=== PATIENT | female | born 1945 | race Caucasian/White ===

== ENCOUNTER → 2017-05-26 | Outpatient (CLI) | payer MEDICARE, BC ==
--- NOTE | 2017-05-28 09:29 | MM ---
Reason for exam: screening (asymptomatic). Last mammogram was performed 1 year ago. History: Patient is postmenopausal. Took estrogen for 21 years. Physical Findings: A clinical breast exam by your physician is recommended on an annual basis and results should be correlated with mammographic findings. MG 3D Screening Mammo W/Cad Bilateral CC and MLO view(s) were taken. Prior study comparison: May 21, 2016, bilateral MG screening mammo w CAD. There are scattered fibroglandular densities. No significant changes when compared with prior studies. ASSESSMENT: Benign, BI-RAD 2 RECOMMENDATION: Routine screening mammogram of both breasts in 1 year.
== END | disposition home or self-care (01) ==
LOC: RADMAMWWP 11:12
PROVIDERS: ATTEND Internal Medicine Geriatric Medicine
DX: Z12.31 Encounter for screening mammogram for malignant neoplasm of breast (principal)
CPT/HCPCS: 77063; G0202

== ENCOUNTER → 2017-09-25 | Outpatient (CLI) | payer MEDICARE, BC ==
--- NOTE | 2017-09-25 11:54 | PN ---
PROGRESS NOTE DATE OF SERVICE: 09/25/2017 A 71-year-old lady who has been followed in Sleep Center for treatment of obstructive sleep apnea-hypopnea syndrome. Patient continued to use her CPAP equipment recently. She received new full face mask and she likes this mask a lot. There is a possibility that machine does not estimate the amount of usage correctly. According to patient, sometimes she is using it at night and then machine showed zeros on the window screen of the usage of the machine. CPAP pressure is 9 cm of water, which has been prescribed on the machine. Leak is only 7 L/minute which is normal range. [place] Sleepiness Scale today is 2. MEDICATIONS: Catapres, Cozaar, Cardizem, Requip, Neurontin, atenolol, hydrochlorothiazide, baby aspirin, amiodarone, Celexa. PHYSICAL EXAM: Patient in no distress. BP 160/75. Patient did not take her medication today yet, HR 64, RR 16, height 5, 4-1/2, weight 135, BMI 22.8, temp 97.7, oxygen saturation at room air 96%. OROPHARYNX: Moderately low position of soft palate. Neck Supple, no JVD. Thyroid is not palpable. LUNGS Clear to percussion and to auscultation. Good air exchange. No wheezing or rhonchi. HEART S1, S2 regular. No murmurs, gallops, or rubs. ABDOMEN Soft and nontender. Bowel sounds are present. No organomegaly appreciated. EXTREMITIES No clubbing or cyanosis. GREEN CHAIN OFF BEARER Awake, alert, and oriented X3. Cranial nerves 2 to 7 intact. There is no fasciculation or atrophy. noted. No focal deficits observed. IMPRESSION: 1. Obstructive sleep apnea-hypopnea syndrome. Patient benefitting from treatment. 2. Hypertension. 3. History of anxiety. 4. Restless leg syndrome. PLAN: 1. Continue to use CPAP equipment every night for the whole night. 2. Sleep hygiene with regular time in bed for 7.5 hours. 3. No driving if feeling sleepiness. 4. To check CPAP unit to be sure that all functions of the unit are working properly. Thank you very much for allowing me to participate in the management of your patient. Sincerely, Mehran Walsh MD, PhD, FAASM Diplomat of [employer] Steam Press Operator [facility] [place] SWAPNA / SKYLAR: [id number] /
== END | disposition home or self-care (01) ==
LOC: SLEEP 10:38
PROVIDERS: ATTEND Internal Medicine
DX: G47.33 Obstructive sleep apnea (adult) (pediatric) (principal); G25.81 Restless legs syndrome; F41.9 Anxiety disorder, unspecified; I10 Essential (primary) hypertension; Z99.89 Dependence on other enabling machines and devices; Z79.82 Long term (current) use of aspirin; Z79.899 Other long term (current) drug therapy

== ENCOUNTER → 2018-03-26 | Outpatient (CLI) | payer MEDICARE, BC ==
--- NOTE | 2018-03-26 18:59 | SFUN ---
SLEEP CENTER FOLLOW UP NOTE DATE OF SERVICE: 03/26/2018 This 72-year-old lady has been followed in the Sleep Center for treatment of obstructive sleep apnea-hypopnea syndrome. Comparing with the previous visit, patient improved. She is able to use her machine. She feels better when she is using machine, but she still feel tired in the morning. I checked her CPAP unit. CPAP pressure is 9 cm of water. Usage is 18/30 nights for more than 4 hours. Average usage is 6.3 hours. Leak is 24 L/minute which is acceptable. Apnea-hypopnea index is 4.9, which is considered to be normal range but on the border. MEDICATIONS: Catapres, Cozaar, Cardizem, Requip, Neurontin, atenolol, hydrochlorothiazide, baby aspirin, amiodarone, Celexa. PHYSICAL EXAM: GENERAL Patient in no distress. VITAL SIGNS BP 115/63, HR 76, RR 16, height 5 feet 4 inches, weight 137, BMI 23.5, temperature 98.6, oxygen saturation room air 97%. HEENT PERRLA, EOMI, evaluation of oropharynx showed moderately low position of soft palate. NECK Supple, no JVD. Thyroid is not palpable. LUNGS Clear to percussion and to auscultation. Good air exchange. No wheezing or rhonchi. HEART S1, S2 regular. No murmurs, gallops, or rubs. ABDOMEN Soft and nontender. Bowel sounds are present. No organomegaly appreciated. EXTREMITIES No clubbing or cyanosis. CLOUD SERVICES ARCHITECT Awake, alert, and oriented X3. Cranial nerves 2 to 7 intact. There is no fasciculation or atrophy. noted. No focal deficits observed. IMPRESSION: 1. Obstructive sleep apnea-hypopnea syndrome. The patient improved usage of her CPAP benefitting from treatment. 2. Hypertension. 3. History of anxiety. 4. History of restless legs syndrome. PLAN: 1. Patient will continue to use his CPAP equipment every night for the whole night. 2. I changed the pressure in the machine to 10 cm of water to sleep hygiene. 3. Sleep hygiene with regular time in bed for 7 to 8 hours. 4. No driving if feeling sleepiness. 5. Clinically no problems with the legs at night. Thank you very much for allowing me to participate in management of your patient. Sincerely, Mehran Walsh MD, PhD, FAASM Diplomat of [employer] [employer] [employer] [facility] [place] [email or web address] / PAOLAN: [id number] /
== END | disposition home or self-care (01) ==
LOC: SLEEP 14:54
PROVIDERS: ATTEND Internal Medicine
DX: G47.33 Obstructive sleep apnea (adult) (pediatric) (principal); I10 Essential (primary) hypertension; F41.9 Anxiety disorder, unspecified; Z79.899 Other long term (current) drug therapy; Z79.82 Long term (current) use of aspirin; Z99.89 Dependence on other enabling machines and devices

== ENCOUNTER → 2018-09-16 | Outpatient (CLI) | payer MEDICARE, BC ==
--- NOTE | 2018-09-16 16:13 | PN ---
PROGRESS NOTE DATE OF SERVICE: 09/16/2018 This patient is a 72-year-old lady who has been followed in Sleep Center for treatment of obstructive sleep apnea-hypopnea syndrome. The patient continues to use her CPAP equipment every night, and after pressure was increased to 10 cm of water she feels better. [place] Sleepiness Scale today is 2. I checked her CPAP unit. CPAP pressure is 10 cm of water with EPR of 3. Humidifier level is at 4. Average usage for the last 6 months was 7.1 hours. Apnea-hypopnea index 5.7. Average leak for the last 6 months was 20 L/minute, which is borderline. MEDICATIONS: 1. Catapres. 2. Cozaar. 3. Cardizem. 4. Requip. 5. Neurontin. 6. Atenolol. 7. Hydrochlorothiazide. 8. Baby aspirin. 9. Amiodarone. 10.Celexa. PHYSICAL EXAMINATION: GENERAL: A pleasant patient in no distress. VITAL SIGNS: BP 114/64, HR 67, RR 16, height 5 feet 4 inches, weight 137.2, body mass index 23.5, temperature 98.0, oxygen saturation at room air 96%. HEENT: PERRLA, EOMI. Evaluation of oropharynx showed tongue protrudes midline. Moderately low position of soft palate. NECK: Supple. No JVD. Thyroid is not palpable. LUNGS: Clear to percussion and to auscultation. Good air exchange. No wheezing or rhonchi. HEART: S1, S2 regular. No murmurs, gallops or rubs. ABDOMEN: Soft and nontender. Bowel sounds are present. No organomegaly. EXTREMITIES: No clubbing or cyanosis. VISCOSITY WORKER: Awake, alert, and oriented X3. Cranial nerves 2 to 7 intact. There is no fasciculation or atrophy. noted. No focal deficits observed. IMPRESSION: 1. Obstructive sleep apnea-hypopnea syndrome. Patient is benefitting from CPAP treatment. 2. Hypertension. 3. History of anxiety. 4. History of restless leg syndrome. PLAN: 1. Patient will continue to use CPAP equipment every night. 2. Sleep hygiene with regular time in bed for at least 8 hours. 3. No driving if feeling any sleepiness. 4. Prescription for all necessary CPAP supplies, including mask, tube, filters. Thank you very much for allowing me to participate in the management of your patient. Sincerely, Mehran Walsh MD, PhD, FAASM Diplomat of [employer] Featheredger And Reducer Machine [facility] [place] MMSARAH / SKYLAR: [id number] /
== END | disposition home or self-care (01) ==
LOC: SLEEP 14:54
PROVIDERS: ATTEND Internal Medicine
DX: G47.33 Obstructive sleep apnea (adult) (pediatric) (principal); I10 Essential (primary) hypertension; F41.9 Anxiety disorder, unspecified; G25.81 Restless legs syndrome; Z99.89 Dependence on other enabling machines and devices; Z79.82 Long term (current) use of aspirin; Z79.899 Other long term (current) drug therapy

== ENCOUNTER → 2019-01-01 | Outpatient (CLI) | payer MEDICARE, BC ==
--- NOTE | 2019-01-04 09:41 | MM ---
Reason for exam: screening (asymptomatic). Last mammogram was performed 1 year and 7 months ago. History: Patient is postmenopausal. Took estrogen for 21 years. Physical Findings: A clinical breast exam by your physician is recommended on an annual basis and results should be correlated with mammographic findings. MG 3D Screening Mammo W/Cad Bilateral CC and MLO view(s) were taken. Prior study comparison: May 26, 2017, bilateral MG 3d screening mammo w/cad. May 21, 2016, bilateral MG screening mammo w CAD. The breast tissue is heterogeneously dense. This may lower the sensitivity of mammography. Stable benign calcifications. There is no discrete abnormality. No significant changes when compared with prior studies. ASSESSMENT: Benign, BI-RAD 2 RECOMMENDATION: Routine screening mammogram of both breasts in 1 year.
--- NOTE | 2019-01-04 13:17 | BD ---
EXAMINATION TYPE: Axial Bone Density DATE OF EXAM: 01/01/2019 COMPARISON: NONE CLINICAL HISTORY: Height: 65 Weight: 138.8 FRAX RISK QUESTIONS: Alcohol (3 or more units per day): no Family History (Parent hip fracture): no Glucocorticoids (More than 3mos): no (Ex: prednisone, prednisolone, methylprednisolone, dexamethasone, and hydrocortisone). History of Fracture in Adulthood: yes Secondary Osteoporosis: 1. Type 1 Diabetes: no 2. Hyperthyroidism: no 3. Menopause before 45: yes 4. Malnutrition: no 5. Chronic liver disease: no Rheumatoid Arthritis: no Current Tobacco Use: no RISK FACTORS HISTORY OF: Surgery to Spine/Hip(right/left)/Wrist (right/left): left hip replaced When: 6 years ago Family History of Osteoporosis: no Active: yes Diet low in dairy products/other sources of calcium: yes Postmenopausal woman: hysterectomy age 31 Lost more than 2 inches in height since high school: no MEDICATIONS: requip, losartan, atenolol, celexia, remron, gabapentin Additional History: EXAM MEASUREMENTS: Bone mineral densitometry was performed using the Razer System. Bone mineral density as measured about the Lumbar spine is: ----- L1-L4(G/cm2): 1.595 T Score Values are as follows: ----- L2: 3.6 ----- L3: 4.4 ----- L4: 4.4 ----- L1-L4: 3.5 Bone mineral density has: increased 12.6 % since study of: 11.28.2014 Bone mineral density about the R hip (g/cm2): 0.810 T Score values are as follows: -----R Neck: -1.6 -----R Total: -1.5 Bone mineral density has: decreased -4.0 % since study of: 11.28.2014 IMPRESSION: Osteopenia bilateral femora NOTE: T-SCORE=SD OF THE YOUNG ADULT MEAN.
== END | disposition home or self-care (01) ==
LOC: RADMAMWWP 15:15
PROVIDERS: ATTEND Internal Medicine Geriatric Medicine
DX: Z12.31 Encounter for screening mammogram for malignant neoplasm of breast (principal); M85.851 Other specified disorders of bone density and structure, right thigh; M85.852 Other specified disorders of bone density and structure, left thigh
CPT/HCPCS: 77063; 77067; 77080

== ENCOUNTER → 2019-09-13 | Outpatient (CLI) | payer MEDICARE, BC ==
--- NOTE | 2019-09-13 10:38 | FL ---
EXAMINATION TYPE: FL barium swallow DATE OF EXAM: 09/13/2019 CLINICAL HISTORY: Upper esophageal dysphagia TECHNIQUE: A double contrast esophagram is performed utilizing air and barium. A total of 1 minute and 44 seconds of fluoroscopic time was utilized during procedure.. 56 fluoroscopic images were saved . COMPARISON: None FINDINGS: Cervical osteophytes are seen impressing upon the posterior cervical esophagus. The esophag us shows normal abnormal throughout indicative of presbyesophagus. There is normal emptying into the stomach. No evidence of hiatal hernia or stricture noted. Mild intraesophageal reflux is seen with n o significant gastroesophageal reflux was seen during real time performance of this study. IMPRESSION: 1. Anterior osteophytes of the cervical spine impress upon the posterior cervical esophagus. 2. Mild degree intraesophageal reflux without gastroesophageal reflux. 3. Tertiary contractions throughout the examination indicative of presbyesophagus.
== END | disposition home or self-care (01) ==
LOC: RADUSWWP 09:07
PROVIDERS: ATTEND Otolaryngology
DX: K21.9 Gastro-esophageal reflux disease without esophagitis (principal); K22.8 Other specified diseases of esophagus
CPT/HCPCS: 74220

== ENCOUNTER → 2019-09-23 | Outpatient (CLI) | payer MEDICARE, BC ==
--- NOTE | 2019-09-23 12:51 | SFUN ---
SLEEP CENTER FOLLOW UP NOTE DATE OF SERVICE: 09/23/2019 A 73-year-old lady who has been followed in the Sleep Center for treatment of obstructive sleep apnea-hypopnea syndrome. The patient continued to use CPAP equipment and she now sleeps better with the machine, then when she started to use it, but she has problem related SD card, there is a message in the machine that the SD card has to be removed before she will use it and that is here we removed the card. She also has some leak related to show full-face mask sometimes and this might disturb her during the night. I checked his CPAP unit. Average usage is 6.4 hours per night. Pressure is 10 cm of water. Leak is 19 L/minute, which is not bad for the full-face mask. Apnea- hypopnea index reading for the last month 6.7 and that is included. Total apnea index 5.4, central apnea index 0.8. [place] Sleepiness Scale today is 1. MEDICATIONS: Catapres, Cozaar, Cardizem, Requip, Neurontin, atenolol, hydrochlorothiazide, baby aspirin, amiodarone, Celexa. PHYSICAL EXAM: Patient in no distress, BP 120/47, HR 63, RR 16, height 5, 5, weight 141.4, body mass index 23.4, temperature 98.5, oxygen saturation at room air 93%. OROPHARYNX: Mallampati 3. NECK: Supple, no JVD. Thyroid is not palpable. LUNGS: Clear to percussion and to auscultation. Good air exchange. No wheezing or rhonchi. HEART: S1, S2 regular. No murmurs, gallops, or rubs. ABDOMEN: Soft and nontender. Bowel sounds are present. No organomegaly appreciated. EXTREMITIES: No clubbing or cyanosis. STATOR PLATE WASHER: Awake, alert, and oriented X3. Cranial nerves 2 to 7 intact. There is no fasciculation or atrophy. noted. No focal deficits observed. IMPRESSION: 1. Obstructive sleep apnea-hypopnea syndrome, patient benefitting from CPAP treatment. 2. Hypertension. 3. History of anxiety. 4. History of restless legs syndrome. Patient is on treatment with Requip. PLAN: 1. I will change regimen in the machine with automatic in the range of the pressure of 5-12. 2. Patient will continue to use CPAP equipment every night for the whole night. 3. I will consider to try Dream Wear mask under the nose or Simplex full-face mask. 4. No driving if feeling sleepiness. 5. Prescription to replace SD card in the machine and the prescription for all necessary CPAP supplies, including mask, tube, filters. 6. Follow-up visit in 6 months or earlier if patient has any problems. Thank you very much for allowing me to participate in the management of your patient. Sincerely, Mehran Walsh MD, PhD, FAASM Diplomat of [place] [employer] [employer] Refrigerated Cargo Clerk [facility] [place] MMODL / IJN: [id number] /
== END | disposition home or self-care (01) ==
LOC: SLEEP 11:11
PROVIDERS: ATTEND Internal Medicine
DX: G47.33 Obstructive sleep apnea (adult) (pediatric) (principal); I10 Essential (primary) hypertension; Z86.59 Personal history of other mental and behavioral disorders; Z87.39 Personal history of other diseases of the musculoskeletal system and connective tissue; Z79.82 Long term (current) use of aspirin; Z79.899 Other long term (current) drug therapy

== ENCOUNTER 2020-02-28 09:14 | Day surgery (SDC) | payer MEDICARE, BC ==
[2020-02-25 08:35] VITALS: BMI 22.4
--- NOTE | 2020-02-28 02:01 | HP ---
HISTORY AND PHYSICAL CHIEF COMPLAINT: Lesion in the hypopharynx with pain. HISTORY OF PRESENT ILLNESS: This patient is a 74-year-old female who recently presented to my office complaining of having a pain in the left side of her throat, which has been there since October of this year. The patient has had x-rays which did not find any evidence of any significant lesions originally. However, since October, she has developed an enlarged lymph node on the left side of her neck. She does not have any history of smoking and has not ever used any tobacco products. She does have history of GERD, gastroesophageal reflux disorder. At the time that she was seen in my office, clinical examination of the oropharynx including indirect laryngoscopy revealed some suspicious swelling in the region of the left base of tongue as well as a 1.5 well-circumscribed mobile nontender lymph node located in the left anterior cervical chain. It was recommended the patient undergo a suspension microlaryngoscopy with possible biopsy of the left base of tongue or any other lesion that may be found in the hypopharynx. PAST MEDICAL HISTORY: Past medical history reveals that she has no known allergies to medications. Current medications include Celexa, atenolol, Ativan, Requip, Neurontin, Cozaar, Remeron and one baby aspirin daily. REVIEW OF SYSTEMS: Review of systems reveals the cardiovascular systems is positive for hypertension. Respiratory is negative. Gastrointestinal is positive for GERD. Metabolic/endocrine system is negative. Musculoskeletal system is positive osteoarthritis and restless legs syndrome. The remainder of the review of systems is unremarkable. PREVIOUS SURGERIES: Previous surgeries include tonsillectomy, adenoidectomy, total abdominal hysterectomy, multiple D and Cs, surgery on her cervical spine, total left hip replacement, and removal of basal cell carcinoma of the back and an EGD. PHYSICAL EXAMINATION: This patient is a very pleasant 74-year-old female who is alert and cooperative. HEENT EXAMINATION: Patient is normocephalic. Tympanic membranes are normal. Middle ear spaces are free of any fluid or infection. Pupils equal, round, react to light and accommodation. Extraocular movements within normal limits. Intranasal examination reveals moderate septal deviation with compensatory hypertrophy of inferior turbinates. Moderate amount of mucus on the mucous membrane draining down posterior pharynx. Examination of oropharynx including indirect laryngoscopy using the headlight mirror revealed evidence of a suspicious area located in the region of the left base of tongue/left piriform sinus. Palpation of the neck reveals that there is a 1 to 1.5 cm well-circumscribed mobile nontender lymph node in the left anterior cervical chain. Cranial nerves 2 through 12 and the remainder of the head and neck exam is unremarkable. CHEST/CARDIOVASCULAR: Both lung mendes are clear to percussion and auscultation. The patient is in regular sinus rhythm. S1 and S2 are present without evidence of any murmurs, S3s or S4s. Peripheral pulses are bilaterally symmetrical. ABDOMEN: There is no evidence any masses, megaly or tenderness. The abdomen is soft. Skin is unremarkable. Musculoskeletal and neurological are within normal limits. PELVIC RECTAL EXAM: The pelvic rectal exam is deferred at this time because the patient has this done on a regular basis at her family physician's office. The remainder of the physical exam is essentially unremarkable. IMPRESSION: Lesion of the hypopharynx. PLAN: The patient is scheduled to undergo a suspension microlaryngoscopy, possible biopsy of any lesions found in the hypopharynx under general anesthesia in a.m. ATTENTION RNS IN THE PRE-SURGICAL AREA: I have not ordered any pre-surgical prophylactic antibiotics for this patient. If the pharmacy department sends any pre- surgical prophylactic antibiotics to the pre-surgical area for this patient, please cancel that order. Return the medication to the pharmacy department and make sure that the patient's account is credited appropriately. I have ordered for this patient 1000 mg of Ofirmev IV to be given once an intravenous line has been established. I have discussed the risks, benefits and alternative therapies for the above-mentioned procedure and for both sedation/analgesia as well as necessary blood product administration, if indicated, as they pertain to this patient. The patient has indicated his or her understanding and acceptance of the risks and procedures discussed. MMODL / IJN: [id number] /
[~2020-02-28 09:14] MED LIST: HYDROmorphone 0.5 MG/0.5 ML SYRINGE IVP PRN; LACTATED RINGERS 1,000 ML IV SCH; MIDAZOLAM 2 MG/2 ML VIAL IV PRN; ONDANSETRON 4 MG/2 ML VIAL IVP ONE; Pre Op ABX Message 1 EACH MISC MISCELLANE ONE
[2020-02-28] MEDS ORDERED: LIDOCAINE 1% (10MG/ML) FOR IV START INTRADERMA ONE (09:57)
[2020-02-28] MEDS ORDERED: ONDANSETRON 4 MG/2 ML VIAL ONE (10:04)
[2020-02-28] MEDS ORDERED: ACETAMINOPHEN IV (For NPO) 1,000 MG in EMPTY BAG 1 BAG IVPB ONE (10:40)
[2020-02-28] MEDS ORDERED: DEXAMETHASONE SOD PHOSPHATE 10 MG/ML 1 ML VIAL ONE (10:52)
[2020-02-28] MEDS ORDERED: LIDOCAINE 1% INJ 10MG/ML (20 ML MDV) ONE (10:52)
[2020-02-28] MEDS ORDERED: ROCURONIUM BROMIDE 10 MG/ML 5 ML VIAL IV ONE (10:52)
[2020-02-28] MEDS ORDERED: GLYCOPYRROLATE 0.2 MG/ML 2 ML VIAL ONE (10:52)
[2020-02-28] MEDS ORDERED: fentaNYL (PF) 50 MCG/ML 2 ML AMP ONE (10:52)
[2020-02-28] MEDS ORDERED: SUCCINYLCHOLINE CHLORIDE 100 MG/5 ML SYR IV ONE (10:52)
[2020-02-28] MEDS ORDERED: MIDAZOLAM 2 MG/2 ML VIAL ONE (10:52)
[2020-02-28] MEDS ORDERED: PROPOFOL 10 MG/ML 20 ML VIAL IV ONE (10:52)
[2020-02-28] MEDS ORDERED: NEOSTIGMINE 1 MG/ML 10 ML VIAL ONE (10:52)
[2020-02-28] MEDS ORDERED: PHENYLEPHRINE-0.9% NACL SYG 1 MG/10 ML SYRINGE ONE (10:52)
[2020-02-28 12:10] VITALS: TEMP 97.2
[2020-02-28 13:16] VITALS: RESP 16
[2020-02-28 13:34] VITALS: BP 153/68; PULSE 50
--- NOTE | 2020-02-28 23:15 | OP ---
OPERATIVE REPORT PREOPERATIVE DIAGNOSIS: Lesion of the left hypopharynx/left piriform sinus. POSTOPERATIVE DIAGNOSIS: Lesion of the left hypopharynx/left piriform sinus. Final pathology is pending. ANESTHESIA: General. OPERATIVE PROCEDURE: Suspension microlaryngoscopy with multiple blind biopsies of the left piriform sinus and left base of tongue. SURGEON: Dr. Adamson. COMPLICATIONS: None. ESTIMATED BLOOD LOSS: Zero. PROCEDURE DESCRIPTION: The patient was placed on the operating table in supine position, and after uneventful induction and endotracheal intubation, satisfactory general anesthesia was obtained. Next, the patient was draped in the usual and customary fashion. Following this, the laryngoscope was introduced into the oropharynx and the entire hypopharynx, including the right and left piriform sinuses, valleculae and epiglottis, were all inspected and found to be free of any suspicious lesions. Both true vocal cords appeared to be unremarkable also. Attention was then directed towards placing the laryngoscope as far into the left piriform sinus as possible so as to expose it. In doing so, it was noted that there appeared to be an area of irregular tissue present at the superior aspect of the left piriform sinus and also the left base of tongue. Therefore, using a pair of large up- biting microlaryngeal forceps, blind biopsies were taken of the left base of tongue and of this irregular area of tissue on the left piriform sinus. The area appeared to be more on the lateral wall of the left piriform sinus superiorly. The patient was given 10 mg of Decadron intraoperatively to reduce any postoperative laryngeal edema. Next the Lewy apparatus was attached to the handle of the laryngoscope and the laryngoscope was suspended on the patient's chest. Next, using the Zeiss operating microscope, further inspection of the left piriform sinus was performed. In addition to this, several additional biopsies were also taken of the left piriform sinus. This tissue appeared to be suspicious for possible malignancy. At this point, the procedure was terminated. There were no intraoperative complications. The patient tolerated the procedure well and was returned to the recovery room in satisfactory condition. The biopsy specimens were placed in formalin for permanent sectioning in the pathology department. MMODL / IJN: [id number] /
== END 2020-02-28 13:53 | disposition home or self-care (01) ==
LOC: OR 09:14
PROVIDERS: ATTEND Otolaryngology
DX: C12 Malignant neoplasm of pyriform sinus (principal); C01 Malignant neoplasm of base of tongue; J39.2 Other diseases of pharynx; K21.9 Gastro-esophageal reflux disease without esophagitis; I10 Essential (primary) hypertension; M19.90 Unspecified osteoarthritis, unspecified site; G25.81 Restless legs syndrome; G47.33 Obstructive sleep apnea (adult) (pediatric); Z99.89 Dependence on other enabling machines and devices; F32.9 Major depressive disorder, single episode, unspecified; Z90.710 Acquired absence of both cervix and uterus; Z96.642 Presence of left artificial hip joint; Z98.890 Other specified postprocedural states; Z79.82 Long term (current) use of aspirin; Z79.899 Other long term (current) drug therapy
CPT/HCPCS: 31536; 88305; 88342; 88307; 88341; J2250; J1100; J2710; J2405; J2001; J3010; J0131; J2370; J0330; J2704; J1170

== ENCOUNTER → 2020-03-08 | Outpatient (CLI) | payer MEDICARE, BC ==
--- NOTE | 2020-03-08 15:43 | CT ---
EXAMINATION TYPE: CT soft tissue neck w con DATE OF EXAM: 03/08/2020 COMPARISON: None HISTORY: Left neck mass marked by BB. CT DLP: 350.2 mGycm CONTRAST: Patient injected with 100 mL of Isovue M300. TECHNIQUE: Axial images at 3 mm thick sections. Reconstructed images in the coronal plane and sagitt al plane are reviewed. FINDINGS: Limited CT sections are obtained the lung apices. The lung apices appear clear. CT neck: The torus tubarius and fossa of Rosenmuller are normal. Certified Professional Controller spaces are normal. Para nasal sinuses and mastoid air cells are clear. Parotid glands appear normal and symmetrical. Submandibular glands, are normal. Parapharyngeal spac es are normal. A 1.0 cm jugulodigastric lymph node is present on the left. Some heterogenous lymphad enopathy measuring 1.3 and 1.0 cm is at and below the angle of the jaw on the left. These lymph nodes are considered suspicious. Metastatic disease should be considered. BB brand the lateral left neck at the level of the mass. This appears to be near the inferior aspect of the left parotid gland is slightly away from the abnormal lymphadenopathy. There is a masslike area within the left hypopharynx. This appears to measure 1.9 x 2.7 cm, series 3 image 49. Direct visualization is recommended. Neoplasm is not excluded. Vocal cord level is not well visualized. Subglottic airway appears normal There is some hypodensity within the right lobe thyroid. Thyroid otherwise appears unremarkable. Degenerative changes are within the upper to mid cervical spine. Some endplate spurring is present C4 -5 C5-6. Large anterior vertebral body spurring is present C3-4 C4-5. IMPRESSIONS: 1. Abnormal mass left piriform sinus and inferior left hypopharynx suspicious for neoplasm. Direct vi sualization and workup is recommended. 2. Enlarged abnormal adenopathy within the left jugulodigastric region and inferior to the left parot id gland. 3. The level marked by the BB is a mass is posterior and slightly superior to the abnormal lymphadeno murphy. This is near the inferior aspect of the parotid gland. A discrete abnormality at the BB is not evident.
== END | disposition home or self-care (01) ==
LOC: RADCTMAIN 12:59
PROVIDERS: ATTEND Otolaryngology
DX: R22.1 Localized swelling, mass and lump, neck (principal)
CPT/HCPCS: 82565; 84520; 70491; 36415; Q9967

== ENCOUNTER → 2020-03-13 | Day surgery (SDC) | payer MEDICARE, BC ==
[2020-03-10 12:25] VITALS: BMI 22.6
--- NOTE | 2020-03-12 16:59 | HP ---
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 HISTORY OF PRESENT ILLNESS: This patient is a very pleasant 74-year-old female who recently underwent a suspension microlaryngoscopy with biopsy of the left piriform sinus and left base of tongue for a hypopharyngeal mass. The biopsy results revealed that they were positive for squamous cell carcinoma. As part of the patient's workup, the patient has undergone an esophagoscopy by Dr. Chan and it is now recommended that she undergo a rigid bronchoscopy as part of the triple endoscopy recommendation for the for head and neck cancers. The purpose of this procedure is to make sure that she does not have a secondary synchronous primary elsewhere in the aerodigestive tract. PAST MEDICAL HISTORY: She has no known allergies. MEDICATIONS: Current medications include atenolol, Ativan, Celexa, Requip, Cozaar, Remeron, Neurontin and 1 baby aspirin daily. PREVIOUS SURGERIES: Previous surgeries include a suspension microlaryngoscopy with biopsy of the hypopharynx, adenoidectomy, tonsillectomy, multiple D and Cs, total abdominal hysterectomy, surgical surgery on cervical spine, total left hip replacement, EGD, and removal of basal cell carcinoma on the back. The patient is para 0, 0, miscarriage 0. PHYSICAL EXAMINATION: The patient is a very pleasant 74-year-old female who is alert, cooperative and well- oriented to time and place. HEENT examination: Patient is normocephalic. Tympanic membranes are normal. Middle ear spaces are free of fluid and infection. Pupils equal, round, and react to light and accommodation. Extraocular movements within normal limits. Intranasal examination reveals moderate septal deviation with compensatory hypertrophy of inferior turbinates. Examination of oropharynx is unremarkable. Hypopharyngeal findings are documented in the history and physical dated 02/24/2020 and will not be repeated here. Palpation of the neck reveals that there is a suspicious 1 cm well-circumscribed, nontender, mobile, enlarged lymph node on the left anterior cervical chain. The remainder of the head and neck exam including cranial nerves 2 through 12 are within normal limits. Chest/cardiovascular: Both lung mendes are clear to percussion and auscultation. Patient in regular sinus rhythm, S1, S2 present. No murmurs, S3, or S4s. Peripheral pulses are bilaterally symmetrical within normal limits. Abdomen: There is no evidence of any masses, megaly or tenderness. Abdomen soft. Skin is unremarkable. Musculoskeletal, neurological within normal limits. Pelvic/rectal exam is deferred at this time because the patient has this done on a regular basis at her family physician's office. The remainder of the physical exam is unremarkable. 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 PLAN: The patient is scheduled to undergo a rigid bronchoscopy under general anesthesia in the a.m. Attention RNs in the pre-surgical area: I have not ordered any pre-surgical prophylactic antibiotics for this patient. If the pharmacy department sends any pre- surgical prophylactic antibiotics to the pre-surgical area for this patient, that order should be cancelled, the medication should be returned to the pharmacy department, and please make sure that the patient's account is credited appropriately. I have discussed the risks, benefits and alternative therapies for the above-mentioned procedure and for both sedation/analgesia as well as necessary blood product administration, if indicated, as they pertain to this patient. The patient has indicated his or her understanding and acceptance of the risks and procedures discussed. MMODL / IJN: [id number] /
[~2020-03-13] MED LIST changes: +DEXAMETHASONE SOD PHOSPHATE 10 MG/ML 1 ML VIAL IV ONE; +LACTATED RINGERS 1,000 ML IV ONE; +LIDOCAINE 1% (10MG/ML) FOR IV START INTRADERMA PRN; +LIDOCAINE 1% INJ 10MG/ML (20 ML MDV) ONE; +MIDAZOLAM 2 MG/2 ML VIAL ONE; -ONDANSETRON 4 MG/2 ML VIAL IVP ONE; +PROPOFOL 10 MG/ML 20 ML VIAL IV ONE; +SUCCINYLCHOLINE CHLORIDE 100 MG/5 ML SYR IV ONE; +fentaNYL (PF) 50 MCG/ML 2 ML AMP ONE
[2020-03-13 10:30] VITALS: TEMP 97.3
[2020-03-13 13:34] VITALS: RESP 20
[2020-03-13 13:45] VITALS: BP 159/71; PULSE 59
--- NOTE | 2020-03-13 19:01 | OP ---
OPERATIVE REPORT DATE OF SURGERY: 03/13/2020 POSTOPERATIVE DIAGNOSIS: Squamous cell carcinoma involving the left piriform sinus and left base of tongue. POSTOPERATIVE DIAGNOSIS: Squamous cell carcinoma involving the left piriform sinus and left base of tongue. ANESTHESIA: General. OPERATIVE PROCEDURE: Rigid bronchoscopy and direct laryngoscopy. SURGEON: Dr. Bolivar Adamson. COMPLICATIONS: None. PROCEDURE DESCRIPTION: The patient was placed on the operating table in supine position, and after uneventful induction and endotracheal intubation, satisfactory general anesthesia was obtained. It was known that this patient has positive squamous cell carcinoma involving the left piriform sinus with possible spillage into the hypopharynx or left base of tongue. Therefore, after inserting a mouth guard, the sliding direct laryngoscope was introduced into the oropharynx and once again the entire hypopharynx, including the right and left piriform sinuses, base of tongue, valleculae and epiglottis, was inspected. As noted before, there was the mass located in the superior aspect of the left piriform sinus and there appeared to be some spillage either onto the left base of tongue or actual involvement of the left base of tongue slightly. Palpation of the left base of tongue did not reveal unusual firmness, however, using the suction tip. The sliding laryngoscope was then positioned at the laryngeal introitus, and under direct visualization the medium-sized rigid bronchoscope was introduced into the sliding laryngoscope in the usual fashion with the tip of the scope being presented at and subsequently passed through the anterior commissure of the true vocal cord. In conjunction with the anesthesia department, the endotracheal tube was deflated, and as the anesthesia department withdrew the endotracheal tube, the laryngoscope was passed further into the patient's trachea. Eventually the patient was extubated without incident. The scope was then passed into the trachea and subsequently down initially into the left mainstem bronchus and subsequently into the right mainstem bronchus. No suspicious lesions were noted, although there was a significant amount of mucus. The scope was then withdrawn in an atraumatic fashion. There was only minimal bleeding from the patient's hypopharyngeal lesion due to its friability. The patient was given 10 mg of Decadron intraoperatively to reduce any swelling of the laryngeal structures. No biopsies were obtained because no suspicious lesions were noted. At this point, the procedure was terminated. Previously obtained biopsies confirmed the presence of a squamous cell carcinoma involving the left piriform sinus and, as noted before, there appeared to be either some spillage onto the left base of tongue or possible slight involvement of the left base of tongue. Because of the position of this mass, it was difficult to determine this. Actual palpation of the left base of tongue did not reveal any significant firmness. The procedure was terminated. There were no intraoperative complications. Patient tolerated the procedure well and was returned to the recovery room in satisfactory condition. Once again, no biopsies were taken because no suspicious lesions were noted in the bronchial tree. MMODL / IJN: [id number] /
== END | disposition home or self-care (01) ==
LOC: OR 09:58
PROVIDERS: ATTEND Otolaryngology
DX: C12 Malignant neoplasm of pyriform sinus (principal); C01 Malignant neoplasm of base of tongue; I10 Essential (primary) hypertension; G47.33 Obstructive sleep apnea (adult) (pediatric); K57.90 Diverticulosis of intestine, part unspecified, without perforation or abscess without bleeding; R13.10 Dysphagia, unspecified; Z98.890 Other specified postprocedural states; Z79.899 Other long term (current) drug therapy; Z79.82 Long term (current) use of aspirin; Z90.89 Acquired absence of other organs; Z90.710 Acquired absence of both cervix and uterus; Z96.642 Presence of left artificial hip joint; Z85.828 Personal history of other malignant neoplasm of skin
CPT/HCPCS: 31622; 31525; J2250; J1100; J2001; J3010; J0330; J2704

== ENCOUNTER 2020-05-28 20:25 | Inpatient (IN) | payer MEDICARE, BC ==
[2020-05-28] MEDS ORDERED: SODIUM CHLORIDE 0.9% 1,000 ML IV STA (20:56)
[2020-05-28 21:59] LABS: HCT 20.7 % (34.0-46.0); MCHC 32.9 g/dL (31.0-37.0); MCV 94.2 fL (80.0-100.0); RDW 14.4 % (11.5-15.5)
--- NOTE | 2020-05-28 22:03 | ED ---
Fever HPI - General Chief Complaint: Fever Stated Complaint: Fever, Fall Time Seen by Provider: 05/28/20 20:25 Source: patient Mode of arrival: wheelchair Limitations: no limitations - History of Present Illness Initial Comments: Patient is a 74-year-old female who presents to the emergency room with reported "throat cancer" who presents emergency room with reported fevers. Patient states she's felt generally weak over the past week. She is currently on radiation Friday through Friday and received chemotherapy on Fridays. She follows with Dr. Zheng. Reports that she sustained 3 falls. She go to [facility] yesterday. She had a CT of her head performed as well as a chest x-ray and laboratory studies. I did want to keep her in the hospital however the patient refused as she was concerned that she was going to miss her radiation treatments. She then went home. Today the patient had a reported fever 100.6. She did take her pain medications at home which includes Tylenol. She discuss what was going on with Dr. Zheng's office and they recommended that she go to the emergency room for further evaluation. Patient sustained a another fall today. Denies any injuries. She denies hitting her head. She did note that she had some white plaquing to her posterior pharynx. Is concerned for thrush. Denies headaches or visual changes. No neck pain or stiffness. Denies any chest pain or shortness of breath. No abdominal pain. No changes in her bowel or bladder habits. Has been tolerating her tube feeds without issue. Denies any rashes. No other alleviating, precipitating or modifying factors - Related Data Home Medications Medication Instructions Recorded Confirmed Aspirin [Adult Low Dose Aspirin EC] 81 mg PO DAILY 02/25/20 05/28/20 Citalopram Hydrobromide 40 mg PO HS 02/25/20 05/28/20 [Citalopram HBr] Gabapentin [Neurontin] 300 mg PO QAM 02/25/20 05/28/20 Gabapentin [Neurontin] 600 mg PO HS 02/25/20 05/28/20 Losartan Potassium [Cozaar] 50 mg PO HS 02/25/20 05/28/20 Mirtazapine 45 mg PO HS 02/25/20 05/28/20 atenoloL [Tenormin] 50 mg PO HS 02/25/20 05/28/20 hydroCHLOROthiazide 25 mg PO QAM 02/25/20 05/28/20 rOPINIRole HCL [Requip] 3 mg PO HS 02/25/20 05/28/20 HYDROcodone/APAP [Reydon Elixir 15 ml PO Q8H PRN 05/28/20 05/28/20 7.5-325Mg/15Ml] LORazepam [Ativan] 1 mg PO TID PRN 05/28/20 05/28/20 Magnesium Oxide [Mag-Ox] 400 mg PO DAILY 05/28/20 05/28/20 Omeprazole 40 mg PO DAILY 05/28/20 05/28/20 Ondansetron Odt [Zofran Odt] 8 mg PO Q8HR PRN 05/28/20 05/28/20 Allergies Allergy/AdvReac Type Severity Reaction Status Date / Time No Known Allergies Allergy Verified 05/28/20 23:00 Review of Systems ROS Statement: Those systems with pertinent positive or pertinent negative responses have been documented in the HPI. ROS Other: All systems not noted in ROS Statement are negative. Past Medical History Past Medical History: Cancer, Hypertension, Skin Disorder, Sleep Apnea/CPAP/BIPAP Additional Past Medical History / Comment(s): 2007-bowel obstruction, diverticulitis, eczema, hx skin cancer, pain with swallowing, cancer base of tongue left side, feeding tube, throat cancer. History of Any Multi-Drug Resistant Organisms: MRSA Date of last positivie culture/infection: 2007 MDRO Source:: abdomen Past Surgical History: Back Surgery, Hysterectomy, Joint Replacement, Orthopedic Surgery, Tonsillectomy Additional Past Surgical History / Comment(s): surgery for bowel obstructions/removal of adhesions, xiao oophorectomy, disectomy, left hip re placement, left knee arthroscopy, xiao cataracts Past Anesthesia/Blood Transfusion Reactions: No Reported Reaction Past Psychological History: No Psychological Hx Reported Smoking Status: Never smoker Past Alcohol Use History: Occasional Past Drug Use History: None Reported - Past Family History Mother Family Medical History: No Reported History General Exam Limitations: no limitations General appearance: alert, in no apparent distress Head exam: Present: atraumatic, normocephalic Eye exam: Present: normal appearance, PERRL, EOMI. Absent: scleral icterus, conjunctival injection, periorbital swelling ENT exam: Present: other (radiation burn over left lateral neck. White plaquing left posterior pharynx. Hoarseness. No drooling or stridor ) Neck exam: Present: tenderness. Absent: meningismus, lymphadenopathy Respiratory exam: Present: normal lung sounds bilaterally. Absent: respiratory distress, wheezes, rales, rhonchi, stridor Cardiovascular Exam: Present: regular rate, normal rhythm, normal heart sounds. Absent: systolic murmur, diastolic murmur, rubs, gallop, clicks GI/Abdominal exam: Present: soft, normal bowel sounds. Absent: distended, tenderness, guarding, rebound, rigid Back exam: Present: normal inspection Neurological exam: Present: alert, oriented X3, CN II-XII intact Psychiatric exam: Present: normal affect, normal mood Skin exam: Present: warm, dry, intact, normal color. Absent: rash Course Vital Signs 05/28/20 05/28/20 05/28/20 20:26 21:12 21:30 Temperature 98.8 F Pulse Rate 60 69 71 Pulse Rate [ Left Pulse Oximetery] Respiratory 18 18 16 Rate Blood Pressure 85/41 118/57 111/67 Blood Pressure [Left Arm] O2 Sat by Pulse 100 94 L 92 L Oximetry 05/28/20 05/28/20 05/28/20 21:48 22:00 23:00 Temperature 98.7 F Pulse Rate 64 70 Pulse Rate [ Left Pulse Oximetery] Respiratory 18 18 Rate Blood Pressure 123/54 123/54 Blood Pressure [Left Arm] O2 Sat by Pulse 96 95 Oximetry 05/28/20 05/29/20 05/29/20 23:47 01:32 06:34 Temperature 98.7 F 99.0 F Pulse Rate 65 74 73 Pulse Rate [ Left Pulse Oximetery] Respiratory 18 19 17 Rate Blood Pressure 110/52 133/59 152/66 Blood Pressure [Left Arm] O2 Sat by Pulse 95 96 94 L Oximetry 05/29/20 05/29/20 05/29/20 06:44 07:14 08:00 Temperature 99.5 F 98.8 F 97.8 F Pulse Rate 69 67 Pulse Rate [ 65 Left Pulse Oximetery] Respiratory 16 18 Rate Blood Pressure 144/69 121/53 Blood Pressure 121/53 [Left Arm] O2 Sat by Pulse 100 99 99 Oximetry 05/29/20 05/29/20 09:46 12:00 Temperature 97.8 F Pulse Rate 65 Pulse Rate [ 65 Left Pulse Oximetery] Respiratory Rate Blood Pressure 137/48 Blood Pressure 122/50 [Left Arm] O2 Sat by Pulse 95 100 Oximetry Medical Decision Making - Medical Decision Making Upon arrival patient was placed into room 3. A thorough history of physical exam is performed. Peripheral IV is established. Laboratory studies were conducted. Blood culture was obtained. I did request the records from [facility]. Those are reviewed. Patient's hemoglobin yesterday was 8. Repeat laboratory studies today demonstrated the patient's white count is 1.1. Hemoccult and 6.8. Platelets of 40. Creatinine is 1.23 which is improved from patient's value yesterday. She was given a liter bolus of normal saline followed by 75 mL per hour. After blood cultures were obtained I did initiate the patient on 2 g of cefepime. I also ordered nystatin for the possible thrush. I did recommend blood transfusion for which patient did agree to. She needs irradiated, leukapheresis cells we do not have this blood per rectum hand. Patient is informed that she would most likely receive blood products in the morning. She is hemodynamically stable. I recommended admission for antibiotics and hematology consultation for which the patient agreed to. She remained in stable condition awaiting a bed on the floor - Lab Data Result diagrams: 05/29/20 10:05 05/29/20 10:05 Lab Results 05/28/20 05/28/20 05/28/20 Range/Units 21:19 21:19 21:19 WBC 1.1 L* (3.8-10.6) k/uL RBC 2.20 L (3.80-5.40) m/uL Hgb 6.8 L* (11.4-16.0) gm/dL Hct 20.7 L (34.0-46.0) % MCV 94.2 (80.0-100.0) fL MCH 31.0 (25.0-35.0) pg MCHC 32.9 (31.0-37.0) g/dL RDW 14.4 (11.5-15.5) % Plt Count 40 L (150-450) k/uL Neutrophils % (Manual) 62 % Band Neuts % (Manual) 1 % Lymphocytes % (Manual) 27 % Monocytes % (Manual) 10 % Neutrophils # (Manual) 0.60 L (1.3-7.7) k/uL Lymphocytes # (Manual) 0.30 L (1.0-4.8) k/uL Monocytes # (Manual) 0.11 (0-1.0) k/uL Nucleated RBCs 0 (0-0) /100 WBC Differential Comment Manual Slide Review Performed RBC Morphology Sodium 133 L (137-145) mmol/L Potassium 4.0 (3.5-5.1) mmol/L Chloride 103 (98-107) mmol/L Carbon Dioxide 24 (22-30) mmol/L Anion Gap 6 mmol/L BUN 33 H (7-17) mg/dL Creatinine 1.23 H (0.52-1.04) mg/dL Est GFR (CKD-EPI)AfAm 49 (>60 ml/min/1.73 sqM) Est GFR (CKD-EPI)NonAf 43 (>60 ml/min/1.73 sqM) Glucose 97 (74-99) mg/dL Plasma Lactic Acid Ilan 0.7 (0.7-2.0) mmol/L Calcium 8.0 L (8.4-10.2) mg/dL Total Bilirubin 0.5 (0.2-1.3) mg/dL AST 23 (14-36) U/L ALT 13 (4-34) U/L Alkaline Phosphatase 62 (38-126) U/L Total Protein 5.7 L (6.3-8.2) g/dL Albumin 3.3 L (3.5-5.0) g/dL Lipase 37 (23-300) U/L Urine Color Urine Appearance (Clear) Urine pH (5.0-8.0) Ur Specific [place] (1.001-1.035) Urine Protein (Negative) Urine Glucose (UA) (Negative) Urine Ketones (Negative) Urine Blood (Negative) Urine Nitrite (Negative) Urine Bilirubin (Negative) Urine Urobilinogen (<2.0) mg/dL Ur Leukocyte Esterase (Negative) Blood Type Blood Type Confirm Blood Type Recheck Bld Type Recheck Status Antibody Screen Crossmatch Spec Expiration Date 05/28/20 05/28/20 05/28/20 Range/Units 21:19 22:20 23:13 WBC (3.8-10.6) k/uL RBC (3.80-5.40) m/uL Hgb (11.4-16.0) gm/dL Hct (34.0-46.0) % MCV (80.0-100.0) fL MCH (25.0-35.0) pg MCHC (31.0-37.0) g/dL RDW (11.5-15.5) % Plt Count (150-450) k/uL Neutrophils % (Manual) % Band Neuts % (Manual) % Lymphocytes % (Manual) % Monocytes % (Manual) % Neutrophils # (Manual) (1.3-7.7) k/uL Lymphocytes # (Manual) (1.0-4.8) k/uL Monocytes # (Manual) (0-1.0) k/uL Nucleated RBCs (0-0) /100 WBC Differential Comment Manual Slide Review RBC Morphology Sodium (137-145) mmol/L Potassium (3.5-5.1) mmol/L Chloride (98-107) mmol/L Carbon Dioxide (22-30) mmol/L Anion Gap mmol/L BUN (7-17) mg/dL Creatinine (0.52-1.04) mg/dL Est GFR (CKD-EPI)AfAm (>60 ml/min/1.73 sqM) Est GFR (CKD-EPI)NonAf (>60 ml/min/1.73 sqM) Glucose (74-99) mg/dL Plasma Lactic Acid Ilan (0.7-2.0) mmol/L Calcium (8.4-10.2) mg/dL Total Bilirubin (0.2-1.3) mg/dL AST (14-36) U/L ALT (4-34) U/L Alkaline Phosphatase (38-126) U/L Total Protein (6.3-8.2) g/dL Albumin (3.5-5.0) g/dL Lipase (23-300) U/L Urine Color Yellow Urine Appearance Clear (Clear) Urine pH 6.0 (5.0-8.0) Ur Specific [place] 1.014 (1.001-1.035) Urine Protein Negative (Negative) Urine Glucose (UA) Negative (Negative) Urine Ketones Negative (Negative) Urine Blood Negative (Negative) Urine Nitrite Negative (Negative) Urine Bilirubin Negative (Negative) Urine Urobilinogen <2.0 (<2.0) mg/dL Ur Leukocyte Esterase Negative (Negative) Blood Type O Positive Blood Type Confirm O Positive Blood Type Recheck No Previous Record Bld Type Recheck Status CABO Indicated Antibody Screen NEGATIVE Crossmatch See Detail Spec Expiration Date 05/31/2020 - 231905/29/20 05/29/20 Range/Units 10:05 10:05 WBC 0.9 L* (3.8-10.6) k/uL RBC 2.56 L (3.80-5.40) m/uL Hgb 8.3 L D (11.4-16.0) gm/dL Hct 23.6 L (34.0-46.0) % MCV 92.0 (80.0-100.0) fL MCH 32.4 (25.0-35.0) pg MCHC 35.2 (31.0-37.0) g/dL RDW 14.3 (11.5-15.5) % Plt Count 34 L (150-450) k/uL Neutrophils % (Manual) % Band Neuts % (Manual) % Lymphocytes % (Manual) % Monocytes % (Manual) % Neutrophils # (Manual) (1.3-7.7) k/uL Lymphocytes # (Manual) (1.0-4.8) k/uL Monocytes # (Manual) (0-1.0) k/uL Nucleated RBCs (0-0) /100 WBC Differential Comment Manual Slide Review Performed RBC Morphology Normal Sodium 134 L (137-145) mmol/L Potassium 4.0 (3.5-5.1) mmol/L Chloride 107 (98-107) mmol/L Carbon Dioxide 24 (22-30) mmol/L Anion Gap 3 mmol/L BUN 26 H (7-17) mg/dL Creatinine 0.97 (0.52-1.04) mg/dL Est GFR (CKD-EPI)AfAm 66 (>60 ml/min/1.73 sqM) Est GFR (CKD-EPI)NonAf 57 (>60 ml/min/1.73 sqM) Glucose 125 H (74-99) mg/dL Plasma Lactic Acid Ilan (0.7-2.0) mmol/L Calcium 7.8 L (8.4-10.2) mg/dL Total Bilirubin (0.2-1.3) mg/dL AST (14-36) U/L ALT (4-34) U/L Alkaline Phosphatase (38-126) U/L Total Protein (6.3-8.2) g/dL Albumin (3.5-5.0) g/dL Lipase (23-300) U/L Urine Color Urine Appearance (Clear) Urine pH (5.0-8.0) Ur Specific [place] (1.001-1.035) Urine Protein (Negative) Urine Glucose (UA) (Negative) Urine Ketones (Negative) Urine Blood (Negative) Urine Nitrite (Negative) Urine Bilirubin (Negative) Urine Urobilinogen (<2.0) mg/dL Ur Leukocyte Esterase (Negative) Blood Type Blood Type Confirm Blood Type Recheck Bld Type Recheck Status Antibody Screen Crossmatch Spec Expiration Date - EKG Data EKG Comments: EKG demonstrates a sinus rhythm with PACs. Rate of 64. VA interval 138. QRS 86. QTC 445. No acute ST segment elevations or depressions concerning for ischemic changes Disposition Clinical Impression: Neutropenic fever, Chemotherapy induced neutropenia, Thrush, Pancytopenia Disposition: ADMITTED IP TO THIS HOSP Condition: Serious Is patient prescribed a controlled substance at d/c from ED?: No Decision to Admit Reason: Admit from EC Decision Date: 05/28/20 Decision Time: 23:20
[2020-05-28 22:04] LABS: HGB 6.8 gm/dL (11.4-16.0)
[2020-05-28 22:07] LABS: WBC 1.1 k/uL (3.8-10.6)
[2020-05-28 22:08] LABS: Albumin 3.3 g/dL (3.5-5.0); Total Bilirubin 0.5 mg/dL (0.2-1.3); Total Protein 5.7 g/dL (6.3-8.2)
--- NOTE | 2020-05-28 22:10 | XR ---
EXAMINATION TYPE: XR chest 2V DATE OF EXAM: 05/28/2020 COMPARISON: NONE HISTORY: Fever TECHNIQUE: 2 views FINDINGS: There is no heart failure nor confluent pneumonic infiltrate. Costophrenic angles are clear . There is right central venous catheter with tip in the superior vena cava. Thoracic aorta is athero matous. There are chest leads. Bony thorax is intact. IMPRESSION: No active cardiopulmonary disease. Normal heart.
[2020-05-28 22:56] LABS: Band Neutrophils % 1 %; Monocytes # (M) 0.11 k/uL (0-1.0); Neutrophils % (M) 62 %; Nucleated Red Blood Cells 0 /100 WBC (0-0); Total Cells Counted 100
[2020-05-28 22:57] LABS: Platelet Count 40 k/uL (150-450)
[2020-05-28] MEDS ORDERED: CEFEPIME 2 GM in SODIUM CHLORIDE 0.9% 100 ML IVPB SCH (23:00)
[2020-05-28] MEDS ORDERED: CEFEPIME 2 GM in SODIUM CHLORIDE 0.9% 100 ML IVPB STA (23:00)
[2020-05-28] MEDS ORDERED: VANCOMYCIN IV PER PHARMACY 1 EACH MISC MISCELLANE PRN (23:03)
[2020-05-28] MEDS ORDERED: VANCOMYCIN 1,000 MG in SODIUM CHLORIDE 0.9% 250 ML IVPB STA (23:06)
[2020-05-28] MEDS ORDERED: IBUPROFEN 400 MG TAB PO PRN (23:21)
[2020-05-28] MEDS ORDERED: NALOXONE 0.4 MG/ML 1 ML VIAL IV PRN (23:21)
[2020-05-28 23:39] LABS: Appearance,Urine Clear (Clear); Bilirubin,Urine Negative (Negative); Blood,Urine Negative (Negative); Color,Urine Yellow; Glucose,Urine (UA) Negative (Negative); Ketones,Urine Negative (Negative); Leukocyte Esterase,Urine Negative (Negative); Nitrite,Urine Negative (Negative); Protein,Urine Negative (Negative); Specific Gravity,Urine 1.014 (1.001-1.035); Urobilinogen,Urine <2.0 mg/dL (<2.0)
[2020-05-28] MEDS: SODIUM CHLORIDE 0.9% 1,000 ML IV SCH (23:45)
[2020-05-29] MEDS: GABAPENTIN 300 MG CAP PO SCH ×3 (00:45→21:48)
[2020-05-29] MEDS: HYDROcodone/APAP 15 ML SOLUTION PO PRN ×3 (00:53→20:34)
[2020-05-29] MEDS: NYSTATIN 100,000 UNIT/ML SUSP 500,000 UNIT/5 ML CUP PO SCH ×5 (01:29→21:49)
[2020-05-29] MEDS: MIRTAZAPINE 15 MG TAB PO SCH ×2 (01:31→23:18)
[2020-05-29] MEDS: ACETAMINOPHEN TAB 325 MG TAB PO PRN ×2 (06:50→18:17)
[2020-05-29] MEDS ORDERED: CEFEPIME 2 GM in SODIUM CHLORIDE 0.9% 100 ML IVPB SCH (08:00)
[2020-05-29 10:52] LABS: Calcium 7.8 mg/dL (8.4-10.2)
[2020-05-29 10:54] LABS: HCT 23.6 % (34.0-46.0); MCH 32.4 pg (25.0-35.0); MCHC 35.2 g/dL (31.0-37.0); Mean Platelet Volume 7.5; RBC 2.56 m/uL (3.80-5.40); RDW 14.3 % (11.5-15.5)
[2020-05-29 10:55] LABS: HGB 8.3 gm/dL (11.4-16.0); Platelet Count 34 k/uL (150-450); WBC 0.9 k/uL (3.8-10.6)
--- NOTE | 2020-05-29 11:26 | P.HPIM ---
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 Patient presented to the emergency room with weakness, frequent falls and fevers. She is currently getting radiation Friday through Friday and chemotherapy on Fridays, she states last Friday her chemotherapy was changed to a different agent. She follows with Dr. Zheng and Dr. Rossi. She did go to [facility] yesterday after she had repeated falls. Apparently they wanted to admit her but she declined. She continued to have fevers, so she contacted Dr. Zheng's office who advised her to go to the ER. She did have a low grade temperature of 99.5 upon arrival, blood pressure 144/69, heart rate 69, oxygen saturation of 100% on 3L NC. She was found to have neutropenia with WBC of 1.1, hgb was low at 6.8, platelets count of 40, BUN 33, Cr 1.23, UA was negative for infection. Chest x-ray showed no active cardiopulmonary disease, normal heart, no infiltrates. She was started on Vancomycin and Cefepime, blood cultures have been ordered, will consult with oncology. She did receive 1 unit of PRBCs, repeat hemoglobin is 8.3. Review of Systems Constitutional: Reports chills, Reports fatigue, Reports fever, Reports weakness Ears: deny: ear discharge, earache, tinnitus Ears, nose, mouth and throat: Reports dysphagia, Reports hoarseness, Reports mouth pain, Reports voice changes, Denies nasal congestion, Denies nasal discharge Cardiovascular: Denies chest pain, Denies claudication, Denies dyspnea on exertion, Denies edema, Denies leg edema, Denies shortness of breath, Denies syncope Respiratory: Reports congestion, Reports cough, Reports cough with sputum, Denies dyspnea, Denies hemoptysis, Denies pain, Denies wheezing Gastrointestinal: Denies constipation, Denies diarrhea, Denies heartburn, Denies nausea, Denies vomiting Genitourinary: Denies dysuria, Denies flank pain, Denies kidney stones, Denies urgency, Denies urinary frequency Musculoskeletal: Reports frequent falls, Reports muscle weakness, Denies leg numbness/tingling Integumentary: Denies lesions, Denies pruritus, Denies rash, Denies sores, Denies wounds Neurological: Reports weakness, Denies confusion, Denies migraines, Denies numbness, Denies paralysis, Denies paresthesias, Denies syncope Psychiatric: Denies confusion, Denies depression, Denies mood swings Endocrine: Reports fatigue, Denies nocturia, Denies palpitations Past Medical History Past Medical History: Cancer, Hypertension, Skin Disorder, Sleep Apnea/CPAP/BIPAP Additional Past Medical History / Comment(s): bowel obstruction x4 since 2007, diverticulitis, eczema, hx skin cancer, pain with swallowing, feeding tube, throat cancer. History of Any Multi-Drug Resistant Organisms: MRSA Date of last positivie culture/infection: 2007 MDRO Source:: abdomen Past Surgical History: Back Surgery, Hysterectomy, Joint Replacement, Orthopedic Surgery, Tonsillectomy Additional Past Surgical History / Comment(s): surgery for bowel obstructions/removal of adhesions, xiao oophorectomy, disectomy, left hip replacement, left knee arthroscopy, xiao cataracts, PEG tube Past Anesthesia/Blood Transfusion Reactions: No Reported Reaction Past Psychological History: No Psychological Hx Reported Smoking Status: Never smoker Past Alcohol Use History: Occasional Past Drug Use History: None Reported - Past Family History Mother Family Medical History: No Reported History Medications and Allergies Home Medications Medication Instructions Recorded Confirmed Type Aspirin [Adult Low Dose Aspirin EC] 81 mg PO DAILY 02/25/20 05/28/20 History Citalopram Hydrobromide 40 mg PO 02/25/20 05/28/20 History [Citalopram HBr] Gabapentin [Neurontin] 300 mg PO [facility] 02/25/20 05/28/20 History Gabapentin [Neurontin] 600 mg PO 02/25/20 05/28/20 History Losartan Potassium [Cozaar] 50 mg PO 02/25/20 05/28/20 History Mirtazapine 45 mg PO 02/25/20 05/28/20 History atenoloL [Tenormin] 50 mg PO 02/25/20 05/28/20 History hydroCHLOROthiazide 25 mg PO [facility] 02/25/20 05/28/20 History rOPINIRole HCL [Requip] 3 mg PO 02/25/20 05/28/20 History HYDROcodone/APAP [Penelope Elixir 15 ml PO Q8H PRN 05/28/20 05/28/20 History 7.5-325Mg/15Ml] LORazepam [Ativan] 1 mg PO TID PRN 05/28/20 05/28/20 History Magnesium Oxide [Mag-Ox] 400 mg PO DAILY 05/28/20 05/28/20 History Omeprazole 40 mg PO DAILY 05/28/20 05/28/20 History Ondansetron Odt [Zofran Odt] 8 mg PO Q8HR PRN 05/28/20 05/28/20 History Allergies Allergy/AdvReac Type Severity Reaction Status Date / Time No Known Allergies Allergy Verified 05/28/20 23:00 Physical Exam Vitals: Vital Signs Temp Pulse Pulse Resp BP BP Pulse Ox 05/29/20 09:46 97.8 F 65 137/48 95 05/29/20 08:00 97.8 F 65 121/53 99 05/29/20 07:14 98.8 F 67 18 121/53 99 05/29/20 06:44 99.5 F 69 16 144/69 100 05/29/20 06:34 99.0 F 73 17 152/66 94 L 05/29/20 01:32 98.7 F 74 19 133/59 96 05/28/20 23:47 65 18 110/52 95 05/28/20 23:00 98.7 F 05/28/20 22:00 70 18 123/54 95 05/28/20 21:48 64 18 123/54 96 05/28/20 21:30 71 16 111/67 92 L 05/28/20 21:12 69 18 118/57 94 L 05/28/20 20:26 98.8 F 60 18 85/41 100 Intake and Output 05/28/20 05/29/20 05/29/20 22:59 06:59 14:59 Intake Total 0 310 Balance 0 310 Intake: Blood Product 0 310 Rc Irr As1 Unit 0 310 [id number] Other: Weight 56.245 kg 56.245 kg - Constitutional General appearance: average body habitus, cooperative, no acute distress - EENT Eyes: abnormal pupil, PERRLA, normal appearance ENT: hearing grossly normal, no normal oropharynx, pharyngeal erythema, thrush - Neck Neck: no lymphadenopathy, normal ROM, no stridor, no thyromegaly - Respiratory Respiratory: bilateral: CTA, negative: dullness, rales, rhonchi, wheezing - Cardiovascular Rhythm: regular Heart sounds: normal: S1, S2 - Gastrointestinal PEG LLQ General gastrointestinal: no hepatomegaly, normal bowel sounds, no organomegaly, soft, no tenderness - Integumentary Integumentary: no cellulitis, normal turgor, pale, no rash - Neurologic Neurologic: CNII-XII intact - Musculoskeletal Musculoskeletal: generalized weakness, strength equal bilaterally - Psychiatric Psychiatric: A&O x's 3, appropriate affect Results CBC & Chem 7: 05/28/20 21:19 05/29/20 10:05 Labs: Abnormal Lab Results - Last 24 Hours (Table) 05/28/20 05/28/20 05/28/20 Range/Units 21:19 21:19 22:20 WBC 1.1 L* (3.8-10.6) k/uL RBC 2.20 L (3.80-5.40) m/uL Hgb 6.8 L* (11.4-16.0) gm/dL Hct 20.7 L (34.0-46.0) % Plt Count 40 L (150-450) k/uL Neutrophils # (Manual) 0.60 L (1.3-7.7) k/uL Lymphocytes # (Manual) 0.30 L (1.0-4.8) k/uL Sodium 133 L (137-145) mmol/L BUN 33 H (7-17) mg/dL Creatinine 1.23 H (0.52-1.04) mg/dL Calcium 8.0 L (8.4-10.2) mg/dL Total Protein 5.7 L (6.3-8.2) g/dL Albumin 3.3 L (3.5-5.0) g/dL Crossmatch See Detail Thrombosis Risk Factor Assmnt - Choose All That Apply Each Risk Factor Represents 3 Points: Age 75 years or older Thrombosis Risk Factor Assessment Total Risk Factor Score: 3 Thrombosis Risk Factor Assessment Level: Moderate Risk Assessment and Plan Plan: 1. Neutropenia secondary to chemotherapy with possible early pneumonia. Has been started on cefepime and vancomycin, blood cultures ordered, UA negative for infection, chest x-ray completed, oncology has been consulted 2. Pancytopenia. will continue to monitor CBC 3. anemia secondary to chemotherapy. 1 units of PRBCs given, repeat hgb is now 8 .3. 4. Squamous cell carcimoma of the left piriform sinus and left base of tongue. Consult to oncology, last chemotherapy was Friday, possible resume radiation tomorrow depending on oncology recommendations. 5. Oral thrush. Continue with nystatin oral suspension 4 times a day 6. Obstructive sleep apnea. On CPAP 7. History of GERD. Continue on pantoprazole 40 mg daily. 8. History of depression. Continue citalopram 40 mg daily and Remeron 45 mg at at bedtime. 9. Neuropathy. Continue gabapentin 300 mg QAM, 600mg QHS. 10. DVT prophylaxis.will do compression stockings and early ambulation 11. GI prophylaxis. pantoprazole 40 mg daily The above impression and plan of care have been discussed and directed by signing physician. Sydnie Carrillo nurse practitioner acting as scribe for signing physician.
[2020-05-29] MEDS: PANTOPRAZOLE 40 MG TABLET PO SCH (12:02)
[2020-05-29] MEDS: VANCOMYCIN 1,000 MG in SODIUM CHLORIDE 0.9% 250 ML IVPB SCH (16:56)
[2020-05-29] MEDS: CEFEPIME 2 GM in SODIUM CHLORIDE 0.9% 100 ML IVPB SCH (21:46)
[2020-05-29] MEDS: CITALOPRAM HYDROBROMIDE 20 MG TAB PO SCH (21:47)
[2020-05-29] MEDS: SODIUM CHLORIDE 0.9% 1,000 ML IV SCH (22:01)
[2020-05-29] MEDS: ONDANSETRON 4 MG/2 ML VIAL IVP PRN (23:16)
[2020-05-30] MEDS ORDERED: VANCOMYCIN 1,000 MG in SODIUM CHLORIDE 0.9% 250 ML IVPB SCH ×2
[2020-05-30] MEDS: HYDROcodone/APAP 15 ML SOLUTION PO PRN ×3 (04:15→16:43)
[2020-05-30 06:38] LABS: HCT 25.7 % (34.0-46.0); HGB 8.3 gm/dL (11.4-16.0); MCH 30.3 pg (25.0-35.0); MCHC 32.5 g/dL (31.0-37.0); MCV 93.2 fL (80.0-100.0); Mean Platelet Volume 8.5; RBC 2.76 m/uL (3.80-5.40); RDW 14.4 % (11.5-15.5)
[2020-05-30 06:45] LABS: WBC 0.6 k/uL (3.8-10.6)
[2020-05-30 06:46] LABS: Platelet Count 38 k/uL (150-450)
[2020-05-30] MEDS: CEFEPIME 2 GM in SODIUM CHLORIDE 0.9% 100 ML IVPB SCH ×2 (07:46→21:26)
[2020-05-30] MEDS: GABAPENTIN 300 MG CAP PO SCH ×2 (07:55→21:27)
[2020-05-30] MEDS: NYSTATIN 100,000 UNIT/ML SUSP 500,000 UNIT/5 ML CUP PO SCH ×4 (07:55→21:35)
[2020-05-30] MEDS: PANTOPRAZOLE 40 MG TABLET PO SCH (07:55)
[2020-05-30] MEDS: ONDANSETRON 4 MG/2 ML VIAL IVP PRN ×2 (09:12→19:03)
[2020-05-30] MEDS: VANCOMYCIN 1,000 MG in SODIUM CHLORIDE 0.9% 250 ML IVPB SCH ×2 (09:12→23:47)
[2020-05-30 09:22] LABS: Albumin 3.3 g/dL (3.80-4.90); Albumin/Globulin Ratio 1.83 (1.60-3.17); Anion Gap 8.4 mmol/L (4.00-12.00); BUN/Creat Ratio 23.75 Ratio (12.00-20.00); Calcium 7.7 mg/dL (8.7-10.3); Carbon Dioxide 24.6 mmol/L (21.6-31.8); Globulin 1.8 g/dL (1.6-3.3); Non-African American GFR(CKD) 71.6 (60.0-200.0); Potassium 3.8 mmol/L (3.5-5.5); Total Bilirubin 0.4 mg/dL (0.3-1.2); Total Protein 5.1 g/dL (6.2-8.2)
[2020-05-30] MEDS: FILGRASTIM-SNDZ 300 MCG/0.5 ML SYRINGE SQ SCH (10:05)
--- NOTE | 2020-05-30 11:16 | P.CONS ---
History of Present Illness - Reason for Consult Consult date: 05/30/20 neutropenic fever Requesting physician: Britt Beltrán - Chief Complaint fever - History of Present Illness Mrs. Aguilar is a very pleasant patient of Dr. Acuna who is currently undergoing concurrent chemoradiation for recently diagnosed head and neck cancer. On Friday she noted that she had a fever, increase in her oral secretions, some of them are green in nature, she also had an increased cough, and diarrhea 1. She is currently at 3 cans of supplement through her PEG tube, she is still eating thick foods such as putting and yogurt. When seen patient denies any current fever, chills, she does not recall symptoms of aspiration, no nausea, vomiting, chest pain, abdominal pain or cramping, dysuria, hematuria, leg swelling, she does have generalized weakness but is independent. malignancy history: Patient developed is comfort with swallowing, more notably on the left first noticed September 2019. She had no cough or change in her voice at that time. ENT had a negative exam, barium swallow negative for evidence of mass. She had persistent symptoms, x-ray of the C-spine 01/18, arthritic changes, EGD 02/15 was also negative. Repeat direct laryngoscopy and bronchoscope 02/28/20, biopsies from left pyriform sinus and left base of tongue showed a grade 2 infiltrating squamous cell carcinoma. CT soft tissue the next 03/08/21 cm jugulodigastric node, and some nodes at the angle of the mandible on the left, masslike area in the left hypopharynx measuring 1.9 x 2.7 cm. PET 03/20/20 at [facility] showed positivity in 2 necrotic-appearing liver to jugulodigastric cervical lymph nodes, largest 1.2 cm. Soft tissue mass involving the left every epiglottic folds and piriform sinus was also active with SUV of 19.3. There was no evidence of distant disease. She had repeat direct laryngoscopy, flexible bronchoscopy and esophagoscopy on 03/28/20. There was a friable large mass circumferentially around the hypopharynx extending down into the pyriform and then of the lateral pharyngeal wall to the lateral wall of the larynx including the left lateral arytenoid. Recommended chemoradiation and was seen by Radiation Oncology. She was also referred here for further evaluation and recommendations. Started cisplatin 04/21/20 and status post 5 weekly cycles, this was changed to carboplatin lasting due to variable renal function, she has had 1 cycle of that, 2 more to go. she has done fairly well with treatment overall. Review of Systems 14 point review of systems is negative except as stated in HPI Past Medical History Past Medical History: Cancer, Hypertension, Skin Disorder, Sleep Apnea/CPAP/BIPAP Additional Past Medical History / Comment(s): 2007-bowel obstruction, diverticulitis, eczema, hx skin cancer, pain with swallowing, cancer base of tongue left side, feeding tube, throat cancer. History of Any Multi-Drug Resistant Organisms: MRSA Year Discovered:: 2007 MDRO Source:: abdomen Past Surgical History: Back Surgery, Hysterectomy, Joint Replacement, Orthopedic Surgery, Tonsillectomy Additional Past Surgical History / Comment(s): surgery for bowel obstructions/removal of adhesions, xiao oophorectomy, disectomy, left hip replacement, left knee arthroscopy, xiao cataracts Past Anesthesia/Blood Transfusion Reactions: No Reported Reaction Past Psychological History: No Psychological Hx Reported Smoking Status: Never smoker Past Alcohol Use History: Occasional Past Drug Use History: None Reported - Past Family History Mother Family Medical History: No Reported History Medications and Allergies Home Medications Medication Instructions Recorded Confirmed Type Aspirin [Adult Low Dose Aspirin EC] 81 mg PO DAILY 02/25/20 05/28/20 History Citalopram Hydrobromide 40 mg PO HS 02/25/20 05/28/20 History [Citalopram HBr] Gabapentin [Neurontin] 300 mg PO QA 02/25/20 05/28/20 History Gabapentin [Neurontin] 600 mg PO HS 02/25/20 05/28/20 History Losartan Potassium [Cozaar] 50 mg PO HS 02/25/20 05/28/20 History Mirtazapine 45 mg PO HS 02/25/20 05/28/20 History atenoloL [Tenormin] 50 mg PO HS 02/25/20 05/28/20 History hydroCHLOROthiazide 25 mg PO QAM 02/25/20 05/28/20 History rOPINIRole HCL [Requip] 3 mg PO HS 02/25/20 05/28/20 History HYDROcodone/APAP [Jeddo Elixir 15 ml PO Q8H PRN 05/28/20 05/28/20 History 7.5-325Mg/15Ml] LORazepam [Ativan] 1 mg PO TID PRN 05/28/20 05/28/20 History Magnesium Oxide [Mag-Ox] 400 mg PO DAILY 05/28/20 05/28/20 History Omeprazole 40 mg PO DAILY 05/28/20 05/28/20 History Ondansetron Odt [Zofran Odt] 8 mg PO Q8HR PRN 05/28/20 05/28/20 History Allergies Allergy/AdvReac Type Severity Reaction Status Date / Time No Known Allergies Allergy Verified 05/28/20 23:00 Physical Exam Vitals: Vital Signs Temp Pulse Resp BP Pulse Ox 05/30/20 05:00 98.8 F 65 18 164/67 100 05/29/20 23:40 18 05/29/20 20:00 99.0 F 63 18 127/67 95 05/29/20 12:35 98.6 F 65 18 165/70 99 05/29/20 12:00 65 122/50 100 Intake and Output 05/29/20 05/30/20 05/30/20 22:59 06:59 14:59 Other: Voiding Method Toilet # Voids 1 Weight 56.245 kg 59.1 kg - Constitutional General appearance: cooperative, mild distress, thin - EENT Eyes: anicteric sclerae, EOMI ENT: hearing grossly normal, pharyngeal erythema - Neck radiation burn on the anterior neck with epidermis desquamation, dry, no drainage or bleeding, skin changes secondary to radiation of the neck - Respiratory Respiratory: bilateral: rhonchi (scattered) - Cardiovascular Rhythm: regular Heart sounds: normal: S1, S2 Abnormal Heart Sounds: no systolic murmur, no diastolic murmur, no rub, no S3 Gallop, no S4 Gallop, no click, no other leg Peripheral Edema: bilateral: None - Gastrointestinal General gastrointestinal: no absent bowel sounds, no decreased bowel sounds, no distended, no hepatomegaly, no hyperactive bowel sounds, normal bowel sounds, no organomegaly, no rigid, no scaphoid, soft, no splenomegaly, no tenderness, no umbilical hernia, no ventral hernia - Integumentary Integumentary: decreased turgor, pale - Neurologic Neurologic: CNII-XII intact - Musculoskeletal Musculoskeletal: generalized weakness - Psychiatric Psychiatric: A&O x's 3, appropriate affect, intact judgment & insight Results CBC & Chem 7: 05/30/20 06:23 05/30/20 06:23 Labs: Abnormal Lab Results - Last 24 Hours (Table) 05/29/20 05/30/20 05/30/20 Range/Units 10:05 06:23 06:23 WBC 0.6 L* (3.8-10.6) k/uL RBC 2.76 L (3.80-5.40) m/uL Hgb 8.3 L (11.4-16.0) gm/dL Hct 25.7 L (34.0-46.0) % Plt Count 34 L 38 L (150-450) k/uL BUN/Creatinine Ratio 23.75 H (12.00-20.00) Ratio Plasma Lactic Acid Ilan (0.7-2.0) mmol/L Calcium 7.7 L (8.7-10.3) mg/dL Total Protein 5.1 L (6.2-8.2) g/dL Albumin 3.30 L (3.80-4.90) g/dL 05/30/20 Range/Units 06:23 WBC (3.8-10.6) k/uL RBC (3.80-5.40) m/uL Hgb (11.4-16.0) gm/dL Hct (34.0-46.0) % Plt Count (150-450) k/uL BUN/Creatinine Ratio (12.00-20.00) Ratio Plasma Lactic Acid Ilan <0.5 L (0.7-2.0) mmol/L Calcium (8.7-10.3) mg/dL Total Protein (6.2-8.2) g/dL Albumin (3.80-4.90) g/dL Microbiology - Last 24 Hours (Table) 05/28/20 21:19 Blood Culture - Preliminary Blood No Growth after 24 hours Chest x-ray: report reviewed Assessment and Plan (1) Chemotherapy induced neutropenia Narrative/Plan: G-CSF ordered today. Pancultures pending. Empiric antibiotics ordered. Current Visit: Yes Status: Acute Priority: High Code(s): D70.1 - AGRANULOCYTOSIS SECONDARY TO CANCER CHEMOTHERAPY; T45.1X5A - ADVERSE EFFECT OF ANTINEOPLASTIC AND IMMUNOSUP DRUGS, INIT SNOMED Code(s): 490199666 (2) Squamous cell carcinoma of head and neck Narrative/Plan: Pt has 2 weeks left of radiation, 2 more cycles of chemo. Her counts do go into jabari weekly but, thus far, she has recovered spontaneously without complication. Suspect the patient's low grade fever may possibly be related to tumor fever or necrosis of the tumor. Patient did not appear septic on exam. Continue with plan of care as ordered for now including antibiotics and G-CSF until cultures result. Current Visit: Yes Status: Chronic Priority: Medium Code(s): C76.0 - MALIGNANT NEOPLASM OF HEAD, FACE AND NECK SNOMED Code(s): 173748414 Plan: Doctor attests: I performed a history and physical examination of this patient, developed impression and plan of care. Discussed with dictator. I agree with dictators note, documented as a scribe.
--- NOTE | 2020-05-30 11:32 | FL ---
EXAMINATION TYPE: FL barium swallow w video DATE OF EXAM: 05/30/2020 COMPARISON: NONE HISTORY: Abnormal bedside evaluation TECHNIQUE: Fluoroscopy. FINDINGS: Fluoroscopic guidance was provided for the procedure performed in conjunction with the [facility] pathology department. Please see complete report forthcoming from the Speech Pathology departmen t. Various consistencies from thin liquid to solids were administered. Fluoroscopy time 1.31 seconds. Number of images: 0. Aspiration occurred with both thin liquids and pudding thick consistency. There was pooling within th e vallecula. There is delayed bolus formation and transit to the hypopharynx. Procedure was terminated. IMPRESSION: 1. Aspiration with thin liquids and pudding thick liquids.
--- NOTE | 2020-05-30 11:56 | P.PN ---
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 Patient presented to the emergency room with weakness, frequent falls and fevers. She is currently getting radiation Friday through Friday and chemotherapy on Fridays, she states last Friday her chemotherapy was changed to a different agent. She follows with Dr. Zheng and Dr. Rossi. She did go to [facility] yesterday after she had repeated falls. Apparently they wanted to admit her but she declined. She continued to have fevers, so she contacted Dr. Zheng's office who advised her to go to the ER. She did have a low grade temperature of 99.5 upon arrival, blood pressure 144/69, heart rate 69, oxygen saturation of 100% on 3L NC. She was found to have neutropenia with WBC of 1.1, hgb was low at 6.8, platelets count of 40, BUN 33, Cr 1.23, UA was negative for infection. Chest x-ray showed no active cardiopulmonary disease, normal heart, no infiltrates. She was started on Vancomycin and Cefepime, blood cultures have been ordered, will consult with oncology. She did receive 1 unit of PRBCs, repeat hemoglobin is 8.3. 05/30: patient examined resting in bed this morning. Plan for radiation today at 11 AM. White blood cells this morning were 0.6, hemoglobin 8.3. Blood cultures show no growth. speech therapy is on the case, we'll do video fluoroscopy swallow today. dietary on the case discussed increasing tube feedings and eating for pleasure foods. patient continues on IV Vanco and cefepime. discussed neutropenic precautions with patient and sure to wear mask, and no raw foods at this time. oncology is on the case. Review of Systems Constitutional: Reports chills, Reports fatigue, denies fever, Reports weakness Ears: deny: ear discharge, earache, tinnitus Ears, nose, mouth and throat: Reports dysphagia, Reports hoarseness, Reports mouth pain, Reports voice changes, Denies nasal congestion, Denies nasal discharge Cardiovascular: Denies chest pain, Denies claudication, Denies dyspnea on exer tion, Denies edema, Denies leg edema, Denies shortness of breath, Denies syncope Respiratory: Reports congestion, Reports cough, Reports cough with sputum, Denies dyspnea, Denies hemoptysis, Denies pain, Denies wheezing Gastrointestinal: Denies constipation, Denies diarrhea, Denies heartburn, Denies nausea, Denies vomiting Genitourinary: Denies dysuria, Denies flank pain, Denies kidney stones, Denies urgency, Denies urinary frequency Musculoskeletal: Reports frequent falls, Reports muscle weakness, Denies leg numbness/tingling Integumentary: Denies lesions, Denies pruritus, Denies rash, Denies sores, Denies wounds Neurological: Reports weakness, Denies confusion, Denies migraines, Denies numbness, Denies paralysis, Denies paresthesias, Denies syncope Psychiatric: Denies confusion, Denies depression, Denies mood swings Endocrine: Reports fatigue, Denies nocturia, Denies palpitations physical exam - Constitutional General appearance: average body habitus, cooperative, no acute distress - EENT Eyes: abnormal pupil, PERRLA, normal appearance ENT: hearing grossly normal, no normal oropharynx, pharyngeal erythema, thrush - Neck Neck: no lymphadenopathy, normal ROM, no stridor, no thyromegaly - Respiratory Respiratory: bilateral: CTA, lung sounds diminished with occasional wheeze and rhonchi. - Cardiovascular Rhythm: regular Heart sounds: normal: S1, S2 - Gastrointestinal PEG LLQ General gastrointestinal: no hepatomegaly, normal bowel sounds, no organomegaly, soft, no tenderness - Integumentary Integumentary: no cellulitis, normal turgor, pale, no rash - Neurologic Neurologic: CNII-XII intact - Musculoskeletal Musculoskeletal: generalized weakness, strength equal bilaterally - Psychiatric Psychiatric: A&O x's 3, appropriate affect Objective - Vital Signs Vital signs: Vital Signs Temp 98.8 F 05/30/20 05:00 Pulse 65 05/30/20 05:00 Resp 18 05/30/20 05:00 BP 164/67 05/30/20 05:00 Pulse Ox 100 05/30/20 05:00 Intake & Output 05/29/20 05/30/20 05/30/20 18:59 06:59 18:59 Intake Total 310 Balance 310 Weight 56.245 kg Intake: Blood Product 310 Rc Irr As1 Unit 310 [id number] Other: Voiding Method Toilet - Labs CBC & Chem 7: 09/29/20 06:23 05/30/20 06:23 Labs: Abnormal Lab Results - Last 24 Hours (Table) 05/28/20 05/29/20 05/29/20 Range/Units 22:20 10:05 10:05 WBC 0.9 L* (3.8-10.6) k/uL RBC 2.56 L (3.80-5.40) m/uL Hgb 8.3 L D (11.4-16.0) gm/dL Hct 23.6 L (34.0-46.0) % Plt Count 34 L (150-450) k/uL Sodium 134 L (137-145) mmol/L BUN 26 H (7-17) mg/dL Glucose 125 H (74-99) mg/dL Plasma Lactic Acid Ilan (0.7-2.0) mmol/L Calcium 7.8 L (8.4-10.2) mg/dL Crossmatch See Detail 05/30/20 05/30/20 Range/Units 06:23 06:23 WBC 0.6 L* (3.8-10.6) k/uL RBC 2.76 L (3.80-5.40) m/uL Hgb 8.3 L (11.4-16.0) gm/dL Hct 25.7 L (34.0-46.0) % Plt Count 38 L (150-450) k/uL Sodium (137-145) mmol/L BUN (7-17) mg/dL Glucose (74-99) mg/dL Plasma Lactic Acid Ilan <0.5 L (0.7-2.0) mmol/L Calcium (8.4-10.2) mg/dL Crossmatch Microbiology - Last 24 Hours (Table) 05/28/20 21:19 Blood Culture - Preliminary Blood No Growth after 24 hours Assessment and Plan Assessment: Assessment and Plan Plan: 1. Neutropenia secondary to chemotherapy with possible early pneumonia. Has been started on cefepime and vancomycin, blood cultures ordered, UA negative for infection, chest x-ray completed, oncology has been consulted 2. Pancytopenia. will continue to monitor CBC 3. anemia secondary to chemotherapy. 1 units of PRBCs given, repeat hgb is now 8.3. 4. Squamous cell carcimoma of the left piriform sinus and left base of tongue. Consult to oncology, last chemotherapy was Friday, radiation plan for 11 AM today. 5. Oral thrush. Continue with nystatin oral suspension 4 times a day 6. Obstructive sleep apnea. On CPAP 7. History of GERD. Continue on pantoprazole 40 mg daily. 8. History of depression. Continue citalopram 40 mg daily and Remeron 45 mg at at bedtime. 9. Neuropathy. Continue gabapentin 300 mg QAM, 600mg QHS. 10. DVT prophylaxis.will do compression stockings and early ambulation 11. GI prophylaxis. pantoprazole 40 mg daily Admit with plan to stay with a minimal 2 nights CODE STATUS DO NOT RESUSCITATE The above impression and plan of care have been discussed and directed by sign ing physician. Linda Hull nurse practitioner acting as scribe for signing physician.
[2020-05-30] MEDS: SODIUM CHLORIDE 0.9% 1,000 ML IV SCH (16:17)
[2020-05-30] MEDS: CITALOPRAM HYDROBROMIDE 20 MG TAB PO SCH (21:26)
[2020-05-30] MEDS: MIRTAZAPINE 15 MG TAB PO SCH (21:27)
[2020-05-30] MEDS ORDERED: VANCOMYCIN TROUGH DUE 1 EACH MISC MISCELLANE ONE (23:00)
[2020-05-31] MEDS: HYDROcodone/APAP 15 ML SOLUTION PO PRN ×3 (02:53→16:42)
[2020-05-31 06:11] LABS: HCT 23.7 % (34.0-46.0); HGB 7.9 gm/dL (11.4-16.0); MCHC 33.3 g/dL (31.0-37.0); MCV 92.9 fL (80.0-100.0); Mean Platelet Volume 8.5; RBC 2.55 m/uL (3.80-5.40); RDW 14.3 % (11.5-15.5)
[2020-05-31 06:17] LABS: Platelet Count 52 k/uL (150-450); WBC 0.8 k/uL (3.8-10.6)
[2020-05-31 06:56] LABS: Anisocytosis (M) Present
[2020-05-31 06:58] LABS: Polychromasia Present
[2020-05-31] MEDS: ONDANSETRON 4 MG/2 ML VIAL IVP PRN ×2 (08:19→16:41)
[2020-05-31] MEDS: GABAPENTIN 300 MG CAP PO SCH ×2 (10:10→20:47)
[2020-05-31] MEDS: PANTOPRAZOLE 40 MG TABLET PO SCH (10:10)
[2020-05-31] MEDS: CEFEPIME 2 GM in SODIUM CHLORIDE 0.9% 100 ML IVPB SCH ×2 (10:19→20:39)
[2020-05-31] MEDS: NYSTATIN 100,000 UNIT/ML SUSP 500,000 UNIT/5 ML CUP PO SCH ×4 (10:21→21:36)
[2020-05-31] MEDS: FILGRASTIM-SNDZ 300 MCG/0.5 ML SYRINGE SQ SCH (10:21)
--- NOTE | 2020-05-31 12:10 | CDI ---
Documentation Clarification Form Date: 05/31/2020 11:42:45 AM From: Nina Black RN CCDS Admit Date: 05/29/2020 12:46:00 PM Patient Name: Shannon Aguilar Visit Number: [id number] Discharge Date: ATTENTION: The Clinical Documentation Specialists (CDI) and [facility] Coding Staff appreciate your assistance in clarifying documentation. Please respond to the clarification below the line at the bottom and electronically sign. The CDI & [facility] Coding staff will review the response and follow-up if needed. Please note: Queries are made part of the Legal Health Record. If you have any questions, please contact the author of this message via ITS. Dr. Jeferson Gonzalez The patient was admitting with a diagnosis of: Pancytopenia, Documented in the 05/29 History/Risk factors: 74-year-old male presents to the ED for reported fevers. Medical History: Squamous cell carcinoma of head and neck Clinical indicators: Per Oncology Consult She states last Friday her chemotherapy was changed to a different agent. 05/28 Labs: Wbc 1.1; Rbc 6.8; Plt 40 Treatment: 1 Unit PRBC, Monitor CBC daily labs 05/30 Oncology Consult: Chemotherapy induced neutropenia. Squamous cell carcinoma of head and neck. In your professional opinion, can you please clarify if these findings signify one of the following conditions? xx Pancytopenia due to chemotherapy Pancytopenia drug induced, specify drug Pancytopenia due to other, please specify Other condition, please specify ____ Unable to determine (Last Revision: June 2017) MTDD
--- NOTE | 2020-05-31 12:36 | P.PN ---
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 Patient presented to the emergency room with weakness, frequent falls and fevers. She is currently getting radiation Friday through Friday and chemotherapy on Fridays, she states last Friday her chemotherapy was changed to a different agent. She follows with Dr. Zheng and Dr. Rossi. She did go to [facility] yesterday after she had repeated falls. Apparently they wanted to admit her but she declined. She continued to have fevers, so she contacted Dr. Zheng's office who advised her to go to the ER. She did have a low grade temperature of 99.5 upon arrival, blood pressure 144/69, heart rate 69, oxygen saturation of 100% on 3L NC. She was found to have neutropenia with WBC of 1.1, hgb was low at 6.8, platelets count of 40, BUN 33, Cr 1.23, UA was negative for infection. Chest x-ray showed no active cardiopulmonary disease, normal heart, no infiltrates. She was started on Vancomycin and Cefepime, blood cultures have been ordered, will consult with oncology. She did receive 1 unit of PRBCs, repeat hemoglobin is 8.3. 05/30: patient examined resting in bed this morning. Plan for radiation today at 11 AM. White blood cells this morning were 0.6, hemoglobin 8.3. Blood cultures show no growth. speech therapy is on the case, we'll do video fluoroscopy swallow today. dietary on the case discussed increasing tube feedings and eating for pleasure foods. patient continues on IV Vanco and cefepime. discussed neutropenic precautions with patient and sure to wear mask, and no raw foods at this time. oncology is on the case. 05/31: Patient evaluated at bedside, plan for radiation again this morning. White blood cells 0.8 hemoglobin was 7.9 today. We will repeat labs in the morning. Blood cultures finalized with no growth. Swallow eval did show aspiration of thin and thick liquids. Continue with PEG tube feedings. Vital signs remained stable patient is afebrile this morning, pulse rate 71, blood pressure 156/68, pulse ox 94% on room air. Review of Systems Constitutional: Reports chills, Reports fatigue, denies fever, Reports weakness Ears: deny: ear discharge, earache, tinnitus Ears, nose, mouth and throat: Reports dysphagia, Reports hoarseness, Reports mouth pain, Reports voice changes, Denies nasal congestion, Denies nasal discharge Cardiovascular: Denies chest pain, Denies claudication, Denies dyspnea on exertion, Denies edema, Denies leg edema, Denies shortness of breath, Denies s yncope Respiratory: Reports congestion, Reports cough, Reports cough with sputum, Denies dyspnea, Denies hemoptysis, Denies pain, Denies wheezing Gastrointestinal: Denies constipation, Denies diarrhea, Denies heartburn, Denies nausea, Denies vomiting Genitourinary: Denies dysuria, Denies flank pain, Denies kidney stones, Denies urgency, Denies urinary frequency Musculoskeletal: Reports frequent falls, Reports muscle weakness, Denies leg numbness/tingling Integumentary: Denies lesions, Denies pruritus, Denies rash, Denies sores, radiation burn on neck Neurological: Reports weakness, Denies confusion, Denies migraines, Denies numbness, Denies paralysis, Denies paresthesias, Denies syncope Psychiatric: Denies confusion, Denies depression, Denies mood swings Endocrine: Reports fatigue, Denies nocturia, Denies palpitations physical exam - Constitutional General appearance: average body habitus, cooperative, no acute distress - EENT Eyes: abnormal pupil, PERRLA, normal appearance ENT: hearing grossly normal, no normal oropharynx, pharyngeal erythema, thrush - Neck Neck: no lymphadenopathy, normal ROM, no stridor, no thyromegaly - Respiratory Respiratory: bilateral: CTA, lung sounds diminished with occasional wheeze and rhonchi. - Cardiovascular Rhythm: regular Heart sounds: normal: S1, S2 - Gastrointestinal PEG LLQ General gastrointestinal: no hepatomegaly, normal bowel sounds, no organomegaly, soft, no tenderness - Integumentary Integumentary: no cellulitis, normal turgor, pale, no rash. Radiation Burn noted to midline of the neck - Neurologic Neurologic: CNII-XII intact - Musculoskeletal Musculoskeletal: generalized weakness, strength equal bilaterally - Psychiatric Psychiatric: A&O x's 3, appropriate affect Objective - Vital Signs Vital signs: Vital Signs Temp 97.7 F 05/31/20 04:09 Pulse 71 05/31/20 04:09 Resp 16 05/31/20 04:09 BP 156/68 05/31/20 04:09 Pulse Ox 94 L 05/31/20 04:09 Intake & Output 05/30/20 05/31/20 05/31/20 18:59 06:59 18:59 Intake Total 220 Balance 220 Weight 59.1 kg Intake: Tube Feeding 220 Other: Voiding Method Toilet # Voids 1 - Labs CBC & Chem 7: 05/31/20 05:54 05/30/20 06:23 Labs: Abnormal Lab Results - Last 24 Hours (Table) 05/30/20 05/31/20 Range/Units 06:23 05:54 WBC 0.8 L* (3.8-10.6) k/uL RBC 2.55 L (3.80-5.40) m/uL Hgb 7.9 L (11.4-16.0) gm/dL Hct 23.7 L (34.0-46.0) % Plt Count 52 L (150-450) k/uL BUN/Creatinine Ratio 23.75 H (12.00-20.00) Ratio Calcium 7.7 L (8.7-10.3) mg/dL Total Protein 5.1 L (6.2-8.2) g/dL Albumin 3.30 L (3.80-4.90) g/dL Microbiology - Last 24 Hours (Table) 05/28/20 21:19 Blood Culture - Preliminary Blood No Growth after 48 hours Assessment and Plan Assessment: Assessment and Plan Plan: 1. Neutropenia secondary to chemotherapy with possible early pneumonia. Has been started on cefepime and vancomycin, blood cultures showed no growth, UA negative for infection, chest x-ray showed no acute process, oncology is on the case. 2. Pancytopenia due to chemotherapy. will continue to monitor CBC 3. Anemia secondary to chemotherapy. 1 units of PRBCs given, repeat hgb is now 7.9 today 4. Squamous cell carcimoma of the left piriform sinus and left base of tongue. Consult to oncology, last chemotherapy was Friday, radiation will be done today. 5. Oral thrush. Continue with nystatin oral suspension 4 times a day 6. Obstructive sleep apnea. On CPAP 7. History of GERD. Continue on pantoprazole 40 mg daily. 8. History of depression. Continue citalopram 40 mg daily and Remeron 45 mg at at bedtime. 9. Neuropathy. Continue gabapentin 300 mg QAM, 600mg QHS. 10. DVT prophylaxis.will do compression stockings and early ambulation 11. GI prophylaxis. pantoprazole 40 mg daily Admit with plan to stay with a minimal 2 nights CODE STATUS DO NOT RESUSCITATE The above impression and plan of care have been discussed and directed by signing physician. Linda Hull nurse practitioner acting as scribe for signing physician.
[2020-05-31 12:53] LABS: African American GFR (CKD) 97.5 (60.0-200.0); Albumin 2.9 g/dL (3.80-4.90); Albumin/Globulin Ratio 1.81 (1.60-3.17); Anion Gap 10.1 mmol/L (4.00-12.00); Calcium 7.2 mg/dL (8.7-10.3); Carbon Dioxide 24.9 mmol/L (21.6-31.8); Globulin 1.6 g/dL (1.6-3.3); Non-African American GFR(CKD) 84.2 (60.0-200.0); Potassium 3.2 mmol/L (3.5-5.5); Total Bilirubin 0.4 mg/dL (0.3-1.2); Total Protein 4.5 g/dL (6.2-8.2)
--- NOTE | 2020-05-31 14:27 | P.PN ---
Subjective Progress Note Date: 05/31/20 Principal diagnosis: chills, near syncopy and dizziness In f/u today pt is feeling well. She still is not swallowing anything-she is expectorating her own secretions and she expels the water from melted ice chips. On further questioning it is due to bad taste not dysphagia or odynophagia. Pt was noted to cough after swallowing. Objective - Vital Signs Vital signs: Vital Signs Temp 98.7 F 05/31/20 12:42 Pulse 64 05/31/20 12:42 Resp 18 05/31/20 12:42 BP 129/77 05/31/20 12:42 Pulse Ox 99 05/31/20 12:42 Intake & Output 05/30/20 05/31/20 05/31/20 18:59 06:59 18:59 Intake Total 220 Balance 220 Weight 59.1 kg Intake: Tube Feeding 220 Other: Voiding Method Toilet Toilet # Voids 1 - Exam voice is much clearer speaking today, less coughing, oral secretions not as thick or copious - Constitutional General appearance: Present: cooperative, no acute distress, thin - EENT Eyes: Present: anicteric sclerae, EOMI ENT: Present: hearing grossly normal - Respiratory Respiratory: bilateral: CTA - Cardiovascular Heart sounds: normal: S1, S2 - Peripheral edema leg Peripheral Edema: bilateral: None - Gastrointestinal General gastrointestinal: Present: soft - Neurologic Neurologic: Present: CNII-XII intact - Musculoskeletal Musculoskeletal: Present: generalized weakness, strength equal bilaterally - Psychiatric Psychiatric: Present: A&O x's 3, appropriate affect, intact judgment & insight - Labs CBC & Chem 7: 05/31/20 05:54 05/31/20 05:54 Labs: Abnormal Lab Results - Last 24 Hours (Table) 05/31/20 05/31/20 Range/Units 05:54 05:54 WBC 0.8 L* (3.8-10.6) k/uL RBC 2.55 L (3.80-5.40) m/uL Hgb 7.9 L (11.4-16.0) gm/dL Hct 23.7 L (34.0-46.0) % Plt Count 52 L (150-450) k/uL Potassium 3.2 L (3.5-5.5) mmol/L Calcium 7.2 L (8.7-10.3) mg/dL Total Protein 4.5 L (6.2-8.2) g/dL Albumin 2.90 L (3.80-4.90) g/dL Microbiology - Last 24 Hours (Table) 05/28/20 21:19 Blood Culture - Preliminary Blood No Growth after 48 hours Assessment and Plan (1) Chemotherapy induced neutropenia Narrative/Plan: G-CSF ordered ty, continue. Pancultures pending. Empiric antibiotics continue Current Visit: Yes Status: Acute Priority: High Code(s): D70.1 - AGRANULOCYTOSIS SECONDARY TO CANCER CHEMOTHERAPY; T45.1X5A - ADVERSE EFFECT OF ANTINEOPLASTIC AND IMMUNOSUP DRUGS, INIT SNOMED Code(s): 307237324 (2) Squamous cell carcinoma of head and neck Narrative/Plan: Pt has 2 weeks left of radiation, 2 more cycles of chemo. Her counts do go into jabari weekly but, thus far, she has recovered spontaneously without complica tion. Suspect the patient's low grade fever may possibly be related to tumor fever or necrosis of the tumor. Continue with plan of care as ordered for now including antibiotics and G-CSF until cultures result. Current Visit: Yes Status: Chronic Priority: Medium Code(s): C76.0 - MALIGNANT NEOPLASM OF HEAD, FACE AND NECK SNOMED Code(s): 003860668 Plan: Barium swallow report reviewed, pending Speech pathology recommendations re: oral intake. Pt has PEG. Dietitian was consulted for nutritional recs. Doctor attests: I performed a history and physical examination of this patient, developed impression and plan of care. Discussed with dictator. I agree with dictators note, documented as a scribe.
[2020-05-31] MEDS: VANCOMYCIN 1,000 MG in SODIUM CHLORIDE 0.9% 250 ML IVPB SCH (15:42)
[2020-05-31] MEDS: SODIUM CHLORIDE 0.9% 1,000 ML IV SCH (15:43)
[2020-05-31] MEDS: MIRTAZAPINE 15 MG TAB PO SCH (20:47)
[2020-05-31] MEDS: CITALOPRAM HYDROBROMIDE 20 MG TAB PO SCH (20:47)
[2020-06-01] MEDS ORDERED: NALOXONE 0.4 MG/ML 1 ML VIAL IV PRN (02:00)
[2020-06-01] MEDS: HYDROcodone/APAP 15 ML SOLUTION PO PRN ×2 (05:32→19:46)
[2020-06-01] MEDS: SODIUM CHLORIDE 0.9% 1,000 ML IV SCH (05:35)
[2020-06-01 07:48] LABS: HCT 23.3 % (34.0-46.0); HGB 7.7 gm/dL (11.4-16.0); MCH 30.6 pg (25.0-35.0); MCHC 32.9 g/dL (31.0-37.0); MCV 92.9 fL (80.0-100.0); Mean Platelet Volume 8.3; RBC 2.51 m/uL (3.80-5.40); RDW 14.6 % (11.5-15.5)
[2020-06-01] MEDS ORDERED: bisacodyL 10 MG SUPP RECTAL STA (07:50)
[2020-06-01] MEDS: CEFEPIME 2 GM in SODIUM CHLORIDE 0.9% 100 ML IVPB SCH ×2 (07:57→16:12)
[2020-06-01] MEDS: NYSTATIN 100,000 UNIT/ML SUSP 500,000 UNIT/5 ML CUP PO SCH ×4 (07:58→21:16)
[2020-06-01] MEDS: GABAPENTIN 300 MG CAP PO SCH ×2 (08:00→21:16)
[2020-06-01] MEDS: PANTOPRAZOLE 40 MG TABLET PO SCH (08:00)
[2020-06-01 08:07] LABS: Platelet Count 78 k/uL (150-450)
[2020-06-01 09:24] LABS: Band Neutrophils % 2 %; Eosinophils # (M) 0.03 k/uL (0-0.7); Lymphocytes # (M) 0.45 k/uL (1.0-4.8); Monocytes # (M) 0.15 k/uL (0-1.0); Neutrophils % (M) 34 %
[2020-06-01 09:25] LABS: Metamyelocytes # (M) 0.01 k/uL (0); Metamyelocytes % 1 %; Nucleated Red Blood Cells 0 /100 WBC (0-0); Total Cells Counted 100
[2020-06-01 09:26] LABS: Toxic Granulation Present
--- NOTE | 2020-06-01 09:31 | P.PN ---
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 Patient presented to the emergency room with weakness, frequent falls and fevers. She is currently getting radiation Friday through Friday and chemotherapy on Fridays, she states last Friday her chemotherapy was changed to a different agent. She follows with Dr. Zheng and Dr. Rossi. She did go to [facility] yesterday after she had repeated falls. Apparently they wanted to admit her but she declined. She continued to have fevers, so she contacted Dr. Zheng's office who advised her to go to the ER. She did have a low grade temperature of 99.5 upon arrival, blood pressure 144/69, heart rate 69, oxygen saturation of 100% on 3L NC. She was found to have neutropenia with WBC of 1.1, hgb was low at 6.8, platelets count of 40, BUN 33, Cr 1.23, UA was negative for infection. Chest x-ray showed no active cardiopulmonary disease, normal heart, no infiltrates. She was started on Vancomycin and Cefepime, blood cultures have been ordered, will consult with oncology. She did receive 1 unit of PRBCs, repeat hemoglobin is 8.3. 05/30: patient examined resting in bed this morning. Plan for radiation today at 11 AM. White blood cells this morning were 0.6, hemoglobin 8.3. Blood cultures show no growth. speech therapy is on the case, we'll do video fluoroscopy swallow today. dietary on the case discussed increasing tube feedings and eating for pleasure foods. patient continues on IV Vanco and cefepime. discussed neutropenic precautions with patient and sure to wear mask, and no raw foods at this time. oncology is on the case. 05/31: Patient evaluated at bedside, plan for radiation again this morning. White blood cells 0.8 hemoglobin was 7.9 today. We will repeat labs in the morning. Blood cultures finalized with no growth. Swallow eval did show aspiration of thin and thick liquids. Continue with PEG tube feedings. Vital signs remained stable patient is afebrile this morning, pulse rate 71, blood pressure 156/68, pulse ox 94% on room air. 06/01: Patient seen resting in bed, complains of mild constipation. Dulcolax suppository ordered along with Colace at bedtime. White blood cells 1.0 this morning, hemoglobin 7.7, platelet 78, labs ordered for a.m. Vital signs are stable, and patient remains afebrile. Continue with radiation again today and Oncology remains on the case. Review of Systems Constitutional: Denies chills, denies fatigue, denies fever, Reports weakness Ears: deny: ear discharge, earache, tinnitus Ears, nose, mouth and throat: Reports dysphagia, Reports hoarseness, Reports mouth pain, Reports voice changes, Denies nasal congestion, Denies nasal discharge Cardiovascular: Denies chest pain, Denies dyspnea on exertion, Denies edema, Denies leg edema, Denies shortness of breath, Denies syncope Respiratory: Reports congestion, Reports cough, Reports cough with green sputum, Denies dyspnea, Denies hemoptysis, Denies pain, Denies wheezing Gastrointestinal: Mild constipation, Denies diarrhea, Denies heartburn, mild n ausea, Denies vomiting Genitourinary: Denies dysuria, Denies flank pain, Denies kidney stones, Denies urgency, Denies urinary frequency Musculoskeletal: Reports frequent falls, Reports muscle weakness, Denies leg numbness/tingling Integumentary: Denies lesions, Denies pruritus, Denies rash, Denies sores, radiation burn on neck Neurological: Reports weakness, Denies confusion, Denies migraines, Denies numbness, Denies paralysis, Denies paresthesias, Denies syncope Psychiatric: Denies confusion, Denies depression, Denies mood swings Endocrine: Reports fatigue, Denies nocturia, Denies palpitations physical exam - Constitutional General appearance: average body habitus, cooperative, no acute distress - EENT Eyes: abnormal pupil, PERRLA, normal appearance ENT: hearing grossly normal, no normal oropharynx, pharyngeal erythema, thrush, hoarseness - Neck Neck: no lymphadenopathy, normal ROM, no stridor, no thyromegaly - Respiratory Respiratory: bilateral: CTA, lung sounds diminished with occasional wheeze - Cardiovascular Rhythm: regular Heart sounds: normal: S1, S2, no murmur or rub - Gastrointestinal abdomen soft and nontender, PEG LLQ General gastrointestinal: no hepatomegaly, normal bowel sounds, no organomegaly, - Integumentary Integumentary: no cellulitis, normal turgor, pale, no rash. Radiation Burn noted to midline of the neck - Neurologic Neurologic: CNII-XII intact - Musculoskeletal Musculoskeletal: generalized weakness, strength equal bilaterally - Psychiatric Psychiatric: A&O x's 3, appropriate affect Objective - Vital Signs Vital signs: Vital Signs Temp 98.5 F 06/01/20 04:02 Pulse 70 06/01/20 04:02 Resp 18 06/01/20 04:02 BP 149/66 06/01/20 04:02 Pulse Ox 96 06/01/20 04:02 Intake & Output 05/31/20 06/01/20 06/01/20 18:59 06:59 18:59 Intake Total 240 940 Balance 240 940 Weight 59.1 kg Intake: Intake, IV Titration 700 Amount Cefepime 2 gm In Sodium 100 Chloride 0.9% 100 ml @ 200 mls/hr IVPB Q12H JOSUE Rx#:[id number] Sodium Chloride 0.9% 1, 600 000 ml @ 50 mls/hr IV . Q20H JOSUE Rx#:[id number] Tube Feeding 240 240 Other: Voiding Method Toilet Toilet # Voids 2 - Labs CBC & Chem 7: 06/01/20 06:40 05/31/20 05:54 Labs: Abnormal Lab Results - Last 24 Hours (Table) 05/31/20 06/01/20 Range/Units 05:54 06:40 WBC 1.0 L* (3.8-10.6) k/uL RBC 2.51 L (3.80-5.40) m/uL Hgb 7.7 L (11.4-16.0) gm/dL Hct 23.3 L (34.0-46.0) % Plt Count 78 L (150-450) k/uL Potassium 3.2 L (3.5-5.5) mmol/L Calcium 7.2 L (8.7-10.3) mg/dL Total Protein 4.5 L (6.2-8.2) g/dL Albumin 2.90 L (3.80-4.90) g/dL Microbiology - Last 24 Hours (Table) 05/28/20 21:19 Blood Culture - Preliminary Blood No Growth after 72 hours Assessment and Plan Assessment: Assessment and Plan Plan: 1. Neutropenia secondary to chemotherapy with possible early pneumonia. Continue on cefepime and vancomycin, blood cultures showed no growth, UA negative for infection, chest x-ray showed no acute process, oncology is on the case. 2. Pancytopenia due to chemotherapy. will continue to monitor CBC 3. Anemia secondary to chemotherapy. 1 units of PRBCs given on admission, repeat hgb is now 7.7 today, will repeat in a.m. 4. Squamous cell carcimoma of the left piriform sinus and left base of tongue. Consult to oncology, last chemotherapy was Friday, radiation will be done today. 5. Oral thrush. Continue with nystatin oral suspension 4 times a day 6. Obstructive sleep apnea. On CPAP 7. History of GERD. Continue on pantoprazole 40 mg daily. 8. History of depression. Continue citalopram 40 mg daily and Remeron 45 mg at at bedtime. 9. Neuropathy. Continue gabapentin 300 mg QAM, 600mg QHS. 10. DVT prophylaxis.will do compression stockings and early ambulation 11. GI prophylaxis. pantoprazole 40 mg daily 12. Constipation. Duplex suppository today with Colace scheduled at bedtime. Admit with plan to stay with a minimal 2 nights CODE STATUS DO NOT RESUSCITATE The above impression and plan of care have been discussed and directed by signing physician. Linda Hull nurse practitioner acting as scribe for signing physician.
[2020-06-01] MEDS: FILGRASTIM-SNDZ 300 MCG/0.5 ML SYRINGE SQ SCH (09:33)
[2020-06-01] MEDS: VANCOMYCIN 1,000 MG in SODIUM CHLORIDE 0.9% 250 ML IVPB SCH ×2 (09:34→23:20)
[2020-06-01] MEDS: ONDANSETRON 4 MG/2 ML VIAL IVP PRN ×3 (10:10→21:17)
[2020-06-01 12:22] LABS: African American GFR (CKD) 97.5 (60.0-200.0); Albumin 2.9 g/dL (3.80-4.90); Albumin/Globulin Ratio 1.61 (1.60-3.17); Anion Gap 5.9 mmol/L (4.00-12.00); Carbon Dioxide 28.1 mmol/L (21.6-31.8); Globulin 1.8 g/dL (1.6-3.3); Non-African American GFR(CKD) 84.2 (60.0-200.0); Potassium 3.2 mmol/L (3.5-5.5); Total Bilirubin 0.4 mg/dL (0.2-1.2); Total Protein 4.7 g/dL (6.2-8.2)
--- NOTE | 2020-06-01 12:29 | P.PN ---
Subjective Progress Note Date: 06/01/20 Principal diagnosis: Febrile neutropenia In f/u today pt is not feeling as good as she did yesterday. She is expectorating her thick secretions, amount of secretions is less and the color is more clear. No fevers. She is managing her PEG tube feeds, new recommendations. Objective - Vital Signs Vital signs: Vital Signs Temp 98.5 F 06/01/20 11:39 Pulse 63 06/01/20 11:39 Resp 16 06/01/20 11:39 BP 147/67 06/01/20 11:39 Pulse Ox 98 06/01/20 11:39 Intake & Output 05/31/20 06/01/20 06/01/20 18:59 06:59 18:59 Intake Total 240 940 Balance 240 940 Weight 59.1 kg Intake: Intake, IV Titration 700 Amount Cefepime 2 gm In Sodium 100 Chloride 0.9% 100 ml @ 200 mls/hr IVPB Q12H JOSUE Rx#:[id number] Sodium Chloride 0.9% 1, 600 000 ml @ 50 mls/hr IV . Q20H JOSUE Rx#:[id number] Tube Feeding 240 240 Other: Voiding Method Toilet Toilet # Voids 2 - Constitutional General appearance: Present: cooperative, no acute distress, thin - EENT Eyes: Present: anicteric sclerae, EOMI ENT: Present: hearing grossly normal - Respiratory Respiratory: bilateral: CTA - Cardiovascular Heart sounds: normal: S1, S2 - Peripheral edema leg Peripheral Edema: bilateral: None - Gastrointestinal General gastrointestinal: Present: soft - Neurologic Neurologic: Present: CNII-XII intact - Musculoskeletal Musculoskeletal: Present: strength equal bilaterally - Psychiatric Psychiatric: Present: A&O x's 3, appropriate affect, intact judgment & insight - Labs CBC & Chem 7: 06/01/20 06:40 06/01/20 06:40 Labs: Abnormal Lab Results - Last 24 Hours (Table) 05/31/20 06/01/20 06/01/20 Range/Units 05:54 06:40 06:40 WBC 1.0 L* (3.8-10.6) k/uL RBC 2.51 L (3.80-5.40) m/uL Hgb 7.7 L (11.4-16.0) gm/dL Hct 23.3 L (34.0-46.0) % Plt Count 78 L (150-450) k/uL Neutrophils # (Manual) 0.30 L* (1.3-7.7) k/uL Lymphocytes # (Manual) 0.45 L (1.0-4.8) k/uL Metamyelocytes # (Man) 0.01 H (0) k/uL Potassium 3.2 L 3.2 L (3.5-5.5) mmol/L Calcium 7.2 L 7.0 L (8.7-10.3) mg/dL Total Protein 4.5 L 4.7 L (6.2-8.2) g/dL Albumin 2.90 L 2.90 L (3.80-4.90) g/dL Microbiology - Last 24 Hours (Table) 05/28/20 21:19 Blood Culture - Preliminary Blood No Growth after 72 hours Assessment and Plan (1) Chemotherapy induced neutropenia Narrative/Plan: G-CSF continue. Pancultures negative. Abx cont for febrile neutropenia, neutropenia persists, slowly recovering Current Visit: Yes Status: Acute Priority: High Code(s): D70.1 - AGRANULOCYTOSIS SECONDARY TO CANCER CHEMOTHERAPY; T45.1X5A - ADVERSE EFFECT OF ANTINEOPLASTIC AND IMMUNOSUP DRUGS, INIT SNOMED Code(s): 513866045 (2) Squamous cell carcinoma of head and neck Narrative/Plan: Pt has 2 weeks left of radiation, 2 more cycles of chemo. Chemo this week is cancelled, she cont on XRT Cont GCSF for now, would like ANC>1000 (400 today) Pt informed and verbalizes understanding plan Current Visit: Yes Status: Chronic Priority: Medium Code(s): C76.0 - MALIGNANT NEOPLASM OF HEAD, FACE AND NECK SNOMED Code(s): 788361916
[2020-06-01] MEDS: DOCUSATE ORAL SOLN 100 MG/10 ML CUP PO SCH (19:41)
[2020-06-01] MEDS ORDERED: DOCUSATE 100 MG CAP PO SCH (21:00)
[2020-06-01] MEDS: CITALOPRAM HYDROBROMIDE 20 MG TAB PO SCH (21:16)
[2020-06-01] MEDS: MIRTAZAPINE 15 MG TAB PO SCH (21:16)
[2020-06-02] MEDS: CEFEPIME 2 GM in SODIUM CHLORIDE 0.9% 100 ML IVPB SCH ×3 (00:09→15:39)
[2020-06-02] MEDS: SODIUM CHLORIDE 0.9% 1,000 ML IV SCH ×3 (03:46→18:36)
[2020-06-02] MEDS: ONDANSETRON 4 MG/2 ML VIAL IVP PRN ×3 (04:53→18:46)
[2020-06-02 06:22] LABS: HCT 24.6 % (34.0-46.0); HGB 7.8 gm/dL (11.4-16.0); MCH 29.8 pg (25.0-35.0); MCHC 31.8 g/dL (31.0-37.0); MCV 93.6 fL (80.0-100.0); Mean Platelet Volume 8.2; RBC 2.63 m/uL (3.80-5.40); RDW 15.1 % (11.5-15.5); WBC 2.5 k/uL (3.8-10.6)
[2020-06-02 06:44] LABS: Platelet Count 98 k/uL (150-450)
[2020-06-02] MEDS ORDERED: SCOPOLAMINE 1.5MG/72HR PATCH TRANSDERM SCH (08:00)
[2020-06-02 08:24] LABS: Band Neutrophils % 13 %; Lymphocytes # (M) 0.58 k/uL (1.0-4.8); Monocytes # (M) 0.53 k/uL (0-1.0); Neutrophils % (M) 43 %; Nucleated Red Blood Cells 0 /100 WBC (0-0); Total Cells Counted 100
[2020-06-02 08:25] LABS: Poikilocytosis (M) Present
[2020-06-02 09:36] LABS: African American GFR (CKD) 97.5 (60.0-200.0); Albumin/Globulin Ratio 1.58 (1.60-3.17); Anion Gap 6.5 mmol/L (4.00-12.00); BUN/Creat Ratio 21.43 Ratio (12.00-20.00); Calcium 6.8 mg/dL (8.7-10.3); Carbon Dioxide 27.5 mmol/L (21.6-31.8); Globulin 1.9 g/dL (1.6-3.3); Non-African American GFR(CKD) 84.2 (60.0-200.0); Potassium 3.1 mmol/L (3.5-5.5); Total Bilirubin 0.4 mg/dL (0.2-1.2); Total Protein 4.9 g/dL (6.2-8.2)
[2020-06-02] MEDS: GABAPENTIN 300 MG CAP PO SCH ×2 (10:22→19:47)
[2020-06-02] MEDS: PANTOPRAZOLE 40 MG TABLET PO SCH (10:22)
[2020-06-02] MEDS: NYSTATIN 100,000 UNIT/ML SUSP 500,000 UNIT/5 ML CUP PO SCH ×4 (10:23→21:31)
[2020-06-02] MEDS: FILGRASTIM-SNDZ 300 MCG/0.5 ML SYRINGE SQ SCH (10:30)
--- NOTE | 2020-06-02 10:54 | P.PN ---
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 Patient presented to the emergency room with weakness, frequent falls and fevers. She is currently getting radiation Friday through Friday and chemotherapy on Fridays, she states last Friday her chemotherapy was changed to a different agent. She follows with Dr. Zheng and Dr. Rossi. She did go to [facility] yesterday after she had repeated falls. Apparently they wanted to admit her but she declined. She continued to have fevers, so she contacted Dr. Zheng's office who advised her to go to the ER. She did have a low grade temperature of 99.5 upon arrival, blood pressure 144/69, heart rate 69, oxygen saturation of 100% on 3L NC. She was found to have neutropenia with WBC of 1.1, hgb was low at 6.8, platelets count of 40, BUN 33, Cr 1.23, UA was negative for infection. Chest x-ray showed no active cardiopulmonary disease, normal heart, no infiltrates. She was started on Vancomycin and Cefepime, blood cultures have been ordered, will consult with oncology. She did receive 1 unit of PRBCs, repeat hemoglobin is 8.3. 05/30: patient examined resting in bed this morning. Plan for radiation today at 11 AM. White blood cells this morning were 0.6, hemoglobin 8.3. Blood cultures show no growth. speech therapy is on the case, we'll do video fluoroscopy swallow today. dietary on the case discussed increasing tube feedings and eating for pleasure foods. patient continues on IV Vanco and cefepime. discussed neutropenic precautions with patient and sure to wear mask, and no raw foods at this time. oncology is on the case. 05/31: Patient evaluated at bedside, plan for radiation again this morning. White blood cells 0.8 hemoglobin was 7.9 today. We will repeat labs in the morning. Blood cultures finalized with no growth. Swallow eval did show aspiration of thin and thick liquids. Continue with PEG tube feedings. Vital signs remained stable patient is afebrile this morning, pulse rate 71, blood pressure 156/68, pulse ox 94% on room air. 06/01: Patient seen resting in bed, complains of mild constipation. Dulcolax suppository ordered along with Colace at bedtime. White blood cells 1.0 this morning, hemoglobin 7.7, platelet 78, labs ordered for a.m. Vital signs are stable, and patient remains afebrile. Continue with radiation again today and Oncology remains on the case. 06/02: Patient seen resting in bed this morning, did have successful bowel movement after suppository yesterday. Still complains of some mild nausea will add scopolamine patch along with Zofran to see if this helps. White blood cells up to 2.5 this morning hemoglobin stable at 7.8. Patient remains afebrile vitals are stable. Plan for discharge home tomorrow if stable. Patient will have radiation again this morning. We'll likely send patient home on Diflucan and oral Levaquin. Continue working on increased PEG feedings. Pt failed bolus feedings and will require continuos feedings at home. Review of Systems Constitutional: Denies chills, denies fatigue, denies fever, Reports weakness Ears: deny: ear discharge, earache, tinnitus Ears, nose, mouth and throat: Reports dysphagia, Reports hoarseness, Reports mouth pain, Reports voice changes, Denies nasal congestion, Denies nasal discharge Cardiovascular: Denies chest pain, Denies dyspnea on exertion, Denies edema, Denies leg edema, Denies shortness of breath, Denies syncope Respiratory: Reports congestion, Reports cough, Reports cough with green sputum, Denies dyspnea, Denies hemoptysis, Denies pain, Denies wheezing Gastrointestinal: Mild constipation, Denies diarrhea, Denies heartburn, mild nausea, Denies vomiting Genitourinary: Denies dysuria, Denies flank pain, Denies kidney stones, Denies urgency, Denies urinary frequency Musculoskeletal: Reports frequent falls, Reports muscle weakness, Denies leg numbness/tingling Integumentary: Denies lesions, Denies pruritus, Denies rash, Denies sores, radiation burn on neck Neurological: Reports weakness, Denies confusion, Denies migraines, Denies numbness, Denies paralysis, Denies paresthesias, Denies syncope Psychiatric: Denies confusion, Denies depression, Denies mood swings Endocrine: Reports fatigue, Denies nocturia, Denies palpitations physical exam - Constitutional General appearance: average body habitus, cooperative, no acute distress - EENT Eyes: abnormal pupil, PERRLA, normal appearance ENT: hearing grossly normal, no normal oropharynx, pharyngeal erythema, thrush, hoarseness - Neck Neck: no lymphadenopathy, normal ROM, no stridor, no thyromegaly, radiation burn improving - Respiratory Respiratory: bilateral: CTA, lung sounds diminished, with improved aeration - Cardiovascular Rhythm: regular Heart sounds: normal: S1, S2, no murmur or rub - Gastrointestinal abdomen soft and nontender, PEG LLQ General gastrointestinal: no hepatomegaly, normal bowel sounds, no organomegaly, - Integumentary Integumentary: no cellulitis, normal turgor, pale, no rash. Radiation Burn noted to midline of the neck - Neurologic Neurologic: CNII-XII intact - Musculoskeletal Musculoskeletal: generalized weakness, strength equal bilaterally - Psychiatric Psychiatric: A&O x's 3, appropriate affect Objective - Vital Signs Vital signs: Vital Signs Temp 98.5 F 06/02/20 05:00 Pulse 77 06/02/20 05:00 Resp 18 06/02/20 05:00 BP 150/70 06/02/20 05:00 Pulse Ox 97 06/02/20 05:00 Intake & Output 06/01/20 06/02/20 06/02/20 18:59 06:59 18:59 Intake Total 950 Balance 950 Weight 59.1 kg 59.6 kg Intake: Intake, IV Titration 950 Amount Cefepime 2 gm In Sodium 100 Chloride 0.9% 100 ml @ 25 mls/hr IVPB Q8H JOSUE Rx#: [id number] Sodium Chloride 0.9% 1, 600 000 ml @ 50 mls/hr IV . Q20H JOSUE Rx#:[id number] Vancomycin 1,000 mg In 250 Sodium Chloride 0.9% 250 ml @ 125 mls/hr IVPB Q16H JOSUE Rx#:[id number] Other: Voiding Method Toilet # Voids 3 # Bowel Movements 4 - Labs CBC & Chem 7: 06/02/20 05:08 06/02/20 05:08 Labs: Abnormal Lab Results - Last 24 Hours (Table) 06/01/20 06/02/20 06/02/20 Range/Units 06:40 05:08 05:08 WBC 2.5 L (3.8-10.6) k/uL RBC 2.63 L (3.80-5.40) m/uL Hgb 7.8 L (11.4-16.0) gm/dL Hct 24.6 L (34.0-46.0) % Plt Count 98 L (150-450) k/uL Lymphocytes # (Manual) 0.58 L (1.0-4.8) k/uL Potassium 3.2 L 3.1 L (3.5-5.5) mmol/L BUN/Creatinine Ratio 21.43 H (12.00-20.00) Ratio Calcium 7.0 L 6.8 L (8.7-10.3) mg/dL Total Protein 4.7 L 4.9 L (6.2-8.2) g/dL Albumin 2.90 L 3.00 L (3.80-4.90) g/dL Albumin/Globulin Ratio 1.58 L (1.60-3.17) g/dL Microbiology - Last 24 Hours (Table) 05/28/20 21:19 Blood Culture - Preliminary Blood No Growth after 96 hours Assessment and Plan Assessment: Assessment and Plan Plan: 1. Neutropenia secondary to chemotherapy with possible early pneumonia. Mariah nue on cefepime and vancomycin, blood cultures showed no growth, UA negative for infection, chest x-ray showed no acute process, oncology is on the case. Plan for discharge home tomorrow on oral Levaquin and Diflucan. 2. Pancytopenia due to chemotherapy. will continue to monitor CBC 3. Anemia secondary to chemotherapy. 1 units of PRBCs given on admission, repeat hgb is now 7.7 today, will repeat in a.m. 4. Squamous cell carcimoma of the left piriform sinus and left base of tongue. Consult to oncology, last chemotherapy was Friday, radiation will be done today. 5. Oral thrush. Continue with nystatin oral suspension 4 times a day 6. Obstructive sleep apnea. On CPAP 7. History of GERD. Continue on pantoprazole 40 mg daily. 8. History of depression. Continue citalopram 40 mg daily and Remeron 45 mg at at bedtime. 9. Neuropathy. Continue gabapentin 300 mg QAM, 600mg QHS. 10. DVT prophylaxis.will do compression stockings and early ambulation 11. GI prophylaxis. pantoprazole 40 mg daily 12. Constipation. Duplex suppository today with Colace scheduled at bedtime. 13. Dysphasia with aspiration. Pt failed bolus feedings and will require continuos Peg feedings at home. Admit with plan to stay with a minimal 2 nights CODE STATUS DO NOT RESUSCITATE The above impression and plan of care have been discussed and directed by signing physician. Linda Hull nurse practitioner acting as scribe for signing physician.
[2020-06-02 11:53] VITALS: BMI 21.8
--- NOTE | 2020-06-02 14:37 | CDI ---
Documentation Clarification Form Date: 06/02/2020 01:57:56 PM From: Nina Black RN CCDS Admit Date: 05/29/2020 12:46:00 PM Patient Name: Shannon Aguilar Visit Number: [id number] Discharge Date: ATTENTION: The Clinical Documentation Specialists (CDI) and [facility] Coding Staff appreciate your assistance in clarifying documentation. Please respond to the clarification below the line at the bottom and electronically sign. The CDI & [facility] Coding staff will review the response and follow-up if needed. Please note: Queries are made part of the Legal Health Record. If you have any questions, please contact the author of this message via ITS. Dr. Jeferson Gonzalez The patient has moderate clavicle and temporal wasting is documented in the Dietary consult 06/02 History/Risk Factors: 74-year-old female presents to the ED with fevers and weakness over the past week. Received Radiation Friday through Friday and last Chemotherapy on Friday. Medical History of Throat cancer and Peg tube feedings. Clinical Indicators: Labs: 06/27 Protein 5.7; Albumin 3.3 06/02 Protein 4.9, Albumin 3.0 Current BMI: 21.9 06/02 Dietary Consult: Appetite Good on regular diet prior to admission. Nutrition assessment: Nutrition intake poor, nothing consumed NPO x3 days. Physical appearance Underweight, The patient has moderate clavicle and temporal wasting Decreased hand prosthodontist strength: Treatment: 06/02 Dietary Consult Nutritional Diagnosis increased nutrient needs Protein and calories. Diagnosis related to: Chemo radiation, newly diagnosed throat CA. Patient isnt doing all the bolus feedings because she is nauseous d/t the formula going in too fast and possible dumping She isnt meeting her calorie or protein needs. PPN/TPN: TF at goal rate, consistent carb diet Monitor tube feeding, monitoring chemistry labs In your professional opinion, can you please clarify if these findings signify one of the following conditions? Moderate Protein-Calorie Malnutrition Severe Protein-Calorie Malnutrition Other condition, please specify Unable to determine Documented on DCS 06/03/20 moderate protein calorie malnutrition (Last Revision: March 2019) MTDD
[2020-06-02] MEDS: VANCOMYCIN 1,000 MG in SODIUM CHLORIDE 0.9% 250 ML IVPB SCH (15:33)
--- NOTE | 2020-06-02 18:53 | P.PN ---
Subjective Progress Note Date: 06/02/20 Principal diagnosis: fevers, pancytopenia Feeling better today Objective - Vital Signs Vital signs: Vital Signs Temp 98.4 F 06/02/20 12:15 Pulse 69 06/02/20 12:15 Resp 18 06/02/20 12:15 BP 143/60 06/02/20 12:15 Pulse Ox 97 06/02/20 12:15 Intake & Output 06/01/20 06/02/20 06/02/20 18:59 06:59 18:59 Intake Total 950 Balance 950 Weight 59.1 kg 59.6 kg 59.6 kg Intake: Intake, IV Titration 950 Amount Cefepime 2 gm In Sodium 100 Chloride 0.9% 100 ml @ 25 mls/hr IVPB Q8H JOSUE Rx#: [id number] Sodium Chloride 0.9% 1, 600 000 ml @ 50 mls/hr IV . Q20H JOSUE Rx#:[id number] Vancomycin 1,000 mg In 250 Sodium Chloride 0.9% 250 ml @ 125 mls/hr IVPB Q16H JOSUE Rx#:[id number] Other: Voiding Method Toilet # Voids 3 # Bowel Movements 4 - Exam - Constitutional General appearance: Present: cooperative, no acute distress, thin Erythema and dryness from radiation to neck and face with rashing - EENT Eyes: Present: anicteric sclerae, EOMI ENT: Present: hearing grossly normal - Respiratory Respiratory: bilateral: CTA - Cardiovascular Heart sounds: normal: S1, S2 - Peripheral edema leg Peripheral Edema: bilateral: None - Gastrointestinal General gastrointestinal: Present: soft - Neurologic Neurologic: Present: CNII-XII intact - Musculoskeletal Musculoskeletal: Present: strength equal bilaterally - Psychiatric Psychiatric: Present: A&O x's 3, appropriate affect, intact judgment & insight - Labs CBC & Chem 7: 06/02/20 05:08 06/02/20 05:08 Labs: Abnormal Lab Results - Last 24 Hours (Table) 06/02/20 06/02/20 Range/Units 05:08 05:08 WBC 2.5 L (3.8-10.6) k/uL RBC 2.63 L (3.80-5.40) m/uL Hgb 7.8 L (11.4-16.0) gm/dL Hct 24.6 L (34.0-46.0) % Plt Count 98 L (150-450) k/uL Lymphocytes # (Manual) 0.58 L (1.0-4.8) k/uL Potassium 3.1 L (3.5-5.5) mmol/L BUN/Creatinine Ratio 21.43 H (12.00-20.00) Ratio Calcium 6.8 L (8.7-10.3) mg/dL Total Protein 4.9 L (6.2-8.2) g/dL Albumin 3.00 L (3.80-4.90) g/dL Albumin/Globulin Ratio 1.58 L (1.60-3.17) g/dL Microbiology - Last 24 Hours (Table) 05/28/20 21:19 Blood Culture - Preliminary Blood No Growth after 96 hours Assessment and Plan Plan: Assessment and Plan Chemotherapy induced neutropenia - G-CSF continue. - Pancultures negative. - Abx cont for febrile neutropenia, neutropenia persists, slowly recovering Squamous cell carcinoma of head and neck - Pt has 2 weeks left of radiation, 2 more cycles of chemo. - May resume next week and folllow-up with Dr. Zheng the following week Cleared for discharge from oncology standpoint after supplementation per primary team and protocol Physcian Attest: Myra completed the full history and physical and agree with above dictation, dictated as a scribe
[2020-06-02] MEDS: CITALOPRAM HYDROBROMIDE 20 MG TAB PO SCH (19:47)
[2020-06-02] MEDS: DOCUSATE ORAL SOLN 100 MG/10 ML CUP PO SCH ×2 (19:47→19:52)
[2020-06-02] MEDS: MIRTAZAPINE 15 MG TAB PO SCH (19:47)
[2020-06-02 22:23] LABS: Potassium 3.2 mmol/L (3.5-5.5)
[2020-06-02] MEDS ORDERED: Magnesium Replacement Protocol 1 EACH MISC MISCELLANE PRN (23:05)
[2020-06-02] MEDS: MAGNESIUM SULFATE-D5W PMX 1 GM in DEXTROSE/WATER 1 100ML.BAG IVPB SCH (23:26)
[2020-06-03] MEDS: ONDANSETRON 4 MG/2 ML VIAL IVP PRN ×2 (01:00→10:21)
[2020-06-03] MEDS: CEFEPIME 2 GM in SODIUM CHLORIDE 0.9% 100 ML IVPB SCH ×2 (01:00→08:14)
[2020-06-03] MEDS: MAGNESIUM SULFATE-D5W PMX 1 GM in DEXTROSE/WATER 1 100ML.BAG IVPB SCH ×3 (01:17→05:04)
[2020-06-03 06:52] LABS: HCT 22.9 % (34.0-46.0); HGB 7.6 gm/dL (11.4-16.0); MCH 30.6 pg (25.0-35.0); MCV 92.6 fL (80.0-100.0); Mean Platelet Volume 8.4; Platelet Count 118 k/uL (150-450); RBC 2.47 m/uL (3.80-5.40); RDW 15.5 % (11.5-15.5); WBC 6.8 k/uL (3.8-10.6)
[2020-06-03] MEDS ORDERED: VANCOMYCIN TROUGH DUE 1 EACH MISC MISCELLANE ONE (07:00)
[2020-06-03] MEDS: GABAPENTIN 300 MG CAP PO SCH (08:12)
[2020-06-03] MEDS: VANCOMYCIN 1,000 MG in SODIUM CHLORIDE 0.9% 250 ML IVPB SCH (08:12)
[2020-06-03] MEDS: PANTOPRAZOLE 40 MG TABLET PO SCH (08:12)
[2020-06-03] MEDS: NYSTATIN 100,000 UNIT/ML SUSP 500,000 UNIT/5 ML CUP PO SCH (08:12)
[2020-06-03 09:07] LABS: Anisocytosis (M) Present; Band Neutrophils % 5 %; Eosinophils # (M) 0.07 k/uL (0-0.7); Lymphocytes # (M) 1.16 k/uL (1.0-4.8); Metamyelocytes # (M) 0.14 k/uL (0); Metamyelocytes % 2 %; Monocytes # (M) 0.75 k/uL (0-1.0); Myelocytes # (M) 0.14 k/uL (0); Myelocytes % 2 %; Neutrophils % (M) 63 %; Nucleated Red Blood Cells 0 /100 WBC (0-0); Total Cells Counted 200
[2020-06-03 09:57] LABS: African American GFR (CKD) 97.5 (60.0-200.0); Albumin 2.9 g/dL (3.80-4.90); Albumin/Globulin Ratio 1.53 (1.60-3.17); Anion Gap 5.7 mmol/L (4.00-12.00); BUN/Creat Ratio 22.86 Ratio (12.00-20.00); Calcium 7.1 mg/dL (8.7-10.3); Carbon Dioxide 29.3 mmol/L (21.6-31.8); Globulin 1.9 g/dL (1.6-3.3); Non-African American GFR(CKD) 84.2 (60.0-200.0); Potassium 3.2 mmol/L (3.5-5.5); Total Bilirubin 0.3 mg/dL (0.2-1.2); Total Protein 4.8 g/dL (6.2-8.2)
[2020-06-03 10:12] LABS: Magnesium 1.9 mg/dL (1.5-2.4)
--- NOTE | 2020-06-03 10:38 | P.DS ---
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 Patient presented to the emergency room with weakness, frequent falls and fevers. She is currently getting radiation Friday through Friday and chemotherapy on Fridays, she states last Friday her chemotherapy was changed to a different agent. She follows with Dr. Zheng and Dr. Rossi. She did go to [facility] yesterday after she had repeated falls. Apparently they wanted to admit her but she declined. She continued to have fevers, so she contacted Dr. Zheng's office who advised her to go to the ER. She did have a low grade temperature of 99.5 upon arrival, blood pressure 144/69, heart rate 69, oxygen saturation of 100% on 3L NC. She was found to have neutropenia with WBC of 1.1, hgb was low at 6.8, platelets count of 40, BUN 33, Cr 1.23, UA was negative for infection. Chest x-ray showed no active cardiopulmonary disease, normal heart, no infiltrates. She was started on Vancomycin and Cefepime, blood cultures have been ordered, will consult with oncology. She did receive 1 unit of PRBCs, repeat hemoglobin is 8.3. 05/30: patient examined resting in bed this morning. Plan for radiation today at 11 AM. White blood cells this morning were 0.6, hemoglobin 8.3. Blood cultures show no growth. speech therapy is on the case, we'll do video fluoroscopy swallow today. dietary on the case discussed increasing tube feedings and eating for pleasure foods. patient continues on IV Vanco and cefepime. discussed neutropenic precautions with patient and sure to wear mask, and no raw foods at this time. oncology is on the case. 05/31: Patient evaluated at bedside, plan for radiation again this morning. White blood cells 0.8 hemoglobin was 7.9 today. We will repeat labs in the morning. Blood cultures finalized with no growth. Swallow eval did show aspiration of thin and thick liquids. Continue with PEG tube feedings. Vital signs remained stable patient is afebrile this morning, pulse rate 71, blood pressure 156/68, pulse ox 94% on room air. 06/01: Patient seen resting in bed, complains of mild constipation. Dulcolax suppository ordered along with Colace at bedtime. White blood cells 1.0 this morning, hemoglobin 7.7, platelet 78, labs ordered for a.m. Vital signs are stable, and patient remains afebrile. Continue with radiation again today and Oncology remains on the case. 06/02: Patient seen resting in bed this morning, did have successful bowel movement after suppository yesterday. Still complains of some mild nausea will add scopolamine patch along with Zofran to see if this helps. White blood cells up to 2.5 this morning hemoglobin stable at 7.8. Patient remains afebrile vitals are stable. Plan for discharge home tomorrow if stable. Patient will have radiation again this morning. We'll likely send patient home on Diflucan and oral Levaquin. Continue working on increased PEG feedings. Pt failed bolus feedings and will require continuos feedings at home. 06/03: Patient is found sitting up in bed. She states that she is feeling much better however she is very overwhelmed with having to continue to PEG tube feedings at home. Her daughter is also concerned about the IV antibiotics and the PEG tube feedings. Antibiotics will be changed to oral. Patient will be able to do a bolus of the feedings. She is able to swallow as performed a bedside swallow eval with drinking water with no difficulties. Patient was able to take oral medications including capsules at the bedside. Discussed with patient proper nutritional supplements and she verbalized understanding. Patient will be discharged home today and will restart chemotherapy on Friday. Patient will be sent home on oral antibiotics and Diflucan. Discharge diagnosis: 1. Neutropenia secondary to chemotherapy with possible early pneumonia. 2. Pancytopenia due to chemotherapy. 3. Anemia secondary to chemotherapy. 4. Squamous cell carcimoma of the left piriform sinus and left base of tongue. 5. Oral thrush. 6. Obstructive sleep apnea. 7. Moderate protein calorie malnutrition 8. History of GERD. 9. History of depression. 10. Neuropathy. 11 Constipation. 12. Dysphasia with aspiration. Discharge disposition: Home with homecare The above impression and plan of care have been discussed and directed by signing physician. Alicia Clifton nurse practitioner acting as scribe for signing physician. Patient Condition at Discharge: Serious Plan - Discharge Summary Discharge Rx Participant: No New Discharge Prescriptions: New Fluconazole [Diflucan] 150 mg PO DAILY #7 tab Levofloxacin [Levaquin] 500 mg PO DAILY 7 Days #7 tab Continue rOPINIRole HCL [Requip] 3 mg PO HS Mirtazapine 45 mg PO HS hydroCHLOROthiazide 25 mg PO QAM Citalopram Hydrobromide [Citalopram HBr] 40 mg PO HS atenoloL [Tenormin] 50 mg PO HS Losartan Potassium [Cozaar] 50 mg PO HS Gabapentin [Neurontin] 600 mg PO HS Gabapentin [Neurontin] 300 mg PO QAM Aspirin [Adult Low Dose Aspirin EC] 81 mg PO DAILY HYDROcodone/APAP [[place] Elixir 7.5-325Mg/15Ml] 15 ml PO Q8H PRN PRN Reason: Pain LORazepam [Ativan] 1 mg PO TID PRN PRN Reason: Anxiety Magnesium Oxide [Mag-Ox] 400 mg PO DAILY Omeprazole 40 mg PO DAILY Ondansetron Odt [Zofran ODT] 8 mg PO Q8HR PRN PRN Reason: Nausea Discharge Medication List Aspirin [Adult Low Dose Aspirin EC] 81 mg PO DAILY 02/25/20 [History] Citalopram Hydrobromide [Citalopram HBr] 40 mg PO HS 02/25/20 [History] Gabapentin [Neurontin] 300 mg PO QAM 02/25/20 [History] Gabapentin [Neurontin] 600 mg PO HS 02/25/20 [History] Losartan Potassium [Cozaar] 50 mg PO HS 02/25/20 [History] Mirtazapine 45 mg PO HS 02/25/20 [History] atenoloL [Tenormin] 50 mg PO HS 02/25/20 [History] hydroCHLOROthiazide 25 mg PO QAM 02/25/20 [History] rOPINIRole HCL [Requip] 3 mg PO HS 02/25/20 [History] HYDROcodone/APAP [[place] Elixir 7.5-325Mg/15Ml] 15 ml PO Q8H PRN 09/27/20 [History] LORazepam [Ativan] 1 mg PO TID PRN 05/28/20 [History] Magnesium Oxide [Mag-Ox] 400 mg PO DAILY 05/28/20 [History] Omeprazole 40 mg PO DAILY 05/28/20 [History] Ondansetron Odt [Zofran ODT] 8 mg PO Q8HR PRN 05/28/20 [History] Fluconazole [Diflucan] 150 mg PO DAILY #7 tab 06/03/20 [Rx] Levofloxacin [Levaquin] 500 mg PO DAILY 7 Days #7 tab 06/03/20 [Rx] Follow up Appointment(s)/Referral(s): Jeferson Gonzalez MD [Primary Care Provider] - 1 Week [facility], [REFERRING] - 1 Week [facility] Visiting Nurse, [NON-STAFF] - As Needed
[2020-06-03] MEDS: FILGRASTIM-SNDZ 300 MCG/0.5 ML SYRINGE SQ SCH (11:44)
[2020-06-03 12:23] VITALS: BP 147/77; PULSE 85; RESP 16; TEMP 98
--- NOTE | 2020-06-03 12:32 | P.PN ---
Subjective Progress Note Date: 06/03/20 Patient overall feels better. Hoarseness is improved, along with upper airway secretions. She has had no fever/chills/nausea/vomiting. No significant diarrhea. Feeding tube is working well. Objective - Vital Signs Vital signs: Vital Signs Temp 98.0 F 06/03/20 12:23 Pulse 85 06/03/20 12:23 Resp 16 06/03/20 12:23 BP 147/77 06/03/20 12:23 Pulse Ox 97 06/03/20 12:23 Intake & Output 06/02/20 06/03/20 06/03/20 18:59 06:59 18:59 Intake Total 300 Balance 300 Weight 59.6 kg 60.6 kg Intake: Tube Feeding 300 Other: Voiding Method Toilet # Voids 3 3 - Constitutional General appearance: Present: no acute distress - EENT Eyes: Present: EOMI ENT: Present: hearing grossly normal, normal oropharynx - Neck Details: Postradiation changes on skin of neck - Respiratory Respiratory: bilateral: CTA - Cardiovascular Rhythm: regular Heart sounds: normal: S1, S2 - Gastrointestinal Gastrointestinal Comment(s): PEG tube site appears clean General gastrointestinal: Present: normal bowel sounds, soft - Integumentary Integumentary: Present: normal - Neurologic Neurologic: Present: CNII-XII intact - Musculoskeletal Musculoskeletal: Present: generalized weakness, strength equal bilaterally - Psychiatric Psychiatric: Present: A&O x's 3, appropriate affect - Labs CBC & Chem 7: 06/03/20 06:16 06/03/20 06:16 Labs: Abnormal Lab Results - Last 24 Hours (Table) 06/02/20 06/03/20 06/03/20 Range/Units 13:07 06:16 06:16 RBC 2.47 L (3.80-5.40) m/uL Hgb 7.6 L (11.4-16.0) gm/dL Hct 22.9 L (34.0-46.0) % Plt Count 118 L (150-450) k/uL Metamyelocytes # (Man) 0.14 H (0) k/uL Myelocytes # (Manual) 0.14 H (0) k/uL Potassium 3.2 L 3.2 L (3.5-5.5) mmol/L BUN/Creatinine Ratio 22.86 H (12.00-20.00) Ratio Calcium 7.1 L (8.7-10.3) mg/dL Magnesium 0.7 L* (1.5-2.4) mg/dL Total Protein 4.8 L (6.2-8.2) g/dL Albumin 2.90 L (3.80-4.90) g/dL Albumin/Globulin Ratio 1.53 L (1.60-3.17) g/dL Microbiology - Last 24 Hours (Table) 05/28/20 21:19 Blood Culture - Preliminary Blood No Growth after 120 hours Assessment and Plan (1) Chemotherapy induced neutropenia Narrative/Plan: Neutropenia has resolved with WBC normal today. Filgrastim will be discontinued. - Patient is scheduled to receive another dose of chemotherapy. She was supposed to get it this week but this will be postponed to middle of next week. He was advised that cytopenias could potentially recall at that time. If needed, G-CSF will be utilized. Current Visit: Yes Status: Acute Priority: High Code(s): D70.1 - AGRANULOCYTOSIS SECONDARY TO CANCER CHEMOTHERAPY; T45.1X5A - ADVERSE EFFECT OF ANTINEOPLASTIC AND IMMUNOSUP DRUGS, INIT SNOMED Code(s): 756559239 (2) Neutropenic fever Narrative/Plan: The patient has essentially been afebrile since admission with cultures negative. She is okay for discharge from our standpoint now the WBC has also recovered. Defer to the admitting service as to need for outpatient antibiotic Current Visit: Yes Status: Acute Code(s): D70.9 - NEUTROPENIA, UNSPECIFIED; R50.81 - FEVER PRESENTING WITH CONDITIONS CLASSIFIED ELSEWHERE SNOMED Code(s): 819193125 (3) Squamous cell carcinoma of head and neck Narrative/Plan: Patient has continued radiation while inpatient. She will continue the same next week. She will have 1 dose of carboplatin next week concurrently. Current Visit: Yes Status: Chronic Priority: Medium Code(s): C76.0 - MALIGNANT NEOPLASM OF HEAD, FACE AND NECK SNOMED Code(s): 649022610
[2020-06-05 06:54] LABS: Magnesium 0.7 mg/dL (1.5-2.4)
--- NOTE | 2020-06-05 15:24 | CDI ---
Documentation Clarification Form Date: 06/05/20 From: Cristy Mendoza Phone: If you have a question about this query, please contact Meena Mo, Hoof And Shoe Inspector at [phone] between 8am and 5pm. Admit Date: 05/29/20 Discharge Date: 06/03/20 Patient Name: ROM MANRIQUEZ Visit Number: [id number] ATTENTION: The Clinical Documentation Specialists (CDI) and [facility] Coding Staff appreciate your assistance in clarifying documentation. Please respond to the clarification below the line at the bottom and electronically sign. The CDI & [facility] Coding staff will review the response and follow-up if needed. Please note: Queries are made part of the Legal Health Record. If you have any questions, please contact the author of this message via ITS. Dear Dr. Jeferson Gonzalez, Conflicting documentation has been found in the medical record: Neutropenia secondary to chemotherapy with possible early pneumonia per H&p, DS and Pns. CXR- no active cardiopulmonary disease. 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 xx Pneumonia ruled out Pneumonia ruled in Other explanation of clinical findings Unable to determine (no explanation for clinical findings) MTDD
== END 2020-06-03 12:52 | disposition home health service (06) | DRG 809 ==
LOC: EC 20:25 → 3SCARD 23:21 → 6NMEDSUR 05-29 09:07 → OBSVTOIN 05-29 12:46
PROVIDERS: ADMIT Internal Medicine; ATTEND Internal Medicine
PROC: 30233N1 Transfusion of Nonautologous Red Blood Cells into Peripheral Vein, Percutaneous Approach (ICD-10-PCS; principal; 2020-05-28)
PROC: DW011ZZ Beam Radiation of Head and Neck using Photons 1 - 10 MeV (ICD-10-PCS; 2020-05-30)
DX: D61.810 Antineoplastic chemotherapy induced pancytopenia (principal); B37.0 Candidal stomatitis; E44.0 Moderate protein-calorie malnutrition; C01 Malignant neoplasm of base of tongue; C12 Malignant neoplasm of pyriform sinus; T17.920A Food in respiratory tract, part unspecified causing asphyxiation, initial encounter; Z93.1 Gastrostomy status; R50.81 Fever presenting with conditions classified elsewhere; T45.1X5A Adverse effect of antineoplastic and immunosuppressive drugs, initial encounter; Z66 Do not resuscitate; Z68.21 Body mass index [BMI] 21.0-21.9, adult; R13.10 Dysphagia, unspecified; R47.02 Dysphasia; I10 Essential (primary) hypertension; G47.33 Obstructive sleep apnea (adult) (pediatric); G25.81 Restless legs syndrome; G62.9 Polyneuropathy, unspecified; K59.00 Constipation, unspecified; F32.9 Major depressive disorder, single episode, unspecified; F41.9 Anxiety disorder, unspecified; K21.9 Gastro-esophageal reflux disease without esophagitis; L30.9 Dermatitis, unspecified; R29.6 Repeated falls; Z79.82 Long term (current) use of aspirin; Z79.899 Other long term (current) drug therapy; Z87.19 Personal history of other diseases of the digestive system; Z85.828 Personal history of other malignant neoplasm of skin; Z86.14 Personal history of Methicillin resistant Staphylococcus aureus infection; Z90.710 Acquired absence of both cervix and uterus; Z87.42 Personal history of other diseases of the female genital tract; Z96.642 Presence of left artificial hip joint; Z90.89 Acquired absence of other organs; Z90.722 Acquired absence of ovaries, bilateral; Z98.42 Cataract extraction status, left eye; Z98.41 Cataract extraction status, right eye; Z87.39 Personal history of other diseases of the musculoskeletal system and connective tissue; Z71.3 Dietary counseling and surveillance; Z98.890 Other specified postprocedural states; W19.XXXA Unspecified fall, initial encounter
CPT/HCPCS: 36415; 36430; 71046; 74230; 77336; 77386; 80048; 80053; 80202; 81003; 83605; 83690; 83735; 84132; 85025; 86850; 86900; 86901; 86920; 87040; 93005; 94760; 96361; 96365; 96366; 96367; 99285

== ENCOUNTER → 2020-08-18 | Outpatient (CLI) | payer MEDICARE, BC ==
--- NOTE | 2020-08-22 15:46 | PE ---
Nuclear medicine PET/CT HISTORY: Head and neck carcinoma, subsequent Patient received 12.2 mCi F-18 FDG intravenously in delayed scanning was performed from the skull bas e to the mid thighs. Localization and attenuation correction CT scan was performed. Small field-of-vi ew imaging was obtained through the head and neck. Correlation to prior nuclear medicine PET/CT 03/20/2020 Chest and neck: The previously identified abnormalities showing hypermetabolic uptake are no longer e vident, anterior cervical nodes have decreased in size and show no associated uptake, uptake along th e level of the piriform sinus on the left seen on prior exam as essentially resolved, some minimal re sidual soft tissue is present at this level, mild uptake at this level is possibly due to normal form ation during the exam. No supraclavicular adenopathy. There is no evident lung mass, no pleural or pericardial effusion. Calcified nodule is present in the left lower lobe, there calcified left hilar nodes. Port-A-Cath is present with the distal tip in the superior vena cava. ABDOMEN: No retroperitoneal adenopathy or ascites. No evident liver mass or suspicious uptake. Osseous structures are stable. IMPRESSION: Marked improvement as compared to prior exam as described.
== END | disposition home or self-care (01) ==
LOC: RADPETMAIN 11:11
PROVIDERS: ATTEND Internal Medicine Hematology & Oncology
DX: C13.8 Malignant neoplasm of overlapping sites of hypopharynx (principal)
CPT/HCPCS: 78815; A9552

== ENCOUNTER → 2020-11-09 | Outpatient (CLI) | payer MEDICARE, BC ==
--- NOTE | 2020-11-09 12:41 | SFUN ---
SLEEP CENTER FOLLOW UP NOTE DATE OF VISIT: 11/09/2020 This 74-year-old lady has been followed in the Sleep Center for treatment of obstructive sleep apnea-hypopnea syndrome. The patient continued to use her CPAP equipment every night for the whole night and she told that she so much use to it she cannot sleep without machine. During previous visit, I changed the pressure in her machine to automatic regimen 5-12 because she did have some mild abnormalities of respiration. I checked her CPAP unit. The CPAP pressure is 10, usage 28 out of 30 nights. Leak is 49 L/minute which is high. Apnea-hypopnea index 16.9, which is more than I would like see, it is above normal. Central apnea index 0.2. [place] Sleepiness Scale 2. MEDICATIONS: Neurontin, Cozaar 50 mg once a day, Remeron, atenolol 50 mg once a day, Requip 3 mg, hydrochlorothiazide 25 mg twice a day, aspirin 81 mg once a day. PHYSICAL EXAMINATION: GENERAL: Patient in no distress. VITAL SIGNS: BP 166/72, HR 58, RR 12, height 5 feet 5 inches, weight 117.2, body mass index 19.4, temperature 98.7, oxygen saturation at room air 95%. HEENT: PERRLA, EOMI, evaluation of oropharynx showed tongue protrudes midline. NECK: Supple, no JVD. Thyroid is not palpable. LUNGS: Clear to percussion and to auscultation. Good air exchange. No wheezing or rhonchi. HEART: S1, S2 regular. No murmurs, gallops, or rubs. ABDOMEN: Soft and nontender. Bowel sounds are present. No organomegaly appreciated. EXTREMITIES: No clubbing or cyanosis. HELICOPTER SPECIALIST: Awake, alert, and oriented X3. Cranial nerves 2 to 7 intact. There is no fasciculation or atrophy. noted. No focal deficits observed. IMPRESSION: 1. Obstructive sleep apnea-hypopnea syndrome. Patient demonstrated great compliance with treatment, benefitting from treatment, but still has high apnea-hypopnea index by reading from the machine. 2. History of throat cancer, status post recent radiation treatment and chemotherapy. 3. History of restless legs syndrome. 4. History of anxiety. 5. Hypertension. PLAN: 1. Regimen of the machine was changed to the rate of pressure of 5-14 cm of water. 2. The patient should start to use her new mask, which is a DreamWear under the nose full-face mask. 3. Patient will continue to use PAP equipment every night for the whole night. 4. Sleep hygiene with regular time in bed for at least 7-1/2 to 8 hours. 5. Precautions related to driving. No driving if feeling sleepiness. 6. I will maintain all necessary prescription for PAP supplies including mask, tube, filters. 7. Watching weight. 8. No driving if feeling sleepiness. 9. Follow-up visit in 2 months or earlier if patient has any problems. 10.We may consider to repeat CPAP titration because apnea-hypopnea index above normal and patient may need to get new PAP equipment because of problem with SD card on her CPAP unit and machine is more than 5 years old. Thank you very much for allowing me to participate in management of your patient. Sincerely, Mehran Walsh MD, PhD, FAASM Diplomat of [place] [employer] [place] [employer] [facility] [place] MMSARAH / SKYLAR: [id number] /
== END ==
LOC: SLEEP 10:08
PROVIDERS: ATTEND Internal Medicine
DX: G47.33 Obstructive sleep apnea (adult) (pediatric) (principal); I10 Essential (primary) hypertension; F41.9 Anxiety disorder, unspecified; Z85.818 Personal history of malignant neoplasm of other sites of lip, oral cavity, and pharynx; Z79.899 Other long term (current) drug therapy

== ENCOUNTER → 2020-11-15 | Outpatient (CLI) | payer MEDICARE, BC ==
[2020-11-16 07:41] LABS: T4, Free (Free Thyroxine) 0.8 ng/dL (0.80-1.80)
== END | disposition home or self-care (01) ==
LOC: LABWHC1 15:31
PROVIDERS: ATTEND Otolaryngology
DX: C12 Malignant neoplasm of pyriform sinus (principal)
CPT/HCPCS: 36415; 84439; 84443

== ENCOUNTER → 2020-11-23 | Outpatient (CLI) | payer MEDICARE, BC ==
--- NOTE | 2020-11-23 17:50 | CT ---
EXAMINATION TYPE: CT neck chest w con DATE OF EXAM: 11/23/2020 COMPARISON: 03/08/2020, PET CT 08/18/2020 HISTORY: follow up throat cancer. CT DLP: 579.8 mGycm CONTRAST: Patient injected with 80 mL of Isovue 300. TECHNIQUE: Axial images at 3 mm thick sections. Reconstructed images in the coronal plane and sagitt al plane are reviewed. FINDINGS: Limited CT sections are obtained the lung apices. The lung apices appear clear. CT neck: The torus tubarius and fossa of Rosenmuller are normal. Service Delivery Consultant spaces are normal. Para nasal sinuses and mastoid air cells are clear. Parotid glands appear normal and symmetrical. Submandibular glands, are normal. Parapharyngeal spac es are normal. No suspicious adenopathy is evident. There is some thickening of the prevertebral space on the left just below the tonsillar pillar. There is asymmetry within the inferior left hypopharynx above the vocal cord level. These findings were present previously. This appears to correlate with the PET/CT findings. Vocal cord level appear symmetrical. Thyroid as visualized is normal. Osseous structures are normal. IMPRESSIONS: 1. Some stable thickening through the inferior left hypopharynx remains present. EXAMINATION TYPE: CT neck chest w con DATE OF EXAM: 11/23/2020 COMPARISON: PET CT 08/18/2020 HISTORY: follow up throat cancer. CT DLP: 579.8 mGycm, Automated exposure control for dose reduction was used. CONTRAST: Performed injected with 80 mL of Isovue 300. TECHNIQUE: Axial images were obtained at 5 mm thick sections. Reconstructed images are reviewed on [facility] computer in the coronal plane. FINDINGS: Portion of the thyroid visualized is normal. No suspicious lung nodules or focal infiltrates are present. No enlarged mediastinal or hilar adenopathy is evident. The ascending aorta diameter at the level o f the main pulmonary artery is 2.6 cm. The main pulmonary artery diameter at the bifurcation is 1.[address] sections are obtained through the upper abdomen. Scattered calcifications are within the s pleen compatible with granuloma. A small cyst of the superior left kidney. Cysts are present within t liver. Adrenal glands appear unremarkable IMPRESSIONS: 1. No suspicious change suggest metastatic disease.
== END | disposition home or self-care (01) ==
LOC: RADCTMAIN 10:59
PROVIDERS: ATTEND Internal Medicine Hematology & Oncology
DX: C14.0 Malignant neoplasm of pharynx, unspecified (principal)
CPT/HCPCS: 82565; 84520; 70491; 71260; 36415; Q9967

== ENCOUNTER → 2020-12-20 | Outpatient (CLI) | payer MEDICARE, BC ==
--- NOTE | 2020-12-20 21:44 | SFUN ---
SLEEP CENTER FOLLOW UP NOTE DATE OF SERVICE: 12/20/2020 HISTORY: 75-year-old lady has been followed in Sleep Center for treatment of obstructive sleep apnea-hypopnea syndrome. During previous visit, apnea-hypopnea index on the machine was increased to 16.9, and I increased the pressure in automatic regimen on the machine up to maximal of 14 cm of water. Patient continued to use his CPAP equipment every night for the whole night. Sleeps well, but still may feel some tiredness during the day, although [place] Sleepiness Scale today is 3, which is totally normal. She feels tiredness, but she does not feel sleepiness. I checked her CPAP unit. Range of the pressure 5-14, usage 27/30 nights for more than 4 hours. She has a good compliance, average 6.3 hours per night. Leak is 56 L/minute which is high. Apnea-hypopnea index reduced to 7.8, comparing with the previous visit. MEDICATIONS: Neurontin, Cozaar 50 mg once a day, Remeron 45 mg once a day. Atenolol 50 mg once a day. Requip 3 mg, hydrochlorothiazide 25 mg twice a day, aspirin 81 mg once a day. PHYSICAL EXAM: Patient in no distress. BP 154/72, HR 62, RR 12, height 5 feet 5 inches, weight 117.6, temperature 98.0, oxygen saturation on room air 95%. HEENT: PERRLA, EOMI, evaluation of oropharynx showed tongue protrudes midline. NECK: Supple, no JVD. Thyroid is not palpable. LUNGS: Clear to percussion and to auscultation. Good air exchange. No wheezing or rhonchi. HEART: S1, S2 regular. No murmurs, gallops, or rubs. ABDOMEN: Soft and nontender. Bowel sounds are present. No organomegaly appreciated. EXTREMITIES: No clubbing or cyanosis. MARINE PIPEFITTER HELPER: Awake, alert, and oriented X3. Cranial nerves 2 to 7 intact. There is no fasciculation or atrophy. noted. No focal deficits observed. IMPRESSION: 1. Obstructive sleep apnea-hypopnea syndrome. Patient demonstrated great compliance with treatment, benefitting from treatment improvement. Apnea-hypopnea index after changes which I did during previous visit. 2. History of throat CA, status post recent radiation treatment and chemotherapy. 3. History of restless legs syndrome. 4. History of anxiety. 5. Hypertension. PLAN: 1. I changed automatic regimen in the machine to range 5-15 cm of water. 2. Prescription to check CPAP unit is is probably not working. The machine has a tendency to stop by itself during the middle of the day. I changed regimen in the machine from Smart start to just regular start. 3. Sleep hygiene with regular time in bed for at least 7-1/2 to 8 hours. 4. Precautions related to driving. No driving if feeling sleepiness. 5. I will maintain all necessary prescription for PAP supplies including mask, tube, filters. 6. Follow-up visit in 6 months or earlier if patient has any problems. Thank you very much for allowing me to participate in management of your patient. Sincerely, Mehran Walsh MD, PhD, FAASM Diplomat of [place] [employer] [place] [employer] [facility] [place] MMODL / PAOLAN: [id number] /

== ENCOUNTER → 2020-12-27 | Outpatient (CLI) | payer MEDICARE, BC ==
--- NOTE | 2020-12-27 12:25 | FL ---
EXAMINATION TYPE: FL barium swallow w video DATE OF EXAM: 12/27/2020 MODIFIED SWALLOW / DEGLUTITION STUDY CLINICAL HISTORY: Dysphagia. History of throat cancer. TECHNIQUE: Deglutition study is performed utilizing thin liquid barium, honey and nectar thick liqui d barium, barium thick applesauce, and barium coated cracker. Roughly 1 minute of fluoro time and 0 images obtained. COMPARISON: CT neck November 23, 2010. FINDINGS: The oral and pharyngeal phases show satisfactory initiation and propagation with all modali ties tested. Satisfactory mastication is seen with solid modalities tested. There is transient penet ration with thin liquid barium does not improve with drinking through a straw or chin tuck procedure. No aspiration noted with any modality. Mild old pharyngeal residue was appreciated. Patient has ossi fic fusion at C6-C7 level. There is moderate to severe spurring and disc space narrowing C3-C4 throug h C5-C6 levels with loss of normal cervical curvature. IMPRESSION: No aspiration noted. Please refer to speech therapist notes for further details if alize solano.
== END | disposition home or self-care (01) ==
LOC: RADFLMAIN 11:37
PROVIDERS: ATTEND Otolaryngology
DX: C13.8 Malignant neoplasm of overlapping sites of hypopharynx (principal); C12 Malignant neoplasm of pyriform sinus; C77.0 Secondary and unspecified malignant neoplasm of lymph nodes of head, face and neck; Z92.21 Personal history of antineoplastic chemotherapy; R13.10 Dysphagia, unspecified
CPT/HCPCS: 74230

== ENCOUNTER → 2021-02-01 | Outpatient (CLI) | payer MEDICARE, BC ==
--- NOTE | 2021-02-02 11:26 | MM ---
Reason for exam: screening (asymptomatic). Last mammogram was performed 2 years and 1 month ago. History: Patient is postmenopausal. Took estrogen for 21 years. Physical Findings: A clinical breast exam by your physician is recommended on an annual basis and results should be correlated with mammographic findings. MG 3D Screening Mammo W/Cad Bilateral CC and MLO view(s) were taken. Prior study comparison: January 01, 2019, bilateral MG 3d screening mammo w/cad. May 26, 2017, bilateral MG 3d screening mammo w/cad. The breast tissue is heterogeneously dense. This may lower the sensitivity of mammography. Finding: There are typically benign vascular, round, linear calcifications. There is no discrete abnormality. ASSESSMENT: Benign, BI-RAD 2 RECOMMENDATION: Routine screening mammogram of both breasts in 1 year.
== END | disposition home or self-care (01) ==
LOC: RADMAMWWP 10:01
PROVIDERS: ATTEND Internal Medicine Geriatric Medicine
DX: Z12.31 Encounter for screening mammogram for malignant neoplasm of breast (principal); Z78.0 Asymptomatic menopausal state
CPT/HCPCS: 77063; 77067

== ENCOUNTER → 2021-02-08 | Outpatient (CLI) | payer MEDICARE, BC ==
--- NOTE | 2021-02-09 07:50 | SFUN ---
SLEEP CENTER FOLLOW UP NOTE DATE OF SERVICE: 02/08/2021 75-year-old lady has been followed in Sleep Center for treatment of obstructive sleep apnea-hypopnea syndrome. Recently patient received new CPAP machine. Today's the first visit with a new unit. She is using equipment every night for the whole night, but has some leak from the mask. She is using full face mask [employer]. [place] Sleepiness Scale today is 4. I checked CPAP unit. Range of the pressure 5-15, usage is 25/26 nights, 22/26 nights for more than 4 hours. Average usage 5.7 hours per night, which indicated good compliance. Leak is quite high 49 L/minute. Apnea-hypopnea index increased to 9.6, which includes central 0.3. MEDICATIONS: Cozaar 50 mg once a day, Remeron 45 mg once a day. Atenolol 50 mg once a day. Requip 3 mg, hydrochlorothiazide 25 mg twice a day. Aspirin 81 mg once a day. PHYSICAL EXAMINATION: GENERAL: Patient in no distress. VITAL SIGNS: BP 133/62, HR 60, weight 118, temp is 97.3. Oxygen saturation on room air 97.7%. HEENT: PERRLA, EOMI, evaluation of oropharynx showed tongue protrudes midline. NECK: Supple, no JVD. Thyroid is not palpable. LUNGS: Clear to percussion and to auscultation. Good air exchange. No wheezing or rhonchi. HEART: S1, S2 regular. No murmurs, gallops, or rubs. ABDOMEN: Soft and nontender. Bowel sounds are present. No organomegaly appreciated. EXTREMITIES: No clubbing or cyanosis. VESSEL SLAG WORKER: Awake, alert, and oriented X3. Cranial nerves 2 to 7 intact. There is no fasciculation or atrophy. noted. No focal deficits observed. IMPRESSION: 1. Obstructive sleep apnea-hypopnea syndrome. Patient demonstrated great compliance with treatment benefitting from treatment, high leak from the full-face mask. Apnea-hypopnea index slightly increased. 2. History of throat CA status post recent radiation treatment, chemotherapy. 3. History of restless legs syndrome. 4. History of anxiety. 5. Hypertension. PLAN: 1. Patient will continue to use PAP equipment every night for the whole night. 2. Sleep hygiene with regular time in bed for at least 7-1/2 to 8 hours. 3. Precautions related to driving. No driving if feeling sleepiness. 4. I will maintain all necessary prescription for PAP supplies including mask, tube, filters. 5. Watching weight. 6. Follow-up visit in 6 months or earlier if patient has any problems. 7. We will fit the patient with a different size of the mask. She possibly needs a small size instead of medium. Prescription was written for a new mask. Thank you very much for allowing me to participate in management of your patient. Sincerely, Mehran Walsh MD, PhD, FAASM Diplomat of [employer] Soldering Machine Operator [employer] of [facility] [place] MMODL / IJN: [id number] /
== END ==
LOC: SLEEP 13:01
PROVIDERS: ATTEND Internal Medicine
DX: G47.33 Obstructive sleep apnea (adult) (pediatric) (principal); I10 Essential (primary) hypertension; F41.9 Anxiety disorder, unspecified; G25.81 Restless legs syndrome; Z85.21 Personal history of malignant neoplasm of larynx

== ENCOUNTER → 2021-05-04 | Outpatient (CLI) | payer MEDICARE, BC ==
[2021-05-05 18:24] LABS: African American GFR (CKD) 62.9 (60.0-200.0); Non-African American GFR(CKD) 54.3 (60.0-200.0)
== END | disposition home or self-care (01) ==
LOC: LABWHC1 11:37
PROVIDERS: ATTEND Otolaryngology
DX: C77.0 Secondary and unspecified malignant neoplasm of lymph nodes of head, face and neck (principal); C12 Malignant neoplasm of pyriform sinus; Z92.21 Personal history of antineoplastic chemotherapy
CPT/HCPCS: 36415; 82565; 84520

== ENCOUNTER → 2021-05-13 | Outpatient (CLI) | payer MEDICARE, BC ==
--- NOTE | 2021-05-14 05:33 | MR ---
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 There is a 10 x 8 mm area of asymmetric increased signal on T2 images on the left side piriform sinus . on the T1 images this area measures 15 x 9 mm. Epiglottis is midline and appears not enlarged. The tongue is intact. The tonsils appear intact. Adenoids appear intact. There is moderate spinal stenosis related to endplate spur formation in the level C5-6. Canal is narr owed to 5 mm. There is also some spinal stenosis at C4-5. This measures also approximate 5 mm. I do n ot see any significant cervical adenopathy. Parotid glands are intact. IMPRESSION: Left side piriform sinus mass appears no larger than the PET CT scan of 03/20/2020. There is cervical spinal stenosis at C4-5 and C5-6. This area not well evaluated due to lack of sagit michael images.
== END | disposition home or self-care (01) ==
LOC: RADMRIMAIN 09:57
PROVIDERS: ATTEND Otolaryngology
DX: C12 Malignant neoplasm of pyriform sinus (principal); M48.02 Spinal stenosis, cervical region
CPT/HCPCS: 70543; A9585

== ENCOUNTER → 2021-05-17 | Outpatient (CLI) | payer MEDICARE, BC ==
--- NOTE | 2021-05-17 17:09 | SFUN ---
SLEEP CENTER FOLLOW UP NOTE A 75-year-old lady has been followed in Sleep Center for treatment of obstructive sleep apnea-hypopnea syndrome. Patient continued to use her equipment every night for the whole night. She sleeps well with the machine after the machine actually has been changed and her mask has been changed since previous visit. [place] Sleepiness Scale today is 2. I checked CPAP unit. Range of the pressure 5-15. Average pressure is 12 cm of water, usage 30/30 nights and 26/30 nights for more than 4 hours. Average usage is 6.1 hours per night. Leak is slightly high 36 L/minute. Apnea-hypopnea index is 5.1. The patient asked to change on her machine for automatic starting and I changed the machine to smart start option. MEDICATIONS: Cozaar 50 mg once a day, Remeron 45 mg once a day, atenolol 50 mg once a day, Requip 3 mg once a day, hydrochlorothiazide 25 mg twice a day, aspirin 81 mg once a day. PHYSICAL EXAMINATION: GENERAL: Patient in no distress. BP 158/69, HR 60, RR 15, height 5 feet 4-1/2, weight 121, body mass index 20.4, temperature 98.2, oxygen saturation at room air 99%. HEENT: PERRLA, EOMI, evaluation of oropharynx showed tongue protrudes midline. NECK: Supple, no JVD. Thyroid is not palpable. LUNGS: Clear to percussion and to auscultation. Good air exchange. No wheezing or rhonchi. HEART: S1, S2 regular. No murmurs, gallops, or rubs. ABDOMEN: Soft and nontender. Bowel sounds are present. No organomegaly appreciated. EXTREMITIES: No clubbing or cyanosis. TICKETER: Awake, alert, and oriented X3. Cranial nerves 2 to 7 intact. There is no fasciculation or atrophy. noted. No focal deficits observed. IMPRESSION: 1. Obstructive sleep apnea-hypopnea syndrome, the patient demonstrated great compliance with treatment benefitting from treatment. Apnea-hypopnea index improved comparing with the previous visit. During previous visit was 9.6. Today is 5.1 after adjustments was done previously. 2. History of throat CA status post chemotherapy and radiation therapy. 3. History of restless legs syndrome. 4. History of anxiety. 5. Hypertension. PLAN: 1. I changed the pressure in the machine to the range from 5-16 cm of water. 2. I changed the machine to the smart start option. 3. Patient will continue to use PAP equipment every night for the whole night. 4. Sleep hygiene with regular time in bed for at least 7-1/2 to 8 hours. 5. Precautions related to driving. No driving if feeling sleepiness. 6. I will maintain all necessary prescription for PAP supplies including mask, tube, filters. 7. Watching weight. 8. Follow-up visit in 6 months or earlier if patient has any problems. Thank you very much for allowing me to participate in management of your patient. Sincerely, Mehran Walsh MD, PhD, FAASM Diplomat of [employer] Sleep Medicine Board of [employer] Medicine Feather Trimmer of [facility] [place] MMSARAH / SKYLAR: [id number] /
== END ==
LOC: SLEEP 13:32
PROVIDERS: ATTEND Internal Medicine
DX: G47.33 Obstructive sleep apnea (adult) (pediatric) (principal); F41.9 Anxiety disorder, unspecified; I10 Essential (primary) hypertension; Z85.89 Personal history of malignant neoplasm of other organs and systems; Z92.21 Personal history of antineoplastic chemotherapy; Z92.3 Personal history of irradiation; Z79.899 Other long term (current) drug therapy

== ENCOUNTER → 2021-06-11 | Outpatient (CLI) | payer MEDICARE, BC ==
--- NOTE | 2021-06-11 16:05 | CT ---
EXAMINATION TYPE: CT neck chest w con DATE OF EXAM: 06/11/2021 COMPARISON: 11/23/2020 HISTORY: follow up throat cancer CT DLP: 475.7 mGycm CONTRAST: Patient injected with 80 mL of Isovue 300. TECHNIQUE: Axial images at 3 mm thick sections. Reconstructed images in the coronal plane and sagitt al plane are reviewed. FINDINGS: Limited CT sections are obtained the lung apices. The lung apices appear clear. CT neck: The torus tubarius and fossa of Rosenmuller are normal. Supervisor Tank Storage spaces are normal. Para nasal sinuses and mastoid air cells are clear. Parotid glands appear normal and symmetrical. Submandibular glands, are normal. Parapharyngeal spac es are normal. No suspicious adenopathy is evident. There is some fullness in the left piriform sinus region. This is similar to comparison. Vocal cord level appear symmetrical. Thyroid as visualized is normal. Osseous structures are normal. IMPRESSIONS: 1. Some mild stable fullness to the inferior left hypopharynx and piriform sinus region. EXAMINATION TYPE: CT neck chest w con DATE OF EXAM: 06/11/2021 COMPARISON: Post recent comparison available is 11/23/2020 HISTORY: follow up throat cancer CT DLP: 475.7 mGycm, Automated exposure control for dose reduction was used. CONTRAST: Performed injected with 80 mL of Isovue 300. TECHNIQUE: Axial images were obtained at 5 mm thick sections. Reconstructed images are reviewed on [employer] computer in the coronal plane. FINDINGS: Portion of the thyroid visualized is normal. There is some thickening of the left lateral apex pleural margin with some tenting. This measures 1.1 cm and appears to been present previously. No enlarged mediastinal or hilar adenopathy is evident. The ascending aorta diameter at the level o f the main pulmonary artery is 2.8 cm. The main pulmonary artery diameter at the bifurcation is 2.[address] sections are obtained through the upper abdomen. Scattered small hypodensities within the liver likely related to hepatic cysts. Pancreas is atrophic. IMPRESSIONS: 1. Stable pleural thickening posterior lateral left upper lung field
== END | disposition home or self-care (01) ==
LOC: RADPROMAIN 13:23
PROVIDERS: ATTEND Internal Medicine Hematology & Oncology
DX: C14.0 Malignant neoplasm of pharynx, unspecified (principal); R91.8 Other nonspecific abnormal finding of lung field
CPT/HCPCS: 82565; 84520; 70491; 71260; J1642; Q9967

== ENCOUNTER → 2021-07-17 | Outpatient (CLI) | payer MEDICARE, BC ==
--- NOTE | 2021-07-17 12:30 | FL ---
EXAMINATION TYPE: FL barium swallow w video DATE OF EXAM: 07/17/2021 MODIFIED SWALLOW / DEGLUTITION STUDY CLINICAL HISTORY: Dysphagia. History of hypopharyngeal cancer. TECHNIQUE: Deglutition study is performed utilizing thin liquid barium, honey and nectar thick liqui d barium, barium thick pudding, and barium coated cracker. 3 minutes 50 seconds of fluoro time and 0 images obtained. COMPARISON: CT neck and chest June 11, 2021. Prior modified barium swallow report December 27, 2020 FINDINGS: The oral and pharyngeal phases redemonstrate satisfactory initiation with all modalities te sted. Some cricopharyngeal dysmotility is present. Satisfactory mastication is seen with solid modali ties tested. Transient minimal penetration with thin liquid barium redemonstrated without improvement on chin tuck procedure. No aspiration with any modality tested. Mild pharyngeal residue was apprecia tayo. Moderate to severe disc space narrowing and anterior spurring C3-C4 through C5-C6 levels is pres ent. There is mass effect along the posterior aspect and origin of the esophagus noted. There appears to be some underlying esophageal dysmotility with poor contractions along entire course and proximal esophageal reflux seen during real-time performance. IMPRESSION: No aspiration noted. Please refer to speech therapist notes for further details if alize solano.
== END | disposition home or self-care (01) ==
LOC: RADUSWWP 11:27
PROVIDERS: ATTEND Otolaryngology
DX: R13.10 Dysphagia, unspecified (principal); Z85.818 Personal history of malignant neoplasm of other sites of lip, oral cavity, and pharynx
CPT/HCPCS: 74230

== ENCOUNTER → 2021-09-06 | Outpatient (CLI) | payer MEDICARE, BC ==
[2021-09-06 14:51] LABS: HCT 36.1 % (34.0-46.0); Hypochromasia Moderate; MCH 31.5 pg (25.0-35.0); MCHC 30.4 g/dL (31.0-37.0); MCV 103.6 fL (80.0-100.0); Macrocytosis Slight; Mean Platelet Volume 7.6; Platelet Count 208 k/uL (150-450); RBC 3.49 m/uL (3.80-5.40); RDW 13.6 % (11.5-15.5); WBC 7.5 k/uL (3.8-10.6)
[2021-09-06 14:55] LABS: Appearance,Urine Clear (Clear); Bilirubin,Urine Negative (Negative); Blood,Urine Negative (Negative); Color,Urine Yellow; Glucose,Urine (UA) Negative (Negative); Ketones,Urine Negative (Negative); Leukocyte Esterase,Urine Negative (Negative); Nitrite,Urine Negative (Negative); Protein,Urine Negative (Negative); Specific Gravity,Urine 1.015 (1.001-1.035); Urobilinogen,Urine <2.0 mg/dL (<2.0)
[2021-09-06 15:00] LABS: Albumin 3.8 g/dL (3.5-5.0); INR 0.9 (<1.2); Partial Thromboplastin Time 22.2 sec (22.0-30.0); Potassium 4.3 mmol/L (3.5-5.1); Prothrombin Time 9.5 sec (9.0-12.0); Total Bilirubin 0.5 mg/dL (0.2-1.3); Total Protein 7.1 g/dL (6.3-8.2)
== END | disposition home or self-care (01) ==
LOC: LABPAT 14:08
PROVIDERS: ATTEND Orthopaedic Surgery
DX: Z01.818 Encounter for other preprocedural examination (principal); M17.11 Unilateral primary osteoarthritis, right knee; R00.1 Bradycardia, unspecified; R94.31 Abnormal electrocardiogram [ECG] [EKG]
CPT/HCPCS: 36415; 80053; 81003; 85027; 85610; 85730; 87070; 93005

== ENCOUNTER → 2021-10-26 | Outpatient (CLI) | payer MEDICARE, BC ==
--- NOTE | 2021-10-30 13:56 | PE ---
Nuclear medicine PET/CT HISTORY: Hypopharynx carcinoma, head and neck cancer subsequent Patient received 9.6 mCi F-18 FDG intravenously and delayed scanning was performed from the skull bas e to the mid thighs. Localization and attenuation correction CT scan was performed. Correlation to soft tissue neck, CT chest 02/26/2021 Average mediastinal background activity SUV 1.6, average liver uptake 2V 2.1 Neck and chest: There is no cervical or supraclavicular adenopathy. Mild prominence of soft tissue pr esent at the level of the piriform sinus present on the left without appreciable uptake. There is a p ort present in the right pectoral region coursing via jugular approach with distal tip is in the supe rior vena cava. No evident lung mass. There is no pleural or pericardial effusion. Calcified left hil ar nodes are present. There is no mediastinal, axillary, hilar adenopathy. Subcarinal uptake SUV 2.3, right hilar uptake SUV 2.0 ABDOMEN: There is no adrenal mass or liver mass, no retroperitoneal adenopathy or suspicious uptake. Atheromatous changes present within the aorta. Extensive diverticular change is present in the sigmoi d colon. Osseous structures shows postop change to the left hip. Degenerative disc change and facet arthropath y in the lower lumbar spine. No suspicious uptake. IMPRESSION: No suspicious uptake.
== END | disposition home or self-care (01) ==
LOC: RADPETMAIN 12:41
PROVIDERS: ATTEND Internal Medicine Hematology & Oncology
DX: C13.8 Malignant neoplasm of overlapping sites of hypopharynx (principal); R13.10 Dysphagia, unspecified; I10 Essential (primary) hypertension
CPT/HCPCS: 78815; A9552

== ENCOUNTER → 2021-11-15 | Outpatient (CLI) | payer MEDICARE, BC ==
--- NOTE | 2021-11-15 21:53 | SFUN ---
SLEEP CENTER FOLLOW UP NOTE DATE OF SERVICE: 11/15/2021 75-year-old lady has been followed in Sleep Center for treatment of obstructive sleep apnea-hypopnea syndrome. Patient continued to use her CPAP equipment every night. Sometimes her mask may go off on 1 side where the mask has magnet connections. [place] Sleepiness Scale today is 2 which is absolutely normal. I checked her CPAP unit. Range of the pressure 5-16, average pressure 12.7, usage 25/30 nights and 18/30 nights for more than 4 hours, average 4.8 hours per night. Leak is 35 L/minute. Apnea-hypopnea index slightly increased to 7.8, including central apnea-hypopnea index 0.5. The patient also complained that machine now is on automatic start and sometimes machine may start automatically by itself when she is not using it. MEDICATIONS: Levothyroxine 75 mcg once a day, Celexa 20 mg once a day, Neurontin 1200 mg daily, Cozaar 50 mg once a day, Remeron 45 mg once a day, atenolol 50 mg once a day, Requip 3 mg once a day, hydrochlorothiazide 25 mg twice a day, aspirin 81 mg once a day. PHYSICAL EXAMINATION: GENERAL: Patient in no distress. BP 139/65, HR 60, RR 16, height 5 feet 4-1/2 inches, weight 118 pounds. Body mass index 19.9. The patient lost 3 pounds since previous visit. Temperature 98.1, oxygen saturation at room air 95%. HEENT: PERRLA, EOMI, evaluation of oropharynx showed tongue protrudes midline. NECK: Supple, no JVD. Thyroid is not palpable. LUNGS: Clear to percussion and to auscultation. Good air exchange. No wheezing or rhonchi. HEART: S1, S2 regular. No murmurs, gallops, or rubs. ABDOMEN: Soft and nontender. Bowel sounds are present. No organomegaly appreciated. EXTREMITIES: No clubbing or cyanosis. [employer] LAYUP LINE CORE FEEDER: Awake, alert, and oriented X3. Cranial nerves 2 to 7 intact. There is no fasciculation or atrophy. noted. No focal deficits observed. IMPRESSION: 1. Obstructive sleep apnea-hypopnea syndrome. Patient demonstrated borderline compliance with treatment benefitting from treatment. Slight increasing apnea- hypopnea index. 2. History of throat CA status post chemotherapy and radiation therapy. 3. History of restless legs syndrome. 4. History of anxiety. 5. Hypertension. PLAN: 1. I changed pressure in the machine to the range 5-17 cm of water. 2. I stopped Smart start option on the machine because machine sometimes started to run by itself. 3. Patient will continue to use PAP equipment every night for the whole night. 4. Sleep hygiene with regular time in bed for at least 7-1/2 to 8 hours. 5. Precautions related to driving. No driving if feeling sleepiness. 6. I will maintain all necessary prescription for PAP supplies including mask, tube, filters. 7. Watching weight. 8. Follow-up visit in 6 months or earlier if patient has any problems. Thank you very much for allowing me to participate in management of your patient. Sincerely, Mehran Walsh MD, PhD, FAASM Diplomat of [employer] Sleep Medicine Board of [employer] Broke Worker of [facility] [place] MMODL / IJN: [id number] /
== END ==
LOC: SLEEP 13:24
PROVIDERS: ATTEND Internal Medicine
DX: G47.33 Obstructive sleep apnea (adult) (pediatric) (principal); G25.81 Restless legs syndrome; F41.9 Anxiety disorder, unspecified; I10 Essential (primary) hypertension; Z85.818 Personal history of malignant neoplasm of other sites of lip, oral cavity, and pharynx

== ENCOUNTER → 2022-03-05 | Outpatient (CLI) | payer MEDICARE, BC ==
--- NOTE | 2022-03-05 13:39 | CT ---
EXAMINATION TYPE: CT neck chest w con DATE OF EXAM: 03/05/2022 COMPARISON: 06/11/2021 HISTORY: neoplasm of hypopharynx. obs for mets. hx ofthroat ca CT DLP: 594.50 mGycm Automated exposure control for dose reduction was used. CONTRAST: CT scan of the chest is performed with IV Contrast, patient injected with 70 mL of Isovue 300. FINDINGS: LUNGS: The lungs are grossly clear, there is no concerning parenchymal mass or nodule identified. T here is no pleural effusion or pneumothorax seen. The tracheobronchial tree is patent. MEDIASTINUM: There are no greater than 1 cm hilar or mediastinal lymph nodes. No pericardial effusi on is seen. Thoracic aorta is of normal caliber. The heart is not enlarged. UPPER ABDOMEN: No significant abnormality appreciated. OTHER: No additional significant abnormality is seen. IMPRESSION: 1. No evidence for metastatic disease to the chest. 2. Evidence of remote granulomatous disease. EXAMINATION TYPE: CT neck chest w con DATE OF EXAM: 03/05/2022 COMPARISON: 06/11/2021 HISTORY: neoplasm of hypopharynx. obs for mets. hx ofthroat ca CT DLP: 594.50 mGycm CONTRAST: CT scan of the neck is performed with IV Contrast, patient injected with 70 mL of Isovue 300. Contrast enhanced CT of the neck was performed from the skull base through the lung apices. AIRWAY: There is mass attenuation in the region of the vallecula on the left which appears unchanged. Soft tissue measures approximately 1.8 x 1.7 cm. Recurrent tumor is difficult to exclude although th is could reflect post operative/post therapeutic change. SALIVARY GLANDS: The submandibular and parotid glands are free of mass or inflammatory process. THYROID GLAND: No nodules or masses seen. LYMPH NODES: No adenopathy seen greater than 1cm. LUNG APICES: No nodule or mass is seen. OTHER: Vascular structures are patent. Moderate to severe degenerative change of the cervical spine. No abscess seen. IMPRESSION: There is mass attenuation in the region of the vallecula on the left which appears unchanged. Soft ti ssue measures approximately 1.8 x 1.7 cm. Recurrent tumor is difficult to exclude although this could reflect post operative/post therapeutic change.
== END | disposition home or self-care (01) ==
LOC: RADCTMAIN 11:21
PROVIDERS: ATTEND Internal Medicine Hematology & Oncology
DX: C13.9 Malignant neoplasm of hypopharynx, unspecified (principal)
CPT/HCPCS: 82565; 84520; 70491; 71260; 36415; Q9967

== ENCOUNTER → 2022-06-14 | Outpatient (CLI) | payer MEDICARE, BC ==
[2022-06-14 18:31] LABS: HCT 31.9 % (37.2-46.3); MCH 31.2 pg (27.0-32.0); MCHC 31.3 g/dL (32.0-37.0); MCV 99.4 fL (80.0-97.0); Mean Platelet Volume 9.9 fL (9.5-12.2); NRBC Per 100 WBC 0 /100 WBCS (0.0-0.0); Platelet Count 141 X 10*3/uL (140-440); RBC 3.21 X 10*6/uL (4.10-5.20); RDW 14.2 % (11.5-14.5); WBC 8.19 X 10*3/uL (4.50-10.00)
[2022-06-14 18:44] LABS: African American GFR (CKD) 55.7 (60.0-200.0); Albumin 3.8 g/dL (3.8-4.9); Anion Gap 8.3 mmol/L (10.00-18.00); BUN/Creat Ratio 16.91 Ratio (12.00-20.00); Blood Urea Nitrogen 18.6 mg/dL (9.0-27.0); Calcium 8.9 mg/dL (8.7-10.3); Carbon Dioxide 26.7 mmol/L (20.0-27.5); Globulin 3.8 g/dL (1.6-3.3); Potassium 3.8 mmol/L (3.5-5.5); T4, Free (Free Thyroxine) 1.26 ng/dL (0.800-1.800); Total Bilirubin 0.5 mg/dL (0.30-1.20); Total Protein 7.6 g/dL (6.2-8.2)
== END | disposition home or self-care (01) ==
LOC: LABWHC1 11:44
PROVIDERS: ATTEND Nurse Practitioner Adult Health
DX: R60.0 Localized edema (principal); R06.02 Shortness of breath
CPT/HCPCS: 36415; 80053; 83880; 84439; 84443; 85027

== ENCOUNTER → 2022-07-08 | Outpatient (CLI) | payer MEDICARE, BC ==
--- NOTE | 2022-07-08 16:17 | CT ---
EXAMINATION TYPE: CT neck chest w con DATE OF EXAM: 07/08/2022 1:31 PM COMPARISON: Most recent neck and chest CT March 05, 2022 and older studies HISTORY: hypopharynx ca initially diagnosed 2020 CT DLP: 494 mGycm Automated exposure control for dose reduction was used. CONTRAST: CT scan of the neck and thorax are performed following with IV Contrast, patient injected with 100 mL of Isovue 300. Axial images are obtained, coronal and sagittal reformatted images are reviewed. FINDINGS: Airway: Asymmetry of the left piriform sinus with heterogeneous hypodense tissue axial image 46 is un changed from most recent CT and PET/CT. Small size or atrophic thyroid gland redemonstrated. Parotid/submandibular glands: No gross abnormality seen. Carotid/Vascular Structures: Mild calcified plaque bilateral carotid bulb level redemonstrated . Mild calcified plaque distal internal carotid artery bilaterally redemonstrated. Osseous Structures: Moderate to severe spurring and disc space narrowing C3-C4 through C5-C6 levels w ith reversal normal cervical curvature is redemonstrated. Mcqluavu-[id number]-uqbxei disc space narrowing C6- C7 level redemonstrated. Other: No new greater than 1 cm neck adenopathy. No new adenopathy posterior to left submandibular gl and at the site of prior adenopathy. IMPRESSION: Post treatment changes redemonstrated. No new masses or adenopathy to suggest neoplastic recurrence. CHEST: LUNGS: Mild left basilar linear scarring redemonstrated. 7 mm calcified medial left mid lung nodule a xial image 33. Focus of groundglass opacity measuring near 1.3 cm with central 6 x 3 mm nodularity ax ial image 20 is new from prior study. Some nodular scarring just superior to this abutting the pleura and coronal image 44 is unchanged from prior measuring near 7 mm. No pleural effusion or pneumothora x seen bilaterally. MEDIASTINUM: There are calcified subcarinal and left hilar lymph nodes redemonstrated. No new greater than 1 cm noncalcified mediastinal lymph nodes. Borderline enlarged right hilar lymph node axial ofelia ge 26 is unchanged from prior studies. Moderate biatrial dilatation redemonstrated. Mild cardiomegaly redemonstrated. No pericardial effusion is seen. OTHER: There are 2 Subcentimeter hypodense lesions in the superior liver are stable favored benign. E xcretion from both kidneys with cortical thinning especially on the right. Scoliosis with multilevel spurring. There is severe disc space narrowing and endplate sclerosis at the right T11-T12 level. IMPRESSION: There is 1.3 cm new groundglass opacity with central smaller nodularity in the periphery of the left upper lobe could reflect acute infectious process. Imaging monitoring advised to exclude early metastatic disease.
== END | disposition home or self-care (01) ==
LOC: RADCTMAIN 12:24
PROVIDERS: ATTEND Internal Medicine Hematology & Oncology
DX: C13.9 Malignant neoplasm of hypopharynx, unspecified (principal); J98.4 Other disorders of lung; I51.7 Cardiomegaly; M41.9 Scoliosis, unspecified
CPT/HCPCS: 82565; 84520; 70491; 71260; 36415; Q9967

== ENCOUNTER → 2022-07-19 | Outpatient (CLI) | payer MEDICARE, BC ==
--- NOTE | 2022-07-22 07:53 | MM ---
Reason for Exam: Screening (asymptomatic). Last mammogram was performed 1 year(s) and 5 month(s) ago. Patient History: Menarche at age 10. Patient has no children. Left ovary removed at age 41. Right ovary removed at age 41. Hysterectomy at age 31. Postmenopausal. Patient used Estrogen for 21 years. Risk Values: Maritza 5 year model risk: 1.9%. NCI Lifetime model risk: 3.4%. Prior Study Comparison: 05/26/2017 Bilateral Screening Mammogram, [facility]. 01/01/2019 Bilateral Screening Mammogram, [facility]. 02/01/2021 Bilateral Screening Mammogram, [facility]. Tissue Density: The breast tissue is heterogeneously dense. This may lower the sensitivity of mammography. Findings: Analyzed By CAD. There is no suspicious group of microcalcifications or new suspicious mass in either breast. Overall Assessment: Benign, BI-RAD 2 Management: Screening Mammogram of both breasts in 1 year. A clinical breast exam by your physician is recommended on an annual basis and results should be correlated with mammographic findings. Electronically signed and approved by: Bryan Chun M.D. Radiologis
== END | disposition home or self-care (01) ==
LOC: RADMAMWWP 15:02
PROVIDERS: ATTEND Internal Medicine Geriatric Medicine
DX: Z12.31 Encounter for screening mammogram for malignant neoplasm of breast (principal); Z78.0 Asymptomatic menopausal state; Z90.721 Acquired absence of ovaries, unilateral
CPT/HCPCS: 77063; 77067

== ENCOUNTER → 2022-09-10 | Outpatient (CLI) | payer MEDICARE, BC ==
--- NOTE | 2022-09-10 12:39 | CT ---
EXAMINATION TYPE: CT chest w con DATE OF EXAM: 09/10/2022 COMPARISON: 07/08/2022 HISTORY: h/o, lung nodule and throat CA CT DLP: 239.7 mGycm Automated exposure control for dose reduction was used. TECHNIQUE: CT scan of the chest is performed with IV Contrast, patient injected with 70 mL of Isovue 300. MIP I mages are created on CT scanner and reviewed. 3D reconstructed images are created on an independent w orkstation and reviewed. FINDINGS: LUNGS: Mild left basilar linear scarring redemonstrated. 7 mm calcified medial left mid lung nodule s table and compatible with granuloma. . Focus of groundglass opacity measuring near 1.3 cm with central 6 x 3 mm nodularity axial as resolv ed. Subpleural nodularity left upper lobe measuring 8 mm retrospectively stable. 2 mm subpleural calc ification right lung base stable. A 4 mm nodule left lung base axial image 41 stable. Mild emphysematous changes seen. No focal pneumonia. No pleural effusion or pneumothorax seen bilaterally. MEDIASTINUM: There are calcified subcarinal and left hilar lymph nodes redemonstrated. No new greater than 1 cm noncalcified mediastinal lymph nodes. Borderline enlarged right hilar lymph node is unchan ged from prior studies. Additional calcified lymph nodes compatible with chronic granulomatous diseas e. Moderate biatrial dilatation redemonstrated. Mild cardiomegaly redemonstrated. No pericardial effu adriana is seen. OTHER: Subcentimeter hypodense lesions in the superior liver are stable favored benign. Excretion fr om both kidneys with cortical thinning especially on the right. Scoliosis with multilevel spurring. T here is severe disc space narrowing and endplate sclerosis at the right T11-T12 level. Splenic granul obi incidentally noted. IMPRESSION: 1. Round glass nodule previously described within the left upper lobe has resolved. Remaining nodules are stable relative to the prior exam. 2. Changes of chronic granulomatous disease. 3. Mild cardiomegaly
== END | disposition home or self-care (01) ==
LOC: RADCTMAIN 11:14
PROVIDERS: ATTEND Internal Medicine Hematology & Oncology
DX: C13.9 Malignant neoplasm of hypopharynx, unspecified (principal); I51.7 Cardiomegaly; R91.8 Other nonspecific abnormal finding of lung field; L92.9 Granulomatous disorder of the skin and subcutaneous tissue, unspecified
CPT/HCPCS: 82565; 84520; 71260; 36415; Q9967

== ENCOUNTER → 2022-09-11 | Outpatient (CLI) | payer MEDICARE, BC ==
--- NOTE | 2022-09-11 12:17 | P.PN ---
Subjective DATE: 09/11/2022 FOLLOW UP VISIT. Patient with obstructive sleep apnea hypopnea syndrome return to sleep center for follow-up visit. Information from previous visit have been reviewed. Patient is using PAP equipment every night for the whole night, getting PAP supplies in time. The patient does not have significant problems with the mask, PAP unit and humidification. [place] sleepiness scale is 1, which is normal. I checked information from PAP unit. PAP unit pressure 5-17, average 14.3 cm H2O. Usage is 70% and 43 % for more then 4 hours, average 5.25 hours per night. Leak is slightly increased to 39.4 l/m. Apnea Hypopnea Index is 4.1, which is normal. MEDICATIONS:1. Levothyroxine 2. Celexa 3. Neurontin 4. Cozaar 5. Remeron 6. Atenolol 7. Requip 8. Hydrochlorothiazide During physical exam: GENERAL: A pleasant patient without any distress. VITAL SIGNS: BP 162/68, HR 62, RR 16 , weight 120.8, temperature 96.8, oxygen saturation at room air 99 % . HEENT: PERRLA, EOMI.low position of soft palate . NECK: Supple. No JVD. LUNGS: Clear to percussion and to auscultation. Good air exchange. No wheezing or rhonchi. HEART: S1, S2 regular. ABDOMEN: Soft and nontender.[] EXTREMITIES: No clubbing or cyanosis. UNDERCOVER OPERATOR: Awake, alert, and oriented x3. No focal deficit. Impressions: 1. Obstructive sleep apnea-hypopnea syndrome. Patient demonstrated good compliance with treatment, benefiting from treatment. 2. History of throat CA, status post radiation therapy and chemotherapy. 3. History of anxiety. 4. hypertension. 5. History of restless leg syndrome. Plan: 1. Continue using PAP equipment every night for the whole night. 2. To change air filter at least 1-2 times per month. 3. PAP unit should stay lower then position of the head. 4. Advised patient to remove all remaining water from humidifier canister daily and make it dry after each usage. Refill canister with fresh distilled water before each usage. 5. Sleep hygiene with regular time in bed for at least 8 hours. 6. Precautions related to driving. No driving if feel any sleepiness. 7. I will maintain prescription for PAP supplies including mask, tube, filters. 8. Follow up visit in 6 months or earlier if patient has any problems. 9. Watching weight. Thank you very much for allowing me to participate in the management of your patient. Mehran Walsh MD, PhD, FAASM. Diplomat of [place], Sleep Medicine Board by [employer] [facility]
== END ==
LOC: SLEEP 11:47
PROVIDERS: ATTEND Internal Medicine
DX: G47.33 Obstructive sleep apnea (adult) (pediatric) (principal); I10 Essential (primary) hypertension; Z99.89 Dependence on other enabling machines and devices; Z85.21 Personal history of malignant neoplasm of larynx; Z86.59 Personal history of other mental and behavioral disorders; Z87.39 Personal history of other diseases of the musculoskeletal system and connective tissue; Z92.3 Personal history of irradiation
CPT/HCPCS: 99212

== ENCOUNTER → 2022-12-19 | Outpatient (CLI) | payer MEDICARE, BC ==
--- NOTE | 2022-12-19 12:47 | FL ---
Exam Date: 12/19/2022 12:08 PM. Modified barium swallow for dysphagia. Consistencies administered: Various consistency of barium. Fluoro time: 1 minute 58 seconds No images were sent to PACS. Please see speech pathology report.
== END | disposition home or self-care (01) ==
LOC: RADFLMAIN 11:27
PROVIDERS: ATTEND Otolaryngology
DX: C13.9 Malignant neoplasm of hypopharynx, unspecified (principal)
CPT/HCPCS: 74230

== ENCOUNTER 2023-02-12 01:43 | Inpatient (IN) | payer MEDICARE, BC ==
[2023-02-12] MEDS ORDERED: SODIUM CHLORIDE 0.9% 500 ML 500 ML IV STA (02:09)
[2023-02-12] MEDS ORDERED: ONDANSETRON 4 MG/2 ML VIAL IVP STA (02:09)
[2023-02-12] MEDS ORDERED: MORPHINE SULFATE 4 MG/ML SYRINGE IVP STA (02:09)
[2023-02-12 02:46] LABS: Basophils # (A) 0.1 k/uL (0-0.2); Basophils % (A) 0 %; Eosinophils # (A) 0.2 k/uL (0-0.7); Eosinophils % (A) 1 %; HCT 40.6 % (34.0-46.0); HGB 12.9 gm/dL (11.4-16.0); Lymphocytes # (A) 0.9 k/uL (1.0-4.8); Lymphocytes % (A) 4 %; MCH 29.4 pg (25.0-35.0); MCHC 31.8 g/dL (31.0-37.0); MCV 92.4 fL (80.0-100.0); Mean Platelet Volume 7.8; Monocytes # (A) 0.5 k/uL (0-1.0); Monocytes % (A) 2 %; Neutrophils # (A) 19.3 k/uL (1.3-7.7); Neutrophils % (A) 92 %; Platelet Count 191 k/uL (150-450); RDW 13.8 % (11.5-15.5)
[2023-02-12 02:58] LABS: ALT 19 U/L (4-34); AST 31 U/L (14-36); African American GFR (CKD) 52 (>60 ml/min/1.73 sqM); Albumin 4.4 g/dL (3.5-5.0); Alkaline Phosphatase 111 U/L (38-126); Amylase 75 U/L (30-110); Anion Gap 11 mmol/L; Blood Urea Nitrogen 23 mg/dL (7-17); Calcium 9.7 mg/dL (8.4-10.2); Carbon Dioxide 23 mmol/L (22-30); Chloride 103 mmol/L (98-107); Glucose 169 mg/dL (74-99); Lipase 125 U/L (23-300); Non-African American GFR(CKD) 45 (>60 ml/min/1.73 sqM); Potassium 4.9 mmol/L (3.5-5.1); Sodium 137 mmol/L (137-145); Total Bilirubin 0.7 mg/dL (0.2-1.3); Total Protein 8.6 g/dL (6.3-8.2)
--- NOTE | 2023-02-12 03:26 | ED ---
Abdominal Pain HPI - General Chief Complaint: Abdominal Pain Stated Complaint: BOWEL OBSTRUCTION Time Seen by Provider: 02/12/23 01:50 Source: patient Mode of arrival: ambulatory Limitations: no limitations - History of Present Illness Initial Comments: This 77-year-old female presenting with chief complaint of abdominal pain as well as nausea and vomiting that started this evening. Patient has history of bowel obstructions and states that this feels similar to previous episodes. Surgical history includes hysterectomy. She denies chest pain, difficulty breathing, fever, chills, dysuria, hematuria, flank pain. - Related Data Home Medications Medication Instructions Recorded Confirmed Citalopram Hydrobromide 40 mg PO HS 02/25/20 02/12/23 [Citalopram HBr] Gabapentin [Neurontin] 300 mg PO BID@0800,1200 02/25/20 02/12/23 Gabapentin [Neurontin] 600 mg PO HS 02/25/20 02/12/23 Mirtazapine 45 mg PO HS 02/25/20 02/12/23 atenoloL [Tenormin] 50 mg PO HS 02/25/20 02/12/23 hydroCHLOROthiazide 25 mg PO BID PRN 02/25/20 02/12/23 rOPINIRole HCL [Requip] 3 mg PO HS 02/25/20 02/12/23 Ondansetron Odt [Zofran ODT] 8 mg PO Q8HR PRN 05/28/20 02/12/23 Levothyroxine Sodium [Synthroid] 75 mcg PO DAILY 09/10/21 02/12/23 Cetirizine HCl [Zyrtec] 10 mg PO HS 02/12/23 02/12/23 Docusate [Colace] 100 mg PO HS 02/12/23 02/12/23 Losartan [Cozaar] 50 mg PO HS 02/12/23 02/12/23 Allergies Allergy/AdvReac Type Severity Reaction Status Date / Time No Known Allergies Allergy Verified 02/12/23 07:43 Review of Systems ROS Statement: Those systems with pertinent positive or pertinent negative responses have been documented in the HPI. ROS Other: All systems not noted in ROS Statement are negative. Past Medical History Past Medical History: Cancer, Hypertension, Skin Disorder, Sleep Apnea/CPAP/BIPAP Additional Past Medical History / Comment(s): 2008-bowel obstruction, diverticulitis, eczema, hx skin cancer, pain with swallowing, cancer base of tongue left side, feeding tube, throat cancer. History of Any Multi-Drug Resistant Organisms: MRSA Date of last positivie culture/infection: 2007 MDRO Source:: abdomen Past Surgical History: Hysterectomy, Joint Replacement, Orthopedic Surgery, Tonsillectomy Additional Past Surgical History / Comment(s): surgery for bowel obstructions/removal of adhesions, xiao oophorectomy, disectomy, left hip replacement, left knee arthroscopy, xiao cataracts, right port inserted Past Anesthesia/Blood Transfusion Reactions: No Reported Reaction Past Psychological History: No Psychological Hx Reported Smoking Status: Never smoker Past Alcohol Use History: Occasional Past Drug Use History: None Reported - Past Family History Mother Family Medical History: No Reported History General Exam Limitations: no limitations General appearance: alert, in no apparent distress Head exam: Present: atraumatic, normocephalic, normal inspection Eye exam: Present: normal appearance, EOMI. Absent: scleral icterus, periorbital swelling Neck exam: Present: normal inspection, full ROM Respiratory exam: Present: normal lung sounds bilaterally. Absent: respiratory distress, wheezes, rales, rhonchi, stridor Cardiovascular Exam: Present: regular rate, normal rhythm, normal heart sounds. Absent: systolic murmur, diastolic murmur, rubs, gallop, clicks GI/Abdominal exam: Present: soft, tenderness. Absent: distended, guarding, rebound, rigid Neurological exam: Present: alert, oriented X3, CN II-XII intact Psychiatric exam: Present: normal affect, normal mood Skin exam: Present: warm, dry, intact, normal color. Absent: rash Course Vital Signs 02/12/23 02/12/23 02/12/23 01:46 04:35 05:18 Temperature 98.6 F 98.2 F Pulse Rate 84 77 Pulse Rate [ 74 Right Supine] Respiratory 18 16 18 Rate Blood Pressure 186/89 173/79 Blood Pressure 154/73 [Left Arm Supine] O2 Sat by Pulse 94 L 97 94 L Oximetry 02/12/23 02/12/23 02/12/23 05:20 05:29 16:03 Temperature Pulse Rate 75 68 Pulse Rate [ 74 Right Supine] Respiratory 16 18 18 Rate Blood Pressure 154/73 162/72 Blood Pressure [Left Arm Supine] O2 Sat by Pulse 95 93 L Oximetry Medical Decision Making - Medical Decision Making Was pt. sent in by a medical professional or institution (JEF Prakash, EDUCATION SITE MANAGER, urgent care, hospital, or senior living...) When possible be specific @ -No Did you speak to anyone other than the patient for history (EMS, parent, family, police, friend...)? What history was obtained from this source @ -No Did you review nursing and triage notes (agree or disagree)? Why? @ -I reviewed and agree with nursing and triage notes Were old charts reviewed (outside hosp., previous admission, EMS record, old EKG, old radiological studies, urgent care reports/EKG's, senior living records)? Report findings @ -No old charts were reviewed Differential Diagnosis (chest pain, altered mental status, abdominal pain women, abdominal pain men, vaginal bleeding, weakness, fever, dyspnea, syncope, headache, dizziness, GI bleed, back pain, seizure, CVA, palpatations, mental health, musculoskeletal)? @ -MDM Differential Abdominal Pain Women: Appendicitis, Cholecystitis, diverticulosis, ischemic bowel, pancreatitis, hepatitis, UTI, gastroenteritis, AAA, incarcerated hernia, bowel obstruction, constipation, inflammatory bowel, hepatitis, peptic ulcer disease, splenic infarction, perforated viscus, vulvitis, ovarian torsion, PID, kidney stone, placenta abruption... This is not meant to be an all-inclusive list EKG interpreted by me (3pts min.). @ -As above X-rays interpreted by me (1pt min.). @ -None done CT interpreted by me (1pt min.). @ -CT shows dilated fluid-filled small bowel loops which may transition within the mid to distal ileum wall within the pelvis. U/S interpreted by me (1pt. min.). @ -None done What testing was considered but not performed or refused? (CT, X-rays, U/S, labs)? Why? @ -None What meds were considered but not given or refused? Why? @ -None Did you discuss the management of the patient with other professionals (professionals i.e. JEF Prakash, EDUCATION SITE MANAGER, lab, RT, psych nurse, social worker delinquency prevention, soils analyst, teacher, career services officer, therapeutic case manager)? Give summary @ -[facility] hospitalist group provider on-call accepted admission Was smoking cessation discussed for >3mins.? @ -No Was critical care preformed (if so, how long)? @ -No Were there social determinants of health that impacted care today? How? (Homelessness, low income, unemployed, alcoholism, drug addiction, transportation, low edu. Level, literacy, decrease access to med. care, fci, rehab)? @ -No Was there de-escalation of care discussed even if they declined (Discuss DNR or withdrawal of care, Hospice)? DNR status @ -No What co-morbidities impacted this encounter? (DM, HTN, Smoking, COPD, CAD, Cancer, CVA, ARF, Chemo, Hep., AIDS, mental health diagnosis, sleep apnea, morbid obesity)? @ -History of bowel obstruction, history of esophageal cancer with radiation Was patient admitted / discharged? Hospital course, mention meds given and route, prescriptions, significant lab abnormalities, going to OR and other pertinent info. @ -77-year-old female presenting with chief complaint of abdominal pain, nausea, vomiting. She has history of small bowel obstructions and this episode feels identical to previous SBOs. CT shows evidence of small bowel obstruction. Attempted to place NG tube in the ER, however attempts were unsuccessful. Likely affected by patient's history of esophageal cancer with radiation. Patient will be admitted. I attending spoke with the [facility] hospitalist group provider on-call who accepted admission. Patient is agreeable with this plan. I discussed this case with my attending Dr. Murphy Undiagnosed new problem with uncertain prognosis? @ -No Drug Therapy requiring intensive monitoring for toxicity (Heparin, Nitro, Insulin, Cardizem)? @ -No Were any procedures done? @ -No Diagnosis/symptom? @ -small bowel obstruction Acute, or Chronic, or Acute on Chronic? @ -Acute Uncomplicated (without systemic symptoms) or Complicated (systemic symptoms)? @ -Complicated Side effects of treatment? @ -No Exacerbation, Progression, or Severe Exacerbation? @ -No Poses a threat to life or bodily function? How? (Chest pain, USA, MS, pneumonia, PE, COPD, DKA, ARF, appy, cholecystitis, CVA, Diverticulitis, Homicidal, Suicidal, threat to staff... and all critical care pts) @ -Yes - Lab Data Result diagrams: 02/13/23 05:15 02/13/23 05:15 Lab Results 02/12/23 02/12/23 02/12/23 Range/Units 02:30 02:30 02:30 WBC 21.0 H (3.8-10.6) k/uL RBC 4.40 (3.80-5.40) m/uL Hgb 12.9 (11.4-16.0) gm/dL Hct 40.6 (34.0-46.0) % MCV 92.4 (80.0-100.0) fL MCH 29.4 (25.0-35.0) pg MCHC 31.8 (31.0-37.0) g/dL RDW 13.8 (11.5-15.5) % Plt Count 191 (150-450) k/uL MPV 7.8 Neutrophils % 92 % Lymphocytes % 4 % Monocytes % 2 % Eosinophils % 1 % Basophils % 0 % Neutrophils # 19.3 H (1.3-7.7) k/uL Lymphocytes # 0.9 L (1.0-4.8) k/uL Monocytes # 0.5 (0-1.0) k/uL Eosinophils # 0.2 (0-0.7) k/uL Basophils # 0.1 (0-0.2) k/uL Sodium 137 (137-145) mmol/L Potassium 4.9 (3.5-5.1) mmol/L Chloride 103 (98-107) mmol/L Carbon Dioxide 23 (22-30) mmol/L Anion Gap 11 mmol/L BUN 23 H (7-17) mg/dL Creatinine 1.16 H (0.52-1.04) mg/dL Est GFR (CKD-EPI)AfAm 52 (>60 ml/min/1.73 sqM) Est GFR (CKD-EPI)NonAf 45 (>60 ml/min/1.73 sqM) Glucose 169 H (74-99) mg/dL Plasma Lactic Acid Ilan 1.6 (0.7-2.0) mmol/L Calcium 9.7 (8.4-10.2) mg/dL Total Bilirubin 0.7 (0.2-1.3) mg/dL AST 31 (14-36) U/L ALT 19 (4-34) U/L Alkaline Phosphatase 111 (38-126) U/L Troponin I (0.000-0.034) ng/mL Total Protein 8.6 H (6.3-8.2) g/dL Albumin 4.4 (3.5-5.0) g/dL Amylase 75 (30-110) U/L Lipase 125 (23-300) U/L 02/12/23 Range/Units 02:30 WBC (3.8-10.6) k/uL RBC (3.80-5.40) m/uL Hgb (11.4-16.0) gm/dL Hct (34.0-46.0) % MCV (80.0-100.0) fL MCH (25.0-35.0) pg MCHC (31.0-37.0) g/dL RDW (11.5-15.5) % Plt Count (150-450) k/uL MPV Neutrophils % % Lymphocytes % % Monocytes % % Eosinophils % % Basophils % % Neutrophils # (1.3-7.7) k/uL Lymphocytes # (1.0-4.8) k/uL Monocytes # (0-1.0) k/uL Eosinophils # (0-0.7) k/uL Basophils # (0-0.2) k/uL Sodium (137-145) mmol/L Potassium (3.5-5.1) mmol/L Chloride (98-107) mmol/L Carbon Dioxide (22-30) mmol/L Anion Gap mmol/L BUN (7-17) mg/dL Creatinine (0.52-1.04) mg/dL Est GFR (CKD-EPI)AfAm (>60 ml/min/1.73 sqM) Est GFR (CKD-EPI)NonAf (>60 ml/min/1.73 sqM) Glucose (74-99) mg/dL Plasma Lactic Acid Ilan (0.7-2.0) mmol/L Calcium (8.4-10.2) mg/dL Total Bilirubin (0.2-1.3) mg/dL AST (14-36) U/L ALT (4-34) U/L Alkaline Phosphatase (38-126) U/L Troponin I <0.012 (0.000-0.034) ng/mL Total Protein (6.3-8.2) g/dL Albumin (3.5-5.0) g/dL Amylase (30-110) U/L Lipase (23-300) U/L Disposition Clinical Impression: Bowel obstruction Disposition: ADMITTED IP TO THIS HOSP Condition: Fair Time of Disposition: 04:14
[2023-02-12] MEDS ORDERED: NALOXONE 0.4 MG/ML 1 ML VIAL IV PRN (04:20)
[2023-02-12] MEDS: HYDROmorphone 1 MG/ML 1 ML SYRINGE IVP PRN ×5 (04:29→19:25)
[2023-02-12] MEDS: SODIUM CHLORIDE 0.9% 1,000 ML IV SCH (04:30)
--- NOTE | 2023-02-12 07:27 | CT ---
EXAMINATION TYPE: CT abdomen pelvis w con DATE OF EXAM: 02/12/2023 COMPARISON: PET scan 10/26/2021 INDICATION: Abdomen pain and nausea DLP: 621.7 mGycm, Automated exposure control for dose reduction was used. CONTRAST: 80 mL of Isovue 300. Study performed without Oral Contrast TECHNIQUE: Axial images were obtained from above the diaphragm to the pubic rami in the axial plane a t 5 mm thick sections. Reconstructed images are reviewed on the computer in the coronal plane. FINDINGS: Limited CT sections are obtained the lung bases. Mild subsegmental atelectasis at the left base.. CT ABDOMEN: There is reflux of fluid from stomach into the hiatal hernia present. The distal esophagu s appears somewhat prominent. Liver: There are couple of hepatic cysts present. Spleen: Calcified granulomata within the spleen. Pancreas: Atrophic Adrenal glands: Normal Gallbladder: Normal Kidneys: No masses are evident. No hydronephrosis is present. No cysts are present. No renal stone s are evident. Aorta: Vascular calcification is within the aorta. Inferior vena cava: Normal. CT PELVIS: Left hip prosthesis causes some beam hardening artifact limiting the lower pelvis evaluati on. Multiple dilated fluid-filled small bowel loops are present within the upper abdomen. There may be a zone of transition within the lower pelvis small bowel loops. Distal small bowel loops are decompress ed. Portions of the colon visualized are decompressed. Correlate for small bowel obstruction. Appendix: Not identified. Urinary bladder: Normal as visualized. Genitourinary structures: Uterus and ovaries are not identified. Osseous structures: No suspicious lytic or sclerotic lesions. IMPRESSIONS: 1. Dilated fluid-filled small bowel loops which may transition within the mid to distal ileum low wi thin the pelvis. Correlate for small bowel obstruction. Report was called to emergency room by Dr. Cong rico by telephone [phone].
[2023-02-12] MEDS: ONDANSETRON 4 MG/2 ML VIAL IVP PRN ×2 (07:37→16:04)
--- NOTE | 2023-02-12 12:21 | P.HPIM ---
History of Present Illness 77-year-old the female came in with comments of nausea vomiting severe abdominal pain found to have small bowel obstruction in the distal ileum. Patient had multiple surgical episodes in the past patient had a history of esophageal cancer with radiation to be in the past patient had a PEG tube in the past. REVIEW OF SYSTEMS: CONSTITUTIONAL: No fever, no malaise, no fatigue. HEENT: No recent visual problems or hearing problems. Denied any sore throat. CARDIOVASCULAR: No chest pain, orthopnea, PND, no palpitations, no syncope. PULMONARY: No shortness of breath, no cough, no hemoptysis. GASTROINTESTINAL: As mentioned in HPI NEUROLOGICAL: No headaches, no weakness, no numbness. HEMATOLOGICAL: Denies any bleeding or petechiae. GENITOURINARY: Denies any burning micturition, frequency, or urgency. MUSCULOSKELETAL/RHEUMATOLOGICAL: Denies any joint pain, swelling, or any muscle pain. ENDOCRINE: Denies any polyuria or polydipsia. The rest of the 14-point review of systems is negative. PHYSICAL EXAMINATION: GENERAL: The patient is alert and oriented x3, not in any acute distress. Well developed, well nourished. HEENT: Pupils are round and equally reacting to light. EOMI. No scleral icterus. No conjunctival pallor. Normocephalic, atraumatic. No pharyngeal erythema. No thyromegaly. CARDIOVASCULAR: S1 and S2 present. No murmurs, rubs, or gallops. PULMONARY: Chest is clear to auscultation, no wheezing or crackles. ABDOMEN: Slight distention sluggish bowel sounds and diffuse tenderness and mild rebound MUSCULOSKELETAL: No joint swelling or deformity. EXTREMITIES: No cyanosis, clubbing, or pedal edema. NEUROLOGICAL: Gross neurological examination did not reveal any focal deficits. SKIN: No rashes. Assessment and plan -Small bowel obstruction: Patient will remain nothing by mouth patient presently doesn't have an NG tube because of difficulties of placing NG tube patient will need an NG tube and patient is still nauseous. Surgery evaluated the patient -Leukocytosis secondary to small bowel obstruction, reactive no evidence of infection so for -Gastroesophageal reflux disease -Depression -Hypertension next and-mild acute renal failure secondary to small bowel obstruction patient was started on IV fluids -Peripheral neuropathy Patient will be started on her home medications appropriate ones when she can tolerate by mouth medications as of now will hold off on all these medications blood pressure is slightly high but heart rate is fairly well controlled DVT prophylaxis: Subcutaneous heparin Past Medical History Past Medical History: Cancer, Hypertension, Skin Disorder, Sleep Apnea/CPAP/BIPAP Additional Past Medical History / Comment(s): 2007-bowel obstruction, diverticulitis, eczema, hx skin cancer, pain with swallowing, cancer base of tongue left side, feeding tube, throat cancer. History of Any Multi-Drug Resistant Organisms: MRSA Date of last positivie culture/infection: 2007 MDRO Source:: abdomen Past Surgical History: Hysterectomy, Joint Replacement, Orthopedic Surgery, Tonsillectomy Additional Past Surgical History / Comment(s): surgery for bowel obstructions/removal of adhesions, xiao oophorectomy, disectomy, left hip replacement, left knee arthroscopy, xiao cataracts, right port inserted Past Anesthesia/Blood Transfusion Reactions: No Reported Reaction Past Psychological History: No Psychological Hx Reported Smoking Status: Never smoker Past Alcohol Use History: Occasional Past Drug Use History: None Reported - Past Family History Mother Family Medical History: No Reported History Medications and Allergies Home Medications Medication Instructions Recorded Confirmed Type Citalopram Hydrobromide 40 mg PO HS 02/25/20 02/12/23 History [Citalopram HBr] Gabapentin [Neurontin] 300 mg PO BID@0800,1200 02/25/20 02/12/23 History Gabapentin [Neurontin] 600 mg PO HS 02/25/20 02/12/23 History Mirtazapine 45 mg PO HS 02/25/20 02/12/23 History atenoloL [Tenormin] 50 mg PO HS 02/25/20 02/12/23 History hydroCHLOROthiazide 25 mg PO BID PRN 02/25/20 02/12/23 History rOPINIRole HCL [Requip] 3 mg PO HS 02/25/20 02/12/23 History Ondansetron Odt [Zofran ODT] 8 mg PO Q8HR PRN 05/28/20 02/12/23 History Levothyroxine Sodium [Synthroid] 75 mcg PO DAILY 09/10/21 02/12/23 History Cetirizine HCl [Zyrtec] 10 mg PO HS 02/12/23 02/12/23 History Docusate [Colace] 100 mg PO HS 02/12/23 02/12/23 History Losartan [Cozaar] 50 mg PO HS 02/12/23 02/12/23 History Allergies Allergy/AdvReac Type Severity Reaction Status Date / Time No Known Allergies Allergy Verified 02/12/23 07:43 Physical Exam Vitals: Vital Signs Temp Pulse Pulse Resp BP BP Pulse Ox 02/12/23 05:29 74 18 02/12/23 05:20 75 16 154/73 95 02/12/23 05:18 98.2 F 74 18 154/73 94 L 02/12/23 04:35 77 16 173/79 97 02/12/23 01:46 98.6 F 84 18 186/89 94 L Intake and Output 02/11/23 02/12/23 02/12/23 22:59 06:59 14:59 Other: Voiding Method Toilet Weight 53.524 kg Results CBC & Chem 7: 02/12/23 02:30 02/12/23 02:30 Labs: Abnormal Lab Results - Last 24 Hours (Table) 02/12/23 02/12/23 Range/Units 02:30 02:30 WBC 21.0 H (3.8-10.6) k/uL Neutrophils # 19.3 H (1.3-7.7) k/uL Lymphocytes # 0.9 L (1.0-4.8) k/uL BUN 23 H (7-17) mg/dL Creatinine 1.16 H (0.52-1.04) mg/dL Glucose 169 H (74-99) mg/dL Total Protein 8.6 H (6.3-8.2) g/dL Thrombosis Risk Factor Assmnt - Choose All That Apply Any of the Below Risk Factors Present?: No Each Risk Factor Represents 3 Points: Age 75 years or older Thrombosis Risk Factor Assessment Total Risk Factor Score: 3 Thrombosis Risk Factor Assessment Level: Moderate Risk
[2023-02-12] MEDS: PANTOPRAZOLE 40 MG/10 ML VIAL IVP SCH (13:29)
--- NOTE | 2023-02-12 15:14 | XR ---
EXAMINATION TYPE: XR abdomen 1V DATE OF EXAM: 02/12/2023 COMPARISON: Chest x-ray earlier in the day INDICATION: NG tube insertion TECHNIQUE: Single frontal view of the abdomen is obtained. FINDINGS: Nasogastric tube transverses the thorax with the tip in the left upper quadrant of the abdomen. Promi nent air-filled small bowel loops within the midabdomen. IMPRESSION: 1. Placement of the nasogastric tube, the tip is within the left upper quadrant abdomen.
[2023-02-12 18:00] LABS: Appearance,Urine Clear (Clear); Bilirubin,Urine Negative (Negative); Blood,Urine Negative (Negative); Color,Urine Yellow; Glucose,Urine (UA) Negative (Negative); Ketones,Urine Negative (Negative); Leukocyte Esterase,Urine Negative (Negative); Nitrite,Urine Negative (Negative); PH, Urine 7.5 (5.0-8.0); Protein,Urine Trace (Negative); Specific Gravity,Urine 1.033 (1.001-1.035); Urobilinogen,Urine <2.0 mg/dL (<2.0)
[2023-02-12] MEDS: CITALOPRAM HYDROBROMIDE 20 MG TAB PO SCH (19:25)
[2023-02-13] MEDS: HYDROmorphone 1 MG/ML 1 ML SYRINGE IVP PRN ×5 (00:21→20:54)
[2023-02-13] MEDS: ONDANSETRON 4 MG/2 ML VIAL IVP PRN ×3 (00:24→17:18)
[2023-02-13] MEDS: SODIUM CHLORIDE 0.9% 1,000 ML IV SCH ×3 (00:56→17:06)
[2023-02-13] MEDS: LEVOTHYROXINE 75 MCG TAB PO SCH (05:58)
[2023-02-13 06:38] LABS: HCT 32.7 % (34.0-46.0); HGB 10.2 gm/dL (11.4-16.0); Hypochromasia Slight; MCH 29.8 pg (25.0-35.0); MCHC 31.2 g/dL (31.0-37.0); MCV 95.5 fL (80.0-100.0); Mean Platelet Volume 8.3; Platelet Count 136 k/uL (150-450); RBC 3.42 m/uL (3.80-5.40); RDW 13.8 % (11.5-15.5); WBC 11.6 k/uL (3.8-10.6)
[2023-02-13 06:54] LABS: African American GFR (CKD) 57 (>60 ml/min/1.73 sqM); Anion Gap 7 mmol/L; Blood Urea Nitrogen 26 mg/dL (7-17); Calcium 7.8 mg/dL (8.4-10.2); Carbon Dioxide 26 mmol/L (22-30); Chloride 105 mmol/L (98-107); Glucose 100 mg/dL (74-99); Magnesium 1.6 mg/dL (1.6-2.3); Non-African American GFR(CKD) 49 (>60 ml/min/1.73 sqM); Potassium 4.1 mmol/L (3.5-5.1); Sodium 138 mmol/L (137-145)
[2023-02-13] MEDS: PANTOPRAZOLE 40 MG/10 ML VIAL IVP SCH (08:24)
--- NOTE | 2023-02-13 09:59 | P.GSHP ---
History of Present Illness H&P Date: 02/13/23 Chief Complaint: bowel obstruction Initially developed abdominal pain Friday evening, symptoms similar to her previous bowel obstructions. Described it as a sharp stabbing pain on the right side. Usually walks around the house & is able to get bowels moving. This time she was not successful so she came to the ER early Friday morning. Has history of multiple bowel obstructions in past, with last lysis of adhesions being in 2008. Has a surgical history of hysterectomy, appendectomy, ex lap with DANICA, PEG placement. Her PEG was placed almost [address] Marte. She had it placed for nutritional support prior to her neck radiation. PEG was removed & Dr. Marte (and Dr. Yi on separate occasion) stated that she had aberrant anatomy & would not operate on her again. Unable to place NGT yesterday but last evening a small bore NG was able to be placed. Some bilious output & she feels some relief. Still having some pain but better. Feels like she needs to pass flatus; feels her bowels are moving. No flatus yet. CT showing SBO & hiatal hernia with esophageal changes, likely from prior radiation. Leukocytosis on admission has improved. - Constitutional Constitutional: Reports as per HPI - Cardiovascular Cardiovascular: Reports as per HPI - Respiratory Respiratory: Reports as per HPI - Gastrointestinal Gastrointestinal: Reports as per HPI - Musculoskeletal Musculoskeletal: Reports as per HPI - Integumentary Integumentary: Reports as per HPI - Neurological Neurological: Reports as per HPI - Psychiatric Psychiatric: Reports as per HPI - Endocrine Endocrine: Reports as per HPI Past Medical History Past Medical History: Cancer, Hypertension, Skin Disorder, Sleep Apnea/CPAP/BIPAP Additional Past Medical History / Comment(s): 2008-bowel obstruction, diverticulitis, eczema, hx skin cancer, pain with swallowing, cancer base of tongue left side, feeding tube, throat cancer. History of Any Multi-Drug Resistant Organisms: MRSA Date of last positivie culture/infection: 2007 MDRO Source:: abdomen Past Surgical History: Hysterectomy, Joint Replacement, Orthopedic Surgery, Tonsillectomy Additional Past Surgical History / Comment(s): surgery for bowel obstructions/removal of adhesions, xiao oophorectomy, disectomy, left hip replacement, left knee arthroscopy, xiao cataracts, right port inserted Past Anesthesia/Blood Transfusion Reactions: No Reported Reaction Past Psychological History: No Psychological Hx Reported Smoking Status: Never smoker Past Alcohol Use History: Occasional Past Drug Use History: None Reported - Past Family History Mother Family Medical History: No Reported History Medications and Allergies Home Medications Medication Instructions Recorded Confirmed Type Citalopram Hydrobromide 40 mg PO HS 02/25/20 02/12/23 History [Citalopram HBr] Gabapentin [Neurontin] 300 mg PO BID@0800,1200 02/25/20 02/12/23 History Gabapentin [Neurontin] 600 mg PO HS 02/25/20 02/12/23 History Mirtazapine 45 mg PO HS 02/25/20 02/12/23 History atenoloL [Tenormin] 50 mg PO HS 02/25/20 02/12/23 History hydroCHLOROthiazide 25 mg PO BID PRN 02/25/20 02/12/23 History rOPINIRole HCL [Requip] 3 mg PO HS 02/25/20 02/12/23 History Ondansetron Odt [Zofran ODT] 8 mg PO Q8HR PRN 05/28/20 02/12/23 History Levothyroxine Sodium [Synthroid] 75 mcg PO DAILY 09/10/21 02/12/23 History Cetirizine HCl [Zyrtec] 10 mg PO HS 02/12/23 02/12/23 History Docusate [Colace] 100 mg PO HS 02/12/23 02/12/23 History Losartan [Cozaar] 50 mg PO HS 02/12/23 02/12/23 History Allergies Allergy/AdvReac Type Severity Reaction Status Date / Time No Known Allergies Allergy Verified 02/12/23 07:43 Surgical - Exam Vital Signs Temp Pulse Resp BP Pulse Ox 98.6 F 84 18 186/89 94 L 02/12/23 01:46 02/12/23 01:46 02/12/23 01:46 02/12/23 01:46 02/12/23 01:46 - General frail no distress - Eyes no icteric - ENT dry mucous membranes no hearing loss - Neck supple - Respiratory normal expansion, normal respiratory effort, clear to auscultation - Cardiovascular Rhythm: regular Abnormal Heart Sounds: no systolic murmur, no diastolic murmur - Abdomen minimally tender on right side, no signs of peritonitis Abdomen: soft, surgical scars, no guarding, no rigid, no rebound, no distended - Integumentary warm & dry, no diaphoresis - Neurologic no gross deficits - Musculoskeletal no LE edema - Psychiatric oriented to time, oriented to person, oriented to place, speech is normal, memory intact Results - Labs 02/13/23 05:15 02/13/23 05:15 Abnormal Lab Results - Last 24 Hours (Table) 02/12/23 02/13/23 02/13/23 Range/Units 17:20 05:15 05:15 WBC 11.6 H (3.8-10.6) k/uL RBC 3.42 L (3.80-5.40) m/uL Hgb 10.2 L (11.4-16.0) gm/dL Hct 32.7 L (34.0-46.0) % Plt Count 136 L (150-450) k/uL BUN 26 H (7-17) mg/dL Creatinine 1.08 H (0.52-1.04) mg/dL Glucose 100 H (74-99) mg/dL Calcium 7.8 L (8.4-10.2) mg/dL Urine Protein Trace H (Negative) Diabetes panel 02/13/23 Range/Units 05:15 Sodium 138 (137-145) mmol/L Potassium 4.1 (3.5-5.1) mmol/L Chloride 105 (98-107) mmol/L Carbon Dioxide 26 (22-30) mmol/L BUN 26 H (7-17) mg/dL Creatinine 1.08 H (0.52-1.04) mg/dL Glucose 100 H (74-99) mg/dL Calcium 7.8 L (8.4-10.2) mg/dL Calcium panel 02/13/23 Range/Units 05:15 Calcium 7.8 L (8.4-10.2) mg/dL Pituitary panel 02/13/23 Range/Units 05:15 Sodium 138 (137-145) mmol/L Potassium 4.1 (3.5-5.1) mmol/L Chloride 105 (98-107) mmol/L Carbon Dioxide 26 (22-30) mmol/L BUN 26 H (7-17) mg/dL Creatinine 1.08 H (0.52-1.04) mg/dL Glucose 100 H (74-99) mg/dL Calcium 7.8 L (8.4-10.2) mg/dL Adrenal panel 02/13/23 Range/Units 05:15 Sodium 138 (137-145) mmol/L Potassium 4.1 (3.5-5.1) mmol/L Chloride 105 (98-107) mmol/L Carbon Dioxide 26 (22-30) mmol/L BUN 26 H (7-17) mg/dL Creatinine 1.08 H (0.52-1.04) mg/dL Glucose 100 H (74-99) mg/dL Calcium 7.8 L (8.4-10.2) mg/dL - Imaging Abdominal x-ray: report reviewed, image reviewed CT scan - abdomen: report reviewed, image reviewed CT scan - pelvis: report reviewed, image reviewed Assessment and Plan Assessment: abdominal pain, likely 2/[address] extensive surgical history history of SBO leukocytosis, down-trending CT evidence of hiatal hernia Plan: continue NG to LIS, may need to be advanced further if able IVF, strict NPO & bowel rest continue non operative management for the time being - if no improvement in symptoms over next 24-48 hours, would recommend SBFT - will be a difficult surgical candidate & may need higher level of care based on patient's recollection of previous surgeon's comments
[2023-02-13] MEDS ORDERED: Magnesium Replacement Protocol 1 EACH MISC MISCELLANE PRN (10:25)
[2023-02-13] MEDS: MAGNESIUM SULFATE-D5W PMX 1 GM in DEXTROSE/WATER 1 100ML.BAG IVPB SCH ×2 (10:43→11:45)
[2023-02-13] MEDS: ACETAMINOPHEN IV (For NPO) 1,000 MG in EMPTY BAG 1 BAG IVPB SCH (17:07)
[2023-02-13] MEDS: NYSTATIN 100,000 UNIT/ML SUSP 500,000 UNIT/5 ML CUP PO SCH ×2 (17:18→20:54)
[2023-02-13] MEDS: CITALOPRAM HYDROBROMIDE 20 MG TAB PO SCH (20:54)
[2023-02-14] MEDS: ACETAMINOPHEN IV (For NPO) 1,000 MG in EMPTY BAG 1 BAG IVPB SCH ×3 (00:26→12:56)
[2023-02-14] MEDS: SODIUM CHLORIDE 0.9% 1,000 ML IV SCH ×2 (02:29→04:49)
--- NOTE | 2023-02-14 03:37 | P.PN ---
Subjective Progress Note Date: 02/13/23 77-year-old the female came in with comments of nausea vomiting severe abdominal pain found to have small bowel obstruction in the distal ileum. Patient had multiple surgical episodes in the past patient had a history of esophageal cancer with radiation to be in the past patient had a PEG tube in the past. 02/13/2023 Patient seen and evaluated this morning continues with NG tube and continues to have some abdominal distention and no bowel movement. Patient does have positive bowel sounds but has not passed gas. Patient is continued on bowel rest and nothing by mouth. General surgery Dr. Castaneda evaluated the patient recommend continuing with NG tube and bowel rest and patient reports possible barium enema. Patient has been encouraged to be up and walking more frequently patient reports has been up in the halls. Patient is afebrile with no reports of chest pain or shortness of breath noted. Review of systems: Constitutional: No reports of fatigue, fever, or chills Cardiovascular: No reports of chest pain or palpitations Respiratory: No reports of shortness of breath or cough GI: No reports of nausea, vomiting, or diarrhea, reports passing gas and no bowel movements : No reports of dysuria or retention Neurovascular: No reports of weakness or numbness PHYSICAL EXAMINATION: GENERAL: The patient is alert and oriented x3, not in any acute distress. Well developed, well nourished. HEENT: Pupils are round and equally reacting to light. EOMI. No scleral icterus. No conjunctival pallor. Normocephalic, atraumatic. No pharyngeal erythema. No thyromegaly. CARDIOVASCULAR: S1 and S2 present. No murmurs, rubs, or gallops. PULMONARY: Chest is clear to auscultation, no wheezing or crackles. ABDOMEN: Continued mild distention noted, normoactive bowel sounds noted with some diffuse tenderness and mild rebound MUSCULOSKELETAL: No joint swelling or deformity. EXTREMITIES: No cyanosis, clubbing, or pedal edema. NEUROLOGICAL: Gross neurological examination did not reveal any focal deficits. SKIN: No rashes. Assessment: -Small bowel obstruction: Patient will remain nothing by mouth patient presently with an NG tube -Leukocytosis secondary to small bowel obstruction, reactive no evidence of infection so for -Gastroesophageal reflux disease -Depression -Hypertension -mild acute renal failure secondary to small bowel obstruction -Peripheral neuropathy -DVT prophylaxis: Subcutaneous heparin -GI prophylaxis -Full code Plan: Recommend to continue with NG tube and gentle hydration and patient to be nothing by mouth with bowel rest Gen. surgery evaluated the patient recommending conservative measures for now and considering possible barium enema Patient will be started on her home medications appropriate ones when she can tolerate by mouth medications as of now will hold off on all these medications blood pressure is slightly high but heart rate is fairly well controlled Surgery were necessary, consider possible transfer to tertiary treatment center given patient's significant abdominal surgeries and anatomy per surgery evaluation Will follow-up repeat labs in a.m. Encouraged increased activity as tolerated with frequent walking The impression and plan of care has been dictated by Madelyn Cummings, Nurse Practitioner as directed. Dr. Gary MD I have performed a history and examination and MDM of this patient, discussed the same with the dictator, and agree with the dictator's assessment and plan as written ,documented as a scribe. Based on total visit time, I have performed more than 50% of the visit. Objective - Vital Signs Vital signs: Vital Signs Temp 98.9 F 02/13/23 07:04 Pulse 68 02/13/23 07:04 Resp 17 02/13/23 07:04 BP 121/63 02/13/23 07:04 Pulse Ox 91 L 02/13/23 07:04 FiO2 Intake & Output 02/12/23 02/13/23 02/13/23 18:59 06:59 18:59 Other: # Voids 1 1 - Labs CBC & Chem 7: 02/13/23 05:15 02/13/23 05:15 Labs: Abnormal Lab Results - Last 24 Hours (Table) 02/12/23 02/13/23 02/13/23 Range/Units 17:20 05:15 05:15 WBC 11.6 H (3.8-10.6) k/uL RBC 3.42 L (3.80-5.40) m/uL Hgb 10.2 L (11.4-16.0) gm/dL Hct 32.7 L (34.0-46.0) % Plt Count 136 L (150-450) k/uL BUN 26 H (7-17) mg/dL Creatinine 1.08 H (0.52-1.04) mg/dL Glucose 100 H (74-99) mg/dL Calcium 7.8 L (8.4-10.2) mg/dL Urine Protein Trace H (Negative)
[2023-02-14 05:17] LABS: African American GFR (CKD) 68 (>60 ml/min/1.73 sqM); Anion Gap 9 mmol/L; Blood Urea Nitrogen 25 mg/dL (7-17); Calcium 8.1 mg/dL (8.4-10.2); Carbon Dioxide 17 mmol/L (22-30); Chloride 110 mmol/L (98-107); Glucose 78 mg/dL (74-99); Magnesium 2.2 mg/dL (1.6-2.3); Non-African American GFR(CKD) 59 (>60 ml/min/1.73 sqM); Potassium 3.7 mmol/L (3.5-5.1); Sodium 136 mmol/L (137-145)
[2023-02-14 05:18] LABS: Basophils % (A) 0 %; Eosinophils # (A) 0.1 k/uL (0-0.7); Eosinophils % (A) 1 %; HCT 34.9 % (34.0-46.0); HGB 10.9 gm/dL (11.4-16.0); Hypochromasia Moderate; Lymphocytes # (A) 1.3 k/uL (1.0-4.8); Lymphocytes % (A) 15 %; MCH 30.2 pg (25.0-35.0); MCHC 31.3 g/dL (31.0-37.0); MCV 96.5 fL (80.0-100.0); Mean Platelet Volume 8.6; Monocytes # (A) 0.2 k/uL (0-1.0); Monocytes % (A) 3 %; Neutrophils # (A) 6.6 k/uL (1.3-7.7); Neutrophils % (A) 80 %; Platelet Count 136 k/uL (150-450); RBC 3.62 m/uL (3.80-5.40); RDW 13.6 % (11.5-15.5); WBC 8.2 k/uL (3.8-10.6)
[2023-02-14] MEDS: ONDANSETRON 4 MG/2 ML VIAL IVP PRN (05:18)
[2023-02-14] MEDS: HYDROmorphone 1 MG/ML 1 ML SYRINGE IVP PRN ×4 (05:18→22:15)
[2023-02-14] MEDS: LEVOTHYROXINE 75 MCG TAB PO SCH (05:59)
[2023-02-14] MEDS: PANTOPRAZOLE 40 MG/10 ML VIAL IVP SCH (07:56)
[2023-02-14] MEDS: NYSTATIN 100,000 UNIT/ML SUSP 500,000 UNIT/5 ML CUP PO SCH ×4 (07:56→22:11)
--- NOTE | 2023-02-14 10:36 | P.PN ---
Subjective Progress Note Date: 02/14/23 Principal diagnosis: Small bowel obstruction, history of intra-abdominal adhesions, esophageal cancer post radiation Patient is seen and examined at bedside. Feeling better than on initial admission but still having some predominantly right lower quadrant abdominal cramping pains, worse with ambulation. Admits to flatus today, no bowel movement yet. Has been ambulatory in the halls, admits to mild episodic nausea without emesis, had an episode of acute shortness of breath this morning. Chest x-ray is pending. Leukocytosis is resolving, CO2 is slightly low. Objective - Vital Signs Vital signs: Vital Signs Temp 97.7 F 02/14/23 06:51 Pulse 62 02/14/23 06:51 Resp 18 02/14/23 06:51 BP 144/64 02/14/23 06:51 Pulse Ox 97 02/14/23 06:51 FiO2 Intake & Output 02/13/23 02/14/23 02/14/23 18:59 06:59 18:59 Intake Total 1740 Output Total 100 Balance 1640 Intake: Intake, IV Titration 1400 Amount ACETAMINOPHEN IV (For NPO 200 ) 1,000 mg In Empty Bag 1 bag @ 400 mls/hr IVPB Q6HR JOSUE Rx#:[id number] Sodium Chloride 0.9% 1, 1200 000 ml @ 100 mls/hr IV . Q10H JOSUE Rx#:[id number] Oral 340 Output: Gastric Drainage 100 Other: # Voids 3 2 - Constitutional General appearance: Present: average body habitus, cooperative, thin - EENT Eyes: Present: PERRLA ENT: Present: hearing grossly normal, NA/AT - Respiratory Respiratory: bilateral: CTA - Cardiovascular Rhythm: regular - Gastrointestinal Gastrointestinal Comment(s): Abdomen is soft, moderately distended with tympany, mild to moderate focal right lower quadrant tenderness on palpation, no guarding or rebound. No evidence of peritonitis. - Neurologic Neurologic: Present: CNII-XII intact - Psychiatric Psychiatric: Present: A&O x's 3 - Labs CBC & Chem 7: 02/14/23 04:49 02/14/23 04:49 Labs: Abnormal Lab Results - Last 24 Hours (Table) 02/14/23 02/14/23 Range/Units 04:49 04:49 RBC 3.62 L (3.80-5.40) m/uL Hgb 10.9 L (11.4-16.0) gm/dL Plt Count 136 L (150-450) k/uL Sodium 136 L (137-145) mmol/L Chloride 110 H (98-107) mmol/L Carbon Dioxide 17 L (22-30) mmol/L BUN 25 H (7-17) mg/dL Calcium 8.1 L (8.4-10.2) mg/dL - Imaging and Cardiology CT scan - abdomen: report reviewed, image reviewed Assessment and Plan Assessment: 77-year-old lady with recurrent small bowel obstruction, history of remote exploratory laparotomy and lysis of adhesions in excess of 10 years ago. Attended history of esophageal cancer managed with radiation, PEG tube for nutritional support as subsequently been removed. Would appear to be showing slow clinical improvement with bowel rest and nasogastric decompression as able. Plan: Will order computed tomography scan abdomen and pelvis with oral contrast via nasogastric tube, no IV contrast for tomorrow to assess for persistence of mechanical obstruction and hopefully help with clearance thereof. Continue current management. Time with Patient: Greater than 30
--- NOTE | 2023-02-14 11:41 | XR ---
EXAMINATION TYPE: XR chest 1V portable DATE OF EXAM: 02/14/2023 COMPARISON: 05/28/2020 INDICATION: Shortness of breath TECHNIQUE: Single frontal view of the chest is obtained. FINDINGS: The heart size is normal. The pulmonary vasculature is normal. Small left pleural effusion is present. Subsegmental atelectasis medially at the right base. Nasogastric tube transverses the thorax with tip in left upper quadrant of the abdomen. IMPRESSION: 1. Interval development of a small left pleural effusion. 2. Developing subsegmental atelectasis or pneumonia right lung base
[2023-02-14] MEDS ORDERED: FUROSEMIDE 10 MG/ML 2 ML VIAL IV ONE (15:18)
[2023-02-14] MEDS: CITALOPRAM HYDROBROMIDE 20 MG TAB PO SCH (19:52)
--- NOTE | 2023-02-15 04:33 | P.PN ---
Subjective Progress Note Date: 02/14/23 77-year-old the female came in with comments of nausea vomiting severe abdominal pain found to have small bowel obstruction in the distal ileum. Patient had multiple surgical episodes in the past patient had a history of esophageal cancer with radiation to be in the past patient had a PEG tube in the past. 02/13/2023 Patient seen and evaluated this morning continues with NG tube and continues to have some abdominal distention and no bowel movement. Patient does have positive bowel sounds but has not passed gas. Patient is continued on bowel rest and nothing by mouth. General surgery Dr. Castaneda evaluated the patient recommend continuing with NG tube and bowel rest and patient reports possible barium enema. Patient has been encouraged to be up and walking more frequently patient reports has been up in the halls. Patient is afebrile with no reports of chest pain or shortness of breath noted. 02/14/2023 Patient is seen and evaluated in follow-up this morning reports started passing gas this morning and bowel sounds appear to be somewhat sluggish. Patient's abdomen continues to be mildly distended with no significant worsening. Patient continues with NG tube with minimal output noted. Gen. surgery Dr. Cunningham evaluated the patient today recommending CT contrast NG tube and repeat CT abdomen in the a.m. Patient reports an episode of shortness of breath this morning and has developed a mild cough and chest x-ray has been ordered. WBC has normalized and patient remains afebrile. Patient denies chest pain or palpitations. Patient encouraged to continue walking as tolerated. Review of systems: Constitutional: No reports of fatigue, fever, or chills Cardiovascular: No reports of chest pain or palpitations Respiratory: reports of shortness of breath and cough GI: No reports of nausea, vomiting, or diarrhea, reports passing gas and no bowel movements : No reports of dysuria or retention Neurovascular: No reports of weakness or numbness PHYSICAL EXAMINATION: GENERAL: The patient is alert and oriented x3, not in any acute distress. Well developed, well nourished. HEENT: Pupils are round and equally reacting to light. EOMI. No scleral icterus. No conjunctival pallor. Normocephalic, atraumatic. No pharyngeal erythema. No thyromegaly. CARDIOVASCULAR: S1 and S2 present. No murmurs, rubs, or gallops. PULMONARY: Diminished breath sounds bilaterally more so on the right with no wheezing or crackles. ABDOMEN: Soft with Continued mild distention noted, sluggish bowel sounds noted with some diffuse tenderness on palpation MUSCULOSKELETAL: No joint swelling or deformity. EXTREMITIES: No cyanosis, clubbing, or pedal edema. NEUROLOGICAL: Gross neurological examination did not reveal any focal deficits. SKIN: No rashes. Assessment: -Small bowel obstruction: Patient will remain nothing by mouth patient presently with an NG tube -Leukocytosis secondary to small bowel obstruction, likely reactive no evidence of infection so for, improved -Gastroesophageal reflux disease -Depression -Hypertension -mild acute renal failure secondary to small bowel obstruction -Peripheral neuropathy -DVT prophylaxis: Subcutaneous heparin -GI prophylaxis -Full code Plan: Recommend to continue with NG tube and patient to be nothing by mouth with bowel rest. Patient is reporting some very minimal with no bowel movement as of yet Gen. surgery evaluated the patient recommending conservative measures for now and has ordered CT abdomen with contrast through the NG in the a.m. Patient will be resumed on her home medications appropriate ones when she can tolerate by mouth medications as of now will hold off on all these medications blood pressure is slightly high but heart rate is fairly well controlled Patient reported feeling short of breath this morning and will titrate the IV fluids down after obtaining a chest x-ray shows small effusion and concerns for atelectasis. Incentive spirometer ordered encourage the patient continue using at least 10 times every hour while awake. Will give a small dose of IV Lasix. Will follow-up repeat labs in a.m. Encouraged increased activity as tolerated with frequent walking The impression and plan of care has been dictated by Madelyn Cummings, Nurse Practitioner as directed. Dr. Gary MD I have performed a history and examination and MDM of this patient, discussed the same with the dictator, and agree with the dictator's assessment and plan as written ,documented as a scribe. Based on total visit time, I have performed more than 50% of the visit. Objective - Vital Signs Vital signs: Vital Signs Temp 97.7 F 02/14/23 06:51 Pulse 62 02/14/23 06:51 Resp 18 02/14/23 06:51 BP 144/64 02/14/23 06:51 Pulse Ox 97 02/14/23 06:51 FiO2 Intake & Output 02/13/23 02/14/23 02/14/23 18:59 06:59 18:59 Intake Total 1740 Output Total 100 Balance 1640 Intake: Intake, IV Titration 1400 Amount ACETAMINOPHEN IV (For NPO 200 ) 1,000 mg In Empty Bag 1 bag @ 400 mls/hr IVPB Q6HR JOSUE Rx#:[id number] Sodium Chloride 0.9% 1, 1200 000 ml @ 100 mls/hr IV . Q10H JOSUE Rx#:[id number] Oral 340 Output: Gastric Drainage 100 Other: # Voids 3 2 - Labs CBC & Chem 7: 02/14/23 04:49 02/14/23 04:49 Labs: Abnormal Lab Results - Last 24 Hours (Table) 02/14/23 02/14/23 Range/Units 04:49 04:49 RBC 3.62 L (3.80-5.40) m/uL Hgb 10.9 L (11.4-16.0) gm/dL Plt Count 136 L (150-450) k/uL Sodium 136 L (137-145) mmol/L Chloride 110 H (98-107) mmol/L Carbon Dioxide 17 L (22-30) mmol/L BUN 25 H (7-17) mg/dL Calcium 8.1 L (8.4-10.2) mg/dL
[2023-02-15] MEDS: LEVOTHYROXINE 75 MCG TAB PO SCH (05:41)
[2023-02-15 06:55] LABS: Basophils % (A) 0 %; Eosinophils # (A) 0.1 k/uL (0-0.7); Eosinophils % (A) 1 %; HGB 10.1 gm/dL (11.4-16.0); Hypochromasia Moderate; Lymphocytes # (A) 0.8 k/uL (1.0-4.8); Lymphocytes % (A) 7 %; MCHC 30.5 g/dL (31.0-37.0); MCV 95.2 fL (80.0-100.0); Mean Platelet Volume 8.8; Monocytes # (A) 0.3 k/uL (0-1.0); Monocytes % (A) 3 %; Neutrophils % (A) 88 %; Platelet Count 121 k/uL (150-450); RBC 3.47 m/uL (3.80-5.40); RDW 13.5 % (11.5-15.5); WBC 11.4 k/uL (3.8-10.6)
[2023-02-15 07:11] LABS: African American GFR (CKD) 78 (>60 ml/min/1.73 sqM); Anion Gap 11 mmol/L; Blood Urea Nitrogen 18 mg/dL (7-17); Calcium 8.2 mg/dL (8.4-10.2); Carbon Dioxide 18 mmol/L (22-30); Chloride 108 mmol/L (98-107); Glucose 65 mg/dL (74-99); Non-African American GFR(CKD) 68 (>60 ml/min/1.73 sqM); Potassium 3.3 mmol/L (3.5-5.1); Sodium 137 mmol/L (137-145)
[2023-02-15] MEDS: HYDROmorphone 1 MG/ML 1 ML SYRINGE IVP PRN ×2 (08:09→18:03)
[2023-02-15] MEDS: IOPAMIDOL CONTRAST (ORAL USE) VIAL PO PRN ×2 (08:09→08:59)
[2023-02-15] MEDS: NYSTATIN 100,000 UNIT/ML SUSP 500,000 UNIT/5 ML CUP PO SCH ×4 (08:10→21:34)
[2023-02-15] MEDS: PANTOPRAZOLE 40 MG/10 ML VIAL IVP SCH (08:10)
[2023-02-15] MEDS ORDERED: Potassium Replacement Protocol 1 EACH MISC MISCELLANE PRN (08:51)
--- NOTE | 2023-02-15 10:30 | CT ---
EXAMINATION TYPE: CT abdomen pelvis wo con CT DLP: 3 7 mGycm, Automated exposure control for dose reduction was used. DATE OF EXAM: 02/15/2023 10:05 AM COMPARISON: CT abdomen pelvis most recent from 02/12/2023 CLINICAL INDICATION:Female, 77 years old with history of Follow-up small bowel obstruction; TECHNIQUE: Axial CT of the abdomen and pelvis. Sagittal and coronal reformats were created on a [email or web address] workstation. Contrast used: mL of , none Oral contrast used: Isovue 380 cc FINDINGS: LOWER CHEST: Trace bilateral pleural effusions. ABDOMEN LIVER: Unremarkable GALLBLADDER AND BILE DUCTS: Gallbladder is distended. PANCREAS: Unremarkable. SPLEEN: Scattered calcified granulomas. ADRENAL GLANDS: Unremarkable. KIDNEYS AND URETERS: No evidence of hydronephrosis or renal calculus. The ureters are unremarkable. PELVIS BLADDER: Unremarkable REPRODUCTIVE: Unremarkable. ABDOMEN & PELVIS STOMACH AND BOWEL: Nasogastric tube terminating in the stomach. Decrease in dilation of small bowel f rom prior exam. Scattered colonic diverticula present. Oral contrast extends throughout the bowel cnoti s not reach the colon at this time. PERITONEUM/RETROPERITONEUM: No evidence of pneumoperitoneum or free fluid. VASCULATURE: Mild atherosclerotic calcifications are present throughout the abdominal aorta and its b ranches. No evidence of aortic aneurysm. MUSCULOSKELETAL: No acute osseous abnormalities. Moderate disc degeneration changes are present throu ghout the thoracolumbar spine. Left hip arthroplasty changes hardware appears intact. LYMPH NODES: No gross evidence for lymphadenopathy. SOFT TISSUE/ABDOMINAL WALL: Unremarkable IMPRESSION: 1. Interval decrease in dilation of the small bowel. There is no oral contrast within the colon at t his time. Consider Plain films to follow the oral contrast bolus in 1 hour after this examination. Th ere is increase in stool within the colon on today's exam suggesting partial bowel obstruction. 2. Colonic diverticulosis. 3. Trace bilateral pleural effusions.
[2023-02-15] MEDS: POTASSIUM CHLORIDE 10 MEQ in WATER FOR INJECTION 1 100ML.BAG IVPB SCH ×4 (11:06→17:18)
[2023-02-15] MEDS ORDERED: FUROSEMIDE 10 MG/ML 4 ML VIAL IV STA (12:53)
--- NOTE | 2023-02-15 12:56 | P.PN ---
Subjective Progress Note Date: 02/15/23 Principal diagnosis: Small bowel obstruction, history of intra-abdominal adhesions, esophageal cancer post radiation Patient is seen and examined at bedside. Feeling better today than yesterday, still some mild right lower quadrant cramping pain that comes and goes. No complaints of nausea or emesis. Nasogastric tube is in place with minimal clear output visualized and the tube. She's had a hemodynamically stable appearance overnight. Chest x-ray from yesterday is concerning for potential developing right lower lobe pneumonia. Computed tomography scan of abdomen and pelvis with oral contrast was obtained today showing quite a bit of improvement with respect to her presenting obstructive findings, there is no gastric distention, the small bowel distention is improved quite a bit and on review of the images there does appear to be passage of contrast to the transverse colon. The CT is consistent with the chest x-ray findings in the sense that there is developing bibasilar effusion and evidence of a developing right lower lobe consolidation and atelectasis. Patient admits to bowel movement over the past 24 hours. Starting to feel a bit hungry. Admits to subjective fever overnight and intermittently productive cough. Objective - Vital Signs Vital signs: Vital Signs Temp 98.1 F 02/15/23 07:00 Pulse 70 02/15/23 07:00 Resp 16 02/15/23 07:00 BP 180/73 02/15/23 07:00 Pulse Ox 98 02/15/23 07:00 FiO2 Intake & Output 02/14/23 02/15/23 02/15/23 18:59 06:59 18:59 Intake Total 300 0 Output Total 110 Balance 300 -110 Intake: Oral 300 0 Output: Gastric Drainage 110 Other: Voiding Method Toilet Toilet # Voids 3 2 1 # Bowel Movements 1 - Constitutional General appearance: Present: average body habitus, cooperative - EENT Eyes: Present: EOMI, PERRLA ENT: Present: NA/AT - Respiratory Respiratory: bilateral: CTA - Cardiovascular Rhythm: regular - Gastrointestinal Gastrointestinal Comment(s): Abdomen is soft, nondistended, with minimal right lower quadrant tenderness on e xam. No guarding or rebound. Findings are quite a bit improved when compared to yesterday - Neurologic Neurologic: Present: CNII-XII intact - Psychiatric Psychiatric: Present: A&O x's 3, appropriate affect, intact judgment & insight - Labs CBC & Chem 7: 02/15/23 06:19 02/15/23 06:19 Labs: Abnormal Lab Results - Last 24 Hours (Table) 02/15/23 02/15/23 Range/Units 06:19 06:19 WBC 11.4 H (3.8-10.6) k/uL RBC 3.47 L (3.80-5.40) m/uL Hgb 10.1 L (11.4-16.0) gm/dL Hct 33.0 L (34.0-46.0) % MCHC 30.5 L (31.0-37.0) g/dL Plt Count 121 L (150-450) k/uL Neutrophils # 10.0 H (1.3-7.7) k/uL Lymphocytes # 0.8 L (1.0-4.8) k/uL Potassium 3.3 L (3.5-5.1) mmol/L Chloride 108 H (98-107) mmol/L Carbon Dioxide 18 L (22-30) mmol/L BUN 18 H (7-17) mg/dL Glucose 65 L (74-99) mg/dL Calcium 8.2 L (8.4-10.2) mg/dL - Imaging and Cardiology Chest x-ray: report reviewed, image reviewed CT scan - abdomen: report reviewed, image reviewed CT scan - chest: report reviewed, image reviewed Assessment and Plan Assessment: 77-year-old lady with recurrent small bowel obstruction, history of remote exploratory laparotomy and lysis of adhesions in excess of 10 years ago. Clinically improving today. Attended history of esophageal cancer managed with radiation, PEG tube for nutritional support as subsequently been removed. Aspiration pneumonitis, potential for pneumonia. Plan: Nasogastric tube removed at bedside, will anticipate starting clear liquids tomorrow if no it issues overnight. Repeat abdominal flat plate x-ray tomorrow. Advised her to do her best with respect to deep breathing, incentive spirometry and cough. Time with Patient: Greater than 30
[2023-02-15] MEDS: SODIUM CHLORIDE 0.9% 1,000 ML IV SCH (15:05)
[2023-02-15] MEDS ORDERED: ALBUTEROL NEBULIZED 2.5 MG/3 ML INHALATION STA (15:45)
--- NOTE | 2023-02-15 15:47 | P.PN ---
Subjective Progress Note Date: 02/15/23 77-year-old the female came in with comments of nausea vomiting severe abdominal pain found to have small bowel obstruction in the distal ileum. Patient had multiple surgical episodes in the past patient had a history of esophageal cancer with radiation to be in the past patient had a PEG tube in the past. 02/13/2023 Patient seen and evaluated this morning continues with NG tube and continues to have some abdominal distention and no bowel movement. Patient does have positive bowel sounds but has not passed gas. Patient is continued on bowel rest and nothing by mouth. General surgery Dr. Castaneda evaluated the patient recommend continuing with NG tube and bowel rest and patient reports possible barium enema. Patient has been encouraged to be up and walking more frequently patient reports has been up in the halls. Patient is afebrile with no reports of chest pain or shortness of breath noted. 02/14/2023 Patient is seen and evaluated in follow-up this morning reports started passing gas this morning and bowel sounds appear to be somewhat sluggish. Patient's abdomen continues to be mildly distended with no significant worsening. Patient continues with NG tube with minimal output noted. Gen. surgery Dr. Cunningham evaluated the patient today recommending CT contrast NG tube and repeat CT abdomen in the a.m. Patient reports an episode of shortness of breath this morning and has developed a mild cough and chest x-ray has been ordered. WBC has normalized and patient remains afebrile. Patient denies chest pain or palpitations. Patient encouraged to continue walking as tolerated. 02/15/2023 Patient is evaluated today on the medical floor. Continues with NG tube to suction. Patient did undero CT contrast NG tube and CT reveals interval decrease in dilation of the small bowel. There is no oral contrast within the colon at this time. Consider plain films to follow the oral contrast bolus in 1 hr after this exam. There is increase in stool within the colon on todays exam suggesting partial small bowel obstruction. Colonic divericulosis and trace bilateral pleural effusions. Patient is given a repeat dose of IV lasix today. Did have a moderate size bowel movement hard in nature and patient does state she feels better and less distended after movement. white count 11.4, hgb 10.1, sodium 137, potassium 3.3., kidney function stable. Review of systems: Constitutional: No reports of fatigue, fever, or chills Cardiovascular: No reports of chest pain or palpitations Respiratory: reports of shortness of breath and cough feels like she has mucous sitting in her throat and congested difficult clearing secretions. GI: No reports of nausea, vomiting, or diarrhea, reports passing gas and had bowel movement. : No reports of dysuria or retention Neurovascular: No reports of weakness or numbness PHYSICAL EXAMINATION: GENERAL: The patient is alert and oriented x3, not in any acute distress. Well developed, well nourished. HEENT: Pupils are round and equally reacting to light. EOMI. No scleral icterus. No conjunctival pallor. Normocephalic, atraumatic. No pharyngeal erythema. No thyromegaly. CARDIOVASCULAR: S1 and S2 present. No murmurs, rubs, or gallops. PULMONARY: Diminished breath sounds bilaterally more so on the right with no wheezing or crackles. ABDOMEN: Soft with Continued mild distention noted, sluggish bowel sounds noted with some diffuse tenderness on palpation MUSCULOSKELETAL: No joint swelling or deformity. EXTREMITIES: No cyanosis, clubbing, or pedal edema. NEUROLOGICAL: Gross neurological examination did not reveal any focal deficits. SKIN: No rashes. Assessment: -Small bowel obstruction: Patient will remain nothing by mouth patient presently with an NG tube abdomen CT after CT bolus through NG tube reveals possible small bowel obstruction. Patient did have bowel movement. -Leukocytosis secondary to small bowel obstruction, likely reactive no evidence of infection so for, improved -Gastroesophageal reflux disease -Depression -Hypertension -mild acute renal failure secondary to small bowel obstruction -Peripheral neuropathy -DVT prophylaxis: Subcutaneous heparin -GI prophylaxis -Full code Plan: Recommend to continue with NG tube and patient to be nothing by mouth with bowel rest. Gen. surgery evaluated the patient recommending conservative measures for now Patient will be resumed on her home medications appropriate ones when she can tolerate by mouth medications as of now will hold off on all these medications blood pressure is slightly high but heart rate is fairly well controlled trace pleural effusions evident on abdominal CT and IV lasix x 1 given. Incentive spirometer ordered encourage the patient continue using at least 10 times every hour while awake. Will follow-up repeat labs in a.m. Encouraged increased activity as tolerated with frequent walking The impression and plan of care has been dictated by Sheryl Hanna, Nurse Practitioner as directed. Dr. Gary MD I have performed a history and physical examination and medical decision making of this patient, discussed the same with the dictator, and agree with the dictators assessment and plan as written, documented as a scribe. Based on total visit time, I have performed more than 50% of this visit. Objective - Vital Signs Vital signs: Vital Signs Temp 98.2 F 02/15/23 13:20 Pulse 84 02/15/23 13:20 Resp 16 02/15/23 13:20 BP 168/71 02/15/23 13:20 Pulse Ox 93 L 02/15/23 13:20 FiO2 Intake & Output 02/14/23 02/15/23 02/15/23 18:59 06:59 18:59 Intake Total 300 0 Output Total 110 Balance 300 -110 Intake: Oral 300 0 Output: Gastric Drainage 110 Other: Voiding Method Toilet Toilet # Voids 3 2 1 # Bowel Movements 1 - Labs CBC & Chem 7: 02/15/23 06:19 02/15/23 06:19 Labs: Abnormal Lab Results - Last 24 Hours (Table) 02/15/23 02/15/23 Range/Units 06:19 06:19 WBC 11.4 H (3.8-10.6) k/uL RBC 3.47 L (3.80-5.40) m/uL Hgb 10.1 L (11.4-16.0) gm/dL Hct 33.0 L (34.0-46.0) % MCHC 30.5 L (31.0-37.0) g/dL Plt Count 121 L (150-450) k/uL Neutrophils # 10.0 H (1.3-7.7) k/uL Lymphocytes # 0.8 L (1.0-4.8) k/uL Potassium 3.3 L (3.5-5.1) mmol/L Chloride 108 H (98-107) mmol/L Carbon Dioxide 18 L (22-30) mmol/L BUN 18 H (7-17) mg/dL Glucose 65 L (74-99) mg/dL Calcium 8.2 L (8.4-10.2) mg/dL
[2023-02-15] MEDS: CITALOPRAM HYDROBROMIDE 20 MG TAB PO SCH (21:33)
[2023-02-15] MEDS: atenoloL 50 MG TAB PO SCH (21:33)
[2023-02-16] MEDS: hydrALAZINE HCL 20 MG/ML 1 ML VIAL IVP PRN ×2 (01:14→08:09)
[2023-02-16] MEDS: ONDANSETRON 4 MG/2 ML VIAL IVP PRN (04:01)
[2023-02-16] MEDS: HYDROmorphone 1 MG/ML 1 ML SYRINGE IVP PRN (04:29)
[2023-02-16 05:25] LABS: African American GFR (CKD) 80 (>60 ml/min/1.73 sqM); Anion Gap 11 mmol/L; Blood Urea Nitrogen 16 mg/dL (7-17); Calcium 7.9 mg/dL (8.4-10.2); Carbon Dioxide 22 mmol/L (22-30); Chloride 101 mmol/L (98-107); Glucose 82 mg/dL (74-99); Magnesium 1.3 mg/dL (1.6-2.3); Non-African American GFR(CKD) 70 (>60 ml/min/1.73 sqM); Potassium 3.4 mmol/L (3.5-5.1); Sodium 134 mmol/L (137-145)
[2023-02-16 05:38] LABS: Basophils % (A) 0 %; Eosinophils # (A) 0.1 k/uL (0-0.7); Eosinophils % (A) 1 %; HCT 32.2 % (34.0-46.0); HGB 10.4 gm/dL (11.4-16.0); Lymphocytes # (A) 0.8 k/uL (1.0-4.8); Lymphocytes % (A) 9 %; MCH 29.8 pg (25.0-35.0); MCHC 32.1 g/dL (31.0-37.0); MCV 92.6 fL (80.0-100.0); Mean Platelet Volume 7.7; Monocytes # (A) 0.3 k/uL (0-1.0); Monocytes % (A) 4 %; Neutrophils % (A) 85 %; Platelet Count 147 k/uL (150-450); RBC 3.48 m/uL (3.80-5.40); RDW 13.5 % (11.5-15.5); WBC 9.4 k/uL (3.8-10.6)
[2023-02-16] MEDS: LEVOTHYROXINE 75 MCG TAB PO SCH (06:33)
--- NOTE | 2023-02-16 07:25 | XR ---
EXAMINATION TYPE: XR abdomen 1V DATE OF EXAM: 02/16/2023 7:08 AM INDICATION: Patient age:Female; 77 years old; Reason for study: Follow-up small bowel obstruction; COMPARISON: CT 02/15/2023 TECHNIQUE: One radiographic view of the abdomen was obtained. FINDINGS: Oral contrast extends throughout the colon on today's exam is a few scattered colonic diver ticula. Left hip arthroplasty which appears intact. IMPRESSION: Oral contrast extends towards the rectum on today's exam has predominantly in the colon. This essenti ally eliminates a full but bowel obstruction. The remaining differential would be partial bowel obstr uction versus ileus.
[2023-02-16] MEDS: PANTOPRAZOLE 40 MG/10 ML VIAL IVP SCH (08:09)
[2023-02-16] MEDS: NYSTATIN 100,000 UNIT/ML SUSP 500,000 UNIT/5 ML CUP PO SCH ×4 (08:09→19:46)
[2023-02-16] MEDS ORDERED: Magnesium Replacement Protocol 1 EACH MISC MISCELLANE PRN (08:52)
[2023-02-16] MEDS ORDERED: Potassium Replacement Protocol 1 EACH MISC MISCELLANE PRN ×2 (09:33→10:08)
[2023-02-16] MEDS ORDERED: POTASSIUM CHLORIDE ER 20 MEQ TAB.ER PO SCH (10:00)
[2023-02-16] MEDS ORDERED: POTASSIUM CHLORIDE 10 MEQ in WATER FOR INJECTION 1 100ML.BAG IVPB SCH (10:00)
[2023-02-16] MEDS ORDERED: SIMETHICONE 40 MG/0.6 ML DROPS 2,000 MG/30 ML BOTTLE PO PRN (10:47)
--- NOTE | 2023-02-16 10:47 | P.PN ---
Subjective Progress Note Date: 02/16/23 Principal diagnosis: Small bowel obstruction, history of intra-abdominal adhesions, esophageal cancer post radiation Patient seen and examined at bedside. Feeling quite a bit better today than yesterday. Abdominal pain has nearly completely resolved but she still has some milder episodic right lower quadrant cramping. She's been passing gas, had at least 2 bowel movements today. Starting to feel hungry. Denies fever, admits to a subjective episode of chills and nausea overnight. Breathing feels improved after having the nasogastric tube out. Still some mild intermittent slightly productive cough. Laboratory studies reveal no leukocytosis, mildly low potassium, mildly low magnesium. She's had a hemodynamically stable and afebrile appearance overnight, she is running somewhat hypertensive with systolics in the 180s today. Objective - Vital Signs Vital signs: Vital Signs Temp 98.0 F 02/16/23 07:00 Pulse 62 02/16/23 07:00 Resp 16 02/16/23 07:00 BP 180/72 02/16/23 07:00 Pulse Ox 97 02/16/23 07:00 FiO2 Intake & Output 02/15/23 02/16/23 02/16/23 18:59 06:59 18:59 Other: Voiding Method Toilet # Voids 2 2 # Bowel Movements 1 1 - Constitutional General appearance: Present: cooperative, no acute distress - EENT Eyes: Present: EOMI, PERRLA ENT: Present: hearing grossly normal, NA/AT - Respiratory Respiratory: bilateral: CTA - Cardiovascular Rhythm: regular - Gastrointestinal Gastrointestinal Comment(s): Abdomen soft, minimal right lower quadrant tenderness on palpation, no guarding rebound or distention. Abdominal exam is improved compared to yesterday. - Neurologic Neurologic: Present: CNII-XII intact - Psychiatric Psychiatric: Present: A&O x's 3, appropriate affect, intact judgment & insight - Labs CBC & Chem 7: 02/16/23 04:45 02/16/23 04:45 Labs: Abnormal Lab Results - Last 24 Hours (Table) 02/16/23 02/16/23 Range/Units 04:45 04:45 RBC 3.48 L (3.80-5.40) m/uL Hgb 10.4 L (11.4-16.0) gm/dL Hct 32.2 L (34.0-46.0) % Plt Count 147 L (150-450) k/uL Neutrophils # 8.0 H (1.3-7.7) k/uL Lymphocytes # 0.8 L (1.0-4.8) k/uL Sodium 134 L (137-145) mmol/L Potassium 3.4 L (3.5-5.1) mmol/L Calcium 7.9 L (8.4-10.2) mg/dL Magnesium 1.3 L (1.6-2.3) mg/dL - Imaging and Cardiology Abdominal x-ray: report reviewed, image reviewed Assessment and Plan Assessment: 77-year-old lady with recurrent small bowel obstruction, history of remote exploratory laparotomy and lysis of adhesions in excess of 10 years ago. Clinically and radiographically resolving. Follow-up abdominal x-ray today shows contrast is passed to the colon. Attendant history of esophageal cancer managed with radiation, PEG tube for nutritional support as subsequently been removed. Aspiration pneumonitis, potential for pneumonia. Improving. Plan: Patient was advanced to clear liquids today. Magnesium and potassium replaced. If no issues overnight will anticipate advancing her to a soft diet tomorrow morning and if she has no issues with tolerance by tomorrow afternoon she may be ready for discharge. Continue with incentive spirometry, cough and deep breathing. Time with Patient: Greater than 30
[2023-02-16] MEDS: POTASSIUM BICARBONATE/CIT AC 20 MEQ TABLET.EFF NG-TUBE SCH ×2 (11:15→12:56)
[2023-02-16] MEDS: MAGNESIUM SULFATE-D5W PMX 1 GM in DEXTROSE/WATER 1 100ML.BAG IVPB SCH ×4 (11:15→17:01)
--- NOTE | 2023-02-16 13:37 | P.PN ---
Subjective Progress Note Date: 02/16/23 77-year-old the female came in with comments of nausea vomiting severe abdominal pain found to have small bowel obstruction in the distal ileum. Patient had multiple surgical episodes in the past patient had a history of esophageal cancer with radiation to be in the past patient had a PEG tube in the past. 02/13/2023 Patient seen and evaluated this morning continues with NG tube and continues to have some abdominal distention and no bowel movement. Patient does have positive bowel sounds but has not passed gas. Patient is continued on bowel rest and nothing by mouth. General surgery Dr. Castaneda evaluated the patient recommend continuing with NG tube and bowel rest and patient reports possible barium enema. Patient has been encouraged to be up and walking more frequently patient reports has been up in the halls. Patient is afebrile with no reports of chest pain or shortness of breath noted. 02/14/2023 Patient is seen and evaluated in follow-up this morning reports started passing gas this morning and bowel sounds appear to be somewhat sluggish. Patient's abdomen continues to be mildly distended with no significant worsening. Patient continues with NG tube with minimal output noted. Gen. surgery Dr. Cunningham evaluated the patient today recommending CT contrast NG tube and repeat CT abdomen in the a.m. Patient reports an episode of shortness of breath this morning and has developed a mild cough and chest x-ray has been ordered. WBC has normalized and patient remains afebrile. Patient denies chest pain or palpitations. Patient encouraged to continue walking as tolerated. 02/15/2023 Patient is evaluated today on the medical floor. Continues with NG tube to suction. Patient did undero CT contrast NG tube and CT reveals interval decrease in dilation of the small bowel. There is no oral contrast within the colon at this time. Consider plain films to follow the oral contrast bolus in 1 hr after this exam. There is increase in stool within the colon on todays exam suggesting partial small bowel obstruction. Colonic divericulosis and trace bilateral pleural effusions. Patient is given a repeat dose of IV lasix today. Did have a moderate size bowel movement hard in nature and patient does state she feels better and less distended after movement. white count 11.4, hgb 10.1, sodium 137, potassium 3.3., kidney function stable. 02/16/2023 Patient evaluated today up ambulating in the room. Did have BM x 2 and NG tube has been removed. Follow up abdominal xray reveals bolus constrast in the colon, partial bowel obstruction vs. ileus. Patient asking for gas drops. States the albuterol did help and will be continued while inpatient. Labs today reveal white count 9.4, hgb 10.4, sodium 134, potassium 3.4, BUN 16, creatinine 0.81, magnesium 1.3. Blood pressure elevated losartan will be resumed. Review of systems: Constitutional: No reports of fatigue, fever, or chills Cardiovascular: No reports of chest pain or palpitations Respiratory: reports of shortness of breath and cough feels like she has mucous sitting in her throat and congested difficult clearing secretions. GI: No reports of nausea, vomiting, or diarrhea, reports passing gas and had bowel movement. : No reports of dysuria or retention Neurovascular: No reports of weakness or numbness PHYSICAL EXAMINATION: GENERAL: The patient is alert and oriented x3, not in any acute distress. Well developed, well nourished. HEENT: Pupils are round and equally reacting to light. EOMI. No scleral icterus. No conjunctival pallor. Normocephalic, atraumatic. No pharyngeal erythema. No thyromegaly. CARDIOVASCULAR: S1 and S2 present. No murmurs, rubs, or gallops. PULMONARY: Diminished breath sounds bilaterally more so on the right with no wheezing or crackles. ABDOMEN: Soft with Continued mild distention noted, sluggish bowel sounds noted with some diffuse tenderness on palpation MUSCULOSKELETAL: No joint swelling or deformity. EXTREMITIES: No cyanosis, clubbing, or pedal edema. NEUROLOGICAL: Gross neurological examination did not reveal any focal deficits. SKIN: No rashes. Assessment: -Small bowel obstruction: NG tube has been discontinued and patient has been started on clear liquid diet. -Leukocytosis secondary to small bowel obstruction, likely reactive no evidence of infection so for, improved -Gastroesophageal reflux disease -Depression -Hypertension -mild acute renal failure secondary to small bowel obstruction -Peripheral neuropathy -DVT prophylaxis: Subcutaneous heparin -GI prophylaxis -Full code Plan: Gen. surgery evaluated the patient recommending conservative measures for now diet has been advanced to clear liquid. Blood pressure remains elevated with PRN hydralazine in place, losartan has been resumed. Incentive spirometer ordered encourage the patient continue using at least 10 times every hour while awake. Albuterol QID and mucinex added. Electrolytes have been replaced and recommend AM labs Encouraged increased activity as tolerated with frequent walking The impression and plan of care has been dictated by Sheryl Hanna, Nurse Practitioner as directed. Dr. Gary MD I have performed a history and physical examination and medical decision making of this patient, discussed the same with the dictator, and agree with the dictators assessment and plan as written, documented as a scribe. Based on total visit time, I have performed more than 50% of this visit. Objective - Vital Signs Vital signs: Vital Signs Temp 98.0 F 02/16/23 07:00 Pulse 62 02/16/23 07:00 Resp 16 02/16/23 07:00 BP 180/72 02/16/23 07:00 Pulse Ox 97 02/16/23 11:53 FiO2 Intake & Output 02/15/23 02/16/23 02/16/23 18:59 06:59 18:59 Other: Voiding Method Toilet # Voids 2 2 # Bowel Movements 1 1 - Labs CBC & Chem 7: 02/16/23 04:45 02/16/23 04:45 Labs: Abnormal Lab Results - Last 24 Hours (Table) 02/16/23 02/16/23 Range/Units 04:45 04:45 RBC 3.48 L (3.80-5.40) m/uL Hgb 10.4 L (11.4-16.0) gm/dL Hct 32.2 L (34.0-46.0) % Plt Count 147 L (150-450) k/uL Neutrophils # 8.0 H (1.3-7.7) k/uL Lymphocytes # 0.8 L (1.0-4.8) k/uL Sodium 134 L (137-145) mmol/L Potassium 3.4 L (3.5-5.1) mmol/L Calcium 7.9 L (8.4-10.2) mg/dL Magnesium 1.3 L (1.6-2.3) mg/dL Assessment and Plan Time with Patient: Less than 30
[2023-02-16] MEDS: SODIUM CHLORIDE 0.9% 1,000 ML IV SCH (15:08)
[2023-02-16] MEDS: ALBUTEROL NEBULIZED 2.5 MG/3 ML INHALATION SCH ×2 (15:27→21:38)
[2023-02-16] MEDS: LOSARTAN 50 MG TAB PO SCH (16:00)
[2023-02-16] MEDS: CITALOPRAM HYDROBROMIDE 20 MG TAB PO SCH (19:46)
[2023-02-16] MEDS: guaiFENesin 600 MG TABLET.ER PO SCH (19:46)
[2023-02-16] MEDS: atenoloL 50 MG TAB PO SCH (19:46)
[2023-02-16 20:42] VITALS: RESP 18
[2023-02-16] MEDS ORDERED: MIRTAZAPINE 45 MG TABLET PO SCH (21:00)
[2023-02-17] MEDS: ALBUTEROL NEBULIZED 2.5 MG/3 ML INHALATION SCH ×3 (06:05→11:48)
[2023-02-17] MEDS: LEVOTHYROXINE 75 MCG TAB PO SCH (06:05)
[2023-02-17] MEDS: LOSARTAN 50 MG TAB PO SCH (07:52)
[2023-02-17] MEDS: NYSTATIN 100,000 UNIT/ML SUSP 500,000 UNIT/5 ML CUP PO SCH ×2 (07:52→12:54)
[2023-02-17] MEDS: guaiFENesin 600 MG TABLET.ER PO SCH (07:52)
[2023-02-17] MEDS: PANTOPRAZOLE 40 MG/10 ML VIAL IVP SCH (08:35)
[2023-02-17 11:18] VITALS: BMI 19.6
--- NOTE | 2023-02-17 11:46 | P.PN ---
Subjective Progress Note Date: 02/17/23 Principal diagnosis: Small bowel obstruction, history of intra-abdominal adhesions, esophageal cancer post radiation Patient seen and examined at bedside. Right lower quadrant abdominal pain nearly subsided. No reports of nausea or emesis, tolerating clear liquids and feeling hungry. Positive bowel function, ambulatory. Feeling better today than yesterday. She's had a hemodynamically stable and afebrile appearance overnight. Feels like she is probably ready to go home. Objective - Vital Signs Vital signs: Vital Signs Temp 98.4 F 02/17/23 07:41 Pulse 62 02/17/23 09:04 Resp 18 02/17/23 07:41 BP 170/76 02/17/23 07:41 Pulse Ox 96 02/17/23 08:56 FiO2 Intake & Output 02/16/23 02/17/23 02/17/23 18:59 06:59 18:59 Weight 53.524 kg Other: Voiding Method Toilet # Voids 2 2 - Constitutional General appearance: Present: cooperative, no acute distress, thin - EENT Eyes: Present: EOMI, PERRLA ENT: Present: NA/AT - Respiratory Respiratory: bilateral: CTA - Cardiovascular Rhythm: regular - Gastrointestinal Gastrointestinal Comment(s): Abdomen is soft, nontender palpation, no guarding rebound or distention. Right lower quadrant abdominal tenderness has subsided. Exam improved compared to yesterday. - Neurologic Neurologic: Present: CNII-XII intact - Musculoskeletal Musculoskeletal: Present: strength equal bilaterally - Psychiatric Psychiatric: Present: A&O x's 3, appropriate affect, intact judgment & insight - Labs CBC & Chem 7: 02/16/23 04:45 02/16/23 04:45 Assessment and Plan Assessment: 77-year-old lady with recurrent small bowel obstruction, history of remote exploratory laparotomy and lysis of adhesions in excess of 10 years ago. Clinically and radiographically resolving. Follow-up abdominal x-ray today shows contrast is passed to the colon. Attendant history of esophageal cancer managed with radiation, PEG tube for nutritional support as subsequently been removed. Aspiration pneumonitis, potential for pneumonia. Improving. Plan: Advance to regular diet today. If no issues with tolerance she should be okay for discharge home this afternoon. Follow-up with primary care within 1 week, she may, if she wishes, follow-up with Dr. Castaneda or Dr. Vázquez in the office in 1-2 weeks. Time with Patient: Greater than 30
[2023-02-17] MEDS: SODIUM CHLORIDE 0.9% 1,000 ML IV SCH (12:52)
[2023-02-17 13:51] VITALS: BP 118/66; PULSE 70; TEMP 97.7
--- NOTE | 2023-02-18 05:44 | P.DS ---
Providers Date of admission: 02/12/23 04:15 Expected date of discharge: 02/17/23 Attending physician: Rahul Burnette Consults: 02/12/23 09:29 Consult Physician Stat Consulting Provider: Karen Vázquez Consult Reason/Comments: SBO Do you want consulting provider notified?: Yes Primary care physician: Jeferson Gonzalez [facility] Course: Final diagnosis -Small bowel obstruction, improved -Leukocytosis secondary to small bowel obstruction, likely reactive no evidence of infection, improved -Gastroesophageal reflux disease -Depression -Hypertension -mild acute renal failure secondary to small bowel obstruction -Peripheral neuropathy -DVT prophylaxis: Subcutaneous heparin -GI prophylaxis -Full code Discharge disposition Patient is being discharged in a stable condition with guarded prognosis to home. Patient will follow-up with Dr. Gonzalez in the outpatient setting upon discharge. Patient is to follow-up with general surgery outpatient along with oncology as scheduled. Total time taken is greater than 35 minutes. Hospital course This is a 77-year-old female who was recently admitted with abdominal pain and distention with concerns of small bowel obstruction. Patient received NG tube was maintained on IV hydration and bowel rest. General surgery Dr. Cunningham evaluated the patient and patient underwent CT abdomen with contrast through the NG tube showing some improvement in bowel obstruction with contrast and have bowel movements. And tube removed and patient slowly started on diet is tolerating asking for neuropathic type. Per surgery patient tolerates diet no further abdominal pain okay for discharge with outpatient follow-up. Please refer to consultation notes for further HPI. Patient has been instructed to follow-up with primary care provider this week. Currently no reports of chest pain, shortness of breath, or palpitations. Patient is afebrile. No reports of nausea or vomiting and patient is tolerating diet. Patient will be discharged home today. Guarded prognosis Physical exam: Gen: This is a 77-year-old female who is awake, alert and oriented 3, thin built, elderly appearing HEENT: Head is atraumatic, normocephalic. Pupils equal, round. Sclerae is anicteric. NECK: Supple. No JVD. No lymphadenopathy. No thyromegaly. LUNGS: Diminished breath sounds bilaterally otherwise Clear to auscultation. No wheezes or rhonchi. No intercostal retractions. HEART: S1, S2 are muffled ABDOMEN: Soft. Bowel sounds are present. No masses. No tenderness. EXTREMITIES: No pedal edema. No calf tenderness. NEUROLOGICAL: Patient is awake, alert and oriented x3. Cranial nerves 2 through 12 are grossly intact. Please refer to medication reconciliation sheet for a list of medications. The impression and plan of care has been dictated by Madelyn Cummings, Nurse Practitioner as directed. Dr. Vasile MD I have performed a history and examination and MDM of this patient, discussed the same with the dictator, and agree with the dictator's assessment and plan as written ,documented as a scribe. Based on total visit time, I have performed more than 50% of the visit. Patient Condition at Discharge: Fair Plan - Discharge Summary Discharge Rx Participant: No New Discharge Prescriptions: New guaiFENesin [Mucinex] 600 mg PO Q12HR 10 Days #20 tab Nystatin 100,000 Unit/ml Susp [Mycostatin Oral Susp] 500,000 unit PO QID 14 Days #240 ml Continue rOPINIRole HCL [Requip] 3 mg PO HS Mirtazapine 45 mg PO HS Citalopram Hydrobromide [Citalopram HBr] 40 mg PO HS atenoloL [Tenormin] 50 mg PO HS Gabapentin [Neurontin] 600 mg PO HS Gabapentin [Neurontin] 300 mg PO BID@0800,1200 Ondansetron Odt [Zofran ODT] 8 mg PO Q8HR PRN PRN Reason: Nausea Losartan [Cozaar] 50 mg PO HS Levothyroxine Sodium [Synthroid] 75 mcg PO DAILY Cetirizine HCl [Zyrtec] 10 mg PO HS Changed Docusate [Colace] 100 mg PO BID 30 Days #60 tab Discontinued hydroCHLOROthiazide 25 mg PO BID PRN PRN Reason: Edema Discharge Medication List Citalopram Hydrobromide [Citalopram HBr] 40 mg PO HS 02/25/20 [History] Gabapentin [Neurontin] 300 mg PO BID@0800,1200 02/25/20 [History] Gabapentin [Neurontin] 600 mg PO HS 02/25/20 [History] Mirtazapine 45 mg PO HS 02/25/20 [History] atenoloL [Tenormin] 50 mg PO HS 02/25/20 [History] rOPINIRole HCL [Requip] 3 mg PO HS 02/25/20 [History] Ondansetron Odt [Zofran ODT] 8 mg PO Q8HR PRN 05/28/20 [History] Levothyroxine Sodium [Synthroid] 75 mcg PO DAILY 09/10/21 [History] Cetirizine HCl [Zyrtec] 10 mg PO HS 02/12/23 [History] Losartan [Cozaar] 50 mg PO HS 02/12/23 [History] Docusate [Colace] 100 mg PO BID 30 Days #60 tab 02/17/23 [Rx] Nystatin 100,000 Unit/ml Susp [Mycostatin Oral Susp] 500,000 unit PO QID 14 Days #240 ml 02/17/23 [Rx] guaiFENesin [Mucinex] 600 mg PO Q12HR 10 Days #20 tab 02/17/23 [Rx] Follow up Appointment(s)/Referral(s): Jeferson Gonzalez MD [Primary Care Provider] - 02/19/23 9:30 am (with Oneida Simpson) Ifeoma Castaneda DO [Doctor of Osteopathic Medicine] - 02/24/23 9:45 am Patient Instructions/Handouts: Bowel Obstruction (DC) Activity/Diet/Wound Care/Special Instructions: Activity Limited until follow-up Continue with current diet and slowly advance as tolerated Follow-up with general surgery outpatient if needed in the next 1-2 weeks Follow-up primary care provider on discharge Discharge Disposition: HOME SELF-CARE
== END 2023-02-17 15:06 | disposition home or self-care (01) | DRG 388 ==
LOC: EC 01:43 → 4SSUR 04:15
PROVIDERS: ADMIT Hospitalist; ATTEND Hospitalist
PROC: 0D9670Z Drainage of Stomach with Drainage Device, Via Natural or Artificial Opening (ICD-10-PCS; principal; 2023-02-12)
DX: K56.600 Partial intestinal obstruction, unspecified as to cause (principal); J69.0 Pneumonitis due to inhalation of food and vomit; N17.9 Acute kidney failure, unspecified; K56.609 Unspecified intestinal obstruction, unspecified as to partial versus complete obstruction; R54 Age-related physical debility; F32.A Depression, unspecified; I10 Essential (primary) hypertension; K21.9 Gastro-esophageal reflux disease without esophagitis; G62.9 Polyneuropathy, unspecified; G47.30 Sleep apnea, unspecified; Z96.642 Presence of left artificial hip joint; K44.9 Diaphragmatic hernia without obstruction or gangrene; D72.828 Other elevated white blood cell count; Z53.8 Procedure and treatment not carried out for other reasons; Z79.891 Long term (current) use of opiate analgesic; Z79.899 Other long term (current) drug therapy; Z79.890 Hormone replacement therapy; Z85.819 Personal history of malignant neoplasm of unspecified site of lip, oral cavity, and pharynx; Z85.828 Personal history of other malignant neoplasm of skin; Z86.14 Personal history of Methicillin resistant Staphylococcus aureus infection; Z85.01 Personal history of malignant neoplasm of esophagus; Z92.3 Personal history of irradiation; Z87.19 Personal history of other diseases of the digestive system
CPT/HCPCS: 36415; 71045; 74018; 74176; 74177; 80048; 80053; 81003; 82150; 83605; 83690; 83735; 84484; 85025; 85027; 86850; 86900; 86901; 93005; 94640; 94760; 96361; 96374; 96375; 96376; 99285

== ENCOUNTER → 2023-03-11 | Outpatient (CLI) | payer MEDICARE, BC ==
[2023-03-11 14:26] LABS: African American GFR (CKD) 68 (>60 ml/min/1.73 sqM); Blood Urea Nitrogen 33 mg/dL (7-17); Non-African American GFR(CKD) 59 (>60 ml/min/1.73 sqM)
--- NOTE | 2023-03-12 07:13 | CT ---
EXAMINATION TYPE: CT neck chest w con DATE OF EXAM: 03/11/2023 COMPARISON: Chest 09/10/2022. Neck 07/08/2022 and 03/05/2010. HISTORY: 77-year-old female C13.9 Follow up for throat cancer. TECHNIQUE: Contiguous axial scanning of the neck and chest performed with IV Contrast, patient inject ed with 100ml mL of Isovue 300. Coronal/sagittal reconstructions performed. CT DLP: 546.9 mGycm Automated exposure control for dose reduction was used. FINDINGS: NECK: Visualized intracranial structures show hypoplastic V4 segment right vertebral artery after the PICA takeoff. Visualized orbits and globes are clear. Scattered moderate mucosal thickening ethmoid air ce lls. Mastoid air cells appear clear. Nasopharynx appears clear. Oropharynx is satisfactory. Epiglottis and prevertebral soft tissues are satisfactory. Similar eccentric soft tissue filling the left piriform sinus and narrowing the supraglottic airway. No progressive increase in soft tissue in this location. The upper trachea appears clear. Chest reported separately. The thyroid gland appear satisfactory. Atrophy of the submandibular glands more so than the parotid g lands. No cervical lymphadenopathy is seen. Reversal of the normal cervical lordosis. Advanced degenerative disc disease throughout the mid and l ower cervical spine. Disc osteophyte complex may contribute to a moderate focal spinal canal stenosis at C5-C6 and mild to moderate at C4-C5. Reversal of the normal cervical lordosis. No osseous destruc tive process. CHEST: The heart is borderline to mildly enlarged without pericardial effusion. Mild atherosclerotic arch calcifications with conventional arch vessel branching anatomy. Calcified left hilar and left infrahilar lymph nodes compatible with prior granulomatous disease. Oth erwise, no thoracic lymphadenopathy by CT size criteria. Interval development of patchy and nodular groundglass change within the superior segment left lower lobe. Similar focal pleural-parenchymal scarring lateral left upper lobe. Mild emphysematous change. Unchanged calcified granuloma medial left lower lobe and periphery of the right base. A couple unchan ged noncalcified left lower lobe pulmonary nodules measuring up to 5 mm remain unchanged as well. A couple small cysts are redemonstrated within the liver measuring up to 7 mm. Calcified granulomas w ithin the spleen are unchanged. Bones: Mild degenerative change at both shoulders. Mild to moderate degenerative disc disease mid and lower thoracic spine. IMPRESSION: NECK: 1. UNCHANGED ASYMMETRIC SOFT TISSUE FILLING THE LEFT PIRIFORM SINUS AND FOCALLY NARROWING THE SUPRAGL OTTIC AIRWAY. LIKELY CORRESPONDS TO SITE OF TREATED DISEASE. 2. NO ENLARGING SOFT TISSUE MASS OR NEW CERVICAL LYMPHADENOPATHY IS SEEN. CHEST: 3. New patchy and nodular groundglass opacities within the superior segment of the left lower lobe garcia ggests new infectious/inflammatory foci. 4. Evidence of prior granulomatous disease. A couple noncalcified pulmonary nodules otherwise remain unchanged. No evidence for metastatic disease in the chest.
== END | disposition home or self-care (01) ==
LOC: RADCTMAIN 12:22
PROVIDERS: ATTEND Internal Medicine Hematology & Oncology
DX: C13.9 Malignant neoplasm of hypopharynx, unspecified (principal); R91.8 Other nonspecific abnormal finding of lung field; R13.10 Dysphagia, unspecified; I10 Essential (primary) hypertension
CPT/HCPCS: 82565; 84520; 70491; 71260; 36415; Q9967

== ENCOUNTER → 2023-04-02 | Outpatient (CLI) | payer MEDICARE, BC ==
--- NOTE | 2023-04-02 12:03 | P.PN ---
Subjective DATE: 04/02/2023 FOLLOW UP VISIT. Patient with obstructive sleep apnea hypopnea syndrome return to sleep center for follow-up visit. Information from previous visit have been reviewed. Patient is using PAP equipment every night for the whole night, getting PAP supplies in time. Patient has significant leak of the air the present time. [place] sleepiness scale is 2. I checked information from PAP unit. PAP unit pressure 5-17, average 13.5 cm H2O. Usage is 83 % for more then 4 hours, average 5.2 hours per night. Leak is high 39.9 l/m. Apnea Hypopnea Index is increased to 8.8 average, some nights significantly higher. MEDICATIONS:1. Levothyroxine 75 g once a day 2. Celexa 20 mg once a day 3. Neurontin 4. Cozaar 50 mg once a day 5. Remeron 45 mg once a day 6. Atenolol 50 mg once a day 7. Requip 3 mg once a day 8. Hydrochlorothiazide 25 mg 2 tablets a day During physical exam: GENERAL: A pleasant patient without any distress. VITAL SIGNS: BP 159/71, HR 61, RR 12 , weight 118.6, temperature 98.0, oxygen saturation at room air 99 % . HEENT: PERRLA, EOMI.low position of soft palate, Mallapati 3 . NECK: Supple. No JVD. LUNGS: Clear to percussion and to auscultation. Good air exchange. No wheezing or rhonchi. HEART: S1, S2 regular. ABDOMEN: Soft and nontender.[] EXTREMITIES: No clubbing or cyanosis. STRINGING MACHINE OPERATOR: Awake, alert, and oriented x3. No focal deficit. Impressions: 1. Obstructive sleep apnea-hypopnea syndrome. Patient demonstrated great compliance with treatment, benefiting from treatment, but apnea-hypopnea index increased, patient his awakenings from sleep, significant leak from the mask. Last titration have been done about 15 years ago.. 2. Hypertension. 3. History of throat cancer, status post radiation therapy and chemotherapy. 4. History of anxiety. 5. History of restless leg syndrome. 6. Status post pneumonia recently. Plan: 1. Continue using PAP equipment every night for the whole night. 2. CPAP titration for correction of respiratory abnormalities during sleep. 3. PAP unit should stay lower then position of the head. 4. Advised patient to remove all remaining water from humidifier canister daily and make it dry after each usage. Refill canister with fresh distilled water before each usage. 5. Sleep hygiene with regular time in bed for at least 8 hours. 6. Precautions related to driving. No driving if feel any sleepiness. 7. I will maintain prescription for PAP supplies including mask, tube, filters. 8. Follow up visit in 6 months or earlier if patient has any problems. 9. Watching weight. Thank you very much for allowing me to participate in the management of your patient. Mehran Walsh MD, PhD, FAASM. Diplomat of [place] [employer], Sleep Medicine Board by [place] Review Nurse of [facility] [place]
== END ==
LOC: 3 N SLEEP 11:23
PROVIDERS: ATTEND Internal Medicine
DX: G47.33 Obstructive sleep apnea (adult) (pediatric) (principal); I10 Essential (primary) hypertension; F41.9 Anxiety disorder, unspecified; G25.81 Restless legs syndrome; Z99.89 Dependence on other enabling machines and devices; Z85.9 Personal history of malignant neoplasm, unspecified; Z87.01 Personal history of pneumonia (recurrent); Z85.818 Personal history of malignant neoplasm of other sites of lip, oral cavity, and pharynx
CPT/HCPCS: 99212

== ENCOUNTER → 2023-09-08 | Outpatient (CLI) | payer MEDICARE, BC ==
[2023-09-08 14:48] LABS: African American GFR (CKD) 61 (>60 ml/min/1.73 sqM); Blood Urea Nitrogen 20 mg/dL (7-17); Non-African American GFR(CKD) 53 (>60 ml/min/1.73 sqM)
--- NOTE | 2023-09-13 14:06 | CT ---
EXAMINATION TYPE: CT neck chest w con CT DLP: 738 mGycm, Automated exposure control for dose reduction was used. DATE OF EXAM: 09/08/2023 3:44 PM COMPARISON: CT neck chest 03/11/2023. 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 Axial sections with coronal and sagittal refo rmats were obtained. Contrast used:80 mL of Isovue 300 with IV Contrast, (none if empty) Oral contrast used: (none if empty) FINDINGS: NECK: Included base of the brain: Visualized portions are stable without acute abnormality. Lenses appear r emoved bilaterally. Hypoplastic distal V4 segment right vertebral artery. Calcifications of the intra cranial ICAs at the siphons. Scattered mucosal thickening of ethmoid air cells and maxillary sinuses. Clear mastoids. Soft tissues: Nasopharynx and oropharynx appear satisfactory. Epiglottis stable and unremarkable. Stable appearance of eccentric soft tissue in the hypopharynx filling the left piriform sinus and narrowing the suprag lottic airway. No clear enhancing mass or increased soft tissues in this area. The upper trachea appears clear. Parapharyngeal fat planes are preserved. Nonenlarged nodes throughout the bilateral cervical chains. Moderate atherosclerotic disease of the distal aortic arch. Atherosclerotic disease of the proximal r ight subclavian artery with mild/moderate narrowing as before. Common carotids are patent. There is m ostly calcified atherosclerotic disease at the carotid bifurcations/proximal ICAs bilaterally, right greater than left, which appears similar. Degree of stenosis difficult to estimate but appears at alia st 50% in the proximal right ICA. Major venous structures are patent. Unchanged parotid, submandibular, thyroid glands. Atrophy of the submandibular glands, left more than right is again noted. Thyroid again appears small or atrophic. MSK: Musculature of the neck appears normal and symmetric. There are again moderate to severe multile ginny degenerative changes of the cervical spine with reversal of the normal lordosis from C2 to C7 ass ociated with the degenerative changes. Again endplate osteophytes and facet disease results in modera te canal and foraminal stenoses C4-C5 and C5-C6, mild canal stenosis and moderate foraminal stenoses C3-C4. Overall appearance is unchanged. No acute osseous findings. CHEST: LUNGS/ PLEURA: Previous superior segment left lower lobe patchy nodular groundglass opacities have cl eared. Otherwise, small calcified and some noncalcified subcentimeter lung nodules remain unchanged i ncluding a subpleural 4.4 mm nodule in the left lower lobe image 38 series 9. Mild scattered areas of scarring again noted, greatest at the left lung base, lingula, and apices. No new or enlarging lung nodules. No consolidation, pleural effusion, pneumothorax. AIRWAY: Patent and unremarkable. HEART AND VASCULATURE: Heart is mildly to moderately enlarged.. No significant coronary arterial calc ifications are visualized. The aorta shows moderate atherosclerotic disease, enhances normally withou t evidence of dissection flap. Ascending segment is 2.7 mm, descending is 2.2 cm. Aortic size is cons idered within normal limits. Some calcifications noted involving the aortic and mitral valves. Main p ulmonary artery does not appear enlarged, measures about 2.2 cm. No large central/saddle embolus is i dentified. Assessment more peripherally is limited on non-CTA exam. MEDIASTINUM: Nonenlarged mediastinal nodes remain stable. No new or enlarging nodes. Multiple calcifi ed left hilar region nodes. MUSCULOSKELETAL: Osseous structures appear unchanged. Mild to moderate degenerative changes throughou t the spine. No evidence for lytic/blastic lesion. Degenerative changes of the shoulders. SOFT TISSUES/LYMPH NODES: Unremarkable. No axillary lymphadenopathy. LOWER NECK: See above.. UPPER ABDOMEN: Small fairly circumscribed hypodensities in the right and left hepatic lobes appear st able,. Likely benign. No adrenal mass. Nonenlarged gastrohepatic ligament lymph nodes. Stable several calcified granulomas and tiny hypodense focus image 56, unchanged. IMPRESSION: NECK: 1. STABLE APPEARANCE, WITHOUT EVIDENCE OF NEW OR WORSENING MALIGNANCY/METASTATIC DISEASE. 2. STABLE ASYMMETRIC SOFT TISSUE DENSITY IN THE LEFT PIRIFORM SINUS AND NARROWING THE SUPRAGLOTTIC A IRWAY, PROBABLY CORRESPONDS TO SITE OF TREATED DISEASE. CHEST: 1. INTERVAL RESOLUTION OF LEFT LOWER LOBE INFILTRATES SINCE THE PRIOR EXAM. 2. REDEMONSTRATED CALCIFIED LUNG NODULES AND CALCIFIED LEFT HILAR NODES, CONSISTENT WITH REMOTE GRAN ULOMATOUS DISEASE. A COUPLE NONCALCIFIED LUNG NODULES, REMAIN UNCHANGED. 3. OTHERWISE STABLE EXAM, WITHOUT EVIDENCE OF THORACIC METASTASIS.
== END | disposition home or self-care (01) ==
LOC: RADCTMAIN 14:10
PROVIDERS: ATTEND Internal Medicine Hematology & Oncology
DX: C13.9 Malignant neoplasm of hypopharynx, unspecified (principal); R13.10 Dysphagia, unspecified; I10 Essential (primary) hypertension; R91.8 Other nonspecific abnormal finding of lung field
CPT/HCPCS: 82565; 84520; 70491; 71260; 36415; Q9967

== ENCOUNTER → 2023-10-09 | Outpatient (CLI) | payer MEDICARE, BC ==
--- NOTE | 2023-10-09 14:35 | FL ---
Modified barium swallow. HISTORY: Dysphagia. Modified barium swallow was performed with the department of speech pathology. The patient was prese nted with various consistencies of barium. Modified barium swallow for dysphagia. Consistencies administered: Various consistency of barium. Flu davon time: 1 minute 23 seconds No images were sent to PACS. Please see speech pathology report. Impression: Mild transient penetration without aspiration.
== END | disposition home or self-care (01) ==
LOC: RADUSWWP 11:14
PROVIDERS: ATTEND Otolaryngology
DX: R13.10 Dysphagia, unspecified (principal); C14.0 Malignant neoplasm of pharynx, unspecified
CPT/HCPCS: 74230

== ENCOUNTER → 2024-01-29 | Outpatient (CLI) | payer MEDICARE, BC ==
[2024-01-29 14:00] VITALS: BP 146/66; PULSE 52; RESP 16; TEMP 97.8
--- NOTE | 2024-01-29 14:14 | P.PROGSL ---
Subjective DATE: 01/29/2024 FOLLOW UP VISIT. Patient with obstructive sleep apnea hypopnea syndrome return to sleep center for follow-up visit. Information from previous visit have been reviewed. Patient is using PAP equipment every night for the whole night, getting PAP supplies in time. The patient does not have significant problems with the mask, PAP unit and humidification. [place] sleepiness scale is 2. I checked information from PAP unit. PAP unit pressure 5-17, average 15.0 cm H2O. Usage is 83% , average 4.75 hours per night. Leak is 27.7 l/m, which is in acceptable range. Apnea Hypopnea Index is 7.0, which is better than during previous visit when it was 8.8, but still slightly above normal. MEDICATIONS: Please see below During physical exam: GENERAL: A pleasant patient without any distress. VITAL SIGNS: Please see below. HEENT: PERRLA, EOMI.low position of soft palate, Mallapati 3 . NECK: Supple. No JVD. LUNGS: Clear to percussion and to auscultation. Good air exchange. No wheezing or rhonchi. HEART: S1, S2 regular. ABDOMEN: Soft and nontender.[] EXTREMITIES: No clubbing or cyanosis. ADMINISTRATIVE EXECUTIVE: Awake, alert, and oriented x3. No focal deficit. I changed a range of the pressure to the level 5 to 18 cm of water. Temperature in the tube was increased from 70 to 80 degree. Impressions: 1. Obstructive sleep apnea-hypopnea syndrome. Patient demonstrated great compliance with treatment, benefiting from treatment. 2. History of throat cancer, status post radiation therapy and chemotherapy. 3. Hypertension. 4. History of anxiety. 5. History of restless leg syndrome. 6. Hypothyroidism. Plan: 1. Continue using PAP equipment every night for the whole night. 2. To change air filter at least 1-2 times per month. 3. PAP unit should stay lower then position of the head. 4. Advised patient to remove all remaining water from humidifier canister daily and make it dry after each usage. Refill canister with fresh distilled water before each usage. 5. Sleep hygiene with regular time in bed for at least 8 hours. 6. Precautions related to driving. No driving if feel any sleepiness. 7. I will maintain prescription for PAP supplies including mask, tube, filters. 8. Watching weight. 9. Follow up visit in 6 months or earlier if patient has any problems. Thank you very much for allowing me to participate in the management of your patient. Mehran Walsh MD, PhD, FAASM. Diplomat of [place] [employer], Sleep Medicine Board by [place] [employer] Windshield Repair Technician of [facility] [place] Objective - Vital Signs Vital Signs: Vital Signs Temp 97.8 F 01/29/24 13:16 Pulse 52 L 01/29/24 13:16 Resp 16 01/29/24 13:16 BP 146/66 01/29/24 13:16 Pulse Ox 99 01/29/24 13:16 FiO2 Intake & Output 01/28/24 01/29/24 01/29/24 18:59 06:59 18:59 Weight 54.885 kg Home Medications: Home Medications Medication Instructions Recorded Confirmed Type Citalopram Hydrobromide 40 mg PO HS 02/25/20 01/29/24 History [Citalopram HBr] Gabapentin [Neurontin] 300 mg PO BID@0800,1200 02/25/20 01/29/24 History Gabapentin [Neurontin] 600 mg PO HS 02/25/20 01/29/24 History Mirtazapine 45 mg PO HS 02/25/20 01/29/24 History atenoloL [Tenormin] 50 mg PO HS 02/25/20 01/29/24 History rOPINIRole HCL [Requip] 3 mg PO HS 02/25/20 01/29/24 History Ondansetron Odt [Zofran ODT] 8 mg PO Q8HR PRN 05/28/20 01/29/24 History Levothyroxine Sodium [Synthroid] 75 mcg PO DAILY 09/10/21 01/29/24 History Cetirizine HCl [Zyrtec] 10 mg PO HS 02/12/23 01/29/24 History Losartan [Cozaar] 50 mg PO HS 02/12/23 01/29/24 History Docusate [Colace] 100 mg PO BID 30 Days #60 tab 02/17/23 01/29/24 Rx Nystatin 100,000 Unit/ml Susp 500,000 unit PO QID 14 Days #240 ml 02/17/23 Rx [Mycostatin Oral Susp] guaiFENesin [Mucinex] 600 mg PO Q12HR 10 Days #20 tab 02/17/23 Rx
== END ==
LOC: 3 N SLEEP 13:06
PROVIDERS: ATTEND Internal Medicine
DX: G47.33 Obstructive sleep apnea (adult) (pediatric) (principal); E03.9 Hypothyroidism, unspecified; I10 Essential (primary) hypertension; F41.9 Anxiety disorder, unspecified; Z87.39 Personal history of other diseases of the musculoskeletal system and connective tissue; Z85.818 Personal history of malignant neoplasm of other sites of lip, oral cavity, and pharynx; Z92.3 Personal history of irradiation; Z92.21 Personal history of antineoplastic chemotherapy; Z99.89 Dependence on other enabling machines and devices; Z79.899 Other long term (current) drug therapy; Z79.890 Hormone replacement therapy
CPT/HCPCS: 99212

== ENCOUNTER → 2024-03-08 | Outpatient (CLI) | payer MEDICARE, BC ==
[2024-03-08 14:51] LABS: African American GFR (CKD) 55 (>60 ml/min/1.73 sqM); Blood Urea Nitrogen 21 mg/dL (7-17); Non-African American GFR(CKD) 48 (>60 ml/min/1.73 sqM)
--- NOTE | 2024-03-08 15:39 | CT ---
EXAMINATION TYPE: CT neck chest w con DATE OF EXAM: 03/08/2024 3:17 PM COMPARISON: 09/08/2023 HISTORY: f/u throat ca CT DLP: 680.1 mGycm Automated exposure control for dose reduction was used. CONTRAST: CT scan of the neck is performed following with IV Contrast, patient injected with 80cc mL of Isovue 300. Axial images are obtained, coronal and sagittal reformatted images are reviewed. FINDINGS: CT chest: There is a stable 7 to 8 mm subpleural parenchymal nodule in the left upper lobe and a stable 5 to 6 mm nodule in the subpleural parenchymal left lower lobe. No new or suspicious lung mass or nodule is seen. There is no mediastinal, hilar or axillary adenopathy. No pleural effusion or pneumothorax. There is no airspace consolidation or abnormal interstitial density. Visualized osseous structures are intact. CT NECK: The ill-defined abnormal soft tissue density in the left supraglottic space partially compressing the left piriform sinus appears slightly less prominent than on the prior study. Thyroid gland appears markedly atrophic. The arytenoid, cricoid and thyroid cartilages are intact. Tongue base, epiglottis, aryepiglottic folds, and valleculae are normal symmetric. The parotid glands are symmetric without focal mass. The left submandibular gland is markedly atrophi c. The right submandibular gland is unremarkable. Great vessels in the neck are normal. There is no adenopathy within the neck. The pharyngeal and parapharyngeal soft tissues are unremarkable. IMPRESSION: 1. No evidence of metastatic disease within the chest. 2. Possibly mild reduction in the abnormal soft tissue in the left supraglottic space compared to pre viously. 3. No evidence of neck adenopathy. 4. No new abnormalities seen.
== END | disposition home or self-care (01) ==
LOC: RADCTMAIN 13:58
PROVIDERS: ATTEND Internal Medicine Hematology & Oncology
DX: C13.9 Malignant neoplasm of hypopharynx, unspecified (principal); I10 Essential (primary) hypertension; R13.10 Dysphagia, unspecified
CPT/HCPCS: 82565; 84520; 70491; 71260; 36415; Q9967

== ENCOUNTER → 2024-06-17 | Outpatient (CLI) | payer MEDICARE, BC ==
--- NOTE | 2024-06-17 16:58 | US ---
EXAMINATION TYPE: US venous doppler duplex LE LT DATE OF EXAM: 06/17/2024 4:34 PM COMPARISON: NONE CLINICAL INDICATION: Female, 78 years old with history of M25.562 PAIN LT KNEE; Pain left leg. TECHNIQUE: The lower extremity deep venous system is examined utilizing real time linear array sonog enrike with graded compression, color doppler sonography, and spectral doppler. SIDE PERFORMED: Left FINDINGS: VESSELS IMAGED: Common Femoral Vein Deep Femoral Vein Greater Saphenous Vein * Femoral Vein Popliteal Vein Small Saphenous Vein * Proximal Calf Veins (* superficial vessels) Left Leg: Negative for DVT Grayscale, color doppler, spectral doppler imaging performed of the deep veins of the lower extremiti es. IMPRESSION: 1. Left lower extremity ultrasound negative for deep venous thrombosis. [facility], , 06/17/2024 4:56 PM
== END | disposition home or self-care (01) ==
LOC: RADUSWWP 16:10
PROVIDERS: ATTEND Orthopaedic Surgery

== ENCOUNTER → 2024-07-01 | Outpatient (CLI) | payer MEDICARE, BC ==
--- NOTE | 2024-07-01 11:32 | FL ---
Exam Date: 07/01/2024 11:28 AM. Modified barium swallow for dysphagia. Consistencies administered: Various consistency of barium. Fluoro time: 2 min 14 sec No images were sent to PACS. Please see speech pathology report. DAP: not recorded mGym2 Gycm2 [facility], , 07/01/2024 11:30 AM
== END | disposition home or self-care (01) ==
LOC: RADFLMAIN 10:55
PROVIDERS: ATTEND Otolaryngology
DX: C13.9 Malignant neoplasm of hypopharynx, unspecified (principal)
CPT/HCPCS: 74230

== ENCOUNTER 2024-08-10 13:54 | Observation (INO) | payer MEDICARE, BC ==
--- NOTE | 2024-08-10 14:21 | ED ---
Extremity Problem HPI - General Source: patient, RN notes reviewed Mode of arrival: ambulatory Limitations: no limitations <Concepción Hernandez - Last Filed: 08/10/24 14:22> - General Source: patient, RN notes reviewed, old records reviewed Mode of arrival: ambulatory Limitations: no limitations - History of Present Illness MD Complaint: extremity pain, extremity swelling, joint pain -: days(s) Location: right (Past) -: Yes myalgia Radiation: proximal, distal Severity scale (1-10): 7 Quality: aching Consistency: constant Improves with: nothing Worsens with: nothing Associated Symptoms: denies other symptoms <Seth Tillman - Last Filed: 08/16/24 15:51> - General Chief complaint: Recheck/Abnormal Lab/Rx Stated complaint: swelling of limb Time Seen by Provider: 08/10/24 14:10 - History of Present Illness Initial comments: Quick Note: This is an 78-year-old female who presents to the emergency departm ent for right hand pain and swelling. States that it started 5 days ago. She followed up with orthopedics 4 days ago and had x-rays done that were negative. She was started on antibiotics for cellulitis. States that she has not gotten any better. She contacted orthopedics yesterday and was advised to come to the emergency department, but wanted to wait until she saw Dr. Gonzalez today. Dr. Gonzalez evaluated her and also advised she come in for further evaluation and admission for IV antibiotics. Patient states that this continues to be very painful. Denies any fevers or chills. (Concepción Hernandez) This is an 78-year-old female for evaluation of right hand pain and swelling significant concern for cellulitis of the right wrist, septic arthritis of the right wrist (Seth Tillman) - Related Data Home Medications Medication Instructions Recorded Confirmed Citalopram Hydrobromide 40 mg PO HS 02/25/20 08/10/24 [Citalopram HBr] Gabapentin [Neurontin] 300 mg PO BID@0800,1200 02/25/20 08/10/24 Gabapentin [Neurontin] 600 mg PO HS 02/25/20 08/10/24 Mirtazapine 45 mg PO HS 02/25/20 08/10/24 rOPINIRole HCL [Requip] 3 mg PO HS 02/25/20 08/10/24 Levothyroxine Sodium [Synthroid] 75 mcg PO DAILY 09/10/21 08/10/24 HYDROcodone/APAP 5-325MG [[place] 1 tab PO Q6HR PRN 08/10/24 08/10/24 5-325] LORazepam [Ativan] 1 mg PO Q8H PRN 08/10/24 08/10/24 Ondansetron Odt [Zofran ODT] 4 mg PO Q8HR PRN 08/10/24 08/10/24 Sennosides [Senokot] 17.2 mg PO HS PRN 08/10/24 08/10/24 carvediloL [Coreg] 12.5 mg PO BID 08/10/24 08/10/24 hydroCHLOROthiazide [Hydrodiuril] 25 mg PO BID PRN 08/10/24 08/10/24 Previous Rx's Medication Instructions Recorded Acetaminophen Tab [Tylenol] 650 mg PO Q6HR PRN tab 08/12/24 Doxycycline [Vibramycin] 100 mg PO BID 5 Days #10 cap 08/12/24 Fluconazole [Diflucan] 150 mg PO WEEKLY #20 tab 08/12/24 cefaDROXiL [Duricef] 500 mg PO Q12HR 84 Days #168 cap 08/12/24 Allergies Allergy/AdvReac Type Severity Reaction Status Date / Time No Known Allergies Allergy Verified 08/10/24 20:24 Review of Systems ROS Other: All systems not noted in ROS Statement are negative. <Concepción Hernandez - Last Filed: 08/10/24 14:22> ROS Other: All systems not noted in ROS Statement are negative. <Seth Tillman - Last Filed: 08/16/24 15:51> ROS Statement: Those systems with pertinent positive or pertinent negative responses have been documented in the HPI. Past Medical History Past Medical History: Cancer, Hypertension, Skin Disorder, Sleep Apnea/CPAP/BIPAP Additional Past Medical History / Comment(s): 2007-bowel obstruction, diverticulitis, eczema, hx skin cancer, pain with swallowing, cancer base of tongue left side, feeding tube, throat cancer. History of Any Multi-Drug Resistant Organisms: MRSA Date of last positivie culture/infection: 2007 MDRO Source:: abdomen Past Surgical History: Hysterectomy, Joint Replacement, Orthopedic Surgery, Tonsillectomy Additional Past Surgical History / Comment(s): surgery for bowel obstructions/removal of adhesions, xiao oophorectomy, disectomy, left hip replacement, left knee arthroscopy, xiao cataracts, right port inserted Past Anesthesia/Blood Transfusion Reactions: No Reported Reaction Past Psychological History: No Psychological Hx Reported Smoking Status: Never smoker Past Alcohol Use History: Occasional Past Drug Use History: None Reported - Past Family History Mother Family Medical History: No Reported History <Concepción Hernandez - Last Filed: 08/10/24 14:22> General Exam Limitations: no limitations <Concepción Hernandez - Last Filed: 08/10/24 14:22> General appearance: alert, in no apparent distress Head exam: Present: atraumatic, normocephalic, normal inspection Eye exam: Present: normal appearance, PERRL, EOMI. Absent: scleral icterus, conjunctival injection, periorbital swelling ENT exam: Present: normal exam, mucous membranes moist Neck exam: Present: normal inspection. Absent: tenderness, meningismus, lymphadenopathy Respiratory exam: Present: normal lung sounds bilaterally. Absent: respiratory distress, wheezes, rales, rhonchi, stridor Cardiovascular Exam: Present: regular rate, normal rhythm, normal heart sounds. Absent: systolic murmur, diastolic murmur, rubs, gallop, clicks GI/Abdominal exam: Present: soft, normal bowel sounds. Absent: distended, tenderness, guarding, rebound, rigid Extremities exam: Present: normal inspection, full ROM, normal capillary refill. Absent: tenderness, pedal edema, joint swelling, calf tenderness Back exam: Present: normal inspection Neurological exam: Present: alert, oriented X3, CN II-XII intact Psychiatric exam: Present: normal affect, normal mood Skin exam: Present: warm, dry, intact, normal color. Absent: rash <Seth Tillman - Last Filed: 08/16/24 15:51> - General Exam Comments Initial Comments: Visual Physical Exam Vital signs reviewed General: Well-appearing, nontoxic, no acute distress. Head: Normocephalic, atraumatic Eyes: PERRLA, EOMI ENT: Airway patent Chest: Nonlabored breathing Skin: No visual rash, normal skin tone Neuro: Alert and oriented 3 Musculoskeletal: Swelling and erythema to the right hand (Concepción Hernandez) Course <Seth Tillman - Last Filed: 08/16/24 15:51> Vital Signs 08/10/24 08/10/24 08/10/24 13:57 21:00 22:45 Temperature 98.2 F 98.2 F 98.2 F Pulse Rate 68 67 67 Respiratory 18 18 18 Rate Blood Pressure 128/71 144/71 144/71 O2 Sat by Pulse 97 96 96 Oximetry - Reevaluation(s) Reevaluation #1: Records reviewed (Seth Tillman) Reevaluation #2: Patient symptoms unchanged (Seth Tillman) Reevaluation #3: Patient informed of results questions answered (Seth Tillman) Reevaluation #4: Was pt. sent in by a medical professional or institution (, PA, MISSILEMAN, urgent care, hospital, or residential...) When possible be specific @ -no Did you speak to anyone other than the patient for history (EMS, parent, family, police, friend...)? What history was obtained from this source @ -no Did you review nursing and triage notes (agree or disagree)? Why? @ -agree Are old charts reviewed (outside hosp., previous admission, EMS record, old EKG, old radiological studies, urgent care reports/EKG's, residential records)? Report findings @ -yes Differential Diagnosis (chest pain, altered mental status, abdominal pain women, abdominal pain men, vaginal bleeding, weakness, fever, dyspnea, syncope, headache, dizziness, GI bleed, back pain, seizure, CVA, palpatations, mental health, musculoskeletal)? @ -prior EKG interpreted by me (3pts min.). @ -no X-rays interpreted by me (1pt min.). @ -yes negative for acute disease CT interpreted by me (1pt min.). @ -no U/S interpreted by me (1pt. min.). @ -no What testing was considered but not performed or refused? (CT, X-rays, U/S, labs)? Why? @ -none What meds were considered but not given or refused? Why? @ -none Did you discuss the management of the patient with other professionals (professionals i.e. , PA, MISSILEMAN, lab, RT, psych nurse, social human services assistants, farmer tree fruit and nut crops, teacher, dental officer, rifle case repairer)? Give summary @ -no Was smoking cessation discussed for >3mins.? @ -no Was critical care preformed (if so, how long)? @ -no Were there social determinants of health that impacted care today? How? (Homelessness, low income, unemployed, alcoholism, drug addiction, transportation, low edu. Level, literacy, decrease access to med. care, skilled nursing, rehab)? @ -none Was there de-escalation of care discussed even if they declined (Discuss DNR or withdrawal of care, Hospice)? DNR status @ -no What co-morbidities impacted this encounter? (DM, HTN, Smoking, COPD, CAD, Cancer, CVA, ARF, Chemo, Hep., AIDS, mental health diagnosis, sleep apnea, morbid obesity)? @ -none Was patient admitted / discharged? Hospital course, mention meds given and route, prescriptions, significant lab abnormalities, going to OR and other pertinent info. @ - 78 female for evaluation of septic arthritis of the wrist Undiagnosed new problem with uncertain prognosis? @ -no Drug Therapy requiring intensive monitoring for toxicity (Heparin, Nitro, Insulin, Cardizem)? @ -no Were any procedures done? @ -no Diagnosis/symptom? @ -Wrist cellulitis wrist swelling Acute, or Chronic, or Acute on Chronic? @ -Acute Uncomplicated (without systemic symptoms) or Complicated (systemic symptoms)? @ -Complicated Side effects of treatment? @ -no Exacerbation, Progression, or Severe Exacerbation? @ -exacerbation Poses a threat to life or bodily function? How? (Chest pain, [place], [place], pneumonia, PE, COPD, DKA, ARF, appy, cholecystitis, CVA, Diverticulitis, Homicidal, Suicidal, threat to staff... and all critical care pts) @ -yes extremes of age (Seth Tillman) - Consultations Consultation #1: Spoke with admitting physicians who agreed to admit this patient (Seth Tillman) Medical Decision Making <Concepción Hernandez - Last Filed: 08/10/24 14:22> - Lab Data Result diagrams: 08/12/24 04:55 08/12/24 04:55 - Radiology Data Radiology results: report reviewed (X-ray hand is negative for acute disease), image reviewed <Seth Tillman - Last Filed: 08/16/24 15:51> - Medical Decision Making I performed the QuickNote portion of this chart. Signed Concepción Hernandez PA-C. (Concepción Hernandez) 78 female sent to the ER by primary care for evaluation of right wrist requiring MRI for possible septic arthritis (Seth Tillman) - Lab Data Lab Results 08/10/24 08/10/24 08/10/24 Range/Units 15:35 15:35 15:35 WBC 8.8 (3.8-10.6) k/uL RBC 3.73 L (3.80-5.40) m/uL Hgb 9.6 L (11.4-16.0) gm/dL Hct 30.8 L (34.0-46.0) % MCV 82.6 (80.0-100.0) fL MCH 25.7 (25.0-35.0) pg MCHC 31.1 (31.0-37.0) g/dL RDW 16.6 H (11.5-15.5) % Plt Count 144 L (150-450) k/uL MPV 8.4 Neutrophils % 72 % Lymphocytes % 16 % Monocytes % 7 % Eosinophils % 1 % Basophils % 1 % Neutrophils # 6.3 (1.3-7.7) k/uL Lymphocytes # 1.4 (1.0-4.8) k/uL Monocytes # 0.6 (0-1.0) k/uL Eosinophils # 0.1 (0-0.7) k/uL Basophils # 0.1 (0-0.2) k/uL Hypochromasia Moderate Anisocytosis Slight ESR 70 H (0-30) mm/Hr Sodium 139 (137-145) mmol/L Potassium 4.1 (3.5-5.1) mmol/L Chloride 109 H (98-107) mmol/L Carbon Dioxide 18 L (22-30) mmol/L Anion Gap 12 mmol/L BUN 24 H (7-17) mg/dL Creatinine 1.00 (0.52-1.04) mg/dL Est GFR (CKD-EPI)AfAm 62 (>60 ml/min/1.73 sqM) Est GFR (CKD-EPI)NonAf 54 (>60 ml/min/1.73 sqM) Glucose 99 (74-99) mg/dL Plasma Lactic Acid Ilan 1.1 (0.7-2.0) mmol/L Calcium 8.8 (8.4-10.2) mg/dL Total Bilirubin 0.5 (0.2-1.3) mg/dL AST 19 (14-36) U/L ALT 11 (4-34) U/L Alkaline Phosphatase 65 (38-126) U/L C-Reactive Protein 6.0 H (<1.0) mg/dL Total Protein 8.1 (6.3-8.2) g/dL Albumin 4.0 (3.5-5.0) g/dL Disposition <Concepción Hernandez - Last Filed: 08/10/24 14:22> Is patient prescribed a controlled substance at d/c from ED?: No Time of Disposition: 18:00 <Seth Tillman - Last Filed: 08/16/24 15:51> Clinical Impression: Cellulitis of right wrist Disposition: ADMITTED IP TO THIS HOSP Condition: Fair
[2024-08-10] MEDS ORDERED: VANCOMYCIN IV PER PHARMACY 1 EACH MISC MISCELLANE PRN (15:10)
[2024-08-10 16:06] LABS: ALT 11 U/L (4-34); AST 19 U/L (14-36); African American GFR (CKD) 62 (>60 ml/min/1.73 sqM); Alkaline Phosphatase 65 U/L (38-126); Anion Gap 12 mmol/L; Blood Urea Nitrogen 24 mg/dL (7-17); Calcium 8.8 mg/dL (8.4-10.2); Carbon Dioxide 18 mmol/L (22-30); Chloride 109 mmol/L (98-107); Glucose 99 mg/dL (74-99); Non-African American GFR(CKD) 54 (>60 ml/min/1.73 sqM); Potassium 4.1 mmol/L (3.5-5.1); Sodium 139 mmol/L (137-145); Total Bilirubin 0.5 mg/dL (0.2-1.3); Total Protein 8.1 g/dL (6.3-8.2)
[2024-08-10 16:17] LABS: Anisocytosis Slight; Basophils # (A) 0.1 k/uL (0-0.2); Basophils % (A) 1 %; Eosinophils # (A) 0.1 k/uL (0-0.7); Eosinophils % (A) 1 %; HCT 30.8 % (34.0-46.0); HGB 9.6 gm/dL (11.4-16.0); Hypochromasia Moderate; Lymphocytes # (A) 1.4 k/uL (1.0-4.8); Lymphocytes % (A) 16 %; MCH 25.7 pg (25.0-35.0); MCHC 31.1 g/dL (31.0-37.0); MCV 82.6 fL (80.0-100.0); Mean Platelet Volume 8.4; Monocytes # (A) 0.6 k/uL (0-1.0); Monocytes % (A) 7 %; Neutrophils # (A) 6.3 k/uL (1.3-7.7); Neutrophils % (A) 72 %; Platelet Count 144 k/uL (150-450); RBC 3.73 m/uL (3.80-5.40); RDW 16.6 % (11.5-15.5); WBC 8.8 k/uL (3.8-10.6)
--- NOTE | 2024-08-10 16:23 | XR ---
EXAMINATION TYPE: XR hand complete RT DATE OF EXAM: 08/10/2024 3:11 PM COMPARISON: None. CLINICAL INDICATION: Female, 78 years old with history of Swelling, TECHNIQUE: 3 view(s) obtained. FINDINGS: Soft tissue swelling is over the dorsal metacarpal phalangeal joint region. No displaced fractures ev ident. Degenerative changes are at the first carpometacarpal junction. Degenerative changes are at th e distal interphalangeal joint space of the fifth digit. More moderate degenerative changes are withi n remaining joint spaces. No acute displaced fractures evident. Follow up exams can be performed 7-10 days from acute trauma for continued pain. IMPRESSION: 1. No acute osseous abnormalities right hand. 2. Soft tissue swelling dorsal hand 3. Degenerative joint changes discussed above [facility], , 08/10/2024 4:21 PM
[2024-08-10] MEDS ORDERED: NALOXONE 0.4 MG/ML 1 ML VIAL IV PRN (17:59)
--- NOTE | 2024-08-10 19:48 | MR ---
EXAMINATION TYPE: MR wrist RT wo/w con DATE OF EXAM: 08/10/2024 6:54 PM COMPARISON: Right hand x-ray same date CLINICAL INDICATION: Female, 78 years old with history of infection, infection. TECHNIQUE: Multiplanar, multiecho imaging on a 3.0 Lucina magnet is performed through the right wrist. Study is performed within 24 hours of arrival to the hospital.Multiplanar, multiecho imaging on a 3 .0 Lucina magnet is performed. IV Contrast: 5 mL Gadobutrol (None, if empty) FINDINGS: Flexor and extensor tendons appear normal. Flexor retinaculum appears intact. Distal radius and ulna and proximal and distal carpal rows abnormal marrow signal there is some mild fluid around the thumb flexor. The tendon has normal low signal without abnormal internal signal. Correlate for tendinitis. There is poor visualization of the triangular fibrocartilage. Scapholunate space appears preserved. S capholunate ligament however is not clearly identified. No suspicious changes within the scaphoid are evident. No suspicious fluid collections identified. No signal abnormality within the osseous structures is ev ident. Subcutaneous tissues appear normal. No abscess formation is evident. The soft tissue swelling is over the dorsal metacarpal distally is largely out of the field of view. Suspicious abnormality within the midcarpal regions is not identified IMPRESSION: 1. No suspicious abnormality suggesting acute infection. 2. There is some mild fluid at the thumb flexor region within the distal wrist. Correlate for mild te ndinitis. [facility], , 08/10/2024 7:46 PM
[2024-08-10] MEDS: AMPICILLIN-SULBACTAM 3 GM in SODIUM CHLORIDE 0.9% 100 ML IVPB STA (20:53)
[2024-08-10] MEDS: SODIUM CHLORIDE 0.9% 1,000 ML IV SCH (20:53)
[2024-08-10] MEDS: MORPHINE SULFATE 4 MG/ML SYRINGE IV PRN (20:59)
[2024-08-10] MEDS: VANCOMYCIN 1,000 MG in SODIUM CHLORIDE 0.9% 250 ML IVPB STA (23:41)
[2024-08-11] MEDS: ACETAMINOPHEN TAB 325 MG TAB PO PRN (00:10)
[2024-08-11 03:51] LABS: Erythrocyte Sedimentation Rate 70 mm/Hr (0-30)
[2024-08-11] MEDS: LEVOTHYROXINE 75 MCG TAB PO SCH (06:20)
[2024-08-11] MEDS: HYDROcodone/APAP 5-325MG 1 EACH TAB PO PRN (06:23)
[2024-08-11 09:19] LABS: Basophils % (A) 1.7 %; Eosinophils # (A) 0.25 X 10*3/uL (0.04-0.35); Eosinophils % (A) 4.1 %; HCT 27.8 % (37.2-46.3); Lymphocytes # (A) 1.68 X 10*3/uL (0.90-5.00); Lymphocytes % (A) 27.8 %; MCH 24.7 pg (27.0-32.0); MCHC 28.8 g/dL (32.0-37.0); MCV 85.8 FL (80.0-97.0); Mean Platelet Volume 9.8 FL (9.5-12.2); Monocytes # (A) 0.94 X 10*3/uL (0.20-1.00); Monocytes % (A) 15.6 %; NRBC Per 100 WBC 0 X 10*3/uL (0.00-0.01); Neutrophils # (A) 2.98 X 10*3/uL (1.80-7.70); Neutrophils % (A) 49.3 %; Platelet Count 124 X 10*3/uL (140-440); RBC 3.24 X 10*6/uL (4.10-5.20); RDW 16.7 % (11.5-14.5); WBC 6.04 X 10*3/uL (4.50-10.00)
[2024-08-11 09:54] LABS: ALT 7 U/L (8-44); AST 13 U/L (13-35); Albumin/Globulin Ratio 0.97 Ratio (1.60-3.17); Alkaline Phosphatase 45 U/L (41-126); BUN/Creat Ratio 23.56 Ratio (12.00-20.00); Blood Urea Nitrogen 21.2 mg/dL (9.0-27.0); Carbon Dioxide 15.8 mmol/L (21.6-31.8); Chloride 108 mmol/L (96-109); Globulin 3.1 g/dL (1.6-3.3); Glucose 73 mg/dL (70-110); Magnesium 1.5 mg/dL (1.5-2.4); Phosphorus 3.4 mg/dL (2.4-5.1); Potassium 3.9 mmol/L (3.5-5.5); Sodium 138 mmol/L (135-145); Total Bilirubin 0.2 mg/dL (0.3-1.2); Total Protein 6.1 g/dL (6.2-8.2)
[2024-08-11] MEDS ORDERED: LORazepam 1 MG TAB PO PRN (10:13)
[2024-08-11] MEDS ORDERED: SENNOSIDES 8.6 MG TAB PO PRN (10:13)
[2024-08-11] MEDS ORDERED: hydroCHLOROthiazide 25 MG TAB PO PRN (10:13)
[2024-08-11] MEDS: carvediloL 12.5 MG TAB PO SCH (11:48)
[2024-08-11] MEDS: GABAPENTIN 300 MG CAP PO SCH ×2 (11:49→20:23)
--- NOTE | 2024-08-11 14:30 | P.HPIM ---
History of Present Illness H&P Date: 08/11/24 This is an 78-year-old female with medical history significant for sleep apnea, diverticulitis, throat cancer with chronic dysphagia, bowel obstruction lysis of adhesions. Patient has been having issues with her right hand was considerably swollen and red started last . Symptoms have been on and off. Prescribed some antibiotic cream and wrapped him with an Callum bandage. She saw orthopedics outpatient and they prescribed her antibiotics for cellulitis after 4 days she has not shown improvement went back to see her PCP in the office Dr. Gonzalez and advised her to come to the hospital for IV antibiotics. Following started last she did have fever and chills at that time as well as some shortness of breath that has all since resolved. Patient came to the ER had an xray completed of her right hand which reveals no acute osseous abnormalities there is soft tissue swelling of the dorsal hand. There is degenerative joint changes as discussed in the official report. Patient had a wrist MRI which reveals no suspicious abnormality suggesting acute infection. There is some mi ld fluid at the thumb flexor region within the distal wrist and correlate for mild tendinitis. Patient states that currently she is having pain from her fingertips all the way down through her mid forearm. It is tender to palpation and there is obvious soft tissue swelling. It is not grossly red and there is no streaking noted. Will take interferes and started on IV antibiotics with vancomycin empirically. Dr. Sanz and Dr. Sanderson were consulted for further evaluation. REVIEW OF SYSTEMS: CONSTITUTIONAL: No fever, no malaise, no fatigue. HEENT: No recent visual problems or hearing problems. Denied any sore throat. CARDIOVASCULAR: No chest pain, orthopnea, PND, no palpitations, no syncope. PULMONARY: No shortness of breath, no cough, no hemoptysis. GASTROINTESTINAL: No diarrhea, no nausea, no vomiting, no abdominal pain. NEUROLOGICAL: No headaches, no weakness, no numbness. HEMATOLOGICAL: Denies any bleeding or petechiae. GENITOURINARY: Denies any burning micturition, frequency, or urgency. MUSCULOSKELETAL/RHEUMATOLOGICAL: Denies any joint pain, swelling, or any muscle pain. ENDOCRINE: Denies any polyuria or polydipsia. The rest of the 14-point review of systems is negative. PHYSICAL EXAMINATION: GENERAL: The patient is alert and oriented x3, not in any acute distress. Well developed, well nourished. HEENT: Pupils are round and equally reacting to light. EOMI. No scleral icterus. No conjunctival pallor. Normocephalic, atraumatic. No pharyngeal erythema. No thyromegaly. CARDIOVASCULAR: S1 and S2 present. No murmurs, rubs, or gallops. PULMONARY: Chest is clear to auscultation, no wheezing or crackles. ABDOMEN: Soft, nontender, nondistended, normoactive bowel sounds. No palpable organomegaly. MUSCULOSKELETAL: No joint swelling or deformity. EXTREMITIES: No cyanosis, clubbing, or pedal edema. NEUROLOGICAL: Gross neurological examination did not reveal any focal deficits. SKIN: Swelling to the right wrist and hand Assessment and Plan Hand edema and swelling with underlying cellulitis of the right hand failed outpatient therapy Hypertension Sleep apnea History of throat cancer with radiation with dysphagia GI prophylaxis Full code Plan Continue IV antibiotics with vancomycin ID following Blood cultures have been taken and pending Pending orthopedic consultation Resume appropriate home medications Repeat BMP and CBC in the morning The impression and plan of care has been dictated by Sheryl Hanna, Nurse Practitioner as directed. Dr. Gary MD I have performed a history and physical examination and medical decision making of this patient, discussed the same with the dictator, and agree with the dictators assessment and plan as written, documented as a scribe. Based on total visit time, I have performed more than 50% of this visit. Past Medical History Past Medical History: Cancer, Hypertension, Skin Disorder, Sleep Apnea/CPAP/BIPAP Additional Past Medical History / Comment(s): 2008-bowel obstruction, diverticulitis, eczema, hx skin cancer. Throat cancer, difficulty with swallowing since then in 2019 History of Any Multi-Drug Resistant Organisms: MRSA Date of last positivie culture/infection: 2007 MDRO Source:: abdomen Past Surgical History: Hysterectomy, Joint Replacement, Orthopedic Surgery, Tonsillectomy Additional Past Surgical History / Comment(s): surgery for bowel obstructions/removal of adhesions, xiao oophorectomy, disectomy, left hip replacement, left knee arthroscopy, xiao cataracts, right port inserted Past Anesthesia/Blood Transfusion Reactions: No Reported Reaction Past Psychological History: No Psychological Hx Reported Smoking Status: Never smoker Past Alcohol Use History: Occasional Past Drug Use History: None Reported - Past Family History Mother Family Medical History: No Reported History Medications and Allergies Home Medications Medication Instructions Recorded Confirmed Type Citalopram Hydrobromide 40 mg PO HS 02/25/20 08/10/24 History [Citalopram HBr] Gabapentin [Neurontin] 300 mg PO BID@0800,1200 02/25/20 08/10/24 History Gabapentin [Neurontin] 600 mg PO HS 02/25/20 08/10/24 History Mirtazapine 45 mg PO HS 02/25/20 08/10/24 History rOPINIRole HCL [Requip] 3 mg PO HS 02/25/20 08/10/24 History Levothyroxine Sodium [Synthroid] 75 mcg PO DAILY 09/10/21 08/10/24 History HYDROcodone/APAP 5-325MG [[place] 1 tab PO Q6HR PRN 08/10/24 08/10/24 History 5-325] LORazepam [Ativan] 1 mg PO Q8H PRN 08/10/24 08/10/24 History Ondansetron Odt [Zofran Odt] 4 mg PO Q8HR PRN 08/10/24 08/10/24 History Sennosides [Senokot] 17.2 mg PO HS PRN 08/10/24 08/10/24 History carvediloL [Coreg] 12.5 mg PO BID 08/10/24 08/10/24 History cefaDROXiL [Duricef] 500 mg PO Q12HR 08/10/24 08/10/24 History hydroCHLOROthiazide [Hydrodiuril] 25 mg PO BID PRN 08/10/24 08/10/24 History Allergies Allergy/AdvReac Type Severity Reaction Status Date / Time No Known Allergies Allergy Verified 08/10/24 20:24 Physical Exam Vitals: Vital Signs Temp Pulse Pulse Resp BP BP Pulse Ox 08/11/24 07:00 97.6 F 66 18 149/78 97 08/11/24 02:47 97.6 F 65 16 130/65 96 08/10/24 23:33 97.9 F 73 16 161/69 99 08/10/24 22:45 98.2 F 67 18 144/71 96 08/10/24 21:00 98.2 F 67 18 144/71 96 08/10/24 13:57 98.2 F 68 18 128/71 97 Intake and Output 08/10/24 08/11/24 08/11/24 22:59 06:59 14:59 Other: # Voids 3 Weight 51.256 kg Results CBC & Chem 7: 08/11/24 05:34 08/11/24 05:34 Labs: Abnormal Lab Results - Last 24 Hours (Table) 08/10/24 08/10/24 08/11/24 Range/Units 15:35 15:35 05:34 RBC 3.73 L 3.24 L (3.80-5.40) m/uL Hgb 9.6 L 8.0 L (11.4-16.0) gm/dL Hct 30.8 L 27.8 L (34.0-46.0) % MCH 24.7 L (27.0-32.0) pg MCHC 28.8 L (32.0-37.0) g/dL RDW 16.6 H 16.7 H (11.5-15.5) % Plt Count 144 L 124 L (150-450) k/uL Immature Gran # 0.09 H (0.00-0.04) X 10*3/uL ESR 70 H (0-30) mm/Hr Chloride 109 H (98-107) mmol/L Carbon Dioxide 18 L (22-30) mmol/L Anion Gap (4.00-12.00) mmol/L BUN 24 H (7-17) mg/dL BUN/Creatinine Ratio (12.00-20.00) Ratio Calcium (8.7-10.3) mg/dL Total Bilirubin (0.3-1.2) mg/dL ALT (8-44) U/L C-Reactive Protein 6.0 H (<1.0) mg/dL Total Protein (6.2-8.2) g/dL Albumin (3.8-4.9) g/dL Albumin/Globulin Ratio (1.60-3.17) Ratio 08/11/24 Range/Units 05:34 RBC (3.80-5.40) m/uL Hgb (11.4-16.0) gm/dL Hct (34.0-46.0) % MCH (27.0-32.0) pg MCHC (32.0-37.0) g/dL RDW (11.5-15.5) % Plt Count (150-450) k/uL Immature Gran # (0.00-0.04) X 10*3/uL ESR (0-30) mm/Hr Chloride (98-107) mmol/L Carbon Dioxide 15.8 L (22-30) mmol/L Anion Gap 14.20 H (4.00-12.00) mmol/L BUN (7-17) mg/dL BUN/Creatinine Ratio 23.56 H (12.00-20.00) Ratio Calcium 8.0 L (8.7-10.3) mg/dL Total Bilirubin 0.2 L (0.3-1.2) mg/dL ALT 7 L (8-44) U/L C-Reactive Protein (<1.0) mg/dL Total Protein 6.1 L (6.2-8.2) g/dL Albumin 3.0 L (3.8-4.9) g/dL Albumin/Globulin Ratio 0.97 L (1.60-3.17) Ratio Thrombosis Risk Factor Assmnt - Choose All That Apply Any of the Below Risk Factors Present?: No Other Risk Factors: Yes Each Risk Factor Represents 3 Points: Age 75 years or older Other congenital or acquired thrombophilia - If yes, enter type in comment: No Thrombosis Risk Factor Assessment Total Risk Factor Score: 3 Thrombosis Risk Factor Assessment Level: Moderate Risk Assessment and Plan Time with Patient: Less than 30
--- NOTE | 2024-08-11 14:57 | P.CNOR ---
History of Present Illness - [facility] Consult date: 08/11/24 Consult reason: other (Right hand cellulitis versus gout.) History of present illness: This is an 78-year-old female who is well-known to our practice with recent history of surgical debridement of her left hip in July 2024 for a small superficial abscess. There initially was no growth on the culture until about 6 days postop where she grew "scant" Cutibacterium acne. She is having no symptoms in the hip. She does have history of total left hip arthroplasty. She was shuffling her driveway on 08/05/2024 and woke up the next morning with significant swelling to her hand. She states that she did have a low-grade fever that morning of about 100 degrees. She was placed on Duricef 500 mg twice daily at that time. Over the weekend her hand swelling did not improve and in fact she felt it was slightly worse on Friday. She went to her primary care physician's office and he applied a compressive wrap. She states that she began having increased swelling and color changes to the hand. She remove the wrap. She came into the emergency department and is admitted for IV antibiotics. Past Medical History Past Medical History: Cancer, Hypertension, Skin Disorder, Sleep Apnea/CPAP/BIPAP Additional Past Medical History / Comment(s): 2007-bowel obstruction, diverticulitis, eczema, hx skin cancer. Throat cancer, difficulty with swallow ing since then in 2019 History of Any Multi-Drug Resistant Organisms: MRSA Year Discovered:: 2007 MDRO Source:: abdomen Past Surgical History: Hysterectomy, Joint Replacement, Orthopedic Surgery, Tons illectomy Additional Past Surgical History / Comment(s): surgery for bowel obstructions/removal of adhesions, xiao oophorectomy, disectomy, left hip replacement, left knee arthroscopy, xiao cataracts, right port inserted Past Anesthesia/Blood Transfusion Reactions: No Reported Reaction Past Psychological History: No Psychological Hx Reported Smoking Status: Never smoker Past Alcohol Use History: Occasional Past Drug Use History: None Reported - Past Family History Mother Family Medical History: No Reported History Medications and Allergies Home Medications Medication Instructions Recorded Confirmed Type Citalopram Hydrobromide 40 mg PO HS 02/25/20 08/10/24 History [Citalopram HBr] Gabapentin [Neurontin] 300 mg PO BID@0800,1200 02/25/20 08/10/24 History Gabapentin [Neurontin] 600 mg PO HS 02/25/20 08/10/24 History Mirtazapine 45 mg PO HS 02/25/20 08/10/24 History rOPINIRole HCL [Requip] 3 mg PO HS 02/25/20 08/10/24 History Levothyroxine Sodium [Synthroid] 75 mcg PO DAILY 09/10/21 08/10/24 History HYDROcodone/APAP 5-325MG [[place] 1 tab PO Q6HR PRN 08/10/24 08/10/24 History 5-325] LORazepam [Ativan] 1 mg PO Q8H PRN 08/10/24 08/10/24 History Ondansetron Odt [Zofran Odt] 4 mg PO Q8HR PRN 08/10/24 08/10/24 History Sennosides [Senokot] 17.2 mg PO HS PRN 08/10/24 08/10/24 History carvediloL [Coreg] 12.5 mg PO BID 08/10/24 08/10/24 History cefaDROXiL [Duricef] 500 mg PO Q12HR 08/10/24 08/10/24 History hydroCHLOROthiazide [Hydrodiuril] 25 mg PO BID PRN 08/10/24 08/10/24 History Allergies Allergy/AdvReac Type Severity Reaction Status Date / Time No Known Allergies Allergy Verified 08/10/24 20:24 Physical Examination Exam of the right upper extremity reveals significant improvement in her hand swelling. She is able to move the fingers a bit better as well as improved wrist motion. There is no ecchymosis. Slight increased warmth to the dorsum of the hand. Neurovascular status to the upper extremity is intact. Exam of the left hip reveals that her incision is well-healed. There is no erythema or ecchymosis. There are no open wounds noted. There is some firmness to the distal incision consistent with postoperative scar tissue. There are no obvious signs of infection. Neurovascular status to the lower extremity is intact. Results MRI of the right wrist and right hand reveal generalized edema to the dorsum of the hand. There are no bony disruptions. There is a cyst in the first met acarpal with moderate to severe degenerative changes to the first carpometacarpal joint. There are no fluid collections or chi abscess or hematoma noted. - Labs Labs: Abnormal Lab Results - Last 24 Hours (Table) 08/10/24 08/10/24 08/11/24 Range/Units 15:35 15:35 05:34 RBC 3.73 L 3.24 L (3.80-5.40) m/uL Hgb 9.6 L 8.0 L (11.4-16.0) gm/dL Hct 30.8 L 27.8 L (34.0-46.0) % MCH 24.7 L (27.0-32.0) pg MCHC 28.8 L (32.0-37.0) g/dL RDW 16.6 H 16.7 H (11.5-15.5) % Plt Count 144 L 124 L (150-450) k/uL Immature Gran # 0.09 H (0.00-0.04) X 10*3/uL ESR 70 H (0-30) mm/Hr Chloride 109 H (98-107) mmol/L Carbon Dioxide 18 L (22-30) mmol/L Anion Gap (4.00-12.00) mmol/L BUN 24 H (7-17) mg/dL BUN/Creatinine Ratio (12.00-20.00) Ratio Calcium (8.7-10.3) mg/dL Total Bilirubin (0.3-1.2) mg/dL ALT (8-44) U/L C-Reactive Protein 6.0 H (<1.0) mg/dL Total Protein (6.2-8.2) g/dL Albumin (3.8-4.9) g/dL Albumin/Globulin Ratio (1.60-3.17) Ratio 08/11/24 Range/Units 05:34 RBC (3.80-5.40) m/uL Hgb (11.4-16.0) gm/dL Hct (34.0-46.0) % MCH (27.0-32.0) pg MCHC (32.0-37.0) g/dL RDW (11.5-15.5) % Plt Count (150-450) k/uL Immature Gran # (0.00-0.04) X 10*3/uL ESR (0-30) mm/Hr Chloride (98-107) mmol/L Carbon Dioxide 15.8 L (22-30) mmol/L Anion Gap 14.20 H (4.00-12.00) mmol/L BUN (7-17) mg/dL BUN/Creatinine Ratio 23.56 H (12.00-20.00) Ratio Calcium 8.0 L (8.7-10.3) mg/dL Total Bilirubin 0.2 L (0.3-1.2) mg/dL ALT 7 L (8-44) U/L C-Reactive Protein (<1.0) mg/dL Total Protein 6.1 L (6.2-8.2) g/dL Albumin 3.0 L (3.8-4.9) g/dL Albumin/Globulin Ratio 0.97 L (1.60-3.17) Ratio H & H 08/10/24 08/11/24 Range/Units 15:35 05:34 Hgb 9.6 L 8.0 L (11.4-16.0) gm/dL Hct 30.8 L 27.8 L (34.0-46.0) % Result Diagrams: 08/11/24 05:34 08/11/24 05:34 Assessment and Plan (1) Status post incision and drainage Current Visit: Yes Status: Acute Code(s): Z98.890 - OTHER SPECIFIED POSTPROCEDURAL STATES SNOMED Code(s): 001050868 (2) Cellulitis of right wrist Current Visit: Yes Status: Acute Code(s): L03.113 - CELLULITIS OF RIGHT UPPER LIMB SNOMED Code(s): 72664901654331434 Plan: The clinical and radiographic findings are discussed with the patient. We discu ssed the possibility of this being an acute gouty flare. However, with her history of the bacteria found in her left hip culture is recommended she continue on antibiotics. She has improved on the IV vancomycin. I am hoping she can be discharged to home tomorrow and continue on her oral Duricef.
[2024-08-11 15:54] VITALS: BMI 18.8
[2024-08-11] MEDS: MIRTAZAPINE 45 MG TABLET PO SCH (20:22)
[2024-08-11] MEDS: CITALOPRAM HYDROBROMIDE 20 MG TAB PO SCH (20:23)
--- NOTE | 2024-08-11 22:32 | P.CONS ---
History of Present Illness - Reason for Consult Consult date: 08/11/24 Right hand cellulitis Requesting physician: Sheryl Hanna - Chief Complaint Right hand pain and swelling x 5 days - History of Present Illness Patient is a 78-year-old female with a past medical history significant for hypertension sleep apnea history of skin cancer joint replacement presenting to the hospital for evaluation of right hand pain and swelling patient symptoms started about 5 days before presentation to the hospital and apparently the patient did have x-ray done at orthopedics admission there was no evidence of any fracture patient also recently did have some fluid aspirated from her left hip area initially she was told there was no infection subsequently they were told that she is growing a slow-growing bacteria however they not clear about those culture patient denies any history of pain to the right hand area has been complaining of mostly diffuse swelling and some redness along with pain pain was throbbing moderate to severe intensity without any radiation and did not have any fever presentation to the hospital the patient wa s afebrile and no fever have been recorded subsequently patient was not tachycardic hypotensive or hypoxic patient did have white count of 8.8 no left shift creatinine is normal liver enzymes are normal CRP is 6.0 patient did have a x-ray of the hand no acute bony abnormality degenerative changes also have MRI of the wrist no suspicious abnormality suggesting acute infection mild fluid at the thumb flexor region within the distal wrist correlate for mild tendinitis patient was started on vancomycin infectious disease was consulted for further management of antibiotic therapy Review of Systems Positive point and negatives has been mentioned in the HPI, complete review of systems was performed and all other systems are negative Past Medical History Past Medical History: Cancer, Hypertension, Skin Disorder, Sleep Apnea/CPA P/BIPAP Additional Past Medical History / Comment(s): 2008-bowel obstruction, diverticulitis, eczema, hx skin cancer. Throat cancer, difficulty with swallowing since then in 2019 History of Any Multi-Drug Resistant Organisms: MRSA Year Discovered:: 2007 MDRO Source:: abdomen Past Surgical History: Hysterectomy, Joint Replacement, Orthopedic Surgery, Tonsillectomy Additional Past Surgical History / Comment(s): surgery for bowel obstructions/removal of adhesions, xiao oophorectomy, disectomy, left hip replacement, left knee arthroscopy, xiao cataracts, right port inserted Past Anesthesia/Blood Transfusion Reactions: No Reported Reaction Past Psychological History: No Psychological Hx Reported Smoking Status: Never smoker Past Alcohol Use History: Occasional Past Drug Use History: None Reported - Past Family History Mother Family Medical History: No Reported History Medications and Allergies Home Medications Medication Instructions Recorded Confirmed Type Citalopram Hydrobromide 40 mg PO HS 02/25/20 08/10/24 History [Citalopram HBr] Gabapentin [Neurontin] 300 mg PO BID@0800,1200 02/25/20 08/10/24 History Gabapentin [Neurontin] 600 mg PO HS 02/25/20 08/10/24 History Mirtazapine 45 mg PO HS 02/25/20 08/10/24 History rOPINIRole HCL [Requip] 3 mg PO HS 02/25/20 08/10/24 History Levothyroxine Sodium [Synthroid] 75 mcg PO DAILY 09/10/21 08/10/24 History HYDROcodone/APAP 5-325MG [[place] 1 tab PO Q6HR PRN 08/10/24 08/10/24 History 5-325] LORazepam [Ativan] 1 mg PO Q8H PRN 08/10/24 08/10/24 History Ondansetron Odt [Zofran ODT] 4 mg PO Q8HR PRN 08/10/24 08/10/24 History Sennosides [Senokot] 17.2 mg PO HS PRN 08/10/24 08/10/24 History carvediloL [Coreg] 12.5 mg PO BID 08/10/24 08/10/24 History hydroCHLOROthiazide [Hydrodiuril] 25 mg PO BID PRN 08/10/24 08/10/24 History Acetaminophen Tab [Tylenol] 650 mg PO Q6HR PRN tab 08/12/24 Rx Doxycycline [Vibramycin] 100 mg PO BID 5 Days #10 cap 08/12/24 Rx Fluconazole [Diflucan] 150 mg PO WEEKLY #20 tab 08/12/24 Rx cefaDROXiL [Duricef] 500 mg PO Q12HR 84 Days #168 cap 08/12/24 Rx Allergies Allergy/AdvReac Type Severity Reaction Status Date / Time No Known Allergies Allergy Verified 08/10/24 20:24 Physical Exam Vitals: Vital Signs Temp Pulse Pulse Resp BP BP Pulse Ox 08/11/24 07:00 97.6 F 66 18 149/78 97 08/11/24 02:47 97.6 F 65 16 130/65 96 08/10/24 23:33 97.9 F 73 16 161/69 99 08/10/24 22:45 98.2 F 67 18 144/71 96 08/10/24 21:00 98.2 F 67 18 144/71 96 08/10/24 13:57 98.2 F 68 18 128/71 97 Intake and Output 08/10/24 08/11/24 08/11/24 22:59 06:59 14:59 Other: # Voids 3 Weight 51.256 kg GENERAL DESCRIPTION: Elderly female up in the room, no distress. No tachypnea or accessory muscle of respiration use. HEENT: Shows Pallor , no scleral icterus. Oral mucous membrane is dry. No pharyngeal erythema or thrush NECK: Trachea central, no thyromegaly. LUNGS: Unlabored breathing. Clear to auscultation anteriorly. No wheeze or crackle. HEART: S1, S2, regular rate and rhythm. No loud murmur ABDOMEN: Soft, no tenderness , guarding or rigidity, no organomegaly EXTREMITIES: Right hand dorsum aspect did have some swelling slightly warmth no open wound or any drainage evaluation of the left hip area did incision is healed and there is minimal induration but no redness or drainage SKIN: No rash, no masses palpable. NEUROLOGICAL: The patient is awake, alert, oriented x3, mood and affect normal. Results CBC & Chem 7: 08/12/24 04:55 08/12/24 04:55 Labs: Abnormal Lab Results - Last 24 Hours (Table) 08/10/24 08/10/24 08/11/24 Range/Units 15:35 15:35 05:34 RBC 3.73 L 3.24 L (3.80-5.40) m/uL Hgb 9.6 L 8.0 L (11.4-16.0) gm/dL Hct 30.8 L 27.8 L (34.0-46.0) % MCH 24.7 L (27.0-32.0) pg MCHC 28.8 L (32.0-37.0) g/dL RDW 16.6 H 16.7 H (11.5-15.5) % Plt Count 144 L 124 L (150-450) k/uL Immature Gran # 0.09 H (0.00-0.04) X 10*3/uL ESR 70 H (0-30) mm/Hr Chloride 109 H (98-107) mmol/L Carbon Dioxide 18 L (22-30) mmol/L Anion Gap (4.00-12.00) mmol/L BUN 24 H (7-17) mg/dL BUN/Creatinine Ratio (12.00-20.00) Ratio Calcium (8.7-10.3) mg/dL Total Bilirubin (0.3-1.2) mg/dL ALT (8-44) U/L C-Reactive Protein 6.0 H (<1.0) mg/dL Total Protein (6.2-8.2) g/dL Albumin (3.8-4.9) g/dL Albumin/Globulin Ratio (1.60-3.17) Ratio 08/11/24 Range/Units 05:34 RBC (3.80-5.40) m/uL Hgb (11.4-16.0) gm/dL Hct (34.0-46.0) % MCH (27.0-32.0) pg MCHC (32.0-37.0) g/dL RDW (11.5-15.5) % Plt Count (150-450) k/uL Immature Gran # (0.00-0.04) X 10*3/uL ESR (0-30) mm/Hr Chloride (98-107) mmol/L Carbon Dioxide 15.8 L (22-30) mmol/L Anion Gap 14.20 H (4.00-12.00) mmol/L BUN (7-17) mg/dL BUN/Creatinine Ratio 23.56 H (12.00-20.00) Ratio Calcium 8.0 L (8.7-10.3) mg/dL Total Bilirubin 0.2 L (0.3-1.2) mg/dL ALT 7 L (8-44) U/L C-Reactive Protein (<1.0) mg/dL Total Protein 6.1 L (6.2-8.2) g/dL Albumin 3.0 L (3.8-4.9) g/dL Albumin/Globulin Ratio 0.97 L (1.60-3.17) Ratio Assessment and Plan (1) Cellulitis of right wrist Status: Acute Code(s): L03.113 - CELLULITIS OF RIGHT UPPER LIMB SNOMED Code(s): 64196729033925126 Plan: 1patient presented to hospital with right hand swelling and redness in this patient who did have abnormal MRI with some fluid collection concerning for possible tendinitis/cellulitis likely from gram-positive skin nikos 2-patient also mentioning that there was aspiration of fluid from the left hip area and apparently was positive however that information is not available in the system 3-we will try to pain culture from the left hip area from the orthopedic associate 4-await Ortho evaluation of the right wrist to see if fluid could be aspirated for culture 5-for now continue with vancomycin pharmacy to dose watching kidney function closely Daughter at the bedside question answered We will follow on clinical condition and cultures to further adjust medication if needed Thank you for this consultation we will follow the patient along with you Dictation was produced using [employer] dictation software. please excuse any grammatical, word or spelling errors. Time with Patient: Greater than 30
[2024-08-11] MEDS: ONDANSETRON 4 MG/2 ML VIAL IVP PRN (23:12)
[2024-08-11] MEDS: VANCOMYCIN 1,000 MG in SODIUM CHLORIDE 0.9% 250 ML IVPB SCH (23:13)
[2024-08-12 06:10] LABS: African American GFR (CKD) 87 (>60 ml/min/1.73 sqM); Anion Gap 7 mmol/L; Blood Urea Nitrogen 18 mg/dL (7-17); Calcium 8.1 mg/dL (8.4-10.2); Carbon Dioxide 21 mmol/L (22-30); Chloride 111 mmol/L (98-107); Glucose 96 mg/dL (74-99); Non-African American GFR(CKD) 76 (>60 ml/min/1.73 sqM); Potassium 3.6 mmol/L (3.5-5.1); Sodium 139 mmol/L (137-145)
[2024-08-12] MEDS: PANTOPRAZOLE 40 MG TABLET PO SCH (06:52)
[2024-08-12 08:22] VITALS: BP 122/67; PULSE 66; RESP 19; TEMP 97.5
[2024-08-12 08:36] LABS: Basophils # (A) 0.12 X 10*3/uL (0.00-0.10); Basophils % (A) 1.9 %; Eosinophils # (A) 0.27 X 10*3/uL (0.04-0.35); Eosinophils % (A) 4.3 %; HGB 8.1 g/dL (12.0-15.0); Lymphocytes # (A) 1.59 X 10*3/uL (0.90-5.00); Lymphocytes % (A) 25.6 %; MCH 25.1 pg (27.0-32.0); MCV 83.6 FL (80.0-97.0); Mean Platelet Volume 9.2 FL (9.5-12.2); Monocytes # (A) 0.74 X 10*3/uL (0.20-1.00); Monocytes % (A) 11.9 %; NRBC Per 100 WBC 0 X 10*3/uL (0.00-0.01); Neutrophils # (A) 3.43 X 10*3/uL (1.80-7.70); Neutrophils % (A) 55.2 %; Platelet Count 117 X 10*3/uL (140-440); RBC 3.23 X 10*6/uL (4.10-5.20); RDW 16.6 % (11.5-14.5); WBC 6.22 X 10*3/uL (4.50-10.00)
--- NOTE | 2024-08-12 09:09 | P.PN ---
Subjective Progress Note Date: 08/12/24 Principal diagnosis: Right hand cellulitis. This is an 78-year-old female who was admitted with right hand cellulitis. Patient is significantly improved today. She is no new complaints or concerns. She did have some nausea last evening which she attributed to taking medication on empty stomach. She has been afebrile. Objective - Vital Signs Vital signs: Vital Signs Temp 97.5 F L 08/12/24 07:00 Pulse 66 08/12/24 07:00 Resp 19 08/12/24 07:00 BP 122/67 08/12/24 07:00 Pulse Ox 93 L 08/12/24 07:00 FiO2 Intake & Output 08/11/24 08/12/24 08/12/24 18:59 06:59 18:59 Intake Total 118 Balance 118 Weight 51.256 kg Intake: Oral 118 Other: # Voids 2 1 - Exam Exam of the right hand reveals significant improvement in her swelling. There is no erythema or ecchymosis. She has fairly good wrist motion. She has some stiffness to her fingers with flexion. She is able to passively bring her fingers down with full fist. Neurovascular status to the upper extremity is intact. Exam of her hip is unremarkable. Incision is well-healed. There is no erythema or swelling. - Labs CBC & Chem 7: 08/12/24 04:55 08/12/24 04:55 Labs: Abnormal Lab Results - Last 24 Hours (Table) 08/11/24 08/11/24 08/12/24 Range/Units 05:34 05:34 04:55 RBC 3.24 L (4.10-5.20) X 10*6/uL Hgb 8.0 L (12.0-15.0) g/dL Hct 27.8 L (37.2-46.3) % MCH 24.7 L (27.0-32.0) pg MCHC 28.8 L (32.0-37.0) g/dL RDW 16.7 H (11.5-14.5) % Plt Count 124 L (140-440) X 10*3/uL MPV (9.5-12.2) FL Immature Gran # 0.09 H (0.00-0.04) X 10*3/uL Basophils # (0.00-0.10) X 10*3/uL Chloride 111 H (98-107) mmol/L Carbon Dioxide 15.8 L 21 L (21.6-31.8) mmol/L Anion Gap 14.20 H (4.00-12.00) mmol/L BUN 18 H (7-17) mg/dL BUN/Creatinine Ratio 23.56 H (12.00-20.00) Ratio Calcium 8.0 L 8.1 L (8.7-10.3) mg/dL Total Bilirubin 0.2 L (0.3-1.2) mg/dL ALT 7 L (8-44) U/L Total Protein 6.1 L (6.2-8.2) g/dL Albumin 3.0 L (3.8-4.9) g/dL Albumin/Globulin Ratio 0.97 L (1.60-3.17) Ratio 08/12/24 Range/Units 04:55 RBC 3.23 L (4.10-5.20) X 10*6/uL Hgb 8.1 L (12.0-15.0) g/dL Hct 27.0 L (37.2-46.3) % MCH 25.1 L (27.0-32.0) pg MCHC 30.0 L (32.0-37.0) g/dL RDW 16.6 H (11.5-14.5) % Plt Count 117 L (140-440) X 10*3/uL MPV 9.2 L (9.5-12.2) FL Immature Gran # 0.07 H (0.00-0.04) X 10*3/uL Basophils # 0.12 H (0.00-0.10) X 10*3/uL Chloride (98-107) mmol/L Carbon Dioxide (21.6-31.8) mmol/L Anion Gap (4.00-12.00) mmol/L BUN (7-17) mg/dL BUN/Creatinine Ratio (12.00-20.00) Ratio Calcium (8.7-10.3) mg/dL Total Bilirubin (0.3-1.2) mg/dL ALT (8-44) U/L Total Protein (6.2-8.2) g/dL Albumin (3.8-4.9) g/dL Albumin/Globulin Ratio (1.60-3.17) Ratio Microbiology - Last 24 Hours (Table) 08/10/24 16:53 Blood Culture - Preliminary Blood Assessment and Plan (1) Status post incision and drainage Current Visit: Yes Status: Acute Code(s): Z98.890 - OTHER SPECIFIED POSTPROCEDURAL STATES SNOMED Code(s): 007208971 (2) Cellulitis of right wrist Current Visit: Yes Status: Acute Code(s): L03.113 - CELLULITIS OF RIGHT UPPER LIMB SNOMED Code(s): 82230118799751035 Plan: The clinical and radiographic findings are discussed with the patient. She may be discharged to home today on oral antibiotics as previously prescribed. She is to follow-up as scheduled next Friday.
--- NOTE | 2024-08-12 14:35 | P.PN ---
Subjective Progress Note Date: 08/12/24 Principal diagnosis: Reason for follow-up is right hand cellulitis Patient is a 78-year-old female with a past medical history significant for hypertension sleep apnea history of skin cancer joint replacement presenting to the hospital for evaluation of right hand pain and swelling patient has been diagnosed with possible cellulitis due to the vancomycin patient apparently also getting treatment for right hip infection with oral cefadroxil per her orthopedist. On today's evaluation that is 08/12/2024,the patient remains to be afebrile, patient is on room air not requiring supplemental oxygen and denies any shortness of breath no chest pain or cough.Patient denies having any nausea or vomiting, no abdominal pain and no diarrhea patient right hand pain and swelling has improved and no drainage. Patient white count 6.22 creatinine 0.75 high Objective - Vital Signs Vital signs: Vital Signs Temp 97.5 F L 08/12/24 07:00 Pulse 66 08/12/24 07:00 Resp 19 08/12/24 07:00 BP 122/67 08/12/24 07:00 Pulse Ox 93 L 08/12/24 07:00 FiO2 Intake & Output 08/11/24 08/12/24 08/12/24 18:59 06:59 18:59 Intake Total 118 Balance 118 Weight 51.256 kg Intake: Oral 118 Other: # Voids 2 1 - Exam GENERAL DESCRIPTION: An elderly female up in the room in no distress RESPIRATORY SYSTEM: Unlabored breathing , decreased breath sounds at bases HEART: S1 S2 regular rate and rhythm , ABDOMEN: Soft , no tenderness EXTREMITIES: Right hand swelling redness and tenderness has decreased - Labs CBC & Chem 7: 08/12/24 04:55 08/12/24 04:55 Labs: Abnormal Lab Results - Last 24 Hours (Table) 08/12/24 08/12/24 Range/Units 04:55 04:55 RBC 3.23 L (4.10-5.20) X 10*6/uL Hgb 8.1 L (12.0-15.0) g/dL Hct 27.0 L (37.2-46.3) % MCH 25.1 L (27.0-32.0) pg MCHC 30.0 L (32.0-37.0) g/dL RDW 16.6 H (11.5-14.5) % Plt Count 117 L (140-440) X 10*3/uL MPV 9.2 L (9.5-12.2) FL Immature Gran # 0.07 H (0.00-0.04) X 10*3/uL Basophils # 0.12 H (0.00-0.10) X 10*3/uL Chloride 111 H (98-107) mmol/L Carbon Dioxide 21 L (22-30) mmol/L BUN 18 H (7-17) mg/dL Calcium 8.1 L (8.4-10.2) mg/dL Microbiology - Last 24 Hours (Table) 08/10/24 16:53 Blood Culture - Preliminary Blood Assessment and Plan (1) Cellulitis of right wrist Status: Acute Code(s): L03.113 - CELLULITIS OF RIGHT UPPER LIMB SNOMED Code(s): 84210353243826673 Plan: 1patient presented to hospital with right hand swelling and redness in this patient who did have abnormal MRI with some fluid collection concerning for possible tendinitis/cellulitis likely from gram-positive skin nikos 2-patient also mentioning that there was aspiration of fluid from the left hip area and apparently was positive culture has been obtained from orthopedic office and is growing cutibacterium with the patient being treated with oral cefadroxil by her orthopedics surgeon 3-patient mention improvement on the right hand swelling cellulitis with vancomycin will consider 5-day course of oral doxycycline on discharge discussed with the SPACE SCIENCES DIRECTOR for admitting team working on discharge Dictation was produced using [employer] dictation software. please excuse any gra mmatical, word or spelling errors. Time with Patient: Less than 30
[2024-08-12] MEDS ORDERED: VANCOMYCIN 1,000 MG in SODIUM CHLORIDE 0.9% 250 ML IVPB SCH (16:00)
[2024-08-13] MEDS ORDERED: VANCOMYCIN TROUGH DUE 1 EACH MISC MISCELLANE ONE (09:00)
--- NOTE | 2024-08-13 13:38 | P.DS ---
Providers Date of admission: 08/10/24 18:00 Expected date of discharge: 08/12/24 Attending physician: Rahul Burnette Consults: 08/11/24 10:11 Consult Physician Routine Consulting Provider: Rishi Sanderson Consult Reason/Comments: Tendonitis Do you want consulting provider notified?: Yes Consult Physician Routine Consulting Provider: Corey Sanz Consult Reason/Comments: Right hand cellulitis Do you want consulting provider notified?: Yes Primary care physician: Jeferson Gonzalez Hospital Course: Final diagnosis Hand edema and swelling with underlying cellulitis of the right hand failed outpatient therapy Hypertension Sleep apnea history History of throat cancer with radiation with dysphagia GI prophylaxis DVT prophylaxis Full code Discharge disposition Patient is being discharged in a stable condition with guarded prognosis to home. Patient will follow-up with Dr. Gonzalez in the outpatient setting upon discharge. Patient is to continue with current medications and antibiotics per ID recommendations as well as orthopedic recommendations and outpatient follow- up with orthopedics Dr. Sanderson as scheduled. Total time taken is greater than 35 minutes. Hospital course This is a 78-year-old female who was recently admitted with right hand swelling and concerns of possible underlying cellulitis with failure of outpatient treatment. Patient was continued on IV antibiotic therapy evaluated by infectious disease along with orthopedics showing significant improvement and reports no further pain and would like to go home. Patient was reevaluated by orthopedics recommending to continue with current regimen and outpatient follow- up. Patient will continue on doxycycline twice daily for 5 days per ID. Patient also continued on antibiotics per orthopedics for an ongoing outpatient follow-up. Patient to follow-up with orthopedics as well as infectious disease in the clinic. Patient has been cleared by consultations. Please refer to consultation notes for further HPI. Currently no reports of chest pain, shortness of breath, or palpitations. Patient is afebrile. No reports of nausea or vomiting and patient is tolerating diet. Patient will be discharged home today. Physical exam: Gen: This is a 78-year-old female who is awake, alert and oriented x 3, well- developed, elderly appearing, thin built HEENT: Head is atraumatic, normocephalic. Pupils equal, round. Sclerae is anicteric. NECK: Supple. No JVD. No lymphadenopathy. No thyromegaly. LUNGS: Clear to auscultation. No wheezes or rhonchi. No intercostal retractions. HEART: Regular rate and rhythm. No murmur. ABDOMEN: Soft. Bowel sounds are present. No masses. No tenderness. EXTREMITIES: No pedal edema. No calf tenderness. Right hand swelling significantly improved with no redness or drainage noted NEUROLOGICAL: Patient is awake, alert and oriented x3. Cranial nerves 2 through 12 are grossly intact. Please refer to medication reconciliation sheet for a list of medications. The impression and plan of care has been dictated by Madelyn Cummings, Nurse Practitioner as directed. Dr. Gary MD I have performed a history and examination and MDM of this patient, discussed the same with the dictator, and agree with the dictator's assessment and plan as written ,documented as a scribe. Based on total visit time, I have performed more than 50% of the visit. Patient Condition at Discharge: Fair Plan - Discharge Summary New Discharge Prescriptions: New Fluconazole [Diflucan] 150 mg PO WEEKLY #20 tab cefaDROXiL [Duricef] 500 mg PO Q12HR 84 Days #168 cap Acetaminophen Tab [Tylenol] 650 mg PO Q6HR PRN tab PRN Reason: Mild Pain Or Fever > 100.5 Doxycycline [Vibramycin] 100 mg PO BID 5 Days #10 cap Continue rOPINIRole HCL [Requip] 3 mg PO HS Mirtazapine 45 mg PO HS Citalopram Hydrobromide [Citalopram HBr] 40 mg PO HS Gabapentin [Neurontin] 600 mg PO HS Gabapentin [Neurontin] 300 mg PO BID@0800,1200 Sennosides [Senokot] 17.2 mg PO HS PRN PRN Reason: Constipation HYDROcodone/APAP 5-325MG [[place] 5-325] 1 tab PO Q6HR PRN PRN Reason: Pain carvediloL [Coreg] 12.5 mg PO BID Ondansetron Odt [Zofran ODT] 4 mg PO Q8HR PRN PRN Reason: Nausea And Vomiting hydroCHLOROthiazide [Hydrodiuril] 25 mg PO BID PRN PRN Reason: Edema LORazepam [Ativan] 1 mg PO Q8H PRN PRN Reason: Anxiety Levothyroxine Sodium [Synthroid] 75 mcg PO DAILY Discontinued cefaDROXiL [Duricef] 500 mg PO Q12HR Discharge Medication List Citalopram Hydrobromide [Citalopram HBr] 40 mg PO HS 02/25/20 [History] Gabapentin [Neurontin] 300 mg PO BID@0800,1200 02/25/20 [History] Gabapentin [Neurontin] 600 mg PO HS 02/25/20 [History] Mirtazapine 45 mg PO HS 02/25/20 [History] rOPINIRole HCL [Requip] 3 mg PO HS 02/25/20 [History] Levothyroxine Sodium [Synthroid] 75 mcg PO DAILY 09/10/21 [History] HYDROcodone/APAP 5-325MG [[place] 5-325] 1 tab PO Q6HR PRN 08/10/24 [History] LORazepam [Ativan] 1 mg PO Q8H PRN 08/10/24 [History] Ondansetron Odt [Zofran ODT] 4 mg PO Q8HR PRN 08/10/24 [History] Sennosides [Senokot] 17.2 mg PO HS PRN 08/10/24 [History] carvediloL [Coreg] 12.5 mg PO BID 08/10/24 [History] hydroCHLOROthiazide [Hydrodiuril] 25 mg PO BID PRN 08/10/24 [History] Acetaminophen Tab [Tylenol] 650 mg PO Q6HR PRN tab 08/12/24 [Rx] Doxycycline [Vibramycin] 100 mg PO BID 5 Days #10 cap 08/12/24 [Rx] Fluconazole [Diflucan] 150 mg PO WEEKLY #20 tab 08/12/24 [Rx] cefaDROXiL [Duricef] 500 mg PO Q12HR 84 Days #168 cap 08/12/24 [Rx] Follow up Appointment(s)/Referral(s): Jeferson Gonzalez MD [Primary Care Provider] - 1-2 days Rishi Sanderson MD [STAFF PHYSICIAN] - 08/16/24 10:30 am Corey Sanz MD [STAFF PHYSICIAN] - 1 Week Patient Instructions/Handouts: Cellulitis (ED) Activity/Diet/Wound Care/Special Instructions: Continue to elevate the right upper extremity. Progress with range of motion of the fingers and wrist. Continue on the oral antibiotic for 5 days Follow-up with orthopedics outpatient Follow-up with infectious disease outpatient Follow-up with primary care provider on discharge Discharge Disposition: HOME SELF-CARE
== END 2024-08-12 14:07 | disposition home or self-care (01) ==
LOC: EC 13:54 → 6NMEDSUR 18:00
PROVIDERS: ADMIT Hospitalist; ATTEND Hospitalist
DX: L03.113 Cellulitis of right upper limb (principal); I10 Essential (primary) hypertension; G47.30 Sleep apnea, unspecified; R13.19 Other dysphagia; Z79.890 Hormone replacement therapy; Z79.899 Other long term (current) drug therapy; Z85.828 Personal history of other malignant neoplasm of skin; Z85.819 Personal history of malignant neoplasm of unspecified site of lip, oral cavity, and pharynx; Z92.3 Personal history of irradiation; Z96.642 Presence of left artificial hip joint; Z98.890 Other specified postprocedural states
CPT/HCPCS: 96361; 96366 ×4; 96375 ×2; 96368; 96365; 99284; 36415; 80053 ×2; 80048; 85652; 83605; 83735; 84100; 85025 ×3; 86140; 87040; 73130; 73223; G0378 ×3; J3370 ×2; J2270; J2405; J0295; A9585

== ENCOUNTER → 2024-11-10 | Outpatient (CLI) | payer MEDICARE, BC ==
[2024-11-10 11:54] VITALS: BP 154/69; PULSE 74; RESP 16; TEMP 98.1
--- NOTE | 2024-11-10 12:10 | P.PROGSL ---
Subjective DATE: 11/10/2024 FOLLOW UP VISIT. Patient with obstructive sleep apnea hypopnea syndrome return to sleep center for follow-up visit. Information from previous visit have been reviewed. Patient is using PAP equipment every night for the whole night, getting PAP supplies in time. The patient does not have significant problems with the mask, PAP unit and humidification. [place] sleepiness scale is 2, which is perfect. I checked information from PAP unit. PAP unit pressure 5-18, average 14.7 cm H2O. Usage is 70% for more then 4 hours, average 5.5 hours per night. Leak is 10 l/m, which is in acceptable range. Apnea Hypopnea Index is 2.6, which is normal. MEDICATIONS have been reviewed, please see below. During physical exam: GENERAL: A pleasant patient without any distress. VITAL SIGNS: Please see below, weight is 118 lbs. HEENT: PERRLA, EOMI.low position of soft palate, [place] 3. NECK: Supple. No JVD. LUNGS: Clear to percussion and to auscultation. Good air exchange. No wheezing or rhonchi. HEART: S1, S2 regular. ABDOMEN: Soft and nontender.[] EXTREMITIES: No clubbing or cyanosis. [employer] MANAGER: Awake, alert, and oriented x3. No focal deficit. Impressions: 1. Obstructive sleep apnea-hypopnea syndrome. Patient demonstrated borderline compliance with treatment, benefiting from treatment. 2. History of throat cancer status post radiation treatment and chemotherapy. 3. Hypertension. 4. History of anxiety. 5. Hypothyroidism. 6. History of restless leg syndrome. Plan: 1. Continue using PAP equipment every night for the whole night. 2. Sleep hygiene with regular time in bed for at least 7.5-8 hours 3. PAP unit should stay lower then position of the head. 4. Advised patient to remove all remaining water from humidifier canister daily and make it dry after each usage. Refill canister with fresh distilled water before each usage. 5. Watching weight. 6. Precautions related to driving. No driving if feel any sleepiness. 7. I will maintain prescription for PAP supplies including mask, tube, filters. 8. Follow up visit in 8 months or earlier if patient has any problems. Thank you very much for allowing me to participate in the management of your patient. Mehran Walsh MD, PhD, FAASM. Diplomat of [place] [employer], Sleep Medicine Board by [place] [employer] [facility] [place] Objective - Vital Signs Vital Signs: Vital Signs Temp 98.1 F 11/10/24 11:53 Pulse 74 11/10/24 11:53 Resp 16 11/10/24 11:53 BP 154/69 11/10/24 11:53 Pulse Ox 96 11/10/24 11:53 FiO2 Home Medications: Home Medications Medication Instructions Recorded Confirmed Type Citalopram Hydrobromide 40 mg PO HS 02/25/20 08/10/24 History [Citalopram HBr] Gabapentin [Neurontin] 300 mg PO BID@0800,1200 02/25/20 11/10/24 History Gabapentin [Neurontin] 600 mg PO HS 02/25/20 08/10/24 History Mirtazapine 45 mg PO HS 02/25/20 08/10/24 History rOPINIRole HCL [Requip] 3 mg PO HS 02/25/20 11/10/24 History Levothyroxine Sodium [Synthroid] 75 mcg PO DAILY 09/10/21 11/10/24 History HYDROcodone/APAP 5-325MG [[place] 1 tab PO Q6HR PRN 08/10/24 08/10/24 History 5-325] LORazepam [Ativan] 1 mg PO Q8H PRN 08/10/24 11/10/24 History Ondansetron Odt [Zofran ODT] 4 mg PO Q8HR PRN 08/10/24 11/10/24 History Sennosides [Senokot] 17.2 mg PO HS PRN 08/10/24 08/10/24 History carvediloL [Coreg] 12.5 mg PO BID 08/10/24 11/10/24 History hydroCHLOROthiazide [Hydrodiuril] 25 mg PO BID PRN 08/10/24 11/10/24 History Acetaminophen Tab [Tylenol] 650 mg PO Q6HR PRN tab 08/12/24 Rx Doxycycline [Vibramycin] 100 mg PO BID 5 Days #10 cap 08/12/24 Rx Fluconazole [Diflucan] 150 mg PO WEEKLY #20 tab 08/12/24 Rx cefaDROXiL [Duricef] 500 mg PO Q12HR 84 Days #168 cap 08/12/24 Rx Mirtazapine [Remeron] 45 mg PO DAILY 11/10/24 11/10/24 History carvediloL [Coreg*] 11/10/24 History
== END ==
LOC: 3 N SLEEP 11:32
PROVIDERS: ATTEND Internal Medicine
DX: G47.33 Obstructive sleep apnea (adult) (pediatric) (principal); I10 Essential (primary) hypertension; Z85.818 Personal history of malignant neoplasm of other sites of lip, oral cavity, and pharynx; Z92.21 Personal history of antineoplastic chemotherapy; Z86.59 Personal history of other mental and behavioral disorders; Z92.3 Personal history of irradiation; E03.9 Hypothyroidism, unspecified
CPT/HCPCS: 99212

== ENCOUNTER → 2025-03-14 | Outpatient (CLI) | payer MEDICARE, BC ==
--- NOTE | 2025-03-14 15:43 | US ---
EXAMINATION TYPE: US venous doppler duplex LE LT DATE OF EXAM: 03/14/2025 3:28 PM COMPARISON: US 06/17/2024 CLINICAL INDICATION: Female, 79 years old with history of I80.9 PHLEBITIS AND THROMBOPHLEBITIS OF UNS PECIFIE; Left leg swelling and pain. No history of DVT, Pain TECHNIQUE: The lower extremity deep venous system is examined utilizing real time linear array sonog enrike with graded compression, color doppler sonography, and spectral doppler. SIDE PERFORMED: Left FINDINGS: VESSELS IMAGED: Common Femoral Vein Deep Femoral Vein Greater Saphenous Vein * Femoral Vein Popliteal Vein Small Saphenous Vein * Proximal Calf Veins Posterior tibial vein (* superficial vessels) Left Leg: Negative for DVT, Color Doppler imaging shows patency of the vessels. Spectral waveforms a re within normal limits. IMPRESSION: No evidence for DVT within the left lower extremity. [facility], , 03/14/2025 3:41 PM
== END | disposition home or self-care (01) ==
LOC: RADUSWWP 15:01
PROVIDERS: ATTEND Orthopaedic Surgery
DX: I80.9 Phlebitis and thrombophlebitis of unspecified site (principal)

== ENCOUNTER 2025-03-15 13:38 | Inpatient (IN) | payer MEDICARE, BC ==
[~2025-03-15 13:38] MED LIST changes: -DEXAMETHASONE SOD PHOSPHATE 10 MG/ML 1 ML VIAL IV ONE; -LACTATED RINGERS 1,000 ML IV ONE; -LACTATED RINGERS 1,000 ML IV SCH; -LIDOCAINE 1% (10MG/ML) FOR IV START INTRADERMA PRN; -LIDOCAINE 1% INJ 10MG/ML (20 ML MDV) ONE; -MIDAZOLAM 2 MG/2 ML VIAL IV PRN; -MIDAZOLAM 2 MG/2 ML VIAL ONE; -PROPOFOL 10 MG/ML 20 ML VIAL IV ONE; -Pre Op ABX Message 1 EACH MISC MISCELLANE ONE; -SUCCINYLCHOLINE CHLORIDE 100 MG/5 ML SYR IV ONE; -fentaNYL (PF) 50 MCG/ML 2 ML AMP ONE
[2025-03-15] MEDS: ONDANSETRON 4 MG/2 ML VIAL IVP ONE (14:23)
[2025-03-15] MEDS: HEPARIN SODIUM,PORCINE 5,000 UNIT/ML 1 ML VIAL SQ PRN (14:23)
[2025-03-15] MEDS: DEXAMETHASONE SOD PHOSPHATE 4 MG/ML 1 ML VIAL IV ONE (14:23)
[2025-03-15] MEDS: ACETAMINOPHEN TAB 500 MG TAB PO PRN (14:24)
[2025-03-15] MEDS: LACTATED RINGERS 1,000 ML IV SCH ×2 (14:25→19:05)
[2025-03-15 14:29] LABS: HCT 22.4 % (37.2-46.3); Immature Platelet Fraction 4.9 % (1.1-6.1); MCH 22.1 pg (27.0-32.0); MCHC 29.5 g/dL (32.0-37.0); MCV 75.2 fL (80.0-97.0); RBC 2.98 10*6/uL (4.10-5.20); RDW 19.3 % (11.5-14.5); WBC 17.78 10*3/uL (4.50-10.00)
--- NOTE | 2025-03-15 14:38 | P.GSHP ---
History of Present Illness H&P Date: 03/15/25 Chief Complaint: Leukemia 79-year-old female here today for Port-A-Cath placement. Patient with history of previous head and neck cancer. Now recently with CML diagnosis. She is going through chemotherapy currently. Needs a port for continuation of chemotherapy given poor IV access. She had a previous port and she was unaware of which side it was on previously. Past Medical History Past Medical History: Cancer, Hypertension, Osteoarthritis (OA), Pneumonia, Skin Disorder, Sleep Apnea/CPAP/BIPAP Additional Past Medical History / Comment(s): 2007-bowel obstruction, diverticulitis, eczema, hx skin cancer. Throat cancer, difficulty with swallowing since then in 2019, hx. pneumonia couple months ago, new dx. leukemia per pt.-current chemo, has had low platelets in past per pt., hasn't been using CPAP History of Any Multi-Drug Resistant Organisms: MRSA Date of last positivie culture/infection: 2007 MDRO Source:: abdomen Past Surgical History: Bowel Resection, Hysterectomy, Joint Replacement, Orthopedic Surgery, Tonsillectomy Additional Past Surgical History / Comment(s): surgery for bowel obstructions/removal of adhesions, xiao oophorectomy, cervical discectomy, left hip replacement, right knee replaced, left knee arthroscopy, xiao cataracts, right port inserted & then removal Past Anesthesia/Blood Transfusion Reactions: No Reported Reaction Additional Past Anesthesia/Blood Transfusion Reaction / Comment(s): no hx. of transfusion reactions Smoking Status: Never smoker - Past Family History Mother Family Medical History: No Reported History Medications and Allergies Home Medications Medication Instructions Recorded Confirmed Type Gabapentin [Neurontin] 300 mg PO BID@0800,1200 02/25/20 03/14/25 History Gabapentin [Neurontin] 600 mg PO HS 02/25/20 03/14/25 History Mirtazapine 45 mg PO HS 02/25/20 03/14/25 History rOPINIRole HCL [Requip] 3 mg PO HS 02/25/20 03/14/25 History Levothyroxine Sodium [Synthroid] 75 mcg PO DAILY 09/10/21 03/14/25 History LORazepam [Ativan] 1 mg PO Q8H PRN 08/10/24 03/14/25 History Ondansetron Odt [Zofran ODT] 4 mg PO Q8HR PRN 08/10/24 03/14/25 History Sennosides [Senokot] 17.2 mg PO HS PRN 08/10/24 03/14/25 History carvediloL [Coreg] 12.5 mg PO BID 08/10/24 03/14/25 History hydroCHLOROthiazide [Hydrodiuril] 25 mg PO BID PRN 08/10/24 03/14/25 History Acetaminophen Tab [Tylenol] 650 mg PO Q6HR PRN tab 08/12/24 03/14/25 Rx Citalopram Hydrobromide [CeleXA] 40 mg PO HS 03/14/25 03/14/25 History Allergies Allergy/AdvReac Type Severity Reaction Status Date / Time No Known Allergies Allergy Verified 03/15/25 13:57 Surgical - Exam Vital Signs Temp Pulse Resp BP Pulse Ox 100.0 F H 77 18 139/55 95 03/15/25 14:06 03/15/25 14:06 03/15/25 14:06 03/15/25 14:06 03/15/25 14:06 Physical exam: General: Well-developed, well-nourished HEENT: Normocephalic, sclerae nonicteric Abdomen: Nontender, nondistended Extremities: No edema Neuro: Alert and oriented Assessment and Plan (1) Leukemia Narrative/Plan: Will proceed with Port-A-Cath placement at this time. Risks of bleeding, infection, DVT, pneumothorax, catheter malfunction, anesthesia related complications were discussed. The patient understands and wishes to proceed. Current Visit: Yes Status: Acute Code(s): C95.90 - LEUKEMIA, UNSPECIFIED NOT HAVING ACHIEVED REMISSION SNOMED Code(s): 74549461
[2025-03-15] MEDS: IV FLUID CONTINUATION 1,000 ML IV ONE (14:42)
[2025-03-15] MEDS ORDERED: LIDOCAINE 1% INJ 10MG/ML (20 ML MDV) ONE (14:43)
[2025-03-15] MEDS ORDERED: MIDAZOLAM 2 MG/2 ML VIAL ONE (14:43)
[2025-03-15] MEDS ORDERED: fentaNYL (PF) 50 MCG/ML 2 ML AMP ONE (14:43)
[2025-03-15] MEDS ORDERED: PHENYLEPHRINE 10 MG/ML VIAL ONE (14:43)
[2025-03-15] MEDS ORDERED: PROPOFOL 10 MG/ML 20 ML VIAL IV ONE (14:43)
[2025-03-15] MEDS ORDERED: ePHEDrine 50 MG/ML 1 ML VIAL ONE (14:43)
[2025-03-15] MEDS: BUPIVACAINE (PF) 0.25% 30 ML VIAL SQ ONE ×4 (14:46→15:32)
[2025-03-15 14:55] LABS: HGB 6.6 g/dL (12.0-15.0)
[2025-03-15 15:01] LABS: Platelet Count 11 10*3/uL (140-440)
[2025-03-15] MEDS: IPRATROPIUM-ALBUTEROL 3 ML NEB INHALATION STA (16:09)
[2025-03-15] MEDS: RACEPINEPHRINE 2.25% NEB 0.5 ML NEBU INHALATION STA (16:10)
--- NOTE | 2025-03-15 16:14 | P.OP ---
Date of Procedure: 03/15/25 Procedure(s) Performed: PREOPERATIVE DIAGNOSIS: Leukemia POSTOPERATIVE DIAGNOSIS: Same PROCEDURE: Port-A-Cath placement with fluoroscopic and ultrasound guidance SURGEON: Mary EBL: 10 cc ANESTHESIA: General COMPLICATIONS: None OPERATIVE PROCEDURE: Patient was brought and placed on the operative table in th e supine position. The patient was placed under general anesthesia at that time. The chest and neck were prepped and draped in usual sterile fashion. The ultrasound probe was used to identify the location of the right internal jugular vein. The skin was localized with lidocaine. The Seldinger needle was advanced into the IJ under ultrasound guidance. The wire was advanced through the needle under fluoroscopic guidance into the superior vena cava. A port pocket was created in the right infraclavicular location. The catheter was tunneled from the wire entrance site to the port pocket. The port was then connected to the catheter. The dilator introducer was threaded over the guidewire. The guidewire and dilator were then removed. The catheter was advanced through the introducer and introducer was then removed. The tip was seen to be in the right atrial junction via fluoroscopy. A picture of the radiograph showing the tip of the catheter was taken. Port was flushed with both saline and a Hep-Lock solution. There was good flow both in and out of the port. The port was sutured in underlying tissues using 3-0 silk sutures. The subcutaneous tissues were reapproximated using 3-0 Vicryl sutures and the skin at both locations using 4-0 Monocryl sutures. Skin glue and sterile dressings then applied. DISPOSITION: Stable to recovery room
--- NOTE | 2025-03-15 16:28 | XR ---
EXAMINATION TYPE: XR chest 1V portable DATE OF EXAM: 03/15/2025 4:18 PM COMPARISON: 02/14/2023 CLINICAL INDICATION: Female, 79 years old with history of medi port, , FINDINGS: Right anterior chest wall injection port with catheter tip at the lower SVC level. Heart mildly enlar ged. Diffuse interstitial opacities have worsened from 2022. No sizable pleural effusion on the front al view. ACDF hardware. No appreciable pneumothorax. IMPRESSION: COPD with cardiomegaly and diffuse interstitial opacities. Correlate for CHF with pulmonary vascular congestion. [facility], , 03/15/2025 4:26 PM
[2025-03-15] MEDS: Pre Op ABX Message 1 EACH MISC MISCELLANE ONE (19:05)
[2025-03-15] MEDS ORDERED: ACETAMINOPHEN TAB 325 MG TAB PO PRN (19:14)
[2025-03-15] MEDS ORDERED: HYDROmorphone 0.5 MG/0.5 ML SYRINGE IVP PRN (19:15)
[2025-03-15] MEDS ORDERED: ONDANSETRON 4 MG/2 ML VIAL IVP PRN (19:16)
[2025-03-15] MEDS ORDERED: traMADol 50 MG TAB PO PRN (19:23)
[2025-03-15] MEDS: MIRTAZAPINE 45 MG TABLET PO SCH (20:55)
[2025-03-15] MEDS: GABAPENTIN 300 MG CAP PO SCH (20:55)
[2025-03-15] MEDS: CITALOPRAM HYDROBROMIDE 20 MG TAB PO SCH (20:55)
--- NOTE | 2025-03-15 21:54 | FL ---
EXAMINATION TYPE: FL guided central line placemt DATE OF EXAM: 03/15/2025 FLUOROSCOPY PORT-A-CATH PLACEMENT FL TIME 6.6 SECONDS, DAP [id number], 1 IMAGE SENT INTO PACS, DR MA [facility], Workstation: [facility], 03/15/2025 9:51 PM
[2025-03-15] MEDS ORDERED: traMADol 50 MG TAB PO SCH (22:00)
[2025-03-16] MEDS: LEVOTHYROXINE 75 MCG TAB PO SCH (06:35)
[2025-03-16 08:01] LABS: ALT 6 U/L (8-44); AST 16 U/L (13-35); Albumin 3.0 g/dL (3.8-4.9); Albumin/Globulin Ratio 0.86 Ratio (1.60-3.17); Alkaline Phosphatase 48 U/L (41-126); Anion Gap 8.30 mmol/L (4.00-12.00); BUN/Creat Ratio 22.45 Ratio (12.00-20.00); Blood Urea Nitrogen 24.7 mg/dL (9.0-27.0); Calcium 7.7 mg/dL (8.7-10.3); Carbon Dioxide 19.7 mmol/L (21.6-31.8); Chloride 105 mmol/L (96-109); Globulin 3.5 g/dL (1.6-3.3); Glucose 167 mg/dL (70-110); Potassium 4.8 mmol/L (3.5-5.5); Sodium 133 mmol/L (135-145); Total Protein 6.5 g/dL (6.2-8.2)
[2025-03-16] MEDS: GABAPENTIN 300 MG CAP PO SCH (08:33)
[2025-03-16 09:26] LABS: HCT 21.5 % (37.2-46.3); Immature Platelet Fraction 1.8 % (1.1-6.1); MCH 21.6 pg (27.0-32.0); MCHC 27.9 g/dL (32.0-37.0); MCV 77.3 FL (80.0-97.0); NRBC Per 100 WBC 0.13 X 10*3/uL (0.00-0.01); RBC 2.78 X 10*6/uL (4.10-5.20); RDW 19.0 % (11.5-14.5); WBC 14.38 X 10*3/uL (4.50-10.00)
[2025-03-16 11:44] VITALS: RESP 16
--- NOTE | 2025-03-16 13:36 | P.HPIM ---
History of Present Illness Patient is an 79-year-old female came in for Chemo-Port placement patient had a port placed with found to have very low hemoglobin of around 6 that failed leukocytosis. Patient does not have any fever, dysuria increased urgency or kamilah quency cough. Patient discussed does not have any evidence of infection at this time. Patient received 2 units of PRBC. Patient platelet count is extremely low. 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 Patient has microcytic anemia I do not have any serum ferritin levels available at this time. REVIEW OF SYSTEMS: All other systems are negative except those mentioned in the HPI PHYSICAL EXAMINATION: GENERAL: The patient is alert and oriented x3, not in any acute distress. Well developed, well nourished. HEENT: Pupils are round and equally reacting to light. EOMI. No scleral icterus. Does have conjunctival pallor. Normocephalic, atraumatic. No pharyngeal erythema. No thyromegaly. CARDIOVASCULAR: S1 and S2 present. No murmurs, rubs, or gallops. PULMONARY: Chest is clear to auscultation, no wheezing or crackles. ABDOMEN: Soft, nontender, nondistended, normoactive bowel sounds. No palpable organomegaly. MUSCULOSKELETAL: No joint swelling or deformity. EXTREMITIES: No cyanosis, clubbing, or pedal edema. NEUROLOGICAL: Gross neurological examination did not reveal any focal deficits. SKIN: No rashes. Labs and imaging data was reviewed by me. Assessment and plan -Severe anemia patient denied any acute bleed, probably secondary to chemotherapy and acute myeloid leukemia patient received PRBC transfusion hematology is following the patient.. Patient will follow-up with hematology for further evaluation of anemia and ferritin levels. - Hypertension patient is on hydrochlorothiazide probably not an ideal choice considering her agend comorbidities - History of esophageal cancer which is in remission - Hypothyroidism - Peripheral neuropathy which patient is on gabapentin which she will she will resume DVT prophylaxis: Past Medical History Past Medical History: Cancer, Hypertension, Osteoarthritis (OA), Pneumonia, Skin Disorder, Sleep Apnea/CPAP/BIPAP Additional Past Medical History / Comment(s): 2007-bowel obstruction, diverticulitis, eczema, hx skin cancer. Throat cancer, difficulty with swallowing since then in 2019, hx. pneumonia couple months ago, new dx. leukemia per pt.-current chemo, has had low platelets in past per pt., hasn't been using CPAP History of Any Multi-Drug Resistant Organisms: MRSA Date of last positivie culture/infection: 2007 MDRO Source:: abdomen Past Surgical History: Bowel Resection, Hysterectomy, Joint Replacement, Orthopedic Surgery, Tonsillectomy Additional Past Surgical History / Comment(s): surgery for bowel obstructions/removal of adhesions, xiao oophorectomy, cervical discectomy, left hip replacement, right knee replaced, left knee arthroscopy, xiao cataracts, right port inserted & then removal Past Anesthesia/Blood Transfusion Reactions: No Reported Reaction Additional Past Anesthesia/Blood Transfusion Reaction / Comment(s): no hx. of transfusion reactions Past Psychological History: No Psychological Hx Reported Smoking Status: Never smoker Past Alcohol Use History: Rare Past Drug Use History: None Reported - Past Family History Mother Family Medical History: No Reported History Medications and Allergies Home Medications Medication Instructions Recorded Confirmed Type Gabapentin [Neurontin] 300 mg PO BID@0800,1200 02/25/20 03/14/25 History Gabapentin [Neurontin] 600 mg PO HS 02/25/20 03/14/25 History Mirtazapine 45 mg PO HS 02/25/20 03/14/25 History rOPINIRole HCL [Requip] 3 mg PO HS 02/25/20 03/14/25 History Levothyroxine Sodium [Synthroid] 75 mcg PO DAILY 09/10/21 03/14/25 History LORazepam [Ativan] 1 mg PO Q8H PRN 08/10/24 03/14/25 History Ondansetron Odt [Zofran ODT] 4 mg PO Q8HR PRN 08/10/24 03/14/25 History Sennosides [Senokot] 17.2 mg PO HS PRN 08/10/24 03/14/25 History carvediloL [Coreg] 12.5 mg PO BID 08/10/24 03/14/25 History hydroCHLOROthiazide [Hydrodiuril] 25 mg PO BID PRN 08/10/24 03/14/25 History Acetaminophen Tab [Tylenol] 650 mg PO Q6HR PRN tab 08/12/24 03/14/25 Rx Citalopram Hydrobromide [CeleXA] 40 mg PO HS 03/14/25 03/14/25 History traMADol HCl [Ultram] 50 mg PO Q6H PRN #6 tab 03/15/25 Rx Allergies Allergy/AdvReac Type Severity Reaction Status Date / Time No Known Allergies Allergy Verified 03/15/25 13:57 Physical Exam Vitals: Vital Signs Temp Pulse Pulse Resp BP BP BP 03/16/25 11:56 97.5 F L 65 16 145/67 03/16/25 11:44 97.5 F L 65 16 144/65 03/16/25 11:36 97.7 F 67 16 144/62 03/16/25 08:05 03/16/25 07:07 97.4 F L 62 18 124/62 03/16/25 01:22 97.7 F 70 16 143/77 03/15/25 19:59 97.8 F 73 18 120/56 03/15/25 18:00 97.8 F 65 16 126/60 03/15/25 17:00 68 18 130/62 03/15/25 16:49 68 12 133/58 03/15/25 16:34 70 12 132/64 03/15/25 16:19 71 12 108/55 03/15/25 16:04 97 F L 72 12 113/83 03/15/25 14:06 100.0 F H 77 18 139/55 Pulse Ox 03/16/25 11:56 95 03/16/25 11:44 95 03/16/25 11:36 95 03/16/25 08:05 99 03/16/25 07:07 99 03/16/25 01:22 99 03/15/25 19:59 97 03/15/25 18:00 96 03/15/25 17:00 03/15/25 16:49 03/15/25 16:34 98 03/15/25 16:19 95 03/15/25 16:04 99 03/15/25 14:06 95 Intake and Output 03/15/25 03/16/25 03/16/25 22:59 06:59 14:59 Intake Total 657 1660 0 Output Total 310 600 Balance 347 1060 0 Intake: IV 400 Oral 1660 Blood Product 257 0 Unit 0 Platelet Pheresis Pas 257 Psoralen Unit [id number] Output: Urine 300 600 Estimated Blood Loss 10 Other: # Voids 1 Weight 55.9 kg Results CBC & Chem 7: 03/16/25 04:22 03/16/25 04:22 Labs: Abnormal Lab Results - Last 24 Hours (Table) 03/15/25 03/15/25 03/16/25 Range/Units 14:18 15:15 04:22 WBC 17.78 H 14.38 H (4.50-10.00) 10*3/uL RBC 2.98 L 2.78 L (4.10-5.20) 10*6/uL Hgb 6.6 L* 6.0 A* (12.0-15.0) g/dL Hct 22.4 L 21.5 L (37.2-46.3) % MCV 75.2 L 77.3 L (80.0-97.0) fL MCH 22.1 L 21.6 L (27.0-32.0) pg MCHC 29.5 L 27.9 L (32.0-37.0) g/dL RDW 19.0 H (11.5-14.5) % Plt Count 11 L* 23 A* (140-440) 10*3/uL NRBC/100 WBC Diff 0.13 H (0.00-0.01) X 10*3/uL Sodium (135-145) mmol/L Carbon Dioxide (21.6-31.8) mmol/L Est GFR (CKD-EPI) (>=60) BUN/Creatinine Ratio (12.00-20.00) Ratio Glucose (70-110) mg/dL Calcium (8.7-10.3) mg/dL ALT (8-44) U/L Albumin (3.8-4.9) g/dL Globulin (1.6-3.3) g/dL Albumin/Globulin Ratio (1.60-3.17) Ratio Crossmatch See Detail 03/16/25 Range/Units 04:22 WBC (4.50-10.00) 10*3/uL RBC (4.10-5.20) 10*6/uL Hgb (12.0-15.0) g/dL Hct (37.2-46.3) % MCV (80.0-97.0) fL MCH (27.0-32.0) pg MCHC (32.0-37.0) g/dL RDW (11.5-14.5) % Plt Count (140-440) 10*3/uL NRBC/100 WBC Diff (0.00-0.01) X 10*3/uL Sodium 133 L (135-145) mmol/L Carbon Dioxide 19.7 L (21.6-31.8) mmol/L Est GFR (CKD-EPI) 50 L (>=60) BUN/Creatinine Ratio 22.45 H (12.00-20.00) Ratio Glucose 167 H (70-110) mg/dL Calcium 7.7 L (8.7-10.3) mg/dL ALT 6 L (8-44) U/L Albumin 3.0 L (3.8-4.9) g/dL Globulin 3.5 H (1.6-3.3) g/dL Albumin/Globulin Ratio 0.86 L (1.60-3.17) Ratio Crossmatch Thrombosis Risk Factor Assmnt - Choose All That Apply Any of the Below Risk Factors Present?: No Other Risk Factors: Yes Each Risk Factor Represents 3 Points: Age 75 years or older Thrombosis Risk Factor Assessment Total Risk Factor Score: 3 Thrombosis Risk Factor Assessment Level: Moderate Risk
--- NOTE | 2025-03-16 14:15 | P.DS ---
Providers Date of admission: 03/15/25 16:13 Expected date of discharge: 03/16/25 Attending physician: Diego Hernandez Consults: 03/15/25 19:13 Consult Physician Routine Consulting Provider: Nahum Zheng Consult Reason/Comments: chemo? Do you want consulting provider notified?: Yes 03/15/25 19:14 Consult Physician Routine Consulting Provider: Jeferson Gonzalez Reason/Comments: medical management Do you want consulting provider notified?: Yes Primary care physician: Jeferson Gonzalez Hospital Course: Discharge diagnosis 1. Chronic myeloid leukemia Hospital course This is a 79-year-old female with recent diagnosis of CML. She is status post Port-A-Cath placement for chemotherapy. Patient was found to be anemic and thrombocytopenic. She has received 1 unit of blood and platelet transfusion. Patient's pain is controlled. She is tolerating diet. She is ambulating. She is afebrile. She has been seen and evaluated by oncology and medical service. They have cleared her for discharge. Patient is stable for discharge. Please refer to chart for any further details. Physician Extracting Machine Operator note has been reviewed by physician. Signing provider agrees with the documented findings, assessment, and plan of care. Patient Condition at Discharge: Stable Plan - Discharge Summary Discharge Rx Participant: Yes New Discharge Prescriptions: New traMADol HCl [Ultram] 50 mg PO Q6H PRN #6 tab PRN Reason: Pain Continue rOPINIRole HCL [Requip] 3 mg PO HS Mirtazapine 45 mg PO HS Gabapentin [Neurontin] 600 mg PO HS Gabapentin [Neurontin] 300 mg PO BID@0800,1200 Sennosides [Senokot] 17.2 mg PO HS PRN PRN Reason: Constipation carvediloL [Coreg] 12.5 mg PO BID Ondansetron Odt [Zofran ODT] 4 mg PO Q8HR PRN PRN Reason: Nausea And Vomiting LORazepam [Ativan] 1 mg PO Q8H PRN PRN Reason: Anxiety Citalopram Hydrobromide [CeleXA] 40 mg PO HS Levothyroxine Sodium [Synthroid] 75 mcg PO DAILY Acetaminophen Tab [Tylenol] 650 mg PO Q6HR PRN tab PRN Reason: Mild Pain Or Fever > 100.5 Discontinued hydroCHLOROthiazide [Hydrodiuril] 25 mg PO BID PRN PRN Reason: Edema Discharge Medication List Gabapentin [Neurontin] 300 mg PO BID@0800,1200 02/25/20 [History] Gabapentin [Neurontin] 600 mg PO HS 02/25/20 [History] Mirtazapine 45 mg PO HS 02/25/20 [History] rOPINIRole HCL [Requip] 3 mg PO HS 02/25/20 [History] Levothyroxine Sodium [Synthroid] 75 mcg PO DAILY 09/10/21 [History] LORazepam [Ativan] 1 mg PO Q8H PRN 08/10/24 [History] Ondansetron Odt [Zofran ODT] 4 mg PO Q8HR PRN 08/10/24 [History] Sennosides [Senokot] 17.2 mg PO HS PRN 08/10/24 [History] carvediloL [Coreg] 12.5 mg PO BID 08/10/24 [History] Acetaminophen Tab [Tylenol] 650 mg PO Q6HR PRN tab 08/12/24 [Rx] Citalopram Hydrobromide [CeleXA] 40 mg PO HS 03/14/25 [History] traMADol HCl [Ultram] 50 mg PO Q6H PRN #6 tab 03/15/25 [Rx] Follow up Appointment(s)/Referral(s): Diego Hernandez MD [Medical Doctor] - As Needed Nahum Zheng [STAFF PHYSICIAN] - 1 Week Activity/Diet/Wound Care/Special Instructions: May shower 03/17 and remove dressing after showering. No need to replace dressing after that. Discharge Disposition: HOME SELF-CARE
[2025-03-16 15:07] LABS: HGB 6.0 g/dL (12.0-15.0); Platelet Count 23 X 10*3/uL (140-440)
[2025-03-16 15:08] LABS: Basophils # (M) 0 X 10*3/uL (0.00-0.10); Eosinophils # (M) 0 X 10*3/uL (0.04-0.35); Lymphocytes # (M) 0.86 X 10*3/uL (0.90-5.00); Monocytes # (M) 0.86 X 10*3/uL (0.20-1.00); Neutrophils # (M) 12.65 X 10*3/uL (1.80-7.70); Neutrophils % (M) 88 %
[2025-03-16 15:31] VITALS: BP 153/67; PULSE 67; TEMP 97.7
--- NOTE | 2025-03-16 20:39 | P.CONS ---
History of Present Illness - Reason for Consult Consult date: 03/16/25 CML, chemo Requesting physician: Diego Hernandez - Chief Complaint port placement - History of Present Illness Patient is a 6 yr old female with history of CMML, who follows with Dr. Zheng. Due to progressing cytopenias, pt underwent bone marrow on 02/04/25. This showed increased marrow cellularity, of 60-65%, with involvement with myeloid neoplasm most consistent with CMML, with absolute monocytosis, as well as increased blast percentage of 11%. Cytogenetics showed 20 q deletion. AML fish was negative. She was thus recoemmnded to start treatment with Venclexta and Vidaza, starting treatment on 03/14/25. Due to poor peripheral access, pt requested port placement. She was referred to Dr. Hernandez. Patient was admitted due to noted hypotension during the procedure. Prior to procedure, pt given 1 dose plts, as plts were 11,000. Today plts improved to 23,000. Hgb 6.0, 1 unit PRBCs ordered At todays visit, pt reporting feeling at baseline, no acute complaints. Denies episodes of acute bleeding Review of Systems 10 point ROS is negative except as stated in the HPI Past Medical History Past Medical History: Cancer, Hypertension, Osteoarthritis (OA), Pneumonia, Skin Disorder, Sleep Apnea/CPAP/BIPAP Additional Past Medical History / Comment(s): 2007-bowel obstruction, di verticulitis, eczema, hx skin cancer. Throat cancer, difficulty with swallowing since then in 2019, hx. pneumonia couple months ago, new dx. leukemia per pt.- current chemo, has had low platelets in past per pt., hasn't been using CPAP History of Any Multi-Drug Resistant Organisms: MRSA Year Discovered:: 2007 MDRO Source:: abdomen Past Surgical History: Bowel Resection, Hysterectomy, Joint Replacement, Orthopedic Surgery, Tonsillectomy Additional Past Surgical History / Comment(s): surgery for bowel obstructions/removal of adhesions, xiao oophorectomy, cervical discectomy, left hip replacement, right knee replaced, left knee arthroscopy, xiao cataracts, right port inserted & then removal Past Anesthesia/Blood Transfusion Reactions: No Reported Reaction Additional Past Anesthesia/Blood Transfusion Reaction / Comm: no hx. of transfusion reactions Past Psychological History: No Psychological Hx Reported Smoking Status: Never smoker Past Alcohol Use History: Rare Past Drug Use History: None Reported - Past Family History Mother Family Medical History: No Reported History Medications and Allergies Home Medications Medication Instructions Recorded Confirmed Type Gabapentin [Neurontin] 300 mg PO BID@0800,1200 02/25/20 03/14/25 History Gabapentin [Neurontin] 600 mg PO HS 02/25/20 03/14/25 History Mirtazapine 45 mg PO HS 02/25/20 03/14/25 History rOPINIRole HCL [Requip] 3 mg PO HS 02/25/20 03/14/25 History Levothyroxine Sodium [Synthroid] 75 mcg PO DAILY 09/10/21 03/14/25 History LORazepam [Ativan] 1 mg PO Q8H PRN 08/10/24 03/14/25 History Ondansetron Odt [Zofran ODT] 4 mg PO Q8HR PRN 08/10/24 03/14/25 History Sennosides [Senokot] 17.2 mg PO HS PRN 08/10/24 03/14/25 History carvediloL [Coreg] 12.5 mg PO BID 08/10/24 03/14/25 History Acetaminophen Tab [Tylenol] 650 mg PO Q6HR PRN tab 08/12/24 03/14/25 Rx Citalopram Hydrobromide [CeleXA] 40 mg PO HS 03/14/25 03/14/25 History traMADol HCl [Ultram] 50 mg PO Q6H PRN #6 tab 03/15/25 Rx Allergies Allergy/AdvReac Type Severity Reaction Status Date / Time No Known Allergies Allergy Verified 03/15/25 13:57 Physical Exam Vitals: Vital Signs Temp Pulse Pulse Resp BP BP BP 03/16/25 15:00 97.7 F 67 16 153/67 03/16/25 11:56 97.5 F L 65 16 145/67 03/16/25 11:44 97.5 F L 65 16 144/65 03/16/25 11:36 97.7 F 67 16 144/62 03/16/25 08:05 03/16/25 07:07 97.4 F L 62 18 124/62 03/16/25 01:22 97.7 F 70 16 143/77 Pulse Ox 03/16/25 15:00 95 03/16/25 11:56 95 03/16/25 11:44 95 03/16/25 11:36 95 03/16/25 08:05 99 03/16/25 07:07 99 03/16/25 01:22 99 Intake and Output 03/16/25 03/16/25 03/16/25 06:59 14:59 22:59 Intake Total 1660 0 310 Output Total 600 Balance 1060 0 310 Intake: Oral 1660 Blood Product 0 310 Rc Irr As1 Unit 0 310 [id number] Output: Urine 600 Other: # Voids 1 - Constitutional General appearance: no acute distress - EENT Eyes: anicteric sclerae ENT: hearing grossly normal - Respiratory Respiratory: bilateral: CTA - Cardiovascular Rhythm: regular - Neurologic Neurologic: CNII-XII intact - Psychiatric Psychiatric: A&O x's 3 Results CBC & Chem 7: 03/16/25 04:22 03/16/25 04:22 Labs: Abnormal Lab Results - Last 24 Hours (Table) 03/15/25 03/16/25 03/16/25 Range/Units 15:15 04:22 04:22 WBC 14.38 H (4.50-10.00) X 10*3/uL RBC 2.78 L (4.10-5.20) X 10*6/uL Hgb 6.0 A* (12.0-15.0) g/dL Hct 21.5 L (37.2-46.3) % MCV 77.3 L (80.0-97.0) FL MCH 21.6 L (27.0-32.0) pg MCHC 27.9 L (32.0-37.0) g/dL RDW 19.0 H (11.5-14.5) % Plt Count 23 A* (140-440) X 10*3/uL Neutrophils # (Manual) 12.65 H (1.80-7.70) X 10*3/uL Lymphocytes # (Manual) 0.86 L (0.90-5.00) X 10*3/uL Eosinophils # (Manual) 0 L (0.04-0.35) X 10*3/uL NRBC/100 WBC Diff 0.13 H (0.00-0.01) X 10*3/uL Sodium 133 L (135-145) mmol/L Carbon Dioxide 19.7 L (21.6-31.8) mmol/L Est GFR (CKD-EPI) 50 L (>=60) BUN/Creatinine Ratio 22.45 H (12.00-20.00) Ratio Glucose 167 H (70-110) mg/dL Calcium 7.7 L (8.7-10.3) mg/dL ALT 6 L (8-44) U/L Albumin 3.0 L (3.8-4.9) g/dL Globulin 3.5 H (1.6-3.3) g/dL Albumin/Globulin Ratio 0.86 L (1.60-3.17) Ratio Crossmatch See Detail Assessment and Plan (1) CMML (chronic myelomonocytic leukemia) Status: Acute Priority: High Code(s): C93.10 - CHRONIC MYELOMONOCYTIC LEUKEMIA NOT ACHIEVE REMISSION SNOMED Code(s): 264308374 Plan: CMML: -History in HPI -Recently diagnosed, started treatment with Venclexta and Vidaza on 03/14/25. -Due to poor peripheral access, pt requested port placement. She was referred to Dr. Hernandez. Patient was admitted due to noted hypotension during the procedure. Prior to procedure, pt given 1 dose plts, as plts were 11,000. Today plts improved to 23,000. Hgb 6.0, 1 unit PRBCs ordered -Will plan to resume treatment tomorrow Spoke with surgery, once PRBC infusion completed, pt is cleared for discharge from hem/onc standpoint Doctor attests: I performed a history and physical examination of this patient, developed impression and plan of care. Discussed with dictator. I agree with dictators note, documented as a scribe.
== END 2025-03-16 15:45 | disposition home or self-care (01) | DRG 823 ==
LOC: OR 13:38 → 5NMEDONC 16:13 → OR 16:13 → 5NMEDONC 16:42
PROVIDERS: ADMIT Surgery; ATTEND Surgery
PROC: 02HV33Z Insertion of Infusion Device into Superior Vena Cava, Percutaneous Approach (ICD-10-PCS; 2025-03-15)
PROC: B548ZZA Ultrasonography of Superior Vena Cava, Guidance (ICD-10-PCS; 2025-03-15)
PROC: B5181ZA Fluoroscopy of Superior Vena Cava using Low Osmolar Contrast, Guidance (ICD-10-PCS; 2025-03-15)
PROC: 30233R1 Transfusion of Nonautologous Platelets into Peripheral Vein, Percutaneous Approach (ICD-10-PCS; 2025-03-15)
PROC: 0JH60WZ Insertion of Totally Implantable Vascular Access Device into Chest Subcutaneous Tissue and Fascia, Open Approach (ICD-10-PCS; principal; 2025-03-15 15:20)
PROC: 30233N1 Transfusion of Nonautologous Red Blood Cells into Peripheral Vein, Percutaneous Approach (ICD-10-PCS; 2025-03-16)
DX: C93.10 Chronic myelomonocytic leukemia not having achieved remission (principal); D61.810 Antineoplastic chemotherapy induced pancytopenia; D69.6 Thrombocytopenia, unspecified; E03.9 Hypothyroidism, unspecified; I10 Essential (primary) hypertension; D50.9 Iron deficiency anemia, unspecified; D64.81 Anemia due to antineoplastic chemotherapy; T45.1X5A Adverse effect of antineoplastic and immunosuppressive drugs, initial encounter; G62.9 Polyneuropathy, unspecified; M19.90 Unspecified osteoarthritis, unspecified site; I95.89 Other hypotension; L30.9 Dermatitis, unspecified; Z79.890 Hormone replacement therapy; Z79.899 Other long term (current) drug therapy; Z85.828 Personal history of other malignant neoplasm of skin; Z85.89 Personal history of malignant neoplasm of other organs and systems; Z90.710 Acquired absence of both cervix and uterus; Z98.49 Cataract extraction status, unspecified eye; Z96.642 Presence of left artificial hip joint; Z96.651 Presence of right artificial knee joint; Z85.819 Personal history of malignant neoplasm of unspecified site of lip, oral cavity, and pharynx; Z87.19 Personal history of other diseases of the digestive system; Z87.01 Personal history of pneumonia (recurrent); Z86.14 Personal history of Methicillin resistant Staphylococcus aureus infection; Z85.01 Personal history of malignant neoplasm of esophagus
CPT/HCPCS: 71045; 77001; 80053; 85025; 85027; 86850; 86900; 86901; 86920; 94760

== ENCOUNTER 2025-03-23 20:20 | Emergency (ER) | payer MEDICARE, BC ==
--- NOTE | 2025-03-23 20:29 | ED ---
GI Bleed HPI <Cr Arias - Last Filed: 03/24/25 07:08> - General Source: patient, RN notes reviewed, old records reviewed Mode of arrival: ambulatory Limitations: no limitations - History of Present Illness MD complaint: blood streaked emesis, other (Spitting up blood) -: days(s) (2) Radiation: none Consistency: constant, other (History of low platelets) Improves with: none Worsens with: none Context: other (History of low platelets cancer plus chemotherapy) Associated Symptoms: denies other symptoms Treatments Prior to Arrival: none <Seth Tillman - Last Filed: 03/28/25 18:04> - General Chief complaint: Recheck/Abnormal Lab/Rx Stated complaint: Spitting up blood Time Seen by Provider: 03/23/25 20:28 - History of Present Illness Initial comments: This is a 79-year-old female for persistent nosebleed back of throat bleeding pitting up blood which has been going on for 2 to 3 days. Patient did receive chemotherapy today for leukemia has known low platelets known low hemoglobin, patient states the bleeding has been persistent really throughout this afternoon today. Patient keeps spitting up blood (Seth Tillman) - Related Data Home Medications Medication Instructions Recorded Confirmed Gabapentin [Neurontin] 300 mg PO BID@0800,1200 02/25/20 03/14/25 Gabapentin [Neurontin] 600 mg PO HS 02/25/20 03/14/25 Mirtazapine 45 mg PO HS 02/25/20 03/14/25 rOPINIRole HCL [Requip] 3 mg PO HS 02/25/20 03/14/25 Levothyroxine Sodium [Synthroid] 75 mcg PO DAILY 09/10/21 03/14/25 LORazepam [Ativan] 1 mg PO Q8H PRN 08/10/24 03/14/25 Ondansetron Odt [Zofran ODT] 4 mg PO Q8HR PRN 08/10/24 03/14/25 Sennosides [Senokot] 17.2 mg PO HS PRN 08/10/24 03/14/25 carvediloL [Coreg] 12.5 mg PO BID 08/10/24 03/14/25 Citalopram Hydrobromide [CeleXA] 40 mg PO HS 03/14/25 03/14/25 Previous Rx's Medication Instructions Recorded Acetaminophen Tab [Tylenol] 650 mg PO Q6HR PRN tab 08/12/24 traMADol HCl [Ultram] 50 mg PO Q6H PRN #6 tab 03/15/25 Allergies Allergy/AdvReac Type Severity Reaction Status Date / Time No Known Allergies Allergy Verified 03/23/25 20:25 Review of Systems ROS Other: All systems not noted in ROS Statement are negative. <Cr Arias - Last Filed: 03/24/25 07:08> ROS Other: All systems not noted in ROS Statement are negative. <Seth Tillman - Last Filed: 03/28/25 18:04> ROS Statement: Those systems with pertinent positive or pertinent negative responses have been documented in the HPI. Past Medical History Past Medical History: Cancer, Hypertension, Osteoarthritis (OA), Pneumonia, Skin Disorder, Sleep Apnea/CPAP/BIPAP Additional Past Medical History / Comment(s): 2007-bowel obstruction, diverticulitis, eczema, hx skin cancer. Throat cancer, difficulty with swallowing since then in 2019, hx. pneumonia couple months ago, new dx. leukemia per pt.-current chemo, has had low platelets in past per pt., hasn't been using CPAP History of Any Multi-Drug Resistant Organisms: MRSA Date of last positivie culture/infection: 2007 MDRO Source:: abdomen Past Surgical History: Bowel Resection, Hysterectomy, Joint Replacement, Orthopedic Surgery, Tonsillectomy Additional Past Surgical History / Comment(s): surgery for bowel obstructions/removal of adhesions, xiao oophorectomy, cervical discectomy, left hip replacement, right knee replaced, left knee arthroscopy, xiao cataracts, right port inserted & then removal Past Anesthesia/Blood Transfusion Reactions: No Reported Reaction Additional Past Anesthesia/Blood Transfusion Reaction / Comment(s): no hx. of transfusion reactions Past Psychological History: No Psychological Hx Reported Smoking Status: Never smoker Past Alcohol Use History: Rare Past Drug Use History: None Reported - Past Family History Mother Family Medical History: No Reported History <eSth Tillman - Last Filed: 03/28/25 18:04> General Exam Limitations: no limitations General appearance: alert, in no apparent distress Head exam: Present: atraumatic, normocephalic, normal inspection Eye exam: Present: normal appearance, PERRL, EOMI. Absent: scleral icterus, conjunctival injection, periorbital swelling ENT exam: Present: normal exam, mucous membranes moist Neck exam: Present: normal inspection. Absent: tenderness, meningismus, lymphadenopathy Respiratory exam: Present: normal lung sounds bilaterally. Absent: respiratory distress, wheezes, rales, rhonchi, stridor Cardiovascular Exam: Present: regular rate, normal rhythm, normal heart sounds. Absent: systolic murmur, diastolic murmur, rubs, gallop, clicks GI/Abdominal exam: Present: soft, normal bowel sounds. Absent: distended, tenderness, guarding, rebound, rigid Extremities exam: Present: normal inspection, full ROM, normal capillary refill. Absent: tenderness, pedal edema, joint swelling, calf tenderness Back exam: Present: normal inspection Neurological exam: Present: alert, oriented X3, CN II-XII intact Psychiatric exam: Present: normal affect, normal mood Skin exam: Present: warm, dry, intact, normal color. Absent: rash <Seth Tillman - Last Filed: 03/28/25 18:04> Course <Cr Arias - Last Filed: 03/24/25 07:08> <Seth Tillman - Last Filed: 03/28/25 18:04> Vital Signs 03/23/25 03/23/25 03/23/25 20:22 21:15 21:18 Temperature 99.6 F 98.4 F Pulse Rate 68 80 Respiratory 18 16 18 Rate Blood Pressure 179/78 186/79 O2 Sat by Pulse 96 97 Oximetry 03/24/25 03/24/25 03/24/25 00:25 00:30 00:56 Temperature 98.1 F 98.3 F Pulse Rate 78 76 Respiratory 14 16 Rate Blood Pressure 156/74 175/81 O2 Sat by Pulse 90 L 96 96 Oximetry 03/24/25 03/24/25 03/24/25 01:16 03:38 04:17 Temperature 97.7 F 97.8 F 98.4 F Pulse Rate 94 73 78 Respiratory 16 16 16 Rate Blood Pressure 169/70 154/60 142/63 O2 Sat by Pulse 97 95 92 L Oximetry 03/24/25 03/24/25 03/24/25 04:27 04:47 06:43 Temperature 98.5 F 98.1 F 97.9 F Pulse Rate 76 94 76 Respiratory 16 18 16 Rate Blood Pressure 137/58 145/72 162/74 O2 Sat by Pulse 94 L 95 97 Oximetry - Reevaluation(s) Reevaluation #1: 03/23/25 22:45 Medical records reviewed (Seth Tillman) Reevaluation #2: 03/23/25 22:45 Patient still spitting up blood here in the ER bright red blood (Seth Tillman) Reevaluation #3: 03/23/25 22:45 Patient informed of results questions answered (Seth Tillman) Reevaluation #4: Was pt. sent in by a medical professional or institution ([facility], [facility], urgent care, hospital, or correction...) When possible be specific @ -no Did you speak to anyone other than the patient for history (EMS, parent, family, police, friend...)? What history was obtained from this source @ -no Did you review nursing and triage notes (agree or disagree)? Why? @ -agree Are old charts reviewed (outside hosp., previous admission, EMS record, old EKG, old radiological studies, urgent care reports/EKG's, correction records)? Report findings @ -yes Differential Diagnosis (chest pain, altered mental status, abdominal pain women, abdominal pain men, vaginal bleeding, weakness, fever, dyspnea, syncope, heada mike, dizziness, GI bleed, back pain, seizure, CVA, palpatations, mental health, musculoskeletal)? @ -prior EKG interpreted by me (3pts min.). @ -yes X-rays interpreted by me (1pt min.). @ -yes negative for acute disease CT interpreted by me (1pt min.). @ -no U/S interpreted by me (1pt. min.). @ -no What testing was considered but not performed or refused? (CT, X-rays, U/S, labs)? Why? @ -none What meds were considered but not given or refused? Why? @ -none Did you discuss the management of the patient with other professionals (professionals i.e. [facility], [facility], lab, RT, psych nurse, director social, software engineering manager, teacher, legal officer, case management manager)? Give summary @ -no Was smoking cessation discussed for >3mins.? @ -no Was critical care preformed (if so, how long)? @ -yes31 Were there social determinants of health that impacted care today? How? (Homelessness, low income, unemployed, alcoholism, drug addiction, transportation, low edu. Level, literacy, decrease access to med. care, prison, rehab)? @ -none Was there de-escalation of care discussed even if they declined (Discuss DNR or withdrawal of care, Hospice)? DNR status @ -no What co-morbidities impacted this encounter? (DM, HTN, Smoking, COPD, CAD, Cancer, CVA, ARF, Chemo, Hep., AIDS, mental health diagnosis, sleep apnea, m orbid obesity)? @ -none Was patient admitted / discharged? Hospital course, mention meds given and route, prescriptions, significant lab abnormalities, going to OR and other pertinent info. @ - 79 female to ER for low platelets with bleeding from the nose, bleeding well-controlled patient given platelets here in the ER and can be discharged home Discharge Undiagnosed new problem with uncertain prognosis? @ -no Drug Therapy requiring intensive monitoring for toxicity (Heparin, Nitro, Insulin, Cardizem)? @ -no Were any procedures done? @ -no Diagnosis/symptom? @ -Pancytopenia with nosebleed Acute, or Chronic, or Acute on Chronic? @ -Acute Uncomplicated (without systemic symptoms) or Complicated (systemic symptoms)? @ -Complicated Side effects of treatment? @ -no Exacerbation, Progression, or Severe Exacerbation? @ -exacerbation Poses a threat to life or bodily function? How? (Chest pain, [place], [place], pneumonia, PE, COPD, DKA, ARF, appy, cholecystitis, CVA, Diverticulitis, Homicidal, Suicidal, threat to staff... and all critical care pts) @ -yes nosebleed low platelets (Seth Tillman) Reevaluation #5: 03/23/25 23:31 I discussed the case with , who requests that patient be transfused and then may possibly go home if the bleeding is controlled otherwise can be admitted. (Cr Arias) Medical Decision Making - Lab Data Result diagrams: 03/23/25 22:22 03/23/25 22:22 <Cr Arias - Last Filed: 03/24/25 07:08> - Lab Data Result diagrams: 03/23/25 22:22 03/23/25 22:22 <Seth Tillman - Last Filed: 03/28/25 18:04> - Medical Decision Making 79 female to ER for low platelets with bleeding from the nose, bleeding well- controlled patient given platelets here in the ER and can be discharged home (Seth Tillman) - Lab Data Lab Results 03/23/25 03/23/25 03/23/25 Range/Units 22:19 22:22 22:22 WBC 9.81 (4.50-10.00) 10*3/uL RBC 3.14 L (4.10-5.20) 10*6/uL Hgb 7.0 L (12.0-15.0) g/dL Hct 23.5 L (37.2-46.3) % MCV 74.8 L (80.0-97.0) fL MCH 22.3 L (27.0-32.0) pg MCHC 29.8 L (32.0-37.0) g/dL Plt Count 5 L* D (140-440) 10*3/uL Immature Gran % (Auto) 1.0 % Neutrophils % Not Reportable Neutrophils % (Manual) 49 % Lymphocytes % Not Reportable Lymphocytes % (Manual) 18 % Monocytes % Not Reportable Monocytes % (Manual) 34 % Eosinophils % Not Reportable Basophils % Not Reportable Immature Gran # 0.10 H (0.00-0.04) 10*3/uL Neutrophils # Not Reportable Neutrophils # (Manual) 4.81 (1.3-7.7) k/uL Lymphocytes # Not Reportable Lymphocytes # (Manual) 1.77 (1.0-4.8) k/uL Monocytes # Not Reportable Monocytes # (Manual) 3.34 H (0-1.0) k/uL Eosinophils # Not Reportable Basophils # Not Reportable Nucleated RBCs 4 H (0-0) /100 WBC Manual Slide Review Performed Polychromasia Present Anisocytosis (manual) Present PT 10.6 (10.0-12.5) sec INR 0.9 (<1.2) APTT 23.2 (22.0-30.0) sec Sodium (137-145) mmol/L Potassium (3.5-5.1) mmol/L Chloride (98-107) mmol/L Carbon Dioxide (22-30) mmol/L Anion Gap mmol/L BUN (7-17) mg/dL Creatinine (0.52-1.04) mg/dL Est GFR (CKD-EPI)AfAm (>60 ml/min/1.73 sqM) Est GFR (CKD-EPI)NonAf (>60 ml/min/1.73 sqM) Glucose (74-99) mg/dL Calcium (8.4-10.2) mg/dL Phosphorus (2.5-4.5) mg/dL Magnesium (1.6-2.3) mg/dL Total Bilirubin (0.2-1.3) mg/dL AST (14-36) U/L ALT (4-34) U/L Alkaline Phosphatase (38-126) U/L Total Protein (6.3-8.2) g/dL Albumin (3.5-5.0) g/dL Blood Type O Positive Blood Type Recheck O Pos Bld Type Recheck Status No Antibody Screen NEGATIVE Crossmatch See Detail Transfuse Platelets Spec Expiration Date 03/26/2025 - 231803/23/25 03/23/25 Range/Units 22:22 23:29 WBC (4.50-10.00) 10*3/uL RBC (4.10-5.20) 10*6/uL Hgb (12.0-15.0) g/dL Hct (37.2-46.3) % MCV (80.0-97.0) fL MCH (27.0-32.0) pg MCHC (32.0-37.0) g/dL Plt Count (140-440) 10*3/uL Immature Gran % (Auto) % Neutrophils % Neutrophils % (Manual) % Lymphocytes % Lymphocytes % (Manual) % Monocytes % Monocytes % (Manual) % Eosinophils % Basophils % Immature Gran # (0.00-0.04) 10*3/uL Neutrophils # Neutrophils # (Manual) (1.3-7.7) k/uL Lymphocytes # Lymphocytes # (Manual) (1.0-4.8) k/uL Monocytes # Monocytes # (Manual) (0-1.0) k/uL Eosinophils # Basophils # Nucleated RBCs (0-0) /100 WBC Manual Slide Review Polychromasia Anisocytosis (manual) PT (10.0-12.5) sec INR (<1.2) APTT (22.0-30.0) sec Sodium 130 L (137-145) mmol/L Potassium 4.4 (3.5-5.1) mmol/L Chloride 100 (98-107) mmol/L Carbon Dioxide 22 (22-30) mmol/L Anion Gap 8 mmol/L BUN 19 H (7-17) mg/dL Creatinine 0.93 (0.52-1.04) mg/dL Est GFR (CKD-EPI)AfAm 67 (>60 ml/min/1.73 sqM) Est GFR (CKD-EPI)NonAf 58 (>60 ml/min/1.73 sqM) Glucose 97 (74-99) mg/dL Calcium 8.4 (8.4-10.2) mg/dL Phosphorus 3.9 (2.5-4.5) mg/dL Magnesium 1.3 L (1.6-2.3) mg/dL Total Bilirubin 0.7 (0.2-1.3) mg/dL AST 24 (14-36) U/L ALT 10 (4-34) U/L Alkaline Phosphatase 61 (38-126) U/L Total Protein 6.8 (6.3-8.2) g/dL Albumin 3.1 L (3.5-5.0) g/dL Blood Type Blood Type Recheck Bld Type Recheck Status Antibody Screen Crossmatch Transfuse Platelets 03/24/2025 Spec Expiration Date Critical Care Time Critical Care Time: Yes Total Critical Care Time: 31 <Seth Tillman - Last Filed: 03/28/25 18:04> Disposition Is patient prescribed a controlled substance at d/c from ED?: No <Cr Arias - Last Filed: 03/24/25 07:08> Is patient prescribed a controlled substance at d/c from ED?: No Time of Disposition: 07:00 <Seth Tillman - Last Filed: 03/28/25 18:04> Clinical Impression: CMML (chronic myelomonocytic leukemia), Anemia, Thrombocytopenia, Nosebleed Disposition: HOME SELF-CARE Condition: Serious Instructions (If sedation given, give patient instructions): Immune Thrombocytopenia (ED), Anemia (ED) Referrals: Jeferson Gonzalez MD [Primary Care Provider] - 1-2 days Nahum Zheng [STAFF PHYSICIAN] - 1-2 days
--- NOTE | 2025-03-23 20:54 | XR ---
EXAMINATION TYPE: XR chest 2V DATE OF EXAM: 03/23/2025 8:49 PM COMPARISON: Chest radiographs from 03/15/2025 TECHNIQUE: XR chest 2V Frontal and lateral views of the chest. CLINICAL INDICATION:Female, 79 years old with history of hemoptysis; FINDINGS: Lungs/Pleura: No pneumothorax. Right apical pleural thickening. Blunting of both costophrenic angles. Hyperinflation. Diffuse interstitial opacities persist. Heart/mediastinum: Cardiomediastinal silhouette is enlarged and stable. Atherosclerotic calcificatio ns are seen in the aorta. Musculoskeletal: No acute osseous pathology. Other findings: None Lines/Tubes: Right chest IJ approach Mediport catheter with distal tip terminating in the mid SVC. IMPRESSION: COPD with cardiomegaly, small bilateral pleural effusions, and diffuse interstitial opacities. Correl ate for CHF with pulmonary vascular congestion. [facility], , 03/23/2025 8:52 PM
[2025-03-23 22:33] LABS: HCT 23.5 % (37.2-46.3); HGB 7.0 g/dL (12.0-15.0); MCH 22.3 pg (27.0-32.0); MCHC 29.8 g/dL (32.0-37.0); MCV 74.8 fL (80.0-97.0); RBC 3.14 10*6/uL (4.10-5.20); RDW 21.0 % (11.5-14.5)
[2025-03-23 22:56] LABS: INR 0.9 (<1.2); Partial Thromboplastin Time 23.2 sec (22.0-30.0); Prothrombin Time 10.6 sec (10.0-12.5)
[2025-03-23 23:02] LABS: Platelet Count 5 10*3/uL (140-440)
[2025-03-23 23:12] LABS: ALT 10 U/L (4-34); AST 24 U/L (14-36); African American GFR (CKD) 67 (>60 ml/min/1.73 sqM); Albumin 3.1 g/dL (3.5-5.0); Alkaline Phosphatase 61 U/L (38-126); Anion Gap 8 mmol/L; Blood Urea Nitrogen 19 mg/dL (7-17); Calcium 8.4 mg/dL (8.4-10.2); Carbon Dioxide 22 mmol/L (22-30); Chloride 100 mmol/L (98-107); Glucose 97 mg/dL (74-99); Magnesium 1.3 mg/dL (1.6-2.3); Non-African American GFR(CKD) 58 (>60 ml/min/1.73 sqM); Potassium 4.4 mmol/L (3.5-5.1); Sodium 130 mmol/L (137-145); Total Protein 6.8 g/dL (6.3-8.2)
[2025-03-23] MEDS: LACTATED RINGERS 1,000 ML IV SCH (23:34)
[2025-03-23] MEDS: TRANEXAMIC 1,000 MG/100ML-NACL 1,000 MG in SALINE 1 100ML.BAG IVPB ONE (23:57)
[2025-03-24 01:35] LABS: Neutrophils % (M) 49 %; Total Cells Counted 200
[2025-03-24 01:36] LABS: Lymphocytes # (M) 1.77 k/uL (1.0-4.8); Monocytes # (M) 3.34 k/uL (0-1.0); Neutrophils # (M) 4.81 k/uL (1.3-7.7); WBC 9.81 10*3/uL (4.50-10.00)
[2025-03-24 01:41] LABS: Anisocytosis (M) Present; Polychromasia Present
[2025-03-24 06:45] VITALS: BP 162/74; PULSE 76; RESP 16; TEMP 97.9
== END 2025-03-24 07:15 | disposition home or self-care (01) ==
LOC: EC 20:20
DX: C93.10 Chronic myelomonocytic leukemia not having achieved remission (principal); D64.9 Anemia, unspecified; D69.6 Thrombocytopenia, unspecified; R04.0 Epistaxis
CPT/HCPCS: 36415; 86900; 86901; 80053; 83735; 84100; 85025; 85610; 85730; 86850; 86920; 71046; 99285; 96365; 36430; P9040; P9073

== ENCOUNTER → 2025-03-31 | Outpatient (CLI) | payer MEDICARE, BC ==
[2025-03-31 19:14] LABS: Blood Urea Nitrogen 17.2 mg/dL (9.0-27.0)
== END | disposition home or self-care (01) ==
LOC: LABWHC1 13:18
PROVIDERS: ATTEND Internal Medicine Hematology & Oncology
DX: I10 Essential (primary) hypertension (principal); C13.9 Malignant neoplasm of hypopharynx, unspecified; R13.10 Dysphagia, unspecified
CPT/HCPCS: 36415; 82565; 84520